=== PATIENT | female | born 1965 | race Caucasian/White ===

== ENCOUNTER → 2016-09-11 | Outpatient (CLI) | payer OTHER ==
[~2016-09-11] MED LIST: ALBU18002 INH; ALBU1AER9 INH; AMIT75TA2 PO; AMOX500C3 PO; CHOL100027 PO; CYM30 PO; HYZ/10015 PO; IPRASOL4 INH; LEVO125T4 PO; LEVO200T PO; LOSA100T65 PO; LPT/20 PO; METO-157 PO; METO50TA16 PO; NTRGSL/4 UT; OXYC-57 PO; OXYC7.5T78 PO; PRZ/40 PO; SPR25 PO; SYMIN INH; SYMIN160 INH; TOPI100T20 PO; TPM100 PO; VARE1PAK10 PO; ZNTT/150 PO
[2016-09-12 05:22] LABS: BENZODIAZEPINE, URINE NEG (NEG); COCAINE,URINE NEG (NEG); PHENCYCLIDINE, URINE NEG (NEG)
[2016-09-13 00:37] LABS: URCREATININE 108.4 MG/DL (>/= 20)
== END | disposition home or self-care (01) ==
LOC: EDBD → C.LAB 23:30
PROVIDERS: ATTEND Nurse Practitioner Family
DX: Z79.899 Other long term (current) drug therapy (principal)

== ENCOUNTER → 2016-09-26 | Outpatient (CLI) | payer OTHER | END | disposition home or self-care (01) | LOC: EDBD → C.PATHSPEC 14:14 | PROVIDERS: ATTEND Dermatology | DX: D23.5 Other benign neoplasm of skin of trunk (principal) ==

== ENCOUNTER 2016-10-18 19:41 | Emergency (ER) | payer OTHER ==
[~2016-10-18] VITALS: Ht 165.1 cm; Wt 110.0 kg
[~2016-10-18 19:41] MED LIST changes: -ALBU18002 INH; -AMIT75TA2 PO; -AMOX500C3 PO; -CHOL100027 PO; -IPRASOL4 INH; -LEVO125T4 PO; -LOSA100T65 PO; -LPT/20 PO; -METO-157 PO; -METO50TA16 PO; -NTRGSL/4 UT; -OXYC-57 PO; -PRZ/40 PO; -SPR25 PO; -SYMIN160 INH; -TPM100 PO; -VARE1PAK10 PO; -ZNTT/150 PO
[2016-10-18 19:44] VITALS: TEMP 37; Ht 165.1 cm; Wt 110.0 kg
[2016-10-18] MEDS ORDERED: ASPIRIN 81 MG CHEW PO STA (19:56)
[2016-10-18] MEDS ORDERED: ONDANSETRON INJ 2 MG/ML 2 ML VIAL IV STA (19:56)
[2016-10-18] MEDS ORDERED: MoRPHine SULFATE 4 MG/ML 1 ML CARP\\VIAL IV STA ×2 (19:56→21:15)
--- NOTE | 2016-10-18 20:03 | EMERGENCY ROOM VISIT NOTE ---
History Report prepared by Karly: Tal Gonzalez Under the Supervision of: Dr. Sim Medina M.D. First contact with patient: 19:51 Chief Complaint: CHEST PAIN Stated Complaint: CHEST PAINS DOWN L ARM UP NECK Nursing Triage Summary: left sided cp since 1500 History of Present Illness The patient is a 51 year old female who presents to the Emergency Room with complaints of worsening chest pain since 1500 today. The patient was at a viewing in [place] when the pain started. The pain is sharp in nature and is located in the middle of her chest. She notices the pain especially when she is breathing. The patient also notes radiation to the left arm and neck. She has never had pain like this before. The patient also complains of shortness of breath. She denies any abdominal pain, black or bloody stools, or pain or swelling of the legs. The patient denies any recent trauma or injuries. She has a history of breast cancer and is in remission. The patient denies any history of blood clots and is not on any blood thinners or aspirin. She does not have a personal history of heart disease but does have a family history. The patient is a smoker. Source of History: patient, spouse/significant other Onset: 1500 today Position: chest Quality: sharp Timing: worsening Modifying Factors (Worsening): breathing Associated Symptoms: + SOB, No abdominal pain, No hematochezia, No melena Review of Systems See HPI for pertinent positives & negatives. A total of 10 systems reviewed and were otherwise negative. Past Medical & Surgical Medical Problems: (1) ANXIETY STATE NOS (2) BIPOLAR DISORDER, UNSPECIFIED (3) section (4) Cholecystectomy (5) CHRONIC OBSTRUCTIVE ASTHMA, W (ACUTE) EXACERBATION (6) DIAB AIDAN WO COMPL, TYPE II OR UNSPEC TYPE, NOT UNCNTRLD (7) DIVERTICULITIS COLON (W/O MENT OF HEMORRHAGE) (8) ESOPHAGEAL REFLUX (9) FAM HX-DIABETES MELLITUS (10) FAM HX-ISCHEM HEART DIS (11) FAM HX-OTH MALIG NEOPLASM (12) FAMILY HISTORY OF OTHER CARDIOVASCULAR DISEASES (13) FAMILY HX-BREAST MALIG (14) FAMILY HX-GI MALIGNANCY (15) FAMILY HX-MALIGNANCY NOS (16) HISTORY OF TOBACCO USE (17) HX OF BREAST MALIGNANCY (18) HYPERTENSION NOS (19) HYPOTHYROIDISM NOS (20) Hysterectomy (21) Thyroid nodule Old medical records were reviewed. Nurse's notes were reviewed and I agree with. Family History Cancer Heart disease Hypertension Social History Smoking Status: Current Every Day Smoker Alcohol Use: none Drug Use: none Marital Status: Occupation Status: employed Current/Historical Medications Scheduled Amitriptyline Hcl (Elavil), 75 MG PO HS Atorvastatin (Atorvastatin Calcium), 20 MG PO HS Cholecalciferol (Vitamin D 1000 Unit), 4,000 INTER.UNIT PO HS Duloxetine HCl (Duloxetine HCl), 30 MG PO HS Hctz/Losartan (Hyzaar 25MG/100MG), 1 TAB PO HS Levothyroxine Sodium (Synthroid), 200 MCG PO QAM Metoprolol Tartrate (Lopressor) (Lopressor), 50 MG PO BID Topiramate (Topamax), 100 MG PO BID Scheduled PRN Albuterol Sulfate (Proair Respiclick), 2 PUFFS INH Q4 PRN for SOB/Wheezing Budesonide/Formoterol Fumarate (Symbicort 160-4.5 Mcg/Act), 2 PUFFS INH BID PRN for Shortness of Breath Allergies Coded Allergies: Tamoxifen (Unverified Allergy, Severe, "CAN'T MOVE", 10/18/16) Ceftriaxone (Verified Allergy, Intermediate, REDNESS, ITCHING, 10/18/16) IV ROCEPHIN IG ADMINISTERED VIA IV PUMP ORDERED AT 190. AT APPROX 1930 PT RANG SMITH WITH COMPLAINT OF REDNESS AND ITCHINESS. IV ROCEPHIN STOPPED IMMEDIATELY (PT RECEIVED 75ML OF 100ML BAG). ORDER FOR BENADRYL 50MG IV RECEIVED AND ADMINISTERED. PT IV NSS INFUSING AT 999ML/HR VIA PUMP. AT 193 PT WITH NOTED DECREASED REDNESS TO SKIN AND VERBALIZED DECREASED ITCHINESS. PT ON CARDIAC AND PULSE OX MONITORING. PT PULSE OX READING MAINTAINED 97% AND PT HAD NO COMPLAINT OF SOB, THROAT SWELLING, OR DIFFICULTY BREATHING. Cephalexin (Verified Allergy, Intermediate, SHORTNESS OF BREATH, 10/18/16) Sulfamethoxazole w/Trimethoprim (Verified Allergy, Intermediate, SHORTNESS OF BREATH, 10/18/16) Vancomycin (Verified Allergy, Intermediate, ITCHING ALL OVER, RASH, PARESTHESIAS, 10/18/16) Tramadol (Verified Allergy, Mild, ITCHY, 10/18/16) Codeine (Verified Adverse Reaction, Intermediate, GI BLEED, 10/18/16) Physical Exam Vital Signs Date Time Temp Pulse Resp B/P Pulse Ox O2 Delivery O2 Flow Rate FiO2 10/18/16 23:14 67 16 129/89 99 10/18/16 21:33 70 18 133/92 99 Room Air 10/18/16 20:15 78 10/18/16 19:44 37.0 102 18 182/112 94 Room Air Physical Exam General: Mildly uncomfortable appearing middle aged female in no acute distress. HEENT: Normal cephalic atraumatic. Pupils are equal round and reactive to light. Extraocular movements are intact. Oropharynx is pink with moist mucous membranes. No swelling of the mouth lips or tongue. Neck: Supple with a midline trachea. No meningeal signs or stiffness, no JVD or bruits. No Stridor. Chest: Clear to auscultation bilaterally. No wheezes or rhonchi. No increased work of breathing. Reproducibly Tender to palpation anterior chest. Heart: regular rate and rhythm. Abdomen: Soft nontender, nondistended without rebound guarding or rigidity. Extremities: No cyanosis clubbing. No calf tenderness or assymetry. Trace pedal edema. Spine/Back. Non tender to palpation. No CVA tenderness Skin: Good turgor without rashes. Neurologic exam: Cranial nerves two through 12 are intact. Motor and sensation are intact and symmetrical throughout. Medical Decision & Procedures ER Provider Diagnostic Interpretation: X-ray results as stated below per interpretation by me and the radiologist: CHEST ONE VIEW PORTABLE CLINICAL HISTORY: Chest and left arm pain. COMPARISON STUDY: Chest radiograph December 13, 2015. FINDINGS: A left subclavian [id number] is in place. There is no pneumothorax or pleural effusion. Cardiomediastinal silhouette is normal. There is no evidence of pulmonary edema. Appearance of the chest is unchanged. IMPRESSION: No acute cardiopulmonary findings. Electronically signed by: Troy Medrano M.D. 10/18/2016 8:26 PM Dictated Date/Time: 10/18/2016 8:26 PM Laboratory Results 10/18/16 20:10 Red Blood Count 4.79, Mean Corpuscular Volume 88.5, Mean Corpuscular Hemoglobin 31.5, Mean Corpuscular Hemoglobin Concent 35.6, Mean Platelet Volume 9.6, Neutrophils (%) (Auto) 59.9, Lymphocytes (%) (Auto) 33.2, Monocytes (%) (Auto) 5.0, Eosinophils (%) (Auto) 1.4, Basophils (%) (Auto) 0.2, Neutrophils # (Auto) 6.73, Lymphocytes # (Auto) 3.72, Monocytes # (Auto) 0.56, Eosinophils # (Auto) 0.16, Basophils # (Auto) 0.02 10/18/16 20:10 Test 10/18/16 20:10 10/18/16 20:20 10/18/16 22:11 White Blood Count 11.22 K/uL (4.8-10.8) Red Blood Count 4.79 M/uL (4.2-5.4) Hemoglobin 15.1 g/dL (12.0-16.0) Hematocrit 42.4 % (37-47) Mean Corpuscular Volume 88.5 fL (80-100) Mean Corpuscular Hemoglobin 31.5 pg (25-34) Mean Corpuscular Hemoglobin Concent 35.6 g/dl (32-36) Platelet Count 268 K/uL (130-400) Mean Platelet Volume 9.6 fL (7.4-10.4) Neutrophils (%) (Auto) 59.9 % Lymphocytes (%) (Auto) 33.2 % Monocytes (%) (Auto) 5.0 % Eosinophils (%) (Auto) 1.4 % Basophils (%) (Auto) 0.2 % Neutrophils # (Auto) 6.73 K/uL (1.4-6.5) Lymphocytes # (Auto) 3.72 K/uL (1.2-3.4) Monocytes # (Auto) 0.56 K/uL (0.11-0.59) Eosinophils # (Auto) 0.16 K/uL (0-0.5) Basophils # (Auto) 0.02 K/uL (0-0.2) RDW Standard Deviation 40.3 fL (36.4-46.3) RDW Coefficient of Variation 12.6 % (11.5-14.5) Immature Granulocyte % (Auto) 0.3 % Immature Granulocyte # (Auto) 0.03 K/uL (0.00-0.02) Prothrombin Time 10.0 SECONDS (9.0-12.0) Prothromb Time International Ratio 0.9 (0.9-1.1) Activated Partial Thromboplast Time 33.4 SECONDS (21.0-31.0) Partial Thromboplastin Ratio 1.3 Anion Gap 9.0 mmol/L (3-11) Est Creatinine Clear Calc Drug Dose 111.0 ml/min Estimated GFR () 108.7 Estimated GFR (Non- 93.8 BUN/Creatinine Ratio 14.6 (10-20) Calcium Level 8.7 mg/dl (8.5-10.1) Total Bilirubin 0.3 mg/dl (0.2-1) Direct Bilirubin < 0.1 mg/dl (0-0.2) Aspartate Amino Transf (AST/SGOT) 24 U/L (15-37) Alanine Aminotransferase (ALT/SGPT) 85 U/L (12-78) Alkaline Phosphatase 114 U/L (45-117) Total Creatine Kinase 68 U/L (26-192) Creatine Kinase MB 0.8 ng/ml (0.5-3.6) Creatine Kinase MB Ratio 1.2 (0-3.0) Total Protein 7.2 gm/dl (6.4-8.2) Albumin 3.7 gm/dl (3.4-5.0) Lipase 157 U/L (73-393) Bedside D-Dimer 291 ng/mlFEU (0-450) DC-Ifw-A-Type Natriuretic Peptide 45 pg/ml (0-900) Bedside Troponin I 0.000 ng/ml (0-0.045) Laboratory studies as stated above per my review. Medications Administered Medications (Trade) Dose Ordered Sig/Sunday Route Start Time Stop Time Status Last Admin Dose Admin Morphine Sulfate (MoRPHine SULFATE INJ) 4 mg NOW STAT IV 10/18/16 19:56 10/18/16 19:58 DC 10/18/16 20:17 4 MG Ondansetron HCl (Zofran Inj) 4 mg NOW STAT IV 10/18/16 19:56 10/18/16 19:58 DC 10/18/16 20:17 4 MG Aspirin (Aspirin Chew) 324 mg NOW STAT PO 10/18/16 19:56 10/18/16 19:58 DC 10/18/16 20:17 324 MG Morphine Sulfate (MoRPHine SULFATE INJ) 4 mg NOW STAT IV 10/18/16 21:15 10/18/16 21:16 DC 10/18/16 21:29 4 MG ECG Indication: chest pain Rate (beats per minute): 85 Rhythm: normal sinus Findings: no acute ischemic change, no ectopy Comparison ECG Date: 2015 Change: no significant change ED Course 1950: Past medical records reviewed. The patient was evaluated in room A12a, and a complete history and physical examination were performed. 1955: Aspirin 324 mg PO, Zofran 4 mg IV, Morphine Sulfate 4 mg IV. 2109: The patient is feeling better. Ordering a repeat EKG. 2114: Morphine Sulfate 4 mg IV. 2154: I offered the patient admission but she would rather go home. Her chest pain is reproducible. Ordered a second troponin. 2244: Repeat EKG showed normal sinus rhythm at 72, no acute ischemic changes or ectopy, no significant change compared to first EKG. 2299: Reassessed the patient. She feels better but wants to go home. She verbalized understanding and agreement of the treatment plan. The patient is ready for discharge. Medical Decision Differential diagnosis includes acute coronary syndrome, arrhythmia, PE, pneumothorax, infection, electrolyte or metabolic abnormality. This patient comes in as described above. She was placed in room A 12. she is here for treatment and evaluation of central chest pain and it is reproducible. She went to today and started then she's had it for 6 or 7 hours consistently. It hurts worse with movement and breathing. IV access was established through her a port. She was given morphine 4 mg IV and Zofran 4 mg IV and felt better she was given additional morphine was resting very comfortably. EKG does not suggest acute coronary syndrome or arrhythmia. I did a second EKG while she was in here and is no change compared to the first. She had 2 troponins the ER they both were 0. Her d-dimer is within normal limits and in a low pretest probability said makes PE highly unlikely. She's had no electrolyte or metabolic abnormalities. Chest x-ray was unremarkable does not suggest congestive heart failure, pneumonia, or pneumothorax. She looks good and I talked at length I offered admission to further rule out cardiac disease but she would rather go home leg and I think that this is reasonable at this point. She should rest and drink plenty of fluids and use ibuprofen for pain return if: Increasing pain, worsening of symptoms, shortness breath, any new problems concerns. She should follow up with her doctor Friday for recheck. She is happy the plan and discharged to home. Impression Primary Impression: Chest wall pain Additional Impression: Substernal precordial chest pain Scribe Attestation The scribe's documentation has been prepared under my direction and personally reviewed by me in its entirety. I confirm that the note above accurately reflects all work, treatment, procedures, and medical decision making performed by me. Departure Information Dispostion Home / Self-Care Referrals Yash Baxter III, CRNP (PCP) Forms HOME CARE DOCUMENTATION FORM, IMPORTANT VISIT INFORMATION Patient Instructions My [facility] Additional Instructions Rest. Drink plenty of fluids. Use ibuprofen 400 mg every 6 hours, take with food. Return if: worsening of symptoms, increasing pain, question any new problems or concerns. Follow-up with your doctor on Friday for recheck. Problem Qualifiers
[2016-10-18 20:20] LABS: BASO % 0.2 %; BASO ABS # 0.02 K/uL (0-0.2); COMPLETE YES; EOS % 1.4 %; HEMATOCRIT 42.4 % (37-47); IG% 0.3 %; LYMPH % 33.2 %; LYMPH ABS # 3.72 K/uL (1.2-3.4); MEAN CELL VOLUME 88.5 fL (80-100); MEAN CORPUSCULAR HEMOGLOBIN 31.5 pg (25-34); MEAN CORPUSCULAR HGB CONC 35.6 g/dl (32-36); MEAN PLATELET VOLUME 9.6 fL (7.4-10.4); NEUT % 59.9 %; PLATELET COUNT 268 K/uL (130-400); RED BLOOD COUNT 4.79 M/uL (4.2-5.4); WHITE BLOOD COUNT 11.22 K/uL (4.8-10.8)
--- NOTE | 2016-10-18 20:28 | DIAGNOSTIC IMAGING REPORT ---
CHEST ONE VIEW PORTABLE CLINICAL HISTORY: Chest and left arm pain. COMPARISON STUDY: Chest radiograph December 13, 2015. FINDINGS: A left subclavian [id number]-[id number]-Nbve is in place. There is no pneumothorax or pleural effusion. Cardiomediastinal silhouette is normal. There is no evidence of pulmonary edema. Appearance of the chest is unchanged. IMPRESSION: No acute cardiopulmonary findings. Electronically signed by: Troy Medrano M.D. 10/18/2016 8:26 PM Dictated Date/Time: 10/18/2016 8:26 PM
[2016-10-18 20:30] LABS: INR 0.9 (0.9-1.1); PARTIAL THROMBOPLASTIN RATIO 1.3
[2016-10-18 20:38] LABS: ALT/SGPT 85 U/L (12-78); BLOOD UREA NITROGEN 11 mg/dl (7-18); BUN/CREATININE RATIO 14.6 (10-20); CALCIUM 8.7 mg/dl (8.5-10.1); CARBON DIOXIDE 26 mmol/L (21-32); CHLORIDE 102 mmol/L (98-107); CREATININE 0.74 mg/dl (0.60-1.20); GLUCOSE 132 mg/dl (70-99); POTASSIUM 3.4 mmol/L (3.5-5.1); SODIUM 137 mmol/L (136-145)
[2016-10-18 20:42] LABS: ALKALINE PHOSPHATASE 114 U/L (45-117); AST/SGOT 24 U/L (15-37); CKMB/CK RATIO 1.2 (0-3.0)
[2016-10-18 23:14] VITALS: BP 129/89; PULSE 67; O2SAT 99
[2017-05-18] MEDS ORDERED: IPRASOL4 INH (09:11)
[2017-05-18] MEDS ORDERED: ZNTT/150 PO (09:11)
[2017-05-18] MEDS ORDERED: TPM100 PO (15:24)
[2017-05-18] MEDS ORDERED: NTRGSL/4 UT (15:24)
[2017-05-18] MEDS ORDERED: SYMIN160 INH (15:24)
[2017-05-18] MEDS ORDERED: LEVO125T4 PO ×2 (15:24)
[2017-05-18] MEDS ORDERED: LOSA100T65 PO (15:25)
[2017-05-18] MEDS ORDERED: AMIT75TA2 PO (17:01)
[2017-05-18] MEDS ORDERED: METO50TA16 PO (18:32)
[2017-05-18] MEDS ORDERED: LPT/20 PO (18:32)
[2017-05-18] MEDS ORDERED: CHOL100027 PO (20:13)
[2017-05-18] MEDS ORDERED: ALBU18002 INH (20:51)
== END 2016-10-18 23:20 | disposition home or self-care (01) ==
LOC: EDBD → C.EDB 19:42 → C.EDA 23:20
DX: R07.89 Other chest pain (principal); R07.2 Precordial pain; Z85.3 Personal history of malignant neoplasm of breast; J44.9 Chronic obstructive pulmonary disease, unspecified; E11.9 Type 2 diabetes mellitus without complications; E03.9 Hypothyroidism, unspecified; I10 Essential (primary) hypertension; F17.200 Nicotine dependence, unspecified, uncomplicated; F41.9 Anxiety disorder, unspecified; Z98.891 History of uterine scar from previous surgery; Z90.710 Acquired absence of both cervix and uterus; Z90.49 Acquired absence of other specified parts of digestive tract; Z82.49 Family history of ischemic heart disease and other diseases of the circulatory system; Z80.3 Family history of malignant neoplasm of breast; Z80.0 Family history of malignant neoplasm of digestive organs; Z79.899 Other long term (current) drug therapy

== ENCOUNTER → 2016-10-23 | Outpatient (CLI) | payer OTHER ==
[~2016-10-23] MED LIST changes: +ALBU18002 INH; -ALBU1AER9 INH; +AMIT75TA2 PO; +AMOX500C3 PO; +CHOL100027 PO; +IPRASOL4 INH; +LEVO125T4 PO; +LOSA100T65 PO; +LPT/20 PO; +METO-157 PO; +METO50TA16 PO; +NTRGSL/4 UT; +OXYC-57 PO; -OXYC7.5T78 PO; +PRZ/40 PO; +SPR25 PO; +SYMIN160 INH; +TPM100 PO; +VARE1PAK10 PO; +ZNTT/150 PO
[2016-10-23 02:28] LABS: ALT/SGPT 67 U/L (12-78); AST/SGOT 17 U/L (15-37); BLOOD UREA NITROGEN 14 mg/dl (7-18); BUN/CREATININE RATIO 16.7 (10-20); CARBON DIOXIDE 26 mmol/L (21-32); CHLORIDE 105 mmol/L (98-107); CREATININE 0.83 mg/dl (0.60-1.20); GLUCOSE 114 mg/dl (70-99); POTASSIUM 3.8 mmol/L (3.5-5.1); SODIUM 141 mmol/L (136-145)
[2016-10-23 02:38] LABS: ALB/GLOB RATIO 1.1 (0.9-2); ALKALINE PHOSPHATASE 104 U/L (45-117)
[2016-10-23 06:09] LABS: ESTIMATED AVERAGE GLUCOSE 143 mg/dl; HA1C FLAG Normal (Normal)
== END | disposition home or self-care (01) ==
LOC: EDBD → C.LAB 01:23
PROVIDERS: ATTEND Internal Medicine Endocrinology, Diabetes & Metabolism
DX: E03.9 Hypothyroidism, unspecified (principal)

== ENCOUNTER 2016-10-29 22:19 | Observation (INO) | payer OTHER ==
[~2016-10-29] VITALS: Ht 165.1 cm; Wt 109.7 kg
[~2016-10-29 22:19] MED LIST changes: -ALBU18002 INH; -AMIT75TA2 PO; -AMOX500C3 PO; -CHOL100027 PO; -IPRASOL4 INH; -LEVO125T4 PO; -LOSA100T65 PO; -LPT/20 PO; -METO-157 PO; -METO50TA16 PO; -NTRGSL/4 UT; -OXYC-57 PO; -PRZ/40 PO; -SPR25 PO; -SYMIN160 INH; -TPM100 PO; -VARE1PAK10 PO; -ZNTT/150 PO
[2016-10-29] MEDS ORDERED: ALUMINUM/MAGNESIUM SUSP 30 ML UDC PO STA (22:40)
[2016-10-29] MEDS ORDERED: PANTOprazole SOD 40 MG TAB PO STA (22:40)
[2016-10-29] MEDS ORDERED: ASPIRIN 81 MG CHEW PO STA (22:40)
[2016-10-29 22:48] LABS: HEMATOCRIT 41.5 % (37-47); MEAN CELL VOLUME 88.1 fL (80-100); MEAN CORPUSCULAR HEMOGLOBIN 30.8 pg (25-34); MEAN CORPUSCULAR HGB CONC 34.9 g/dl (32-36); MEAN PLATELET VOLUME 9.4 fL (7.4-10.4); PLATELET COUNT 227 K/uL (130-400); RED BLOOD COUNT 4.71 M/uL (4.2-5.4); WHITE BLOOD COUNT 10.64 K/uL (4.8-10.8)
[2016-10-29] MEDS: MoRPHine SULFATE 4 MG/ML 1 ML CARP\\VIAL IV PRN (22:49)
[2016-10-29] MEDS ORDERED: ONDANSETRON INJ 2 MG/ML 2 ML VIAL ONE (22:51)
[2016-10-29] MEDS ORDERED: ONDANSETRON INJ 2 MG/ML 2 ML VIAL IV STA (22:54)
--- NOTE | 2016-10-29 22:56 | DIAGNOSTIC IMAGING REPORT ---
CHEST ONE VIEW PORTABLE CLINICAL HISTORY: CHEST PAIN dyspnea COMPARISON STUDY: 10/18/2016 FINDINGS: Central catheter in superior vena cava. Lungs are clear. Diaphragms smooth. IMPRESSION: No acute process Electronically signed by: Aden House M.D. 10/29/2016 10:55 PM Dictated Date/Time: 10/29/2016 10:54 PM
--- NOTE | 2016-10-29 22:59 | EMERGENCY ROOM VISIT NOTE ---
History Report prepared by Karly: Tangela Zhao Under the Supervision of: Dr. Deion Fine D.O. First contact with patient: 22:29 Chief Complaint: CHEST PAIN Stated Complaint: CHEST PAIN Nursing Triage Summary: Patient reports chest pain starting at around 8:45 tonight, reports it being on the left side radiating to her back and down her left arm. 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 The patient currently rates her pain as a 10/10 in severity. She states it radiates into her back and down her left arm. The patient states that deep breaths worsen her pain. She states she has not yet had a stress test but states that she has one scheduled. The patient states she also had some more swelling in her ankle today and some nausea along with her symptoms. 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 Review of Systems See HPI for pertinent positives & negatives. A total of 10 systems reviewed and were otherwise negative. Past Medical & Surgical Medical Problems: (1) ANXIETY STATE NOS (2) BIPOLAR DISORDER, UNSPECIFIED (3) section (4) Cholecystectomy (5) CHRONIC OBSTRUCTIVE ASTHMA, W (ACUTE) EXACERBATION (6) DIAB AIDAN WO COMPL, TYPE II OR UNSPEC TYPE, NOT UNCNTRLD (7) DIVERTICULITIS COLON (W/O MENT OF HEMORRHAGE) (8) ESOPHAGEAL REFLUX (9) FAM HX-DIABETES MELLITUS (10) FAM HX-ISCHEM HEART DIS (11) FAM HX-OTH MALIG NEOPLASM (12) FAMILY HISTORY OF OTHER CARDIOVASCULAR DISEASES (13) FAMILY HX-BREAST MALIG (14) FAMILY HX-GI MALIGNANCY (15) FAMILY HX-MALIGNANCY NOS (16) HISTORY OF TOBACCO USE (17) HX OF BREAST MALIGNANCY (18) HYPERTENSION NOS (19) HYPOTHYROIDISM NOS (20) Hysterectomy (21) Thyroid nodule Family History Cancer Heart disease Hypertension Social History Smoking Status: Current Every Day Smoker Alcohol Use: none Drug Use: none Marital Status: Occupation Status: employed Current/Historical Medications Scheduled Amitriptyline Hcl (Elavil), 75 MG PO HS Atorvastatin (Atorvastatin Calcium), 20 MG PO HS Cholecalciferol (Vitamin D 1000 Unit), 4,000 INTER.UNIT PO HS Duloxetine HCl (Duloxetine HCl), 30 MG PO HS Hctz/Losartan (Hyzaar 25MG/100MG), 1 TAB PO HS Levothyroxine Sodium (Synthroid), 250 MCG PO QAM Metoprolol Tartrate (Lopressor) (Lopressor), 50 MG PO BID Topiramate (Topamax), 100 MG PO BID Scheduled PRN Albuterol Sulfate (Proair Respiclick), 2 PUFFS INH Q4 PRN for SOB/Wheezing Budesonide/Formoterol Fumarate (Symbicort 160-4.5 Mcg/Act), 2 PUFFS INH BID PRN for Shortness of Breath Allergies Coded Allergies: Tamoxifen (Unverified Allergy, Severe, "CAN'T MOVE", 10/29/16) Ceftriaxone (Verified Allergy, Intermediate, REDNESS, ITCHING, 10/29/16) IV ROCEPHIN IG ADMINISTERED VIA IV PUMP ORDERED AT 1903. AT APPROX 1930 PT RANG SMITH WITH COMPLAINT OF REDNESS AND ITCHINESS. IV ROCEPHIN STOPPED IMMEDIATELY (PT RECEIVED 75ML OF 100ML BAG). ORDER FOR BENADRYL 50MG IV RECEIVED AND ADMINISTERED. PT IV NSS INFUSING AT 999ML/HR VIA PUMP. AT 1937 PT WITH NOTED DECREASED REDNESS TO SKIN AND VERBALIZED DECREASED ITCHINESS. PT ON CARDIAC AND PULSE OX MONITORING. PT PULSE OX READING MAINTAINED 97% AND PT HAD NO COMPLAINT OF SOB, THROAT SWELLING, OR DIFFICULTY BREATHING. Cephalexin (Verified Allergy, Intermediate, SHORTNESS OF BREATH, 10/29/16) Sulfamethoxazole w/Trimethoprim (Verified Allergy, Intermediate, SHORTNESS OF BREATH, 10/29/16) Vancomycin (Verified Allergy, Intermediate, ITCHING ALL OVER, RASH, PARESTHESIAS, 10/29/16) Tramadol (Verified Allergy, Mild, ITCHY, 10/29/16) Codeine (Verified Adverse Reaction, Intermediate, GI BLEED, 10/29/16) Physical Exam Vital Signs Date Time Temp Pulse Resp B/P Pulse Ox O2 Delivery O2 Flow Rate FiO2 10/30/16 00:10 63 20 143/73 96 Room Air 10/29/16 22:58 86 18 144/91 Room Air 10/29/16 22:57 98 Room Air 10/29/16 22:41 98 Room Air 10/29/16 22:25 100 10/29/16 22:25 36.8 93 32 173/111 100 Room Air 10/29/16 22:24 99 Room Air Physical Exam GENERAL: Patient is awake, alert, appears very anxious and appearing to be having significant pain. EYES: The conjunctivae are clear. The pupils are round and reactive. EARS, NOSE, MOUTH AND THROAT: The nose is without any evidence of any deformity. Mucous membranes are moist tongue is midline NECK: The neck is nontender and supple. RESPIRATORY: Normal respiratory effort is noted there is no evidence of wheezing rhonchi or rales CARDIOVASCULAR: Regular rate and rhythm noted there no murmurs rubs or gallops normal S1 normal S2 GASTROINTESTINAL: The abdomen is soft. Bowel sounds are present in all quadrants. Abdomen is nontender MUSCULOSKELETAL/EXTREMITIES: There is no evidence of gross deformity full range of motion is noted in the hips and shoulders SKIN: There is no obvious evidence of any rash. There are no petechiae, pallor or cyanosis noted. Pedal edema bilaterally. NEUROLOGIC: Patient is awake alert and oriented x3. Medical Decision & Procedures ER Provider Diagnostic Interpretation: X-ray results as stated below per interpretation by me and the radiologist. CHEST ONE VIEW PORTABLE CLINICAL HISTORY: CHEST PAIN dyspnea COMPARISON STUDY: 10/18/2016 FINDINGS: Central catheter in superior vena cava. Lungs are clear. Diaphragms smooth. IMPRESSION: No acute process Electronically signed by: Aden House M.D. 10/29/2016 10:55 PM Dictated Date/Time: 10/29/2016 10:54 PM Laboratory Results 10/29/16 22:30 Red Blood Count 4.71, Mean Corpuscular Volume 88.1, Mean Corpuscular Hemoglobin 30.8, Mean Corpuscular Hemoglobin Concent 34.9, Mean Platelet Volume 9.4 10/29/16 22:30 Test 10/29/16 22:30 White Blood Count 10.64 K/uL (4.8-10.8) Red Blood Count 4.71 M/uL (4.2-5.4) Hemoglobin 14.5 g/dL (12.0-16.0) Hematocrit 41.5 % (37-47) Mean Corpuscular Volume 88.1 fL (80-100) Mean Corpuscular Hemoglobin 30.8 pg (25-34) Mean Corpuscular Hemoglobin Concent 34.9 g/dl (32-36) Platelet Count 227 K/uL (130-400) Mean Platelet Volume 9.4 fL (7.4-10.4) RDW Standard Deviation 41.2 fL (36.4-46.3) RDW Coefficient of Variation 12.8 % (11.5-14.5) Neutrophils % (Manual) 61.0 % Lymphocytes % (Manual) 21.8 % Variant Lymphocytes % (manual) 13.6 % Monocytes % (Manual) 2.7 % Eosinophils % (Manual) 0.9 % Neutrophils # (Manual) 6.49 K/uL (1.4-6.5) Total Absolute Neutrophils 6.49 K/uL (1.4-6.5) Lymphocytes # (Manual) 2.32 K/uL (1.2-3.4) Absolute Variant Lymphocytes 1.45 K/uL Total Absolute Lymphocytes 3.77 K/uL (1.2-3.4) Monocytes # (Manual) 0.29 K/uL (0.11-0.59) Eosinophils # (Manual) 0.10 K/uL (0-0.5) Red Blood Cell Morphology Unremarkable Prothrombin Time 10.0 SECONDS (9.0-12.0) Prothromb Time International Ratio 0.9 (0.9-1.1) Activated Partial Thromboplast Time 24.2 SECONDS (21.0-31.0) Partial Thromboplastin Ratio 0.9 Anion Gap 11.0 mmol/L (3-11) Est Creatinine Clear Calc Drug Dose 94.8 ml/min Estimated GFR () 90.7 Estimated GFR (Non- 78.2 BUN/Creatinine Ratio 15.9 (10-20) Calcium Level 8.0 mg/dl (8.5-10.1) Magnesium Level 2.0 mg/dl (1.8-2.4) Total Bilirubin 0.2 mg/dl (0.2-1) Direct Bilirubin < 0.1 mg/dl (0-0.2) Aspartate Amino Transf (AST/SGOT) 19 U/L (15-37) Alanine Aminotransferase (ALT/SGPT) 55 U/L (12-78) Alkaline Phosphatase 129 U/L (45-117) Total Creatine Kinase 76 U/L (26-192) Creatine Kinase MB 1.3 ng/ml (0.5-3.6) Creatine Kinase MB Ratio 1.7 (0-3.0) Troponin I < 0.015 ng/ml (0-0.045) Total Protein 6.9 gm/dl (6.4-8.2) Albumin 3.5 gm/dl (3.4-5.0) Lipase 176 U/L (73-393) Laboratory results per my review. Medications Administered Medications (Trade) Dose Ordered Sig/Sunday Route Start Time Stop Time Status Last Admin Dose Admin Aspirin (Aspirin Chew) 324 mg NOW STAT PO 10/29/16 22:40 10/29/16 22:41 DC 10/29/16 22:49 324 MG Morphine Sulfate (MoRPHine SULFATE INJ) 4 mg Q15M PRN IV 10/29/16 22:45 11/12/16 22:44 10/29/16 22:49 4 MG Pantoprazole Sodium (Protonix Tab) 40 mg NOW STAT PO 10/29/16 22:40 10/29/16 22:41 DC 10/29/16 22:49 40 MG Al Hydroxide/Mg Hydroxide (Maalox Susp) 30 ml NOW STAT PO 10/29/16 22:40 10/29/16 22:41 DC 10/29/16 22:49 30 ML Ondansetron HCl (Zofran Inj) 4 mg NOW STAT IV 10/29/16 22:54 10/29/16 22:55 DC 10/29/16 22:54 4 MG ECG Indication: chest pain Rate (beats per minute): 103 Rhythm: sinus tachycardia Findings: ST depression (Inferior, Lateral), no ectopy Comparison ECG Date: October 18, 2016 Change: Changes are worse compared to old EKG. ED Course 2228: The patient was evaluated in room A9B. A complete history and physical examination were performed. 0: Ordered Maalox Susp 30 ml PO, Protonix Tab 40 mg PO, Aspirin Chew 324 mg PO. 5: Ordered Morphine Sulfate 4 mg IV. 2254: Ordered Zofran Inj 4 mg IV. 0007: I discussed the case with Dr. Marti BETTS. He agreed to evaluate the patient for further management and care. 23:59: A repeat EKG was obtained in the emergency department. EKG revealed normal sinus rhythm at 69 beats per minute. No ectopy, and no acute ST segment abnormalities were noted. Resolution of previously noted ST depressions was noted compared to earlier tracing from today. Medical Decision Prior records/ancillary studies reviewed. Triage Nursing notes reviewed. The patient's history was concerning for chest pain. Differential diagnosis: Etiologies such as cardiac ischemia, aortic dissection, pulmonary embolism, pneumonia, pneumothorax, musculoskeletal, infections, pericarditis, myocarditis , esophageal rupture, gastrointestinal, as well as others were entertained. The patient is a 51-year-old female who presented to emergency department with significant substernal and left-sided chest pain. The patient's EKG initially showed ST depressions. I did feel that this could be consistent with ischemia. The patient was treated with aspirin in the emergency department. She was also treated with nitrates and morphine. On subsequent reevaluation she was feeling much better. A repeat EKG showed resolution of the previously noted ST abnormalities. I discussed the patient's laboratory and radiographic studies with her. Given her symptoms as well as her abnormal EKG I also discussed his case with the on-call [facility] hospitalist group. They have agreed to evaluate the patient in the emergency department for further management and disposition. Consults Time Called: [phone] Consulting Physician: Dr. Kidd [facility] Hospitalist. Returned Call: [phone] I discussed the case with Dr. Kidd [facility] Hospitalist. He agreed to evaluate the patient for further management and care. Impression Primary Impression: Left sided chest pain Additional Impression: Abnormal EKG Scribe Attestation The scribe's documentation has been prepared under my direction and personally reviewed by me in its entirety. I confirm that the note above accurately reflects all work, treatment, procedures, and medical decision making performed by me. Departure Information Dispostion Being Evaluated By Hospitalist Referrals No Doctor, Assigned (PCP) Patient Instructions My [facility] Problem Qualifiers
[2016-10-29 23:07] LABS: ALT/SGPT 55 U/L (12-78); BLOOD UREA NITROGEN 14 mg/dl (7-18); BUN/CREATININE RATIO 15.9 (10-20); CARBON DIOXIDE 23 mmol/L (21-32); CHLORIDE 106 mmol/L (98-107); CREATININE 0.86 mg/dl (0.60-1.20); GLUCOSE 198 mg/dl (70-99); POTASSIUM 3.4 mmol/L (3.5-5.1); SODIUM 140 mmol/L (136-145)
[2016-10-29 23:11] LABS: INR 0.9 (0.9-1.1); PARTIAL THROMBOPLASTIN RATIO 0.9
[2016-10-29 23:12] LABS: ALKALINE PHOSPHATASE 129 U/L (45-117); AST/SGOT 19 U/L (15-37); CKMB/CK RATIO 1.7 (0-3.0)
[2016-10-29 23:36] LABS: COMPLETE YES; EOSINOPHIL % 0.9 %; LYMPH ABS # 2.32 K/uL (1.2-3.4); LYMPHOCYTE % 21.8 %; VARIANT LYM ABS # 1.45 K/uL; VARIANT LYMPHOCYTE % 13.6 %
[2016-10-30] VITALS (9 sets, daily range): BP systolic 114–174; BP diastolic 76–111; PULSE 58–68; TEMP 36.5–36.9; O2SAT 95–97; Ht 165.1 cm; Wt 109.7 kg
[2016-10-30] MEDS ORDERED: ACETAMINOPHEN 325 MG TAB PO PRN (00:45)
[2016-10-30] MEDS ORDERED: ZOLPIDEM TARTRATE 5 MG TAB PO PRN (00:45)
[2016-10-30] MEDS ORDERED: POTASSIUM CHLORIDE 10 MEQ TABCR PO STA (00:46)
[2016-10-30] MEDS: MoRPHine SULFATE 4 MG/ML 1 ML CARP\\VIAL IV PRN (00:57)
[2016-10-30] MEDS ORDERED: ONDANSETRON INJ 2 MG/ML 2 ML VIAL IV PRN (01:00)
[2016-10-30] MEDS ORDERED: MoRPHine SULFATE 2 MG/ML CARP IV PRN (01:00)
[2016-10-30] MEDS ORDERED: MoRPHine SULFATE 4 MG/ML 1 ML CARP\\VIAL IV PRN (01:00)
[2016-10-30 01:23] LABS: CKMB/CK RATIO 1.1 (0-3.0)
[2016-10-30] MEDS ORDERED: IV FLUIDS COMPLETED PRN (01:30)
[2016-10-30] MEDS: NITROGLYCERIN 0.4 MG SL PER TAB CHARGE SL PRN ×2 (01:47→04:00)
--- NOTE | 2016-10-30 02:06 | History and Physical ---
History & Physical Date & Time of Service: Oct 30, 2016 at 01:55 Chief Complaint: Chest Pain Primary Care Physician: Yash Baxter III, CRNP History of Present Illness Source: patient The patient is a 51-year-old female who presents to the emergency department with constant left-sided chest pain that began as she was driving her car into work. The pain does radiate to her back and down her left arm and worsens with taking a deep breath. She feels that she also had more swelling in her ankles today and had some occasional nausea with symptoms. She's had no recent travel , no sick exposures, and no different physical activities or oral intake than usual. Past Medical/Surgical History Medical Problems: (1) ANXIETY STATE NOS Status: Chronic (2) BIPOLAR DISORDER, UNSPECIFIED Status: Chronic (3) section Status: Resolved (4) Cholecystectomy Status: Chronic (5) CHRONIC OBSTRUCTIVE ASTHMA, W (ACUTE) EXACERBATION Status: Chronic (6) DIAB AIDAN WO COMPL, TYPE II OR UNSPEC TYPE, NOT UNCNTRLD Status: Chronic (7) DIVERTICULITIS COLON (W/O MENT OF HEMORRHAGE) Status: Chronic (8) ESOPHAGEAL REFLUX Status: Chronic (9) FAM HX-DIABETES MELLITUS Status: Chronic (10) FAM HX-ISCHEM HEART DIS Status: Chronic (11) FAM HX-OTH MALIG NEOPLASM Status: Chronic (12) FAMILY HISTORY OF OTHER CARDIOVASCULAR DISEASES Status: Chronic (13) FAMILY HX-BREAST MALIG Status: Chronic (14) FAMILY HX-GI MALIGNANCY Status: Chronic (15) FAMILY HX-MALIGNANCY NOS Status: Chronic (16) HISTORY OF TOBACCO USE Status: Chronic (17) HX OF BREAST MALIGNANCY Status: Chronic (18) HYPERTENSION NOS Status: Chronic (19) HYPOTHYROIDISM NOS Status: Chronic (20) Hysterectomy Status: Chronic Family History Cancer Heart disease Hypertension Social History Smoking Status: Current Every Day Smoker Smokeless Tobacco Use: No Alcohol Use: none Drug Use: none Marital Status: Housing status: lives with family Occupational Status: employed Immunizations History of Influenza Vaccine: Yes Influenza Vaccine Date: May 24, 2012 History of Tetanus Vaccine?: UTD Tetanus Immunization Date: May 24, 2007 History of Pneumococcal: Yes Pneumococcal Date: Jul 24, 2009 History of Hepatitis B Vaccine: Yes Multi-Drug Resistant Organisms History of MDRO: No Allergies Coded Allergies: Tamoxifen (Unverified Allergy, Severe, "CAN'T MOVE", 10/29/16) Ceftriaxone (Verified Allergy, Intermediate, REDNESS, ITCHING, 10/29/16) IV ROCEPHIN IG ADMINISTERED VIA IV PUMP ORDERED AT 1903. AT APPROX 1930 PT RANG SMITH WITH COMPLAINT OF REDNESS AND ITCHINESS. IV ROCEPHIN STOPPED IMMEDIATELY (PT RECEIVED 75ML OF 100ML BAG). ORDER FOR BENADRYL 50MG IV RECEIVED AND ADMINISTERED. PT IV NSS INFUSING AT 999ML/HR VIA PUMP. AT 1937 PT WITH NOTED DECREASED REDNESS TO SKIN AND VERBALIZED DECREASED ITCHINESS. PT ON CARDIAC AND PULSE OX MONITORING. PT PULSE OX READING MAINTAINED 97% AND PT HAD NO COMPLAINT OF SOB, THROAT SWELLING, OR DIFFICULTY BREATHING. Cephalexin (Verified Allergy, Intermediate, SHORTNESS OF BREATH, 10/29/16) Sulfamethoxazole w/Trimethoprim (Verified Allergy, Intermediate, SHORTNESS OF BREATH, 10/29/16) Vancomycin (Verified Allergy, Intermediate, ITCHING ALL OVER, RASH, PARESTHESIAS, 10/29/16) Tramadol (Verified Allergy, Mild, ITCHY, 10/29/16) Codeine (Verified Adverse Reaction, Intermediate, GI BLEED, 10/29/16) Home Medications Scheduled Amitriptyline Hcl (Elavil), 75 MG PO HS Atorvastatin (Atorvastatin Calcium), 20 MG PO HS Cholecalciferol (Vitamin D 1000 Unit), 4,000 INTER.UNIT PO HS Duloxetine HCl (Duloxetine HCl), 30 MG PO HS Hctz/Losartan (Hyzaar 25MG/100MG), 1 TAB PO HS Levothyroxine Sodium (Synthroid), 250 MCG PO QAM Metoprolol Tartrate (Lopressor) (Lopressor), 50 MG PO BID Topiramate (Topamax), 100 MG PO BID Scheduled PRN Albuterol Sulfate (Proair Respiclick), 2 PUFFS INH Q4 PRN for SOB/Wheezing Budesonide/Formoterol Fumarate (Symbicort 160-4.5 Mcg/Act), 2 PUFFS INH BID PRN for Shortness of Breath Review of Systems The patient denies palpitations, cough, vision change, hearing change, sore throat, fevers, chills, sweats, weight change, fatigue, nausea, vomiting, abdominal pain, pelvic pain, blood in urine or stool, dysuria, urinary frequency or urgency, lightheadedness, dizziness, headache, memory loss, rash, abnormal bruising or bleeding, imbalance, focal or generalized weakness, numbness or tingling in legs, arthralgias or myalgias, neck pain, night sweats , or allergy symptoms. The review of systems is otherwise negative other than for that already noted above, and at least 10 systems have been reviewed. Physical Exam Vital Signs Date Time Temp Pulse Resp B/P Pulse Ox O2 Delivery O2 Flow Rate FiO2 10/30/16 01:53 65 151/79 10/30/16 01:47 62 161/89 10/30/16 01:08 70 20 140/87 97 10/30/16 00:10 63 20 143/73 96 Room Air 10/29/16 22:58 86 18 144/91 Room Air 10/29/16 22:57 98 Room Air 10/29/16 22:41 98 Room Air 10/29/16 22:25 100 10/29/16 22:25 36.8 93 32 173/111 100 Room Air 10/29/16 22:24 99 Room Air The patient is awake, well-developed and adequately nourished, alert and oriented 3, normocephalic and atraumatic, lying in bed and in no acute distress. HEENT--PERRL, EOMI, mucous membranes and oropharynx dry. Neck--supple, no JVD or bruits, thyroid normal, trachea midline, no adenopathy. Heart--normal S1 and S2, no extra beats, no murmurs, rubs or gallops. Lungs--clear bilaterally but diminished throughout, no respiratory distress, no accessory muscle use. Abdomen--normal bowel sounds and soft, nontender and nondistended, no hernias or masses, no organomegaly. Extremities--no cyanosis, clubbing or edema. There are good distal pulses b/l. Dermatologic--normal skin turgor, normal color, warm and dry, no abnormal lymph nodes, no rash. Neurologic--cranial nerves II through XII grossly intact, motor and sensory examination normal. Rheumatologic--normal range of motion, nontender, muscles and joints. Psychiatric--normal affect. Diagnostics Laboratory Results Results Past 24 Hours Test 10/29/16 22:30 10/30/16 00:55 Range/Units White Blood Count 10.64 4.8-10.8 K/uL Red Blood Count 4.71 4.2-5.4 M/uL Hemoglobin 14.5 12.0-16.0 g/dL Hematocrit 41.5 37-47 % Mean Corpuscular Volume 88.1 80-100 fL Mean Corpuscular Hemoglobin 30.8 25-34 pg Mean Corpuscular Hemoglobin Concent 34.9 32-36 g/dl Platelet Count 227 130-400 K/uL Mean Platelet Volume 9.4 7.4-10.4 fL RDW Standard Deviation 41.2 36.4-46.3 fL RDW Coefficient of Variation 12.8 11.5-14.5 % Neutrophils % (Manual) 61.0 % Lymphocytes % (Manual) 21.8 % Variant Lymphocytes % (manual) 13.6 % Monocytes % (Manual) 2.7 % Eosinophils % (Manual) 0.9 % Neutrophils # (Manual) 6.49 1.4-6.5 K/uL Total Absolute Neutrophils 6.49 1.4-6.5 K/uL Lymphocytes # (Manual) 2.32 1.2-3.4 K/uL Absolute Variant Lymphocytes 1.45 K/uL Total Absolute Lymphocytes 3.77 1.2-3.4 K/uL Monocytes # (Manual) 0.29 0.11-0.59 K/uL Eosinophils # (Manual) 0.10 0-0.5 K/uL Red Blood Cell Morphology Unremarkable Prothrombin Time 10.0 9.0-12.0 SECONDS Prothromb Time International Ratio 0.9 0.9-1.1 Activated Partial Thromboplast Time 24.2 21.0-31.0 SECONDS Partial Thromboplastin Ratio 0.9 Sodium Level 140 136-145 mmol/L Potassium Level 3.4 3.5-5.1 mmol/L Chloride Level 106 98-107 mmol/L Carbon Dioxide Level 23 21-32 mmol/L Anion Gap 11.0 3-11 mmol/L Blood Urea Nitrogen 14 7-18 mg/dl Creatinine 0.86 0.60-1.20 mg/dl Est Creatinine Clear Calc Drug Dose 94.8 ml/min Estimated GFR () 90.7 Estimated GFR (Non- 78.2 BUN/Creatinine Ratio 15.9 10-20 Random Glucose 198 70-99 mg/dl Calcium Level 8.0 8.5-10.1 mg/dl Magnesium Level 2.0 1.8-2.4 mg/dl Total Bilirubin 0.2 0.2-1 mg/dl Direct Bilirubin < 0.1 0-0.2 mg/dl Aspartate Amino Transf (AST/SGOT) 19 15-37 U/L Alanine Aminotransferase (ALT/SGPT) 55 12-78 U/L Alkaline Phosphatase 129 45-117 U/L Total Creatine Kinase 76 73 26-192 U/L Creatine Kinase MB 1.3 0.8 0.5-3.6 ng/ml Creatine Kinase MB Ratio 1.7 1.1 0-3.0 Troponin I < 0.015 < 0.015 0-0.045 ng/ml Total Protein 6.9 6.4-8.2 gm/dl Albumin 3.5 3.4-5.0 gm/dl Lipase 176 73-393 U/L Diagnostic Radiology Patient Name: GANGA CERRATO Unit Number: [id number] Dictated: 10/29/162253 Transcribed: 10/29/162253 MS Printed Date/Time: [~ rep prt dt]/[~ rep prt tm] [~ rep ct labl] - [~ rep ct ivnm] [facility] Radiology Department [place] [id number] Dictated: 10/29/162253 Transcribed: 10/29/162253 MS Printed Date/Time: [~ rep prt dt]/[~ rep prt tm] [~ rep ct labl] - [~ rep ct ivnm] [~ rep ct add3]] CHEST ONE VIEW PORTABLE CLINICAL HISTORY: CHEST PAIN dyspnea COMPARISON STUDY: 10/18/2016 FINDINGS: Central catheter in superior vena cava. Lungs are clear. Diaphragms smooth. IMPRESSION: No acute process Electronically signed by: Aden House M.D. 10/29/2016 10:55 PM Dictated Date/Time: 10/29/2016 10:54 PM The status of this report is Signed. Draft = Not yet reviewed or approved by Radiologist. Signed = Reviewed and approved by Radiologist. <AttendingPhy></AttendingPhy> <FamilyPhy>No Doctor, Assigned</FamilyPhy> < PrimaryPhy>No Doctor, Assigned</PrimaryPhy> <UnitNumber>[id number]</UnitNumber> <VisitNumber>[id number]</VisitNumber> <PatientName>GANGA CERRATO</PatientName> < DateOfBirth>1965</DateOfBirth> <Location>[facility]</Location> <ServiceDate>03/10</ServiceDate> <MNE>ESINDI</MNE> <OrderingPhy>Deion Fine D.O.</ OrderingPhy> <OrderingPhyMNE>f rep ord dr hernandes</OrderingPhyMNE> <DictatingPhyMNE> f rep dict dr hernandes</DictatingPhyMNE> <CCListMNE>f rep ct greta</CCListMNE> < AdmittingPhyMNE>f pt admit dr hernandes</AdmittingPhyMNE> <AttendingPhyMNE>f pt attend dr hernandes</AttendingPhyMNE> <ConsultingPhyMNE>f pt consult dr hernandes</ConsultingPhyMNE> <FamilyPhyMNE>f pt fam dr hernandes</FamilyPhyMNE> <OtherPhyMNE>f pt other dr hernandes</OtherPhyMNE> < PrimaryPhyMNE>f pt prim care dr hernandes</PrimaryPhyMNE> <ReferringPhyMNE>f pt referring dr hernandes</ReferringPhyMNE> EKG EKG shows normal sinus rhythm at 69 bpm, there are no acute ST-T changes. Impression Assessment and Plan Precordial chest pain with radiation to back and left arm, with normal EKG and initial cardiac enzymes--the patient will be admitted to the telemetry unit for serial cardiac enzymes, cardiac rhythm monitoring and a 2-D echocardiogram with Dopplers her risk factors include hypertension, tobacco use, hypercholesterolemia and obesity. If that workup is negative, she will need a stress echocardiogram prior to discharge. We will continue metoprolol tartrate 50 mg by mouth twice a day. We will DC HCTZ 25 mg daily due to hypokalemia, continue losartan 100 mg by mouth daily, and give potassium chloride 40 mEq by mouth 1 now. We'll repeat BMP and magnesium levels in the a.m. Hypercholesterolemia--continue atorvastatin 20 mg by mouth at bedtime. Peripheral neuropathy--continue Topamax 100 mg by mouth twice a day. Hypothyroidism continue levothyroxine sodium 250 g every morning. Insomnia/myalgias--continue amitriptyline 75 mg by mouth at bedtime and duloxetine 30 mg by mouth at bedtime. Level of Care Telemetry Advanced Directives Existing Advance Directive: No Existing Living Will: No Existing Power of Wound Treatment Rn: No Resuscitation Status FULL RESUSCITATION VTE Prophylaxis VTE Risk Assessment Done? Y/N: Yes Risk Level: Moderate Given or contraindicated: SCD's Social Service Consult None Apply
[2016-10-30] MEDS ORDERED: LEVOTHYROXINE 125 MCG TAB PO SCH (06:00)
[2016-10-30] MEDS ORDERED: PERFLUTREN LIPID MICROSPHERE (DEFINITY) IV ONE (06:48)
[2016-10-30] MEDS ORDERED: TOPIRAMATE 100 MG TAB PO SCH (09:00)
[2016-10-30] MEDS ORDERED: LOSARTAN POTASSIUM 50 MG TAB PO SCH ×2 (09:00)
[2016-10-30] MEDS ORDERED: METOPROLOL TARTRATE 50 MG TAB PO SCH (09:00)
[2016-10-30 09:50] LABS: CKMB/CK RATIO 1.7 (0-3.0)
--- NOTE | 2016-10-30 10:26 | ECHOCARDIOGRAM REPORT ---
*NOTICE TO RECEIVING LIBERTARIAN AGENCY This information is strictly Confidential and protected under [place] law. [place] law prohibits you from making any further disclosure of this information unless further disclosure is expressly permitted by the written consent of the person to whom it pertains or is authorized by law. A general authorization for the release of medical or other information is not sufficient for this purpose. Hospital accepts no responsibility if the information is made available to any other person, INCLUDING THE PATIENT. Interpretation Summary * Name: GANGA CERRATO Study Date: 10/30/2016 07:26 AM BP: 114/76 mmHg * Patient Location: C.2T\S\E217\S\1 HR: 58 * : 1965 (M/d/yyyy) Gender: Female Height: 65 in * Age: 51 yrs Ethnicity: CA Weight: 239 lb * Ordering Physician: Dayron Kidd * Performed By: Leeann Grossman * * Reason For Study: CHEST PAIN * BSA: 2.1 m2 * -- Conclusions -- * 1. Technically limited study despite use of Definity ultrasound contrast. * 2. Normal LV size and wall thickness. * 3. Normal LV systolic function. LVEF 50-55%. No apparent regional wall motion abnormalities. * 4. RV not well visualized. Grossly normal size and function. * 5. No significant valvular pathology. * 6. Normal estimated CVP. * 7. Compared with prior study on 11/03/2013: Current study is technically more limited. Procedure Details * A complete two-dimensional transthoracic echocardiogram was performed (2D, M-mode, Doppler and color flow Doppler). * The study was technically limited. * Limited views were obtained. * The study was technically difficult. * A contrast injection of Definity was performed to improve assessment of LV function. * Contrast was injected into an intravenous site in the central line. * One vial of Definity ultrasound contrast was diluted in normal saline to a total volume of 10 ml. A total of '3' ml of solution was administered during imaging. * Lot # [id number] of Definity utilized for procedure. * Expiration date 10/12. * The attending nurse who injected the contrast agent was NICHOLAS BROWN RN. Left Ventricle * The left ventricle is grossly normal size. * There is normal left ventricular wall thickness. * Ejection Fraction = 50-55%. * Regional wall motion abnormalities cannot be excluded due to limited visualization. Right Ventricle * The right ventricle is not well visualized. * The right ventricle is grossly normal size. * The right ventricular systolic function is qualitatively normal. Atria * The left atrial size is normal. * Right atrial size is normal. * No ASD detected; PFO is not assessed. Mitral Valve * The mitral valve is grossly normal. * There is no mitral valve stenosis. * Significant mitral regurgitation is absent. Tricuspid Valve * The tricuspid valve is not well visualized. * Significant tricuspid regurgitation is absent. Aortic Valve * The aortic valve opens well. * No hemodynamically significant valvular aortic stenosis. * No aortic regurgitation is present. Pulmonic Valve * The pulmonary valve is inadequately visualized, but the Doppler data is adequate for interpretation. * There is no pulmonic valvular stenosis. * There is no significant pulmonary regurgitation. Great Vessels * The aortic root and proximal ascending aorta are normal sized. Pericardium/Pleural * There is no pericardial effusion. Great Vessels * Normal inferior vena cava size and collapsability with sniff indicates a normal right atrial pressure of 3 mmHg MMode 2D Measurements and Calculations LVOT diam 2.0 cm LVOT area 3.1 cm\S\2 LVAd ap4 26.7 cm\S\2 LVLd ap4 8.0 cm EDV(MOD-sp4) 72.4 ml EDV(sp4-el) 75.2 ml LVAs ap4 15.4 cm\S\2 LVLs ap4 6.6 cm ESV(MOD-sp4) 29.4 ml ESV(sp4-el) 30.7 ml EF(MOD-sp4) 59.4 % EF(sp4-el) 59.2 % LVAd ap2 22.6 cm\S\2 LVLd ap2 6.6 cm EDV(MOD-sp2) 61.4 ml EDV(sp2-el) 65.0 ml LVAs ap2 13.5 cm\S\2 LVLs ap2 5.8 cm ESV(MOD-sp2) 25.0 ml ESV(sp2-el) 26.6 ml EF(MOD-sp2) 59.2 % EF(sp2-el) 59.0 % LVLd %diff -20.82 % EDV(MOD-bp) 73.4 ml LVLs %diff -13.72 % ESV(MOD-bp) 28.8 ml EF(MOD-bp) 60.7 % SV(MOD-sp4) 43.0 ml SI(MOD-sp4) 20.2 ml/m\S\2 SV(MOD-sp2) 36.3 ml SI(MOD-sp2) 17.0 ml/m\S\2 SV(MOD-bp) 44.6 ml SI(MOD-bp) 20.9 ml/m\S\2 SV(sp4-el) 44.5 ml SI(sp4-el) 20.9 ml/m\S\2 SV(sp2-el) 38.4 ml SI(sp2-el) 18.0 ml/m\S\2 Doppler Measurements and Calculations MV E max emily 66.8 cm/sec MV A max emily 61.1 cm/sec MV E/A 1.1 MV dec time 0.15 sec Ao V2 max 107.9 cm/sec Ao max PG 4.7 mmHg Ao max PG (full) 2.2 mmHg EDNA(V,A) 2.2 cm\S\2 EDNA(V,D) 2.2 cm\S\2 LV V1 max PG 2.4 mmHg LV V1 max 78.1 cm/sec PA V2 max 55.5 cm/sec PA max PG 1.2 mmHg
--- NOTE | 2016-10-30 11:56 | Discharge Instructions ---
Discharge Instructions Date of Service Oct 30, 2016. Admission Reason for Admission: Left Sided Chest Pain, Sob Discharge Discharge Diagnosis / Problem: Chest pain Discharge Goals Goal(s): Decrease discomfort, Improve function, Diagnostic testing, Therapeutic intervention Activity Recommendations Activity Limitations: resume your previous activity . Instructions / Follow-Up Instructions / Follow-Up You were admitted to the hospital for overnight observation with chest pain that developed while driving to work. You received cardiac workup which included cardiac monitoring, EKGs, an echocardiogram (ultrasound of your heart) and lab tests. Cardiac monitoring revealed that you remained in normal sinus rhythm overnight. A repeat EKG did not show any ischemic changes. An echocardiogram was performed which did not show any abnormalities. Your blood tests were largely unremarkable. You did develop a headache, but this is likely secondary to the nitroglycerin that you received for chest pain . As your cardiac workup returned normal and your chest pain does not seem to likely be cardiac related, you are now medically stable for discharge. Medications: *You may resume your home medications as prescribed. No changes have been made. Follow up: *Please follow up with your scheduled outpatient stress test later this month. *Follow-up with your primary care provider in one week regarding your hospital stay. Please seek medical attention if you experiences fevers, chills, sweats, chest pain, shortness of breath, lightheadedness, loss of consciousness, nausea, vomiting, numbness or tingling. Current Hospital Diet Patient's current hospital diet: AHA Diet (Heart Healthy) Discharge Diet Recommended Diet: AHA Diet (Heart Healthy) Procedures Procedures Performed: Echocardiogram Pending Studies Studies pending at discharge: no Laboratory Results Hemoglobin A1c Test 10/23/16 01:53 Range/Units Estimated Average Glucose 143 mg/dl Hemoglobin A1c 6.6 H 4.5-5.6 % Medical Emergencies . Who to Call and When: Medical Emergencies: If at any time you feel your situation is an emergency, please call 911 immediately. . Non-Emergent Contact Non-Emergency issues call your: Primary Care Provider Call Non-Emergent contact if: your pain is not controlled, your pain is worsening, your pain is concerning you, you have any medication questions . . "Provider Documentation" section prepared by Marisol Mas. VTE Core Measure Inpt VTE Proph given/why not?: SCD's
--- NOTE | 2016-10-30 12:22 | Discharge Summary ---
Discharge Summary Date of Service Oct 30, 2016. (Marisol Mas, RICKY) Discharge Summary Admission Date: Oct 30, 2016 at 00:41 Discharge Date: Oct 30, 2016 Discharge Disposition: Home Principal Diagnosis: Chest pain Immunizations: Have You Had Influenza Vaccine: Yes Influenza Vaccine Date: May 24, 2012 History of Tetanus Vaccine?: UTD Tetanus Immunization Date: May 24, 2007 History of Pneumococcal: Yes Pneumococcal Date: Jul 24, 2009 History of Hepatitis B Vaccine: Yes Procedures: [address] [place] [address] Performing Location: [facility] Patient Name: GANGA CERRATO Dictating Provider: Hiram Gallardo MD Dictation Date: Report Signed By: Date: 1965 Engineering Secretary: AIRAM Room/Bed: [facility] Family Physician: Yash Baxter III, CRNP SC: C.2T Primary Care Physician: Yash Baxter III, CRNP Adm Date: 10/30/16 Attending Physician: Dayron Kidd M.D. Dis Date: Admitting Physician: Dayron Kidd M.D. Ordering Physician: *NOTICE TO RECEIVING DEMOCRAT AGENCY This information is strictly Confidential and protected under [place] law. [place] law prohibits you from making any further disclosure of this information unless further disclosure is expressly permitted by the written consent of the person to whom it pertains or is authorized by law. A general authorization for the release of medical or other information is not sufficient for this purpose. Hospital accepts no responsibility if the information is made available to any other person, INCLUDING THE PATIENT. Interpretation Summary * Name: GANGA CERRATO Study Date: 10/30/2016 07:26 AM BP: 114/76 mmHg * Patient Location: C2T\S\E217\S\1 HR: 58 * : 1965 (M/d/yyyy) Gender: Female Height: 65 in * Age: 51 yrs Ethnicity: CA Weight: 239 lb * Ordering Physician: Dayron Kidd * Performed By: Leeann Grossman * * Reason For Study: CHEST PAIN * BSA: 2.1 m2 * -- Conclusions -- * 1. Technically limited study despite use of Definity ultrasound contrast. * 2. Normal LV size and wall thickness. * 3. Normal LV systolic function. LVEF 50-55%. No apparent regional wall motion abnormalities. * 4. RV not well visualized. Grossly normal size and function. * 5. No significant valvular pathology. * 6. Normal estimated CVP. * 7. Compared with prior study on 11/03/2013: Current study is technically more limited. Procedure Details * A complete two-dimensional transthoracic echocardiogram was performed (2D, M-mode, Doppler and color flow Doppler). * The study was technically limited. * Limited views were obtained. * The study was technically difficult. * A contrast injection of Definity was performed to improve assessment of LV function. * Contrast was injected into an intravenous site in the central line. * One vial of Definity ultrasound contrast was diluted in normal saline to a total volume of 10 ml. A total of '3' ml of solution was administered during imaging. * Lot # [id number] of Definity utilized for procedure. * Expiration date 10/12. * The attending nurse who injected the contrast agent was NICHOLAS BROWN RN. Left Ventricle * The left ventricle is grossly normal size. * There is normal left ventricular wall thickness. * Ejection Fraction = 50-55%. * Regional wall motion abnormalities cannot be excluded due to limited visualization. Right Ventricle * The right ventricle is not well visualized. * The right ventricle is grossly normal size. * The right ventricular systolic function is qualitatively normal. Atria * The left atrial size is normal. * Right atrial size is normal. * No ASD detected; PFO is not assessed. Mitral Valve * The mitral valve is grossly normal. * There is no mitral valve stenosis. * Significant mitral regurgitation is absent. Tricuspid Valve * The tricuspid valve is not well visualized. * Significant tricuspid regurgitation is absent. Aortic Valve * The aortic valve opens well. * No hemodynamically significant valvular aortic stenosis. * No aortic regurgitation is present. Pulmonic Valve * The pulmonary valve is inadequately visualized, but the Doppler data is adequate for interpretation. * There is no pulmonic valvular stenosis. * There is no significant pulmonary regurgitation. Great Vessels * The aortic root and proximal ascending aorta are normal sized. Pericardium/Pleural * There is no pericardial effusion. Great Vessels * Normal inferior vena cava size and collapsability with sniff indicates a normal right atrial pressure of 3 mmHg MMode 2D Measurements and Calculations LVOT diam 2.0 cm LVOT area 3.1 cm\S\2 LVAd ap4 26.7 cm\S\2 LVLd ap4 8.0 cm EDV(MOD-sp4) 72.4 ml EDV(sp4-el) 75.2 ml LVAs ap4 15.4 cm\S\2 LVLs ap4 6.6 cm ESV(MOD-sp4) 29.4 ml ESV(sp4-el) 30.7 ml EF(MOD-sp4) 59.4 % EF(sp4-el) 59.2 % LVAd ap2 22.6 cm\S\2 LVLd ap2 6.6 cm EDV(MOD-sp2) 61.4 ml EDV(sp2-el) 65.0 ml LVAs ap2 13.5 cm\S\2 LVLs ap2 5.8 cm ESV(MOD-sp2) 25.0 ml ESV(sp2-el) 26.6 ml EF(MOD-sp2) 59.2 % EF(sp2-el) 59.0 % LVLd %diff -20.82 % EDV(MOD-bp) 73.4 ml LVLs %diff -13.72 % ESV(MOD-bp) 28.8 ml EF(MOD-bp) 60.7 % SV(MOD-sp4) 43.0 ml SI(MOD-sp4) 20.2 ml/m\S\2 SV(MOD-sp2) 36.3 ml SI(MOD-sp2) 17.0 ml/m\S\2 SV(MOD-bp) 44.6 ml SI(MOD-bp) 20.9 ml/m\S\2 SV(sp4-el) 44.5 ml SI(sp4-el) 20.9 ml/m\S\2 SV(sp2-el) 38.4 ml SI(sp2-el) 18.0 ml/m\S\2 Doppler Measurements and Calculations MV E max emily 66.8 cm/sec MV A max emily 61.1 cm/sec MV E/A 1.1 MV dec time 0.15 sec Ao V2 max 107.9 cm/sec Ao max PG 4.7 mmHg Ao max PG (full) 2.2 mmHg EDNA(V,A) 2.2 cm\S\2 EDNA(V,D) 2.2 cm\S\2 LV V1 max PG 2.4 mmHg LV V1 max 78.1 cm/sec PA V2 max 55.5 cm/sec PA max PG 1.2 mmHg (Marisol Mas ., PA-C) Medication Reconciliation Continued Medications: Albuterol Sulfate (Proair Respiclick) 108 Mcg/Act Aer 2 PUFFS INH Q4 PRN for SOB/Wheezing Amitriptyline Hcl (Elavil) 75 Mg Tab 75 MG PO HS, TAB Atorvastatin (Atorvastatin Calcium) 20 Mg Tab 20 MG PO HS Budesonide/Formoterol Fumarate (Symbicort 160-4.5 Mcg/Act) 60 Puffs/Inhaler Aero 2 PUFFS INH BID PRN for Shortness of Breath Cholecalciferol (Vitamin D 1000 Unit) 1,000 Unit Cap 4000 INTER.UNIT PO HS, CAP Duloxetine HCl (Duloxetine HCl) 30 Mg Cap 30 MG PO HS Hctz/Losartan (Hyzaar 25MG/100MG) Tab 1 TAB PO HS, TAB Levothyroxine Sodium (Synthroid) 200 Mcg Tab 250 MCG PO QAM, TAB Metoprolol Tartrate (Lopressor) (Lopressor) 50 Mg Tab 50 MG PO BID Topiramate (Topamax) 100 Mg Tab 100 MG PO BID, TAB Referrals At Discharge Follow up Referrals: Family Practice Referral - Within 1 Week with Yash Baxter III, ROSAURA Discharge Exam Patient currently denies any chest pain. She complains of some mild nausea as well as a headache. Patient did receive nitroglycerin previously for her chest pain. Patient also complains of some tingling in her left hand, however this has improved since her arrival as her entire left upper extremity was tingling originally. She complains of some generalized weakness and fatigue. The patient denies fevers, chills, sweats, chest pain, palpitations, claudication, cough, wheezing, shortness of breath, vomiting, abdominal pain, dysuria, hematuria, urinary retention, paralysis, and motor weakness. Review of Systems: Constitutional: + fatigue, + weakness, No chills, No fever, No sweats Eyes: No diplopia, No discharge, No worsening of vision ENT: No hearing loss, No sore throat, No trouble swallowing Respiratory: No cough, No shortness of breath, No wheezing Cardiovascular: No chest pain, No claudication, No palpitations Abdomen: + nausea, No pain, No vomiting Musculoskeletal: No calf pain, No joint pain, No muscle pain Genitourinary - Female: No dysuria, No hematuria, No urinary retention Neurologic: + numbness/tingling (left hand), No paralysis, No weakness Integumentary: No color change, No itch, No rash Physical Exam: General Appearance: WD/WN, no apparent distress, + obese Eyes: normal inspection, PERRL, EOMI ENT: normal ENT inspection, hearing grossly normal, pharynx normal Neck: supple, no JVD, trachea midline Respiratory/Chest: lungs clear, normal breath sounds, no respiratory distress Cardiovascular: regular rate, rhythm, no gallop, no murmur Abdomen / GI: normal bowel sounds, non tender, soft Extremities: normal inspection, no calf tenderness, no pedal edema Neurologic/Psychiatric: alert, normal mood/affect, oriented x 3 Skin: normal color, warm/dry, no rash (Marisol Mas ., PA-C) Hospital Course 51 y/o female with a history of HTN, HLD, COPD, anxiety/depression, and hypothyroidism who presented to the ED with chest pain radiating to her back and left arm, along with tingling in the left arm. Patient was tachycardiac and hypertensive upon arrival with the BP of 173/111. Initial EKGs did not show any ischemic changes. Initial chronic enzymes negative. Chest x-ray shows no acute disease. Chest pain--now resolved -Admitted to telemetry for cardiac monitoring. Patient did not have any acute events overnight on telemetry and remained in sinus rhythm. Tachycardia did resolve and patient was actually bradycardic overnight. -Repeat EKG shows 62 bpm, normal sinus rhythm -Cardiac enzymes negative 3. -Echocardiogram did not show any abnormalities -Patient is already scheduled for an outpatient stress test later this month HTN--stable. BP did improve since arrival, last BP 142/92 -Continue metoprolol tartrate 50 mg PO BID -Continue Hyzaar 25/100 mg PO qd on discharge. HCTZ had been held due to mild hypokalemia. Patient given KCl 40 mEq PO 1 HLD -Continue atorvastatin 20 mg PO qd COPD -Continue Symbicort 2 puffs inhaled BID and ProAir Anxiety/depression -Continue duloxetine 30 mg PO qhs and amitriptyline 75 mg PO qhs Hypothyroidism -Continue Synthroid 250 g PO qd Peripheral neuropathy -Continue Topamax 100 mg PO BID DVT prophylaxis -AYESHA maria de jesus and SCDs Code Status -Level I, FULL RESUSCITATION STATUS Dispo -Patient medically stable for discharge as cardiac workup negative -Follow-up with outpatient stress test in 2 weeks -Follow-up with PCP in 1 week Total Time Spent: Greater than 30 minutes This includes examination of the patient, discharge planning, medication reconciliation, and communication with other providers. (Marisol Mas ., PA-C) I agree with PA assessment and plan and have seen and examined pt myself VSS Labs reviewed States chest pain resolved EKG no ischemic etiology Trops x 3 sets WNL ECHO no WMA, preserved EF Can schedule stress ECHO as outpt DIscharge home (Adis Hernandez, D.OFederico) Discharge Instructions Please refer to the electronic Patient Visit Report (Discharge Instructions) for additional information. (Marisol Mas ., PA-C) Additional Copies To Yash Baxter III, CRNP
[2016-10-30] MEDS ORDERED: AMITRIPTYLINE HCL 25 MG TAB PO SCH (21:00)
[2016-10-30] MEDS ORDERED: DULOXETINE (CYMBALTA) 30 MG CAP PO SCH (21:00)
[2016-10-30] MEDS ORDERED: ATORVASTATIN 20 MG TAB PO SCH (21:00)
[2016-10-30] MEDS ORDERED: CHOLECALCIFEROL 1000 INTER.UNIT TAB PO SCH (21:00)
[2017-05-18] MEDS ORDERED: ZNTT/150 PO (09:11)
[2017-05-18] MEDS ORDERED: IPRASOL4 INH (09:11)
[2017-05-18] MEDS ORDERED: NTRGSL/4 UT (15:24)
[2017-05-18] MEDS ORDERED: TPM100 PO (15:24)
[2017-05-18] MEDS ORDERED: LEVO125T4 PO ×2 (15:24)
[2017-05-18] MEDS ORDERED: SYMIN160 INH (15:24)
[2017-05-18] MEDS ORDERED: LOSA100T65 PO (15:25)
[2017-05-18] MEDS ORDERED: AMIT75TA2 PO (17:01)
[2017-05-18] MEDS ORDERED: METO50TA16 PO (18:32)
[2017-05-18] MEDS ORDERED: LPT/20 PO (18:32)
[2017-05-18] MEDS ORDERED: CHOL100027 PO (20:13)
[2017-05-18] MEDS ORDERED: ALBU18002 INH (20:51)
== END 2016-10-30 12:30 | disposition home or self-care (01) ==
LOC: ENRESERVTM → ENRESERVDT → C.EDA 22:20 → EEVIPCON 22:20 → C.2T 10-30 00:41
PROVIDERS: ADMIT Hospitalist; ATTEND Hospitalist
DX: R07.9 Chest pain, unspecified (principal); R11.0 Nausea; E87.6 Hypokalemia; I10 Essential (primary) hypertension; J45.909 Unspecified asthma, uncomplicated; J44.9 Chronic obstructive pulmonary disease, unspecified; E78.00 Pure hypercholesterolemia, unspecified; E78.5 Hyperlipidemia, unspecified; E11.42 Type 2 diabetes mellitus with diabetic polyneuropathy; G47.00 Insomnia, unspecified; M79.1 Myalgia; F41.9 Anxiety disorder, unspecified; F32.9 Major depressive disorder, single episode, unspecified; E66.9 Obesity, unspecified; F17.200 Nicotine dependence, unspecified, uncomplicated; Z79.899 Other long term (current) drug therapy; Z68.41 Body mass index [BMI] 40.0-44.9, adult; Z85.3 Personal history of malignant neoplasm of breast; Z82.49 Family history of ischemic heart disease and other diseases of the circulatory system; Z83.3 Family history of diabetes mellitus; Z80.3 Family history of malignant neoplasm of breast; Z80.0 Family history of malignant neoplasm of digestive organs

== ENCOUNTER → 2016-11-11 | Outpatient (CLI) | payer OTHER ==
[~2016-11-11] MED LIST changes: +ALBU18002 INH; +AMIT75TA2 PO; +AMOX500C3 PO; +CHOL100027 PO; +IPRASOL4 INH; +LEVO125T4 PO; +LOSA100T65 PO; +LPT/20 PO; +METO-157 PO; +METO50TA16 PO; +NTRGSL/4 UT; +OXYC-57 PO; +PRZ/40 PO; +SPR25 PO; +SYMIN160 INH; +TPM100 PO; +VARE1PAK10 PO; +ZNTT/150 PO
[2016-11-11 10:41] LABS: ALT/SGPT 63 U/L (12-78); AST/SGOT 30 U/L (15-37); BLOOD UREA NITROGEN 10 mg/dl (7-18); CALCIUM 8.7 mg/dl (8.5-10.1); CARBON DIOXIDE 28 mmol/L (21-32); CHLORIDE 108 mmol/L (98-107); CREATININE 0.68 mg/dl (0.60-1.20); GLUCOSE 108 mg/dl (70-99); POTASSIUM 3.8 mmol/L (3.5-5.1); SODIUM 143 mmol/L (136-145)
[2016-11-11 10:47] LABS: ESTIMATED AVERAGE GLUCOSE 151 mg/dl; HA1C FLAG Normal (Normal)
[2016-11-11 10:52] LABS: ALKALINE PHOSPHATASE 124 U/L (45-117)
== END | disposition home or self-care (01) ==
LOC: C.LAB 09:24
PROVIDERS: ATTEND Nurse Practitioner Family
DX: E03.9 Hypothyroidism, unspecified (principal); E11.9 Type 2 diabetes mellitus without complications

== ENCOUNTER 2016-11-12 01:55 | Emergency (ER) | payer OTHER ==
[~2016-11-12] VITALS: Ht 165.1 cm; Wt 63.0 kg
[2016-11-12 01:53] VITALS: TEMP 36.6; Ht 165.1 cm; Wt 63.0 kg
[~2016-11-12 01:55] MED LIST changes: -ALBU18002 INH; -AMIT75TA2 PO; -AMOX500C3 PO; -CHOL100027 PO; -IPRASOL4 INH; -LEVO125T4 PO; -LOSA100T65 PO; -LPT/20 PO; -METO-157 PO; -METO50TA16 PO; -NTRGSL/4 UT; -OXYC-57 PO; -PRZ/40 PO; -SPR25 PO; -SYMIN160 INH; -TPM100 PO; -VARE1PAK10 PO; -ZNTT/150 PO
[2016-11-12 02:20] VITALS: BP 122/93; PULSE 76; O2SAT 98
--- NOTE | 2016-11-12 02:43 | EMERGENCY ROOM VISIT NOTE ---
ED Visit Note First contact with patient: 02:02 CHIEF COMPLAINT: Body Fluid exposure HPI: This 51 yo presents to the Emergency Department for evaluation of a body fluid exposure today who accidentally got stuck with a suture needle. 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 The wound has already been cleansed. Bleeding is controlled. They deny numbness, tingling, or loss of motion. Source patient is known. History of the source patient is not known at this time. The patient works at [employer]. They have had the hepatitis B. vaccination. They believe their tetanus is up- to-date. Pain is 0/10. ALLERGIES: Reviewed MEDICATIONS: Reviewed PMH: Medical Problems: (1) ANXIETY STATE NOS Status: Chronic (2) BIPOLAR DISORDER, UNSPECIFIED Status: Chronic (3) section Status: Resolved (4) Cholecystectomy Status: Chronic (5) CHRONIC OBSTRUCTIVE ASTHMA, W (ACUTE) EXACERBATION Status: Chronic (6) DIAB AIDAN WO COMPL, TYPE II OR UNSPEC TYPE, NOT UNCNTRLD Status: Chronic (7) DIVERTICULITIS COLON (W/O MENT OF HEMORRHAGE) Status: Chronic (8) ESOPHAGEAL REFLUX Status: Chronic (9) FAM HX-DIABETES MELLITUS Status: Chronic (10) FAM HX-ISCHEM HEART DIS Status: Chronic (11) FAM HX-OTH MALIG NEOPLASM Status: Chronic (12) FAMILY HISTORY OF OTHER CARDIOVASCULAR DISEASES Status: Chronic (13) FAMILY HX-BREAST MALIG Status: Chronic (14) FAMILY HX-GI MALIGNANCY Status: Chronic (15) FAMILY HX-MALIGNANCY NOS Status: Chronic (16) HISTORY OF TOBACCO USE Status: Chronic (17) HX OF BREAST MALIGNANCY Status: Chronic (18) HYPERTENSION NOS Status: Chronic (19) HYPOTHYROIDISM NOS Status: Chronic (20) Hysterectomy Status: Chronic SOCIAL HISTORY: No drug use Physical Exam: VITALS: Nursing notes reviewed and vitals are stable. GENERAL: This a female, in no acute distress, well developed, well nourished. SKIN: Warm and dry with good turgor. no abrasions. There is a solitary puncture magdalena present at the right hand pinky finger. Bleeding is controlled. No edema. Capillary refill is 2+. MUSCULOSKELETAL: Patient has full active range of motion of the finger. Normal strength. NEURO: Gross sensation is intact across the finger. ED COURSE: I examined the patient. Option of HIV, hepatitis C, and hepatitis B testing was discussed with the patient. The risks, benefits, purpose, and limitations of the tests were explained to the patient and all of their questions were answered. They elected to proceed. I did perform pretest counseling and the appropriate consent forms were signed. Patient was given information on prevention of exposure and transmission as well as hospital confidentiality. Blood exposure handout was provided. The patient's blood was drawn. Risks and benefits of HIV prophylaxis were discussed with the patient. The patient elected to decline HIV prophylaxis at this time. They will follow -up with employee health. Wound care instructions were provided. The source patient agreed to testing her blood for HIV. The patient was discharged in stable condition. Impression: Body fluid exposure Plan: as above Problem List Medical Problems: (1) ANXIETY STATE NOS Status: Chronic (2) BIPOLAR DISORDER, UNSPECIFIED Status: Chronic (3) section Status: Resolved (4) Cholecystectomy Status: Chronic (5) CHRONIC OBSTRUCTIVE ASTHMA, W (ACUTE) EXACERBATION Status: Chronic (6) DIAB AIDAN WO COMPL, TYPE II OR UNSPEC TYPE, NOT UNCNTRLD Status: Chronic (7) DIVERTICULITIS COLON (W/O MENT OF HEMORRHAGE) Status: Chronic (8) ESOPHAGEAL REFLUX Status: Chronic (9) FAM HX-DIABETES MELLITUS Status: Chronic (10) FAM HX-ISCHEM HEART DIS Status: Chronic (11) FAM HX-OTH MALIG NEOPLASM Status: Chronic (12) FAMILY HISTORY OF OTHER CARDIOVASCULAR DISEASES Status: Chronic (13) FAMILY HX-BREAST MALIG Status: Chronic (14) FAMILY HX-GI MALIGNANCY Status: Chronic (15) FAMILY HX-MALIGNANCY NOS Status: Chronic (16) HISTORY OF TOBACCO USE Status: Chronic (17) HX OF BREAST MALIGNANCY Status: Chronic (18) HYPERTENSION NOS Status: Chronic (19) HYPOTHYROIDISM NOS Status: Chronic (20) Hysterectomy Status: Chronic Current/Historical Medications Scheduled Amitriptyline Hcl (Elavil), 75 MG PO HS Atorvastatin (Atorvastatin Calcium), 20 MG PO HS Cholecalciferol (Vitamin D 1000 Unit), 4,000 INTER.UNIT PO HS Duloxetine HCl (Duloxetine HCl), 30 MG PO HS Hctz/Losartan (Hyzaar 25MG/100MG), 1 TAB PO HS Levothyroxine Sodium (Synthroid), 250 MCG PO QAM Metoprolol Tartrate (Lopressor) (Lopressor), 50 MG PO BID Topiramate (Topamax), 100 MG PO BID Scheduled PRN Albuterol Sulfate (Proair Respiclick), 2 PUFFS INH Q4 PRN for SOB/Wheezing Budesonide/Formoterol Fumarate (Symbicort 160-4.5 Mcg/Act), 2 PUFFS INH BID PRN for Shortness of Breath Allergies Coded Allergies: Tamoxifen (Unverified Allergy, Severe, "CAN'T MOVE", 11/12/16) Ceftriaxone (Verified Allergy, Intermediate, REDNESS, ITCHING, 11/12/16) IV ROCEPHIN IG ADMINISTERED VIA IV PUMP ORDERED AT 1903. AT APPROX 1930 PT RANG SMITH WITH COMPLAINT OF REDNESS AND ITCHINESS. IV ROCEPHIN STOPPED IMMEDIATELY (PT RECEIVED 75ML OF 100ML BAG). ORDER FOR BENADRYL 50MG IV RECEIVED AND ADMINISTERED. PT IV NSS INFUSING AT 999ML/HR VIA PUMP. AT 1937 PT WITH NOTED DECREASED REDNESS TO SKIN AND VERBALIZED DECREASED ITCHINESS. PT ON CARDIAC AND PULSE OX MONITORING. PT PULSE OX READING MAINTAINED 97% AND PT HAD NO COMPLAINT OF SOB, THROAT SWELLING, OR DIFFICULTY BREATHING. Cephalexin (Verified Allergy, Intermediate, SHORTNESS OF BREATH, 11/12/16) Sulfamethoxazole w/Trimethoprim (Verified Allergy, Intermediate, SHORTNESS OF BREATH, 11/12/16) Vancomycin (Verified Allergy, Intermediate, ITCHING ALL OVER, RASH, PARESTHESIAS, 11/12/16) Tramadol (Verified Allergy, Mild, ITCHY, 11/12/16) Codeine (Verified Adverse Reaction, Intermediate, GI BLEED, 11/12/16) Vital Signs Date Time Temp Pulse Resp B/P Pulse Ox O2 Delivery O2 Flow Rate FiO2 11/12/16 02:20 76 16 122/93 98 11/12/16 01:53 36.6 76 16 122/93 98 Room Air Departure Information Referrals Yash Baxter III, CRNP (PCP) Patient Instructions [facility]
[2017-05-18] MEDS ORDERED: IPRASOL4 INH (09:11)
[2017-05-18] MEDS ORDERED: ZNTT/150 PO (09:11)
[2017-05-18] MEDS ORDERED: SYMIN160 INH (15:24)
[2017-05-18] MEDS ORDERED: TPM100 PO (15:24)
[2017-05-18] MEDS ORDERED: LEVO125T4 PO ×2 (15:24)
[2017-05-18] MEDS ORDERED: NTRGSL/4 UT (15:24)
[2017-05-18] MEDS ORDERED: LOSA100T65 PO (15:25)
[2017-05-18] MEDS ORDERED: AMIT75TA2 PO (17:01)
[2017-05-18] MEDS ORDERED: METO50TA16 PO (18:32)
[2017-05-18] MEDS ORDERED: LPT/20 PO (18:32)
[2017-05-18] MEDS ORDERED: CHOL100027 PO (20:13)
[2017-05-18] MEDS ORDERED: ALBU18002 INH (20:51)
== END 2016-11-12 02:21 | disposition home or self-care (01) ==
LOC: EDBD 01:55 → C.EDA 01:56
DX: Z77.21 Contact with and (suspected) exposure to potentially hazardous body fluids (principal); E11.9 Type 2 diabetes mellitus without complications; F31.9 Bipolar disorder, unspecified; F41.9 Anxiety disorder, unspecified; J44.1 Chronic obstructive pulmonary disease with (acute) exacerbation; Z83.3 Family history of diabetes mellitus; Z82.49 Family history of ischemic heart disease and other diseases of the circulatory system; Z87.891 Personal history of nicotine dependence; I10 Essential (primary) hypertension; E03.9 Hypothyroidism, unspecified

== ENCOUNTER 2016-11-20 14:30 | Emergency (ER) | payer OTHER ==
[~2016-11-20] VITALS: Ht 165.1 cm; Wt 107.4 kg
[2016-11-20 14:36] VITALS: TEMP 37.2; Ht 165.1 cm; Wt 107.4 kg
[2016-11-20] MEDS ORDERED: DiphenhydrAMINE HCL 50 MG/ML VIAL IV STA (15:08)
[2016-11-20] MEDS ORDERED: SODIUM CHLORIDE 0.9% 1000ML 1,000 ML IV STA (15:08)
[2016-11-20] MEDS ORDERED: PROCHLORPERAZINE 5 MG/ML 2 ML VIAL IV STA (15:08)
[2016-11-20] MEDS ORDERED: PRZ/40 PO (15:24)
[2016-11-20 16:00] LABS: BASO % 0.2 %; BASO ABS # 0.02 K/uL (0-0.2); COMPLETE YES; EOS % 0.8 %; HEMATOCRIT 40.7 % (37-47); IG% 0.3 %; LYMPH % 21.3 %; MEAN CELL VOLUME 88.3 fL (80-100); MEAN CORPUSCULAR HEMOGLOBIN 31.9 pg (25-34); MEAN CORPUSCULAR HGB CONC 36.1 g/dl (32-36); MEAN PLATELET VOLUME 9.6 fL (7.4-10.4); MONO % 7.4 %; PLATELET COUNT 236 K/uL (130-400); RED BLOOD COUNT 4.61 M/uL (4.2-5.4)
--- NOTE | 2016-11-20 16:17 | DIAGNOSTIC IMAGING REPORT ---
CHEST 2 VIEWS ROUTINE CLINICAL HISTORY: fever/cough eval for pnea COMPARISON STUDY: 10/29/2016 FINDINGS: Central catheter in superior vena cava. Lungs are considered clear. Diaphragms smooth. IMPRESSION: No acute process. Electronically signed by: Aden House M.D. 11/20/2016 4:15 PM Dictated Date/Time: 11/20/2016 4:14 PM
[2016-11-20 16:18] LABS: BUN/CREATININE RATIO 12.2 (10-20); CALCIUM 8.5 mg/dl (8.5-10.1); CREATININE 0.69 mg/dl (0.60-1.20); POTASSIUM 3.2 mmol/L (3.5-5.1)
[2016-11-20] MEDS ORDERED: AMOX500C3 PO (16:53)
[2016-11-20 17:02] VITALS: BP 119/74; PULSE 77; O2SAT 97
--- NOTE | 2016-11-20 22:37 | EMERGENCY ROOM VISIT NOTE ---
History Report prepared by Karly: George Lazcano Under the Supervision of: Dr. Dk Alcantara M.D. First contact with patient: 14:59 Chief Complaint: HEADACHE Stated Complaint: MIGRANE,EARACHE,SORE THROAT History of Present Illness The patient is a 51 year old female who presents to the Emergency Room with complaints of a headache starting 3 days ago. The headache is located on the back, left side of her head. She describes it to be a stabbing pain. She has worsening pain with noise. She denies any changes with exposure to light. She reports her current headache to be similar to her past migraine headaches. She has frequent migraine headaches which are normally managed with Topamax. 3 days ago, the patient also started having left ear ache, sore throat, and cough with mucous production. She also reports intermittent fevers occurring for the past few days. She had a temperature of 101 degrees Fahrenheit last night. She notes nausea but denies vomiting. The patient denies neck pain, or any other complaints. She is a current smoker. Source of History: patient Onset: 3 days ago Position: head Quality: stabbing Modifying Factors (Worsening): other (noise) Associated Symptoms: + cough, + fevers, + nausea, + sorethroat, No neck pain , No vomiting Review of Systems See HPI for pertinent positives & negatives. A total of 10 systems reviewed and were otherwise negative. Past Medical & Surgical Medical Problems: (1) ANXIETY STATE NOS (2) BIPOLAR DISORDER, UNSPECIFIED (3) section (4) Cholecystectomy (5) CHRONIC OBSTRUCTIVE ASTHMA, W (ACUTE) EXACERBATION (6) DIAB AIDAN WO COMPL, TYPE II OR UNSPEC TYPE, NOT UNCNTRLD (7) DIVERTICULITIS COLON (W/O MENT OF HEMORRHAGE) (8) ESOPHAGEAL REFLUX (9) FAM HX-DIABETES MELLITUS (10) FAM HX-ISCHEM HEART DIS (11) FAM HX-OTH MALIG NEOPLASM (12) FAMILY HISTORY OF OTHER CARDIOVASCULAR DISEASES (13) FAMILY HX-BREAST MALIG (14) FAMILY HX-GI MALIGNANCY (15) FAMILY HX-MALIGNANCY NOS (16) HISTORY OF TOBACCO USE (17) HX OF BREAST MALIGNANCY (18) HYPERTENSION NOS (19) HYPOTHYROIDISM NOS (20) Hysterectomy (21) SOB (shortness of breath) (22) Thyroid nodule Family History Cancer Heart disease Hypertension Social History Smoking Status: Current Every Day Smoker Alcohol Use: none Drug Use: none Marital Status: Occupation Status: employed Current/Historical Medications Scheduled Amitriptyline Hcl (Elavil), 75 MG PO HS Amoxicillin (Amoxil), 500 MG PO TID Atorvastatin (Atorvastatin Calcium), 20 MG PO HS Cholecalciferol (Vitamin D 1000 Unit), 4,000 INTER.UNIT PO HS Fluoxetine Hcl (Prozac), 40 MG PO DAILY Levothyroxine Sodium (Levothyroxine Sodium), 375 MCG PO WK Levothyroxine Sodium (Levothyroxine Sodium), 250 MCG PO 6XWK Losartan Potassium (Cozaar), 100 MG PO DAILY Metoprolol Tartrate (Lopressor) (Lopressor), 50 MG PO BID Topiramate (Topiramate), 100 MG PO BID Scheduled PRN Albuterol Sulfate (Proair Respiclick), 2 PUFFS INH Q4H PRN for SOB/Wheezing Budesonide/Formoterol Fumarate (Symbicort 160/4.5 Inhaler), 2 PUFFS INH BID PRN for Shortness of Breath Nitroglycerin (Nitrostat), 0.4 MG UT UD PRN for Chest Pain Allergies Coded Allergies: Tamoxifen (Unverified Allergy, Severe, "CAN'T MOVE", 11/12/16) Ceftriaxone (Verified Allergy, Intermediate, REDNESS, ITCHING, 11/12/16) IV ROCEPHIN IG ADMINISTERED VIA IV PUMP ORDERED AT 190. AT APPROX 1930 PT RANG SMITH WITH COMPLAINT OF REDNESS AND ITCHINESS. IV ROCEPHIN STOPPED IMMEDIATELY (PT RECEIVED 75ML OF 100ML BAG). ORDER FOR BENADRYL 50MG IV RECEIVED AND ADMINISTERED. PT IV NSS INFUSING AT 999ML/HR VIA PUMP. AT 1937 PT WITH NOTED DECREASED REDNESS TO SKIN AND VERBALIZED DECREASED ITCHINESS. PT ON CARDIAC AND PULSE OX MONITORING. PT PULSE OX READING MAINTAINED 97% AND PT HAD NO COMPLAINT OF SOB, THROAT SWELLING, OR DIFFICULTY BREATHING. Cephalexin (Verified Allergy, Intermediate, SHORTNESS OF BREATH, 11/12/16) Sulfamethoxazole w/Trimethoprim (Verified Allergy, Intermediate, SHORTNESS OF BREATH, 11/12/16) Vancomycin (Verified Allergy, Intermediate, ITCHING ALL OVER, RASH, PARESTHESIAS, 11/12/16) Tramadol (Verified Allergy, Mild, ITCHY, 11/12/16) Codeine (Verified Adverse Reaction, Intermediate, GI BLEED, 11/12/16) Physical Exam Vital Signs Date Time Temp Pulse Resp B/P Pulse Ox O2 Delivery O2 Flow Rate FiO2 11/20/16 17:02 77 18 119/74 97 11/20/16 16:30 80 18 143/84 96 Room Air 11/20/16 14:36 37.2 98 17 146/88 98 Room Air Physical Exam Constitutional: Vital signs reviewed. Eyes: Pupils are equal round reactive to light. Conjunctiva are noninjected. ENT: Pharynx is erythematous without exudate. Mucous membranes are moist. Left TM with clear effusion no erythema. Right TM within normal limits. Neck supple without meningeal signs. Respiratory: Clear to auscultation bilaterally. Breath sounds are equal bilaterally. Cardiovascular: Regular rate and rhythm. No rubs or gallops. GI: Soft, nondistended and nontender. Bowel sounds are present. Musculoskeletal: No peripheral edema. No lower extremity tenderness. Integumentary: No cyanosis. Neurological: The patient is awake and alert. Cranial nerves II-XII are intact. Motor is 5 out of 5 all extremities. Sensation is intact to light touch all extremities. Normal speech. No pronator drift. Negative Kernig's and Brudzinski's signs. Psychiatric: Normal affect. Medical Decision & Procedures ER Provider Diagnostic Interpretation: X-ray results as stated below per interpretation by me and the radiologist: CHEST 2 VIEWS ROUTINE CLINICAL HISTORY: fever/cough eval for pnea COMPARISON STUDY: 10/29/2016 FINDINGS: Central catheter in superior vena cava. Lungs are considered clear. Diaphragms smooth. IMPRESSION: No acute process. Electronically signed by: Aden House M.D. 11/20/2016 4:15 PM Dictated Date/Time: 11/20/2016 4:14 PM Laboratory Results 11/20/16 15:40 Red Blood Count 4.61, Mean Corpuscular Volume 88.3, Mean Corpuscular Hemoglobin 31.9, Mean Corpuscular Hemoglobin Concent 36.1, Mean Platelet Volume 9.6, Neutrophils (%) (Auto) 70.0, Lymphocytes (%) (Auto) 21.3, Monocytes (%) (Auto) 7.4, Eosinophils (%) (Auto) 0.8, Basophils (%) (Auto) 0.2, Neutrophils # (Auto) 8.90, Lymphocytes # (Auto) 2.70, Monocytes # (Auto) 0.94, Eosinophils # (Auto) 0.10, Basophils # (Auto) 0.02 11/20/16 15:40 Test 11/20/16 15:40 11/20/16 15:45 White Blood Count 12.70 K/uL (4.8-10.8) Red Blood Count 4.61 M/uL (4.2-5.4) Hemoglobin 14.7 g/dL (12.0-16.0) Hematocrit 40.7 % (37-47) Mean Corpuscular Volume 88.3 fL (80-100) Mean Corpuscular Hemoglobin 31.9 pg (25-34) Mean Corpuscular Hemoglobin Concent 36.1 g/dl (32-36) Platelet Count 236 K/uL (130-400) Mean Platelet Volume 9.6 fL (7.4-10.4) Neutrophils (%) (Auto) 70.0 % Lymphocytes (%) (Auto) 21.3 % Monocytes (%) (Auto) 7.4 % Eosinophils (%) (Auto) 0.8 % Basophils (%) (Auto) 0.2 % Neutrophils # (Auto) 8.90 K/uL (1.4-6.5) Lymphocytes # (Auto) 2.70 K/uL (1.2-3.4) Monocytes # (Auto) 0.94 K/uL (0.11-0.59) Eosinophils # (Auto) 0.10 K/uL (0-0.5) Basophils # (Auto) 0.02 K/uL (0-0.2) RDW Standard Deviation 40.4 fL (36.4-46.3) RDW Coefficient of Variation 12.7 % (11.5-14.5) Immature Granulocyte % (Auto) 0.3 % Immature Granulocyte # (Auto) 0.04 K/uL (0.00-0.02) Anion Gap 7.0 mmol/L (3-11) Est Creatinine Clear Calc Drug Dose 117.5 ml/min Estimated GFR () 116.8 Estimated GFR (Non- 100.8 BUN/Creatinine Ratio 12.2 (10-20) Calcium Level 8.5 mg/dl (8.5-10.1) Monoscreen NEG (NEG) Influenza Type A Antigen Neg for Influ A (NEG) Influenza Type B Antigen Neg for Influ B (NEG) Laboratory results as reviewed by me. Medications Administered Medications (Trade) Dose Ordered Sig/Sunday Route Start Time Stop Time Status Last Admin Dose Admin Prochlorperazine Edisylate (Compazine Inj) 10 mg NOW STAT IV 11/20/16 15:08 11/20/16 15:11 DC 11/20/16 15:43 10 MG Diphenhydramine HCl 50 mg 50 mg NOW STAT IV 11/20/16 15:08 11/20/16 15:11 DC 11/20/16 15:43 50 MG Sodium Chloride (Nss 1000ml) 1,000 ml @ 999 mls/hr Q1H1M STAT IV 11/20/16 15:08 11/20/16 16:08 DC 11/20/16 15:41 999 MLS/HR Heparin Sodium (Porcine) (Heparin 100 Unit/ml 5ml Flush) 5 ml STK-MED ONCE .ROUTE 11/20/16 17:02 11/20/16 17:03 DC 11/20/16 16:59 5 ML ED Course 1459: The patient was evaluated in room A04B. A complete history and physical exam was performed. 1508: Benadryl Inj 50 mg IV, Compazine Inj 10 mg IV 1543: The patient just had her port accessed. 1620: I reevaluated the patient. Her headache is much better but she continues to complain of a sore throat. I discussed her test results. 1646: I reevaluated the patient. The patient verbalized agreement of the treatment plan. She prefers to be treated with antibiotics. The patient was discharged home. Medical Decision this is a 51-year-old female who presents with a headache, sore throat and ear pain. Differential diagnosis includes migraine headache, tension headache, influenza, otitis media, strep pharyngitis, viral syndrome, meningitis. I did perform a limited focused review of portions of the patient's old chart on the electronic medical record. The patient has had no recent pertinent visits to this hospital. I did evaluate the patient as noted above. The patient is presenting with a migraine headache. She is neurologically intact. She does have a fever but also states she has had cold symptoms including sore throat and ear pain. She does have a clear effusion in the left ear but no pus. She has no meningeal signs. I did not feel meningitis was very likely. IV access was established. I did treat patient with IV Compazine, Benadryl and normal saline. A rapid strep test was obtained and negative. Throat culture is pending. I did order and personally review the patient's chest x-ray as described above. There is no evidence of pneumonia. I did order and review the patient's blood work as noted in the electronic medical record. Her white blood cell count is slightly elevated. She has hypokalemia. Monospot is negative. Rapid flu test is negative. I did reassess the patient. She is feeling much better. She states her headache is significantly improved. She still complains of a sore throat. I did discuss the test results with the patient. Given her response to Compazine and Benadryl again I felt meningitis is unlikely and did not recommend spinal tap. The patient was in agreement. She did wish to be treated empirically with antibiotics. I did treat her with amoxicillin. She was discharged with a prescription for amoxicillin which she states she is not allergic to. She was advised to follow up with her doctor. Impression Primary Impression: Headache Additional Impressions: Pharyngitis Hypokalemia Scribe Attestation The scribe's documentation has been prepared under my direct and personally reviewed by me in its entirety. I confirm that the note above accurately reflects all work, treatment, procedures, and medical decision making performed by me. Departure Information Dispostion Home / Self-Care Prescriptions Amoxicillin (AMOXIL) 500 Mg Cap 500 MG PO TID, #30 CAP Prov: Dk Alcantara M.D. 11/20/16 Referrals Yash Baxter III, CRNP Forms HOME CARE DOCUMENTATION FORM, IMPORTANT VISIT INFORMATION Patient Instructions ED Strep Pharyngitis Poss, Headache Pain, Hypokalemia [place] Additional Instructions You have been examined and treated today on an emergency basis only. This is not a substitute for, or an effort to provide, complete comprehensive medical care. It is impossible to recognize and treat all injuries or illnesses in a single emergency department visit. It is therefore important that you follow up closely with your physician. Call as soon as possible for an appointment. Return for worsening symptoms or if you develop numbness or weakness on one side of your body, difficulties with your speech or walking, or any other concerning symptoms. Problem Qualifiers Primary Impression: Headache Headache type: unspecified Headache chronicity pattern: acute headache Intractability: not intractable Qualified Codes: R51 - Headache Additional Impressions: Pharyngitis Pharyngitis/tonsillitis etiology: unspecified etiology Qualified Codes: J02.9 - Acute pharyngitis, unspecified
[2017-05-18] MEDS ORDERED: IPRASOL4 INH (09:11)
[2017-05-18] MEDS ORDERED: ZNTT/150 PO (09:11)
[2017-05-18] MEDS ORDERED: LEVO125T4 PO ×2 (15:24)
[2017-05-18] MEDS ORDERED: SYMIN160 INH (15:24)
[2017-05-18] MEDS ORDERED: NTRGSL/4 UT (15:24)
[2017-05-18] MEDS ORDERED: TPM100 PO (15:24)
[2017-05-18] MEDS ORDERED: LOSA100T65 PO (15:25)
[2017-05-18] MEDS ORDERED: AMIT75TA2 PO (17:01)
[2017-05-18] MEDS ORDERED: LPT/20 PO (18:32)
[2017-05-18] MEDS ORDERED: METO50TA16 PO (18:32)
[2017-05-18] MEDS ORDERED: CHOL100027 PO (20:13)
[2017-05-18] MEDS ORDERED: ALBU18002 INH (20:51)
== END 2016-11-20 17:04 | disposition home or self-care (01) ==
LOC: C.EDB 14:31 → C.EDA 17:04
DX: G43.909 Migraine, unspecified, not intractable, without status migrainosus (principal); J02.9 Acute pharyngitis, unspecified; E87.6 Hypokalemia; F17.210 Nicotine dependence, cigarettes, uncomplicated; F41.9 Anxiety disorder, unspecified; F31.9 Bipolar disorder, unspecified; Z90.49 Acquired absence of other specified parts of digestive tract; J44.9 Chronic obstructive pulmonary disease, unspecified; E11.9 Type 2 diabetes mellitus without complications; K21.9 Gastro-esophageal reflux disease without esophagitis; I10 Essential (primary) hypertension; E03.9 Hypothyroidism, unspecified; Z90.710 Acquired absence of both cervix and uterus; Z83.3 Family history of diabetes mellitus; Z79.899 Other long term (current) drug therapy; Z82.49 Family history of ischemic heart disease and other diseases of the circulatory system; Z80.3 Family history of malignant neoplasm of breast; Z80.0 Family history of malignant neoplasm of digestive organs

== ENCOUNTER → 2016-11-27 | Outpatient (CLI) | payer OTHER ==
[~2016-11-27] MED LIST changes: +ALBU18002 INH; +AMIT75TA2 PO; +AMOX500C3 PO; +AMT100 PO; +CHOL100027 PO; +CLIN300C10 PO; -CYM30 PO; -HYZ/10015 PO; +IPRASOL4 INH; +LEVO125T5 PO; -LEVO200T PO; +LOSA100T65 PO; +LPT/20 PO; +METO-157 PO; +METO50TA16 PO; +NTRGSL/4 UT; +OXYC-57 PO; +OXYC1TAB3 PO; +PRZ/40 PO; +SPR25 PO; -SYMIN INH; +SYMIN160 INH; -TOPI100T20 PO; +TPM100 PO; +VALA1TAB2 PO; +VARE1PAK10 PO; +ZNTT/150 PO
== END | disposition home or self-care (01) ==
LOC: C.LABSPEC 11:24
PROVIDERS: ATTEND Nurse Practitioner Family
DX: R49.0 Dysphonia (principal)

== ENCOUNTER → 2016-11-28 | Outpatient (CLI) | payer OTHER ==
--- NOTE | 2016-11-28 06:40 | DIAGNOSTIC IMAGING REPORT ---
CHEST 2 VIEWS ROUTINE CLINICAL HISTORY: J45.901 ASTHMA WITH ACUTE EXACERBATION dyspnea COMPARISON STUDY: 11/20/2016 FINDINGS: Increased density left mid and lower lung region compared to the prior study. Right lung is relatively lucent compared to the left pelvis appears to be a pre-existing finding. There is central catheter in superior vena cava. IMPRESSION: Diffuse mild parenchymal infiltrate left base. Electronically signed by: Aden House M.D. 11/28/2016 6:38 AM Dictated Date/Time: 11/28/2016 6:37 AM
== END | disposition home or self-care (01) ==
LOC: C.RAD 04:57
PROVIDERS: ATTEND Nurse Practitioner Family
DX: J45.901 Unspecified asthma with (acute) exacerbation (principal)

== ENCOUNTER → 2016-12-09 | Outpatient (CLI) | payer OTHER ==
[~2016-12-09] MED LIST changes: -AMOX500C3 PO
--- NOTE | 2016-12-09 09:45 | DIAGNOSTIC IMAGING REPORT ---
CHEST 2 VIEWS ROUTINE HISTORY: PNEUMONIA J18.9 COMPARISON: Chest 11/28/2016. FINDINGS: No pneumothorax. No pleural effusions. The heart is normal in size. Left basilar density has essentially resolved in the interval. No new focal lung consolidations to suggest pneumonia. No evidence for pulmonary edema. Left subclavian Port-A-Cath terminates in the distal SVC. IMPRESSION: Left basilar density has essentially resolved. No new focal lung consolidations to suggest pneumonia. Electronically signed by: Dariel Guadarrama M.D. 12/09/2016 9:43 AM Dictated Date/Time: 12/09/2016 9:42 AM
[2016-12-09 10:32] LABS: BASO % 0.1 %; BASO ABS # 0.01 K/uL (0-0.2); COMPLETE YES; EOS % 1.2 %; HEMATOCRIT 43.5 % (37-47); IG% 0.2 %; LYMPH % 30.8 %; LYMPH ABS # 2.88 K/uL (1.2-3.4); MEAN CELL VOLUME 91.2 fL (80-100); MEAN CORPUSCULAR HEMOGLOBIN 30.4 pg (25-34); MEAN CORPUSCULAR HGB CONC 33.3 g/dl (32-36); MEAN PLATELET VOLUME 9.7 fL (7.4-10.4); MONO % 5.8 %; NEUT % 61.9 %; PLATELET COUNT 278 K/uL (130-400); RED BLOOD COUNT 4.77 M/uL (4.2-5.4); WHITE BLOOD COUNT 9.36 K/uL (4.8-10.8)
[2016-12-09 11:04] LABS: BLOOD UREA NITROGEN 10 mg/dl (7-18); BUN/CREATININE RATIO 13.7 (10-20); CALCIUM 8.3 mg/dl (8.5-10.1); CARBON DIOXIDE 30 mmol/L (21-32); CHLORIDE 107 mmol/L (98-107); GLUCOSE 161 mg/dl (70-99); POTASSIUM 3.8 mmol/L (3.5-5.1); SODIUM 141 mmol/L (136-145)
== END | disposition home or self-care (01) ==
LOC: C.RAD 09:04
PROVIDERS: ATTEND Nurse Practitioner Family
DX: J18.9 Pneumonia, unspecified organism (principal); E03.9 Hypothyroidism, unspecified

== ENCOUNTER → 2016-12-20 | Outpatient (CLI) | payer OTHER ==
--- NOTE | 2016-12-20 08:16 | DIAGNOSTIC IMAGING REPORT ---
DOUBLE CONTRAST BARIUM ESOPHAGRAM CLINICAL HISTORY: Laryngeal pharyngeal reflux. Globus sensation. COMPARISON STUDY: Video swallow study dated 12/07/2014. TECHNIQUE: A standard air contrast barium esophagram is performed. Multiple spot images of the esophagus are acquired both upright and prone. FINDINGS: The patient swallowed barium and the barium pill without difficulty. The mucosal pattern is normal. There is no evidence of intrinsic or extrinsic mass lesion. No aspiration was seen. The gastroesophageal junction distended normally. No gastroesophageal reflux could be elicited by having the patient perform the Valsalva maneuver. Fluoroscopy time: 1.2 minutes. Fluoroscopic images: 20 IMPRESSION: Normal barium esophagram. Electronically signed by: Bishop Luna M.D. 12/20/2016 8:15 AM Dictated Date/Time: 12/20/2016 8:14 AM
== END | disposition home or self-care (01) ==
LOC: C.RAD 07:34
DX: K21.9 Gastro-esophageal reflux disease without esophagitis (principal)

== ENCOUNTER → 2017-01-09 | Day surgery (SDC) | payer OTHER ==
[2017-01-03 09:12] VITALS: Ht 165.1 cm; Wt 108.2 kg
[~2017-01-09] VITALS: Ht 165.1 cm; Wt 108.2 kg
[~2017-01-09] MED LIST changes: +LIDOCAINE HCL 2% 2 ML VIAL (20MG/ML) ONE; +MIDAZOLAM HCL 1 MG/ML 2ML VIAL ONE; +ONDANSETRON INJ 2 MG/ML 2 ML VIAL ONE; +PROPOFOL IV EMULSION 10 MG/ML 20 ML VIAL IV ONE
--- NOTE | 2017-01-09 12:14 | Endo History and Physical ---
History & Physical Date of Service: January 09, 2017. Chief Complaint: Dysphagia Referring Physician: Yash Baxter History of Present Illness 51 yo CF who presents for EGD secondary to dysphagia. Past Medical History Reflux, Cancer, Hypertension, COPD, Thyroid Disease, Depression Past Surgical History Hx Cardiac Surgery: No Hx Internal Defibrillator: No Hx Pacemaker: No Hx Abdominal Surgery: Yes (HYSTER, TEE, X2) Hx of Implantable Prosthesis: No Hx Post-Op Nausea and Vomiting: No Hx Cancer Surgery: Yes (RT BREAST LUMPECTOMY AND THEN MASTECTOMY) Hx Thoracic Surgery: No Hx Orthopedic: No Hx Urinary Tract Surgery: No Family History None Social History Smoking Status: Current Every Day Smoker Hx Substance Use: No Hx Alcohol Use: No Allergies Coded Allergies: Tamoxifen (Unverified Allergy, Severe, "CAN'T MOVE", 01/03/17) Ceftriaxone (Verified Allergy, Intermediate, REDNESS, ITCHING, 01/03/17) IV ROCEPHIN IG ADMINISTERED VIA IV PUMP ORDERED AT 1903. AT APPROX 1930 PT RANG SMITH WITH COMPLAINT OF REDNESS AND ITCHINESS. IV ROCEPHIN STOPPED IMMEDIATELY (PT RECEIVED 75ML OF 100ML BAG). ORDER FOR BENADRYL 50MG IV RECEIVED AND ADMINISTERED. PT IV NSS INFUSING AT 999ML/HR VIA PUMP. AT 1937 PT WITH NOTED DECREASED REDNESS TO SKIN AND VERBALIZED DECREASED ITCHINESS. PT ON CARDIAC AND PULSE OX MONITORING. PT PULSE OX READING MAINTAINED 97% AND PT HAD NO COMPLAINT OF SOB, THROAT SWELLING, OR DIFFICULTY BREATHING. Cephalexin (Verified Allergy, Intermediate, SHORTNESS OF BREATH, 01/03/17) Sulfamethoxazole w/Trimethoprim (Verified Allergy, Intermediate, SHORTNESS OF BREATH, 01/03/17) Vancomycin (Verified Allergy, Intermediate, ITCHING ALL OVER, RASH, PARESTHESIAS, 01/03/17) Tramadol (Verified Allergy, Mild, ITCHY, 01/03/17) Codeine (Verified Adverse Reaction, Intermediate, GI BLEED, 01/03/17) Current Medications Reported Home Medications Medications Dose Route/Sig Max Daily Dose Days Date Category Dose Instructions Zantac (Ranitidine HCl) 150 Mg Tab 150 Mg PO HS 01/03/17 Reported Duoneb (Ipratropium-Albuterol) 3 Ml Nebu 1 Treatment INH Q4H PRN 01/03/17 Reported Cozaar (Losartan Potassium) 100 Mg Tab 100 Mg PO QAM 11/20/16 Reported Symbicort 160/4.5 Inhaler (Budesonide/Formoterol Fumarate) 120 Puffs/ Aero 2 Puffs INH BID PRN 11/20/16 Reported Levothyroxine Sodium 125 Mcg Tab 250 Mcg PO 6XWK 11/20/16 Reported TAKE 250 MCG EVERY FRIDAY,FRIDAY,FRIDAY,FRIDAY, FRIDAY AND FRIDAY. Topiramate 100 Mg Tab 100 Mg PO BID 11/20/16 Reported Nitrostat (Nitroglycerin) 0.4 Mg Tab 0.4 Mg UT UD PRN 11/20/16 Reported Prozac (Fluoxetine Hcl) 40 Mg Cap 40 Mg PO QAM 11/20/16 Reported Levothyroxine Sodium 125 Mcg Tab 375 Mcg PO WK 11/20/16 Reported TAKE 375 MCG EVERY FRIDAY Proair Respiclick (Albuterol Sulfate) 108 Mcg/Act Aer 2 Puffs INH Q4H PRN 10/18/16 Reported Lopressor (Metoprolol Tartrate) 50 Mg Tab 50 Mg PO BID 05/31/16 Reported Atorvastatin Calcium (Atorvastatin) 20 Mg Tab 20 Mg PO HS 05/31/16 Reported Elavil (Amitriptyline Hcl) 75 Mg Tab 75 Mg PO HS 09/06/15 Reported Vitamin D 1000 Unit (Cholecalciferol) 1,000 Unit Cap 4,000 Inter.unit PO HS 11/02/13 Reported Vital Signs Weight (Kilograms): 108.18 Height (Feet): 5 Height (Inches): 5 Date Time Temp Pulse Resp B/P Pulse Ox O2 Delivery O2 Flow Rate FiO2 01/09/17 11:38 36.8 71 20 138/95 96 Room Air Physical Exam General Appearance: WD/WN, no apparent distress Respiratory/Chest: Auscultation: breath sounds normal Cardiovascular: Heart Auscultation: RRR Abdomen: Bowel Sounds: normal Inspection & Palpation: soft, non-distended, no tenderness, guarding & rebound Assessment and Plan Assessment: 51 yo CF who presents for EGD secondary to dysphagia. Plan: Proceed with EGD.
--- NOTE | 2017-01-09 12:33 | GI REPORT ---
Procedure Date: 01/09/2017 12:07 PM Procedure: Upper GI endoscopy Indications: Dysphagia Medicines: Monitored Anesthesia Care Complications: No immediate complications. Estimated Blood Loss: Estimated blood loss: none. Procedure: Pre-Anesthesia Assessment: - Prior to the procedure, a History and Physical was performed, and patient medications and allergies were reviewed. The patient's tolerance of previous anesthesia was also reviewed. The risks and benefits of the procedure and the sedation options and risks were discussed with the patient. All questions were answered, and informed consent was obtained. Prior Anticoagulants: The patient has taken no previous anticoagulant or antiplatelet agents. ASA Grade Assessment: II - A patient with mild systemic disease. After reviewing the risks and benefits, the patient was deemed in satisfactory condition to undergo the procedure. After obtaining informed consent, the endoscope was passed under direct vision. Throughout the procedure, the patient's blood pressure, pulse, and oxygen saturations were monitored continuously. The scope was introduced through the mouth, and advanced to the second part of duodenum. The upper GI endoscopy was accomplished without difficulty. The patient tolerated the procedure well. Findings: The esophagus was normal. A medium-sized hiatus hernia was present. Localized mild inflammation characterized by erythema was found in the gastric antrum. Biopsies were taken with a cold forceps for histology. The examined duodenum was normal. Impression: - Normal esophagus. - Medium-sized hiatus hernia. - Gastritis. Biopsied. - Normal examined duodenum. Recommendation: - Resume previous diet. - Continue present medications. - Await pathology results. - Return to GI office as previously scheduled. Rajiv Wong DO 01/09/2017 12:32:54 PM This report has been signed electronically. Note Initiated On: 01/09/2017 12:07 PM I attest to the content of the Intraoperative Record and orders documented therein, exceptions below
--- NOTE | 2017-01-09 12:33 | Discharge Instructions ---
Endoscopy Patient Instructions Date / Procedure(s) Performed January 09, 2017. EGD Allergy Information Coded Allergies: Tamoxifen (Unverified Allergy, Severe, "CAN'T MOVE", 01/03/17) Ceftriaxone (Verified Allergy, Intermediate, REDNESS, ITCHING, 01/03/17) IV ROCEPHIN IG ADMINISTERED VIA IV PUMP ORDERED AT 1903. AT APPROX 1930 PT RANG SMITH WITH COMPLAINT OF REDNESS AND ITCHINESS. IV ROCEPHIN STOPPED IMMEDIATELY (PT RECEIVED 75ML OF 100ML BAG). ORDER FOR BENADRYL 50MG IV RECEIVED AND ADMINISTERED. PT IV NSS INFUSING AT 999ML/HR VIA PUMP. AT 1937 PT WITH NOTED DECREASED REDNESS TO SKIN AND VERBALIZED DECREASED ITCHINESS. PT ON CARDIAC AND PULSE OX MONITORING. PT PULSE OX READING MAINTAINED 97% AND PT HAD NO COMPLAINT OF SOB, THROAT SWELLING, OR DIFFICULTY BREATHING. Cephalexin (Verified Allergy, Intermediate, SHORTNESS OF BREATH, 01/03/17) Sulfamethoxazole w/Trimethoprim (Verified Allergy, Intermediate, SHORTNESS OF BREATH, 01/03/17) Vancomycin (Verified Allergy, Intermediate, ITCHING ALL OVER, RASH, PARESTHESIAS, 01/03/17) Tramadol (Verified Allergy, Mild, ITCHY, 01/03/17) Codeine (Verified Adverse Reaction, Intermediate, GI BLEED, 01/03/17) Discharge Date / Findings January 09, 2017. Gastritis s/p biopsies Hiatal hernia Medication Instructions OK to resume all medications today as prescribed Reported Home Medications Medications Dose Route/Sig Max Daily Dose Days Date Category Dose Instructions Zantac (Ranitidine HCl) 150 Mg Tab 150 Mg PO HS 01/03/17 Reported Duoneb (Ipratropium-Albuterol) 3 Ml Nebu 1 Treatment INH Q4H PRN 01/03/17 Reported Cozaar (Losartan Potassium) 100 Mg Tab 100 Mg PO QAM 11/20/16 Reported Symbicort 160/4.5 Inhaler (Budesonide/Formoterol Fumarate) 120 Puffs/ Aero 2 Puffs INH BID PRN 11/20/16 Reported Levothyroxine Sodium 125 Mcg Tab 250 Mcg PO 6XWK 11/20/16 Reported TAKE 250 MCG EVERY FRIDAY,FRIDAY,FRIDAY,FRIDAY, FRIDAY AND FRIDAY. Topiramate 100 Mg Tab 100 Mg PO BID 11/20/16 Reported Nitrostat (Nitroglycerin) 0.4 Mg Tab 0.4 Mg UT UD PRN 11/20/16 Reported Prozac (Fluoxetine Hcl) 40 Mg Cap 40 Mg PO QAM 11/20/16 Reported Levothyroxine Sodium 125 Mcg Tab 375 Mcg PO WK 11/20/16 Reported TAKE 375 MCG EVERY FRIDAY Proair Respiclick (Albuterol Sulfate) 108 Mcg/Act Aer 2 Puffs INH Q4H PRN 10/18/16 Reported Lopressor (Metoprolol Tartrate) 50 Mg Tab 50 Mg PO BID 05/31/16 Reported Atorvastatin Calcium (Atorvastatin) 20 Mg Tab 20 Mg PO HS 05/31/16 Reported Elavil (Amitriptyline Hcl) 75 Mg Tab 75 Mg PO HS 09/06/15 Reported Vitamin D 1000 Unit (Cholecalciferol) 1,000 Unit Cap 4,000 Inter.unit PO HS 11/02/13 Reported Provider Instructions Activity Restrictions - No exercising or heavy lifting for 24 hours. - Do not drink alcohol the day of the procedure. - Do not drive a car or operate machinery until the day after the procedure. - Do not make any important decisions or sign important papers in 24 hours after the procedure. Following Day: - Return to full activity which may include returning to work/school. Diet Start your diet with liquids and light foods (jello, soup, juice, toast). Then eat your usual diet if not nauseated. Treatment For Common After Affects For mild abdominal pain, bloating, or excessive gas: - Rest - Eat lightly - Lie on right side Follow-Up Information Follow-up with Yash Baxter as scheduled Anesthesia Information What You Should Know You have had a procedure that required some medicine to reduce anxiety and discomfort. This treatment is called moderate sedation. After receiving the treatment, you may be sleepy, but you will be able to breathe on your own. The effects of the treatment may last for several hours. Follow these instructions along with Activity/Diet recommendations noted above: * Do NOT do anything where dizziness or clumsiness would be dangerous. * Rest quietly at home today, then you can be up and about tomorrow. * Have a responsible person stay with you the rest of today. * You may have had an I.V. today. If so, you may take the dressing off later today. Recommendations Call your doctor if: * Trouble breathing * Continuous vomiting for more than 24 hours * Temperature above 101 degrees * Severe abdominal pain or bloating * Pain not relieved by pain medicine ordered * There is increased drainage or redness from any incision * A large amount of rectal bleeding greater than 2-3 tablespoons. (If you had a polyp/s removed or have hemorrhoids, a small amount of blood - from the rectum is to be expected.) * You have any unanswered questions or concerns. IN THE EVENT OF A SERIOUS EMERGENCY, GO TO THE NEAREST EMERGENCY ROOM Your discharge instructions were prepared by provider Rajiv Wong. Patient Instructions Signature Page Aretha Ceja Patient (or Guardian) Signature/Date: I have read and understand the instructions given to me by my caregivers. Caregiver/RN/Doctor Signature/Date: The above-named patient and/or guardian has received patient instructions on this date. + Original Patient Signature Page (only) stays with chart. Please make copy for patient.
--- NOTE | 2017-01-09 13:12 | Anesthesiology Progress Note ---
Anesthesia Post Op Note Date & Time January 09, 2017 at 13:11 Vital Signs Pain Intensity: 0 Vital Signs Past 12 Hours Date Time Temp Pulse Resp B/P Pulse Ox O2 Delivery O2 Flow Rate FiO2 01/09/17 12:49 67 20 141/82 97 Room Air 01/09/17 12:34 74 20 135/90 97 Room Air 01/09/17 11:38 36.8 71 20 138/95 96 Room Air Notes Mental Status: alert / awake / arousable, participated in evaluation Pt Amnestic to Procedure: Yes Nausea / Vomiting: adequately controlled Pain: adequately controlled Airway Patency, RR, SpO2: stable & adequate BP & HR: stable & adequate Hydration State: stable & adequate Anesthetic Complications: no major complications apparent
[2017-01-09 13:18] VITALS: BP 143/95; PULSE 72; O2SAT 95
== END | disposition home or self-care (01) ==
LOC: C.GI 11:18
PROVIDERS: ATTEND Internal Medicine
DX: R13.10 Dysphagia, unspecified (principal); K29.70 Gastritis, unspecified, without bleeding; K44.9 Diaphragmatic hernia without obstruction or gangrene; K21.9 Gastro-esophageal reflux disease without esophagitis; I10 Essential (primary) hypertension; J44.9 Chronic obstructive pulmonary disease, unspecified; F32.9 Major depressive disorder, single episode, unspecified; E07.9 Disorder of thyroid, unspecified; F17.210 Nicotine dependence, cigarettes, uncomplicated; Z79.899 Other long term (current) drug therapy; Z85.3 Personal history of malignant neoplasm of breast

== ENCOUNTER → 2017-02-03 | Outpatient (CLI) | payer OTHER ==
[~2017-02-03] MED LIST changes: -LIDOCAINE HCL 2% 2 ML VIAL (20MG/ML) ONE; -MIDAZOLAM HCL 1 MG/ML 2ML VIAL ONE; -ONDANSETRON INJ 2 MG/ML 2 ML VIAL ONE; -PROPOFOL IV EMULSION 10 MG/ML 20 ML VIAL IV ONE
[2017-02-03 16:14] LABS: ALT/SGPT 63 U/L (12-78); AST/SGOT 39 U/L (15-37); BLOOD UREA NITROGEN 7 mg/dl (7-18); CALCIUM 8.4 mg/dl (8.5-10.1); CARBON DIOXIDE 28 mmol/L (21-32); CHLORIDE 106 mmol/L (98-107); CREATININE 0.67 mg/dl (0.60-1.20); GLUCOSE 154 mg/dl (70-99); POTASSIUM 3.6 mmol/L (3.5-5.1); SODIUM 143 mmol/L (136-145)
[2017-02-03 16:25] LABS: ALKALINE PHOSPHATASE 89 U/L (45-117); THYROID STIMULATING HORMONE 0.138 uIu/ml (0.300-4.500)
== END ==
LOC: C.LAB 14:25
PROVIDERS: ATTEND Nurse Practitioner Family
DX: I10 Essential (primary) hypertension (principal); E03.9 Hypothyroidism, unspecified; K31.84 Gastroparesis; E83.51 Hypocalcemia

== ENCOUNTER → 2017-02-11 | Outpatient (CLI) | payer OTHER ==
[~2017-02-11] MED LIST changes: +OPTIRAY 320 IV PRN
--- NOTE | 2017-02-11 07:30 | DIAGNOSTIC IMAGING REPORT ---
CT soft tissue neck SOFT TISSUE NECK WITH CLINICAL HISTORY: R13.10 [id number] [id number] TECHNIQUE: Transaxial acquisition with multi axial reformatted images COMPARISON STUDY: 11/22/2014 FINDINGS: All major structures are unremarkable. Structures of the larynx, glottic, and subglottic regions are unremarkable. No pathologically enlarged adenopathy is present. Salivary glands are unremarkable. There is no evidence for airway compromise. IMPRESSION: Normal study. No change from the prior exam. Electronically signed by: Aden House M.D. 02/11/2017 7:28 AM Dictated Date/Time: 02/11/2017 7:26 AM
== END | disposition home or self-care (01) ==
LOC: C.CTS 06:59
PROVIDERS: ATTEND Nurse Practitioner Family
DX: R13.10 Dysphagia, unspecified (principal)

== ENCOUNTER → 2017-03-13 | Outpatient (CLI) | payer OTHER ==
[~2017-03-13] MED LIST changes: -AMT100 PO; -CLIN300C10 PO; +LEVO125T4 PO; -LEVO125T5 PO; -OPTIRAY 320 IV PRN; -OXYC1TAB3 PO; -VALA1TAB2 PO
== END | disposition home or self-care (01) ==
LOC: C.LAB 02:30
PROVIDERS: ATTEND Internal Medicine Endocrinology, Diabetes & Metabolism
DX: E55.9 Vitamin D deficiency, unspecified (principal); E03.9 Hypothyroidism, unspecified

== ENCOUNTER → 2017-04-04 | Outpatient (CLI) | payer OTHER | END | disposition home or self-care (01) | LOC: C.PATHSPEC 13:37 | PROVIDERS: ATTEND Dermatology | DX: D22.61 Melanocytic nevi of right upper limb, including shoulder (principal) ==

== ENCOUNTER → 2017-05-06 | Outpatient (CLI) | payer OTHER ==
--- NOTE | 2017-05-07 14:19 | MAMMOGRAPHY REPORT ---
UNILATERAL LEFT DIGITAL SCREENING MAMMOGRAM TOMOSYNTHESIS WITH CAD: 05/06/2017 CLINICAL HISTORY: Asymptomatic. Personal history of breast cancer. TECHNIQUE: Left breast tomosynthesis in addition to standard 2D mammography was performed. Current st udy was also evaluated with a Computer Aided Detection (CAD) system. COMPARISON: Comparison is made to exams dated: 05/01/2016 mammogram, 09/26/2014 ultrasound, 12/20/2013 ma mmogram, 03/15/2013 consultation, 03/15/2013 ultrasound, and 11/11/2012 mammogram - [facility]. BREAST COMPOSITION: There are scattered areas of fibroglandular density in the left breast. FINDINGS: The hub of the Port-A-Cath projects over the superior left pectoralis muscle on the MLO vie w. There are scattered benign-appearing round and punctate calcifications in the left breast. No ne w suspicious mass, architectural distortion or cluster of microcalcifications is seen. IMPRESSION: ACR BI-RADS CATEGORY 1: NEGATIVE There is no mammographic evidence of malignancy. A 1 year screening mammogram is recommended. The pa tient will receive written notification of the results. Approximately 10% of breast cancers are not detected with mammography. A negative mammographic report should not delay biopsy if a clinically suggestive mass is present. Molly Dumont M.D. ay/:05/06/2017 16:28:25 Master Esthetician: Brenda Carvalho, [facility] letter sent: Normal 1/2 BI-RADS Code: ACR BI-RADS Category 1: Negative
== END | disposition home or self-care (01) ==
LOC: EDBD → C.MAMM 07:36
PROVIDERS: ATTEND Surgery
DX: Z12.31 Encounter for screening mammogram for malignant neoplasm of breast (principal); Z85.3 Personal history of malignant neoplasm of breast; Z08 Encounter for follow-up examination after completed treatment for malignant neoplasm

== ENCOUNTER 2017-05-18 21:34 | Emergency (ER) | payer OTHER ==
[~2017-05-18] VITALS: Ht 165.1 cm; Wt 108.8 kg
[~2017-05-18 21:34] MED LIST changes: -METO-157 PO; -OXYC-57 PO; -SPR25 PO; -VARE1PAK10 PO
[2017-05-18 21:38] VITALS: Ht 165.1 cm; Wt 108.8 kg
[2017-05-18] MEDS ORDERED: METO-157 PO (22:10)
[2017-05-18] MEDS ORDERED: SPR25 PO (22:10)
[2017-05-18] MEDS ORDERED: VARE1PAK10 PO (22:10)
[2017-05-18 22:24] LABS: BASO % 0.1 %; BASO ABS # 0.01 K/uL (0-0.2); COMPLETE YES; EOS % 1.8 %; HEMATOCRIT 44.3 % (37-47); IG% 0.2 %; LYMPH % 43.3 %; LYMPH ABS # 3.65 K/uL (1.2-3.4); MEAN CELL VOLUME 85.4 fL (80-100); MEAN CORPUSCULAR HEMOGLOBIN 28.3 pg (25-34); MEAN CORPUSCULAR HGB CONC 33.2 g/dl (32-36); MEAN PLATELET VOLUME 9.6 fL (7.4-10.4); MONO % 6.2 %; NEUT % 48.4 %; PLATELET COUNT 280 K/uL (130-400); RED BLOOD COUNT 5.19 M/uL (4.2-5.4); WHITE BLOOD COUNT 8.42 K/uL (4.8-10.8)
[2017-05-18] MEDS ORDERED: OXYCODONE/ACETAMINOPHEN 5-325 TAB ONE (22:28)
[2017-05-18 22:41] LABS: BUN/CREATININE RATIO 15.3 (10-20); CREATININE 0.73 mg/dl (0.60-1.20); POTASSIUM 3.6 mmol/L (3.5-5.1)
[2017-05-18 22:45] LABS: INR 0.9 (0.9-1.1); PROTHROMBIN TIME (PATIENT) 9.9 SECONDS (9.0-12.0)
--- NOTE | 2017-05-18 22:54 | DIAGNOSTIC IMAGING REPORT ---
R VENOUS DOPP LOWER EXT UNILAT CLINICAL HISTORY: right leg pain, swelling, no injury TECHNIQUE: Venous Doppler COMPARISON STUDY: 09/02/2013 FINDINGS: Normal study IMPRESSION: Normal study The above report was generated using voice recognition software. It may contain grammatical, syntax or spelling errors. Electronically signed by: Aden House M.D. 05/18/2017 10:52 PM Dictated Date/Time: 05/18/2017 10:51 PM
--- NOTE | 2017-05-18 23:05 | DIAGNOSTIC IMAGING REPORT ---
R KNEE 3 VIEWS CLINICAL HISTORY: right knee/leg pain pain COMPARISON: None. DISCUSSION: Moderate degenerative change all major joint compartments. No significant joint effusion. Study is negative for fracture or dislocation. There is no evidence for soft tissue swelling. IMPRESSION: Degenerative change. No acute process. The above report was generated using voice recognition software. It may contain grammatical, syntax or spelling errors. Electronically signed by: Aden House M.D. 05/18/2017 11:03 PM Dictated Date/Time: 05/18/2017 11:03 PM
[2017-05-18] MEDS ORDERED: PERCOCET HOME PACK PO ONE (23:15)
[2017-05-18] MEDS ORDERED: OXYC-57 PO (23:18)
--- NOTE | 2017-05-18 23:19 | EMERGENCY ROOM VISIT NOTE ---
History First contact with patient: 21:49 Chief Complaint: LEG PAIN,LEG INJURY Stated Complaint: RT LEG PAIN FROM FOOT TO HIP History of Present Illness The patient is a 51 year old female who presents to the Emergency Room with complaints of right leg pain. The patient states that she has had a gradual onset of right leg pain for the past 3 days. She reports the pain started in the right knee but is now radiating up and down the leg. She states that she feels a lump in the outside of her right leg. She reports she has had problems with her knee in the past and has been told that there is no cartilage in the knee. She denies any history of blood clots. She reports a history of breast cancer. She is a smoker. She rates her discomfort a 9.5/10. She is taking krsw-ude-kczieva medications without relief. Review of Systems A complete 10 point review of systems was reviewed with the patient with pertinent positives and negatives as per history of present illness. All else were negative. Past Medical/Surgical History Medical Problems: (1) ANXIETY STATE NOS (2) BIPOLAR DISORDER, UNSPECIFIED (3) section (4) Cholecystectomy (5) CHRONIC OBSTRUCTIVE ASTHMA, W (ACUTE) EXACERBATION (6) DIAB AIDAN WO COMPL, TYPE II OR UNSPEC TYPE, NOT UNCNTRLD (7) DIVERTICULITIS COLON (W/O MENT OF HEMORRHAGE) (8) ESOPHAGEAL REFLUX (9) FAM HX-DIABETES MELLITUS (10) FAM HX-ISCHEM HEART DIS (11) FAM HX-OTH MALIG NEOPLASM (12) FAMILY HISTORY OF OTHER CARDIOVASCULAR DISEASES (13) FAMILY HX-BREAST MALIG (14) FAMILY HX-GI MALIGNANCY (15) FAMILY HX-MALIGNANCY NOS (16) HISTORY OF TOBACCO USE (17) HX OF BREAST MALIGNANCY (18) HYPERTENSION NOS (19) HYPOTHYROIDISM NOS (20) Hysterectomy (21) SOB (shortness of breath) (22) Thyroid nodule Family History Cancer Heart disease Hypertension Social History Smoking Status: Current Every Day Smoker Alcohol Use: none Drug Use: none Marital Status: Occupation Status: employed Current/Historical Medications Scheduled Amitriptyline Hcl (Elavil), 75 MG PO HS Atorvastatin (Atorvastatin Calcium), 20 MG PO HS Cholecalciferol (Vitamin D 1000 Unit), 5,000 INTER.UNIT PO HS Levothyroxine Sodium (Levothyroxine Sodium), 375 MCG PO WK Levothyroxine Sodium (Levothyroxine Sodium), 250 MCG PO 6XWK Losartan Potassium (Cozaar), 100 MG PO QAM Metoclopramide Hcl (Reglan), 10 MG PO ACHS Metoprolol Tartrate (Lopressor) (Lopressor), 50 MG PO BID Ranitidine (Zantac), 150 MG PO HS Spironolactone (Spironolactone), 25 MG PO DAILY Topiramate (Topiramate), 100 MG PO BID Varenicline Tartrate (Chantix Continuing Month), 1 MG PO BID Scheduled PRN Albuterol Sulfate (Proair Respiclick), 2 PUFFS INH Q4H PRN for SOB/Wheezing Budesonide/Formoterol Fumarate (Symbicort 160/4.5 Inhaler), 2 PUFFS INH BID PRN for Shortness of Breath Ipratropium-Albuterol (Duoneb), 1 TREATMENT INH Q4H PRN for SOB/Wheezing Nitroglycerin (Nitrostat), 0.4 MG UT UD PRN for Chest Pain Oxycodone/Acetaminophen 5MG/325MG (Percocet 5MG/325MG), 1-2 TABS PO Q6H PRN for Pain Physical Exam Vital Signs Date Time Temp Pulse Resp B/P (MAP) Pulse Ox O2 Delivery O2 Flow Rate FiO2 05/18/17 23:43 36.7 70 16 138/85 97 05/18/17 22:22 36.8 84 18 151/97 97 Room Air 05/18/17 21:38 36.9 77 20 147/91 99 Room Air Physical Exam VITALS: Vitals are noted on the nurse's note and reviewed by myself. Vital signs stable. GENERAL: This is a 51-year-old female, in no acute distress, nondiaphoretic, well-developed well-nourished. SKIN: There is no erythema or warmth to suggest cellulitis. HEART: Regular rate and rhythm without murmurs gallops or rubs. LUNGS: Clear to auscultation bilaterally without wheezes, rales or rhonchi. MUSCULOSKELETAL: There is tenderness to palpation of the medial aspect of the right knee. No deformity. No ecchymosis or erythema. Full range of motion of the right lower extremity. NEURO: Patient was alert and oriented to person place and time. Normal sensation to light and sharp touch. Medical Decision & Procedures ER Provider Diagnostic Interpretation: R KNEE 3 VIEWS DISCUSSION: Moderate degenerative change all major joint compartments. No significant joint effusion. Study is negative for fracture or dislocation. There is no evidence for soft tissue swelling. IMPRESSION: Degenerative change. No acute process. R VENOUS DOPP LOWER EXT UNILAT FINDINGS: Normal study IMPRESSION: Normal study Laboratory Results 05/18/17 22:15 Red Blood Count 5.19, Mean Corpuscular Volume 85.4, Mean Corpuscular Hemoglobin 28.3, Mean Corpuscular Hemoglobin Concent 33.2, Mean Platelet Volume 9.6, Neutrophils (%) (Auto) 48.4, Lymphocytes (%) (Auto) 43.3, Monocytes (%) (Auto) 6.2, Eosinophils (%) (Auto) 1.8, Basophils (%) (Auto) 0.1, Neutrophils # (Auto) 4.07, Lymphocytes # (Auto) 3.65, Monocytes # (Auto) 0.52, Eosinophils # (Auto) 0.15, Basophils # (Auto) 0.01 05/18/17 22:15 Test 05/18/17 22:15 White Blood Count 8.42 K/uL (4.8-10.8) Red Blood Count 5.19 M/uL (4.2-5.4) Hemoglobin 14.7 g/dL (12.0-16.0) Hematocrit 44.3 % (37-47) Mean Corpuscular Volume 85.4 fL (80-100) Mean Corpuscular Hemoglobin 28.3 pg (25-34) Mean Corpuscular Hemoglobin Concent 33.2 g/dl (32-36) Platelet Count 280 K/uL (130-400) Mean Platelet Volume 9.6 fL (7.4-10.4) Neutrophils (%) (Auto) 48.4 % Lymphocytes (%) (Auto) 43.3 % Monocytes (%) (Auto) 6.2 % Eosinophils (%) (Auto) 1.8 % Basophils (%) (Auto) 0.1 % Neutrophils # (Auto) 4.07 K/uL (1.4-6.5) Lymphocytes # (Auto) 3.65 K/uL (1.2-3.4) Monocytes # (Auto) 0.52 K/uL (0.11-0.59) Eosinophils # (Auto) 0.15 K/uL (0-0.5) Basophils # (Auto) 0.01 K/uL (0-0.2) RDW Standard Deviation 40.4 fL (36.4-46.3) RDW Coefficient of Variation 13.1 % (11.5-14.5) Immature Granulocyte % (Auto) 0.2 % Immature Granulocyte # (Auto) 0.02 K/uL (0.00-0.02) Prothrombin Time 9.9 SECONDS (9.0-12.0) Prothromb Time International Ratio 0.9 (0.9-1.1) Activated Partial Thromboplast Time 26.7 SECONDS (21.0-31.0) Partial Thromboplastin Ratio 1.0 Anion Gap 9.0 mmol/L (3-11) Est Creatinine Clear Calc Drug Dose 111.9 ml/min Estimated GFR () 110.5 Estimated GFR (Non- 95.4 BUN/Creatinine Ratio 15.3 (10-20) Calcium Level 9.0 mg/dl (8.5-10.1) Medications Administered Medications (Trade) Dose Ordered Sig/Sunday Route Start Time Stop Time Status Last Admin Dose Admin Oxycodone/ Acetaminophen (Percocet 5-325mg Tab) 1 tab STK-MED ONCE .ROUTE 05/18/17 22:28 05/18/17 22:29 DC 05/18/17 22:28 1 TAB Oxycodone/ Acetaminophen (Percocet 5/ 325MG Home Pack) 1 homepack UD ONCE PO 05/18/17 23:15 05/18/17 23:17 DC 05/18/17 23:51 1 HOMEPACK Medical Decision Differential diagnosis includes DVT, superficial thrombosis, fracture, contusion , sprain, arthritis, among others. The patient is a 51-year-old female who presents today complaining of right leg pain. Labs were unremarkable. Ultrasound of the legs shows no evidence of DVT. X-ray of the knee showed arthritis but no acute findings. She was given a short course of pain medication for symptomatic relief. She was instructed to follow-up with her primary care provider and orthopedist for further evaluation. She verbalized understanding of my assessment and treatment plan was discharged home in good condition. Medication Reconcilliation Current Medication List: was personally reviewed by me Blood Pressure Screening Patient's blood pressure: Elevated blood pressure Blood pressure disposition: Elevated BP felt to be situational Impression Primary Impression: Leg pain, right Departure Information Dispostion Home / Self-Care Condition GOOD Prescriptions Oxycodone/Acetaminophen 5MG/325MG (PERCOCET 5MG/325MG) Tab 1-2 TABS PO Q6H Y for Pain, #12 TAB For Initial Treatment Prov: Radha Marino PA-C 05/18/17 Referrals Yash Baxter III, CRNP (PCP) Patient Instructions My [facility] Additional Instructions You have been treated in the Emergency Department for Knee Pain. You have received pain medicine in the emergency department which impairs your ability to operate a vehicle. It is illegal for you to drive after receiving these medicines. You have been prescribed Percocet to be used for pain control. This is a narcotic medication. You cannot drive or consume alcohol while on this medicine. This medicine should only be used for pain that cannot be controlled with [id number] pain medicines. For pain control, you can use the following arjt-lkj-vekkrpo medicines (if >12 yo): - Regular strength (325mg/tab) Tylenol (acetaminophen) 2 tabs every 4-6 hours as needed. Do not exceed 12 tablets in a 24 hour period. Avoid taking more than 4 grams (4000 mg) of Tylenol per day. This includes any other sources of acetaminophen you may take on a regular basis. - Regular strength (200 mg/tab) Advil (ibuprofen) 1-2 tabs every 4-6 hours as needed. Do not exceed a dose of 3200 mg per day. If this is a recent injury (<24 hrs), ice can be applied to the area of pain for the first 3 days to help decrease pain and inflammation. Ice massages can be performed by freezing water in a paper cup, peeling back the cup to expose the ice and then massaging over the affected area. Follow-up with orthopedics. Call for appointment. Return to the Emergency Department if your current symptoms worsen despite treatment course outlined above.
[2017-05-18 23:43] VITALS: BP 138/85; PULSE 70; TEMP 36.7; O2SAT 97
== END 2017-05-18 23:45 | disposition home or self-care (01) ==
LOC: C.EDB 21:36 → C.EDC 23:45
DX: M79.604 Pain in right leg (principal); Z85.3 Personal history of malignant neoplasm of breast; F41.9 Anxiety disorder, unspecified; I10 Essential (primary) hypertension; E03.9 Hypothyroidism, unspecified; F31.9 Bipolar disorder, unspecified; K21.9 Gastro-esophageal reflux disease without esophagitis; J44.1 Chronic obstructive pulmonary disease with (acute) exacerbation; E11.9 Type 2 diabetes mellitus without complications; F17.210 Nicotine dependence, cigarettes, uncomplicated; Z83.3 Family history of diabetes mellitus; Z80.9 Family history of malignant neoplasm, unspecified; Z82.49 Family history of ischemic heart disease and other diseases of the circulatory system; Z79.899 Other long term (current) drug therapy

== ENCOUNTER → 2017-05-23 | Outpatient (CLI) | payer OTHER ==
[~2017-05-23] MED LIST changes: +METO-157 PO; +OXYC-57 PO; -PRZ/40 PO; +SPR25 PO; +VARE1PAK10 PO
[2017-05-23 17:19] LABS: THYROID STIMULATING HORMONE 6.78 uIu/ml (0.300-4.500)
== END | disposition home or self-care (01) ==
LOC: C.LAB 15:29
PROVIDERS: ATTEND Nurse Practitioner Family
DX: E03.9 Hypothyroidism, unspecified (principal); E55.9 Vitamin D deficiency, unspecified

== ENCOUNTER 2017-07-14 23:33 | Emergency (ER) | payer OTHER ==
[~2017-07-14] VITALS: Ht 165.1 cm; Wt 108.5 kg
[~2017-07-14 23:33] MED LIST changes: -LEVO125T4 PO; +LEVO125T5 PO
[2017-07-14 23:36] VITALS: TEMP 36.7; Ht 165.1 cm; Wt 108.5 kg
[2017-07-14] MEDS ORDERED: OXYCODONE IR HOME PACK PO ONE (23:45)
[2017-07-14] MEDS ORDERED: PRZ/40 PO (23:49)
[2017-07-15] MEDS ORDERED: VALA1TAB2 PO (00:40)
[2017-07-15] MEDS ORDERED: OXYC1TAB3 PO (00:40)
[2017-07-15 00:56] VITALS: BP 149/98; PULSE 70; O2SAT 97
--- NOTE | 2017-07-15 03:15 | EMERGENCY ROOM VISIT NOTE ---
History First contact with patient: 23:38 Chief Complaint: SKIN PROBLEM Stated Complaint: POSSIBLE SHINGLES RT BREAST AREA History of Present Illness The patient is a 52 year old female who presents to the Emergency Room with complaints of painful rash to the right lower chest wall for the past day. Patient describes the pain as burning, ranging in severity currently 7 out of 10. Worse with palpation and better with rest. Patient has had shingles before and symptoms feel similar. Patient states before the rash started she had pain to the area. Patient has a history of breast cancer. She is in remission. Patient states there is a lump to her right upper breast axillary area. It is tender. Patient denies redness or drainage to the area. She's had a mastectomy to this area. Patient denies dyspnea, fever, chills, cough, congestion. Review of Systems See HPI for pertinent positives & negatives. A total of 10 systems reviewed and were otherwise negative. Past Medical/Surgical History Medical Problems: (1) ANXIETY STATE NOS (2) BIPOLAR DISORDER, UNSPECIFIED (3) section (4) Cholecystectomy (5) CHRONIC OBSTRUCTIVE ASTHMA, W (ACUTE) EXACERBATION (6) DIAB AIDAN WO COMPL, TYPE II OR UNSPEC TYPE, NOT UNCNTRLD (7) DIVERTICULITIS COLON (W/O MENT OF HEMORRHAGE) (8) ESOPHAGEAL REFLUX (9) FAM HX-DIABETES MELLITUS (10) FAM HX-ISCHEM HEART DIS (11) FAM HX-OTH MALIG NEOPLASM (12) FAMILY HISTORY OF OTHER CARDIOVASCULAR DISEASES (13) FAMILY HX-BREAST MALIG (14) FAMILY HX-GI MALIGNANCY (15) FAMILY HX-MALIGNANCY NOS (16) HISTORY OF TOBACCO USE (17) HX OF BREAST MALIGNANCY (18) HYPERTENSION NOS (19) HYPOTHYROIDISM NOS (20) Hysterectomy (21) SOB (shortness of breath) (22) Thyroid nodule Family History Cancer Heart disease Hypertension Social History Smoking Status: Current Every Day Smoker Alcohol Use: none Drug Use: none Marital Status: Occupation Status: employed Current/Historical Medications Scheduled Amitriptyline Hcl (Elavil), 75 MG PO HS Atorvastatin (Atorvastatin Calcium), 20 MG PO HS Cholecalciferol (Vitamin D 1000 Unit), 5,000 INTER.UNIT PO HS Fluoxetine Hcl (Prozac), 40 MG PO DAILY Levothyroxine Sodium (Levothyroxine Sodium), 250 MCG PO WK Levothyroxine Sodium (Levothyroxine Sodium), 125 MCG PO 6XWK Losartan Potassium (Cozaar), 100 MG PO QAM Metoclopramide Hcl (Reglan), 10 MG PO ACHS Metoprolol Tartrate (Lopressor) (Lopressor), 50 MG PO BID Ranitidine (Zantac), 150 MG PO HS Spironolactone (Spironolactone), 25 MG PO DAILY Topiramate (Topiramate), 100 MG PO BID Valacyclovir Hcl (Valtrex), 1,000 MG PO TID Varenicline Tartrate (Chantix Continuing Month), 1 MG PO BID Scheduled PRN Albuterol Sulfate (Proair Respiclick), 2 PUFFS INH Q4H PRN for SOB/Wheezing Budesonide/Formoterol Fumarate (Symbicort 160/4.5 Inhaler), 2 PUFFS INH BID PRN for Shortness of Breath Ipratropium-Albuterol (Duoneb), 1 TREATMENT INH Q4H PRN for SOB/Wheezing Nitroglycerin (Nitrostat), 0.4 MG UT UD PRN for Chest Pain Oxycodone Immediate Rel Tab (Roxicodone Ir), 1-2 TAB PO Q4H PRN for Severe Pain Physical Exam Vital Signs Date Time Temp Pulse Resp B/P (MAP) Pulse Ox O2 Delivery O2 Flow Rate FiO2 07/15/17 00:56 70 18 149/98 97 07/14/17 23:36 36.7 74 18 173/102 98 Room Air Physical Exam VITALS: Vitals are noted on the nurse's note and reviewed by myself. Vital signs hypertensive GENERAL: Pleasant female, in no acute distress, nondiaphoretic, well-developed well-nourished. SKIN: Capillary reflex less than 2 seconds. Right chest wall T8 dermatome with erythematous vesicular papules most consistent with herpes zoster which is exquisitely tender to palpation HEENT: Normocephalic. PERRLA. EOMI. Nares patent. Mucous membranes moist. Neck is supple without nuchal rigidity. HEART: Regular rate and rhythm without murmurs gallops or rubs. Right upper anterior chest axilla region with tender mass mobile that is not erythematous or fluctuant LUNGS: Clear to auscultation bilaterally without wheezes, rales or rhonchi. No retractions or accessory muscle use. ABDOMEN: Positive bowel sounds x 4. Normal tympanic percussion. Soft, nontender, without masses or organomegaly. Russell sign negative. No guarding or rebound tenderness. MUSCULOSKELETAL: No gross musculoskeletal defects. NEURO: Patient was alert and oriented to person place and time. Normal sensation to light and sharp touch. No focal neurological deficits. Medical Decision & Procedures Medications Administered Medications (Trade) Dose Ordered Sig/Sunday Route Start Time Stop Time Status Last Admin Dose Admin Valacyclovir HCl (Valtrex Tab) 1,000 mg NOW ONCE PO 07/14/17 23:45 07/14/17 23:49 DC 07/15/17 00:47 1,000 MG Oxycodone HCl (Roxicodone Immediate Rel 5MG Home Pack) 1 homepack UD ONCE PO 07/14/17 23:45 07/14/17 23:49 DC 07/15/17 00:47 1 HOMEPACK Medical Decision Prior records/ancillary studies reviewed. Triage Nursing notes reviewed. The patient's history was concerning for a rash. Differential diagnosis: Etiologies such as contact dermatitis, viral exanthem, urticaria, allergic reaction, Marquez-Jose Ramon syndrome, toxic epidermal necrolysis, erythema multiforme, cellulitis, scabies, HSV, varicella, zoster, eczema, staph scalded skin syndrome, fungal infection, as well as others were entertained. Physical examination: As above ER treatment provided: Valtrex, home pack of OxyIR On reassessment the patient felt better. Diagnostic interpretation by me: Ultrasound was concerning for lipoma per radiology The etiology for the patient's rash appears to be consistent with herpes zoster and lipoma. Patient had a history of breast cancer and ultrasound was ordered for the palpable mass to the right upper chest and axilla area. Ultrasound is concerning for lipoma. Patient was counseled on lipoma and on herpes zoster. All questions are answered. She is advised to monitor her blood sugars and to take medications as directed. She is advised to follow-up family care in a few days or here in the ER sooner for severe pain, chest pain, dyspnea, fevers, worsening signs or symptoms or as needed. Patient had no signs of cellulitis or abscess. She is well-appearing. By the evaluation outlined above emergent etiologies such as Marquez-Jose Ramon syndrome, toxic epidermal necrolysis, erythema multiforme, cellulitis, scabies, HSV, staph scalded skin syndrome, urticaria, allergic reaction, as well as others were deemed relatively unlikely. The pt informed about the findings as listed above. All questions were answered and pleased with the treatment. Return instructions were outlined and the patient was discharged in stable condition. Outpatient prescription management: Valtrex, OxyIR Referral: The patient was referred back to their primary care physician for follow-up in 2 -3 days for a recheck of the current condition. Case reviewed with my attending [facility] Drug Monitoring Program Search Results: patient reviewed within database, no issues identified Medication Reconcilliation Current Medication List: was personally reviewed by me Blood Pressure Screening Patient's blood pressure: Elevated blood pressure Blood pressure disposition: Elevated BP felt to be situational Impression Primary Impression: Herpes zoster Additional Impression: lipoma Departure Information Dispostion Home / Self-Care Condition GOOD Prescriptions Oxycodone Immediate Rel Tab (ROXICODONE IR) 5 Mg Tab 1-2 TAB PO Q4H Y for Severe Pain, #20 TAB initial course Prov: Flores Albright PA-C 07/15/17 Valacyclovir Hcl (VALTREX) 1 Gm Tab 1000 MG PO TID for 7 Days, #21 TAB Prov: Flores Albright PA-C 07/15/17 Forms WORK / SCHOOL INSTRUCTIONS, HOME CARE DOCUMENTATION FORM, Days off work : 2 Work Instructions, IMPORTANT VISIT INFORMATION Patient Instructions [facility], ED Lipoma, ED Shingles Additional Instructions Valtrex 1 g 3 times a day for one week.Any medication can cause an allergic reaction, stop the pills immediately and return to the ER for rash, hives, breathing difficulties, or swelling. Oxycodone (OxyIR) 5mg: Take 1-2 pills every four hours for breakthrough pain. Avoid alcohol, operating machinery or dangerous equipment, working on ladders or roofs, DRIVING, or situations where being under the influence may be dangerous. It is recommended to use an elfz-rea-luojymt stool softener such as Colace, 100mg twice daily while taking this medication to avoid constipation. Ibuprofen(Motrin, Advil) may be used for fever or pain. Use 600mg every six hours as needed. Take with food. Avoid using more than 2400mg in a 24 hour period. Do not use 2400mg per day for more than three consecutive days without physician direction. Prolonged inappropriate use can lead to stomach upset or ulcers. (AND/OR) Acetaminophen(Tylenol) may be used for fever or pain. Use 1000mg every six hours as needed. Avoid using more than 3000mg in a 24 hour period. Rest and drink plenty of fluids. Avoid scratching the area. Avoid being around anyone immunocompromised or until rash has resolved. Monitor your blood sugars. The area of concern on your chest most likely is a lipoma which is a benign finding. Continue current medications. Return to the ER for chest pain, difficulty breathing, fevers, vomiting, worsening of your condition, or as needed. Follow up with your primary physician this week for a recheck of your current condition. Problem Qualifiers Primary Impression: Herpes zoster Herpes zoster complications: without complications Qualified Codes: B02.9 - Zoster without complications
--- NOTE | 2017-07-15 06:33 | DIAGNOSTIC IMAGING REPORT ---
RIGHT AXILLARY ULTRASOUND CLINICAL HISTORY: Right axillary mass. History of breast carcinoma. COMPARISON STUDY: No previous studies for comparison. FINDINGS: No ultrasonographic masses are visualized in the right axillary region. In the right shoulder there is a 12 x 6 x 9 mm subcutaneous echogenic focus, possibly representing a lipoma. IMPRESSION: 1. No axillary masses or adenopathy identified ultrasonographically 2. 12 x 6 x 9 mm subcutaneous nodule in the right shoulder region. This is consistent with although not specific for a lipoma Electronically signed by: Drake Jimenez M.D. 07/15/2017 6:31 AM Dictated Date/Time: 07/15/2017 6:29 AM
== END 2017-07-15 00:58 | disposition home or self-care (01) ==
LOC: C.EDB 23:34 → C.EDC 07-15 00:58
DX: B02.9 Zoster without complications (principal); D17.39 Benign lipomatous neoplasm of skin and subcutaneous tissue of other sites; J44.9 Chronic obstructive pulmonary disease, unspecified; I10 Essential (primary) hypertension; E03.9 Hypothyroidism, unspecified; E11.9 Type 2 diabetes mellitus without complications; K21.9 Gastro-esophageal reflux disease without esophagitis; F17.200 Nicotine dependence, unspecified, uncomplicated; Z85.3 Personal history of malignant neoplasm of breast; Z90.10 Acquired absence of unspecified breast and nipple; Z90.710 Acquired absence of both cervix and uterus; Z90.49 Acquired absence of other specified parts of digestive tract; Z98.891 History of uterine scar from previous surgery; Z82.49 Family history of ischemic heart disease and other diseases of the circulatory system; Z79.899 Other long term (current) drug therapy

== ENCOUNTER → 2017-07-15 | Outpatient (CLI) | payer OTHER ==
[~2017-07-15] MED LIST changes: +OXYC1TAB3 PO; +PRZ/40 PO; +VALA1TAB2 PO
--- NOTE | 2017-07-15 17:32 | DIAGNOSTIC IMAGING REPORT ---
MRI OF THE LUMBAR SPINE WITHOUT CONTRAST CLINICAL HISTORY: Low back pain radiating into right lower extremity. L4 radiculopathy. History of breast cancer. COMPARISON STUDY: Lumbar spine radiographs May 31, 2016, CT of the lumbar spine June 29, 2014. TECHNIQUE: Utilizing a 1.5 Lorna magnet and dedicated coil, multiplanar, multiecho imaging of the lumbar spine was performed without IV contrast. FINDINGS: For purposes of numbering on this exam, the L5-S1 disc space is assigned to axial image 27 of 30. Alignment of the lumbar spine is anatomic. Vertebral body heights are maintained. There is no suspicious marrow replacement. There is no intracanalicular mass or fluid collection. Paravertebral soft tissues are unremarkable. Conus terminates at the lower L1 level. L1-2: The central canal and neural foramen are patent. L2-3: The central canal and neural foramen are patent. L3-4: The central canal and neural foramen are patent. There is mild facet arthrosis L4-5: There is moderate facet arthrosis, greater on the right. There is mild disc bulge. The central canal and lateral recesses are patent. There is mild narrowing of both neural foramen. L5-S1: There is mild facet arthrosis. There is minimal disc bulge. The central canal and lateral recesses are patent. There is mild narrowing of both neural foramen. IMPRESSION: Mild multilevel degenerative disc disease and facet arthrosis. No disc herniation. Patent central canal. Mild multilevel neural foraminal stenosis at the L4-L5 and L5-S1 levels, as described above. Electronically signed by: Troy Medrano M.D. 07/15/2017 5:30 PM Dictated Date/Time: 07/15/2017 5:23 PM
== END | disposition home or self-care (01) ==
LOC: C.MRI 15:41
PROVIDERS: ATTEND Nurse Practitioner Family
DX: M54.17 Radiculopathy, lumbosacral region (principal); E55.9 Vitamin D deficiency, unspecified; E03.9 Hypothyroidism, unspecified

== ENCOUNTER 2017-07-22 08:55 | Emergency (ER) | payer OTHER ==
[~2017-07-22] VITALS: Ht 165.1 cm; Wt 110.8 kg
[~2017-07-22 08:55] MED LIST changes: -OXYC-57 PO
[2017-07-22 09:00] VITALS: TEMP 36.9; Ht 165.1 cm; Wt 110.8 kg
[2017-07-22] MEDS ORDERED: ONDANSETRON INJ 2 MG/ML 2 ML VIAL IV STA ×2 (09:08→09:46)
[2017-07-22] MEDS ORDERED: KETOROLAC TROMETHAMINE 30 MG/ML VIAL IV STA (09:08)
[2017-07-22] MEDS ORDERED: MoRPHine SULFATE 10 MG/ML CARP/VIAL IV STA (09:08)
[2017-07-22] MEDS ORDERED: CLINDAMYCIN 600 MG/54 ML D5W IV ONE (09:15)
[2017-07-22] MEDS ORDERED: XYLOCAINE 1%/SOD BICARB 20 ML VIAL INFIL ONE (09:15)
[2017-07-22] MEDS ORDERED: MoRPHine SULFATE 4 MG/ML 1 ML CARP\\VIAL IV STA (09:46)
[2017-07-22] MEDS ORDERED: AMT100 PO (09:54)
[2017-07-22 10:03] LABS: BUN/CREATININE RATIO 13.8 (10-20); CALCIUM 8.4 mg/dl (8.5-10.1); CREATININE 0.74 mg/dl (0.60-1.20); POTASSIUM 3.3 mmol/L (3.5-5.1)
[2017-07-22 10:10] LABS: BASO % 0.2 %; BASO ABS # 0.02 K/uL (0-0.2); COMPLETE YES; EOS % 0.7 %; HEMATOCRIT 41.1 % (37-47); IG% 0.2 %; LYMPH % 31.6 %; LYMPH ABS # 3.52 K/uL (1.2-3.4); MEAN CELL VOLUME 89.2 fL (80-100); MEAN CORPUSCULAR HEMOGLOBIN 30.4 pg (25-34); MEAN CORPUSCULAR HGB CONC 34.1 g/dl (32-36); MONO % 6.5 %; NEUT % 60.8 %; PLATELET COUNT 243 K/uL (130-400); RED BLOOD COUNT 4.61 M/uL (4.2-5.4); WHITE BLOOD COUNT 11.15 K/uL (4.8-10.8)
[2017-07-22] MEDS ORDERED: CLIN300C10 PO (10:27)
[2017-07-22] MEDS ORDERED: OXYC-57 PO (10:27)
--- NOTE | 2017-07-22 10:29 | EMERGENCY ROOM VISIT NOTE ---
History First contact with patient: 09:04 Chief Complaint: WOUND INFECTION Stated Complaint: BIG ABSCESS UNDER LEFT ARM Nursing Triage Summary: Pt presents with redness, swelling and pain under left arm/axilla that began Sat and is worsening. Chills. Nausea. History of Present Illness The patient is a 52 year old female who presents to the Emergency Room with complaints of redness and swelling under her left arm which she noticed on Friday and is getting progressively worse. The patient admits to chills and some nausea. The patient denies any history of MRSA. The patient has never had an abscess in this area before. The patient was recently seen in the ER for herpes zoster on the right chest wall. The patient is diabetic. The patient states that her blood sugar this morning was 92. Review of Systems 10 system review was performed and was negative unless stated otherwise history of present illness. Past Medical/Surgical History Medical Problems: (1) ANXIETY STATE NOS (2) BIPOLAR DISORDER, UNSPECIFIED (3) section (4) Cholecystectomy (5) CHRONIC OBSTRUCTIVE ASTHMA, W (ACUTE) EXACERBATION (6) DIAB AIDAN WO COMPL, TYPE II OR UNSPEC TYPE, NOT UNCNTRLD (7) DIVERTICULITIS COLON (W/O MENT OF HEMORRHAGE) (8) ESOPHAGEAL REFLUX (9) FAM HX-DIABETES MELLITUS (10) FAM HX-ISCHEM HEART DIS (11) FAM HX-OTH MALIG NEOPLASM (12) FAMILY HISTORY OF OTHER CARDIOVASCULAR DISEASES (13) FAMILY HX-BREAST MALIG (14) FAMILY HX-GI MALIGNANCY (15) FAMILY HX-MALIGNANCY NOS (16) HISTORY OF TOBACCO USE (17) HX OF BREAST MALIGNANCY (18) HYPERTENSION NOS (19) HYPOTHYROIDISM NOS (20) Hysterectomy (21) SOB (shortness of breath) (22) Thyroid nodule Family History Cancer Heart disease Hypertension Social History Smoking Status: Current Every Day Smoker Alcohol Use: none Drug Use: none Marital Status: Occupation Status: employed Current/Historical Medications Scheduled Amitriptyline HCl (Amitriptyline HCl), 100 MG PO HS Atorvastatin (Atorvastatin Calcium), 20 MG PO HS Cholecalciferol (Vitamin D 1000 Unit), 5,000 INTER.UNIT PO HS Fluoxetine Hcl (Prozac), 40 MG PO DAILY Levothyroxine Sodium (Levothyroxine Sodium), 250 MCG PO 3XWK Levothyroxine Sodium (Levothyroxine Sodium), 125 MCG PO 4XWK Losartan Potassium (Cozaar), 100 MG PO QAM Metoclopramide Hcl (Reglan), 10 MG PO ACHS Metoprolol Tartrate (Lopressor) (Lopressor), 50 MG PO BID Ranitidine (Zantac), 150 MG PO HS Spironolactone (Spironolactone), 25 MG PO DAILY Topiramate (Topiramate), 100 MG PO BID Varenicline Tartrate (Chantix Continuing Month), 1 MG PO BID Scheduled PRN Albuterol Sulfate (Proair Respiclick), 2 PUFFS INH Q4H PRN for SOB/Wheezing Budesonide/Formoterol Fumarate (Symbicort 160/4.5 Inhaler), 2 PUFFS INH BID PRN for Shortness of Breath Ipratropium-Albuterol (Duoneb), 1 TREATMENT INH Q4H PRN for SOB/Wheezing Nitroglycerin (Nitrostat), 0.4 MG UT UD PRN for Chest Pain Physical Exam Vital Signs Date Time Temp Pulse Resp B/P (MAP) Pulse Ox O2 Delivery O2 Flow Rate FiO2 07/22/17 09:00 36.9 90 18 185/113 97 Room Air Physical Exam General: 52-year-old white female appears uncomfortable secondary to pain. MENTAL Status: Alert and oriented 3. NECK: Supple, no lymphadenopathy noted. No carotid bruits noted. LUNGS: Clear auscultation without wheezes rales or rhonchi. CARDIAC: Regular rate and rhythm without murmur. Pulses is full and equal throughout. LEFT AXILLA: There is a indurated area with central fluctuance noted on the proximal aspect of the humerus with surrounding erythema. There is no drainage noted at this time. In the lower portion of the axilla there is an additional area of induration and redness with no central fluctuance which is tender to palpation. Medical Decision & Procedures Laboratory Results 07/22/17 09:20 Red Blood Count 4.61, Mean Corpuscular Volume 89.2, Mean Corpuscular Hemoglobin 30.4, Mean Corpuscular Hemoglobin Concent 34.1, Mean Platelet Volume 10.0, Neutrophils (%) (Auto) 60.8, Lymphocytes (%) (Auto) 31.6, Monocytes (%) (Auto) 6.5, Eosinophils (%) (Auto) 0.7, Basophils (%) (Auto) 0.2, Neutrophils # (Auto) 6.79, Lymphocytes # (Auto) 3.52, Monocytes # (Auto) 0.72, Eosinophils # (Auto) 0.08, Basophils # (Auto) 0.02 07/22/17 09:20 Test 07/22/17 09:20 White Blood Count 11.15 K/uL (4.8-10.8) Red Blood Count 4.61 M/uL (4.2-5.4) Hemoglobin 14.0 g/dL (12.0-16.0) Hematocrit 41.1 % (37-47) Mean Corpuscular Volume 89.2 fL (80-100) Mean Corpuscular Hemoglobin 30.4 pg (25-34) Mean Corpuscular Hemoglobin Concent 34.1 g/dl (32-36) Platelet Count 243 K/uL (130-400) Mean Platelet Volume 10.0 fL (7.4-10.4) Neutrophils (%) (Auto) 60.8 % Lymphocytes (%) (Auto) 31.6 % Monocytes (%) (Auto) 6.5 % Eosinophils (%) (Auto) 0.7 % Basophils (%) (Auto) 0.2 % Neutrophils # (Auto) 6.79 K/uL (1.4-6.5) Lymphocytes # (Auto) 3.52 K/uL (1.2-3.4) Monocytes # (Auto) 0.72 K/uL (0.11-0.59) Eosinophils # (Auto) 0.08 K/uL (0-0.5) Basophils # (Auto) 0.02 K/uL (0-0.2) RDW Standard Deviation 44.8 fL (36.4-46.3) RDW Coefficient of Variation 13.8 % (11.5-14.5) Immature Granulocyte % (Auto) 0.2 % Immature Granulocyte # (Auto) 0.02 K/uL (0.00-0.02) Anion Gap 4.0 mmol/L (3-11) Est Creatinine Clear Calc Drug Dose 110.2 ml/min Estimated GFR () 108.0 Estimated GFR (Non- 93.1 BUN/Creatinine Ratio 13.8 (10-20) Calcium Level 8.4 mg/dl (8.5-10.1) Medications Administered Medications (Trade) Dose Ordered Sig/Sunday Route Start Time Stop Time Status Last Admin Dose Admin Clindamycin Phosphate (Cleocin 600mg/ 54ml D5W) 600 mg ONE ONCE IV 07/22/17 09:15 07/22/17 09:16 DC 07/22/17 09:15 600 MG Ketorolac Tromethamine (Toradol Inj) 30 mg NOW STAT IV 07/22/17 09:08 07/22/17 09:11 DC 07/22/17 09:24 30 MG Morphine Sulfate (MoRPHine SULFATE INJ) 6 mg NOW STAT IV 07/22/17 09:08 07/22/17 09:11 DC 07/22/17 09:24 6 MG Ondansetron HCl (Zofran Inj) 4 mg NOW STAT IV 07/22/17 09:08 07/22/17 09:11 DC 07/22/17 09:25 4 MG Lidocaine HCl (Buffered Lidocaine 1% Inj) 20 ml NOW ONCE INFIL 07/22/17 09:15 07/22/17 09:16 DC 07/22/17 09:15 20 ML Ondansetron HCl (Zofran Inj) 4 mg NOW STAT IV 07/22/17 09:46 07/22/17 09:49 DC 07/22/17 09:51 4 MG Morphine Sulfate (MoRPHine SULFATE INJ) 4 mg NOW STAT IV 07/22/17 09:46 07/22/17 09:49 DC 07/22/17 09:52 4 MG Procedure I&D abscess left axilla: The area was prepped with Betadine 3. The area was anesthetized with 1% buffered lidocaine. A small incision was made using an 11 blade scalpel. A moderate amount of purulent fluid was expressed. A culture was obtained. A bandage was applied. ED Course Patient was evaluated. The patient's EMR medication list were reviewed. IV access was obtained. The patient was given Toradol 30 mg IV, morphine 6 mg IV and Zofran 4 mg IV. She was also given clindamycin 600 mg IV. CBC and differential and renal profile was ordered. I&D was performed as above. I did not pack the area since there are multiple indurated areas which I feel she needs to be referred to surgery. An appointment was made with Dr. Velazquez tomorrow at 2:40 PM. The patient did not want to see Dr. Velazquez but wanted to wait for Dr. Brunner who has an appointment on at 9:10 AM. The patient was reevaluated and was still in significant pain and was nauseated therefore she was given additional 4 mg of morphine IV and Zofran 4 mg IV push. The patient was once again reevaluated was feeling much better. Labs are reviewed and white count was only slightly elevated at 11,000. Potassium was slightly low at 3.3. Wound culture is pending. Medical Decision Differential diagnosis include folliculitis, hidradenitis, abscess, cellulitis. The decision was made to refer to surgery due to the patient's medical history and multiple indurated areas for possible excision in this area. [place] Drug Monitoring Program Search Results: patient reviewed within database Medication Reconcilliation Current Medication List: was personally reviewed by me Blood Pressure Screening Blood pressure disposition: Elevated BP felt to be situational Impression Primary Impression: Axillary abscess Additional Impressions: Cellulitis Hypokalemia Departure Information Dispostion Home / Self-Care Condition GOOD Prescriptions Oxycodone/Acetaminophen 5MG/325MG (PERCOCET 5MG/325MG) Tab 1-2 TABS PO Q6 Y for Pain, #20 TAB For Initial Treatment Prov: Cristine House PA-C 07/22/17 Clindamycin Hcl (CLINDAMYCIN HCL) 300 Mg Cap 1 TAB PO TID for 10 Days, #30 TABS Prov: Cristine House PA-C 07/22/17 Referrals Yash Baxter III, CRNP (PCP) Forms HOME CARE DOCUMENTATION FORM, IMPORTANT VISIT INFORMATION, WORK / SCHOOL INSTRUCTIONS Patient Instructions Drainage Abscess, [facility] Additional Instructions Follow ibuprofen 600 mg every 6 hours with food for pain. Take Percocet as needed for more severe pain. Do not drive while taking the Percocet. Take clindamycin as prescribed. Keep scheduled appointment with Dr. Brunner on . If symptoms worsen in the interim, follow-up with surgery earlier or return to ER. Problem Qualifiers Additional Impressions: Cellulitis Site of cellulitis: extremity Site of cellulitis of extremity: axilla Laterality: left Qualified Codes: L03.112 - Cellulitis of left axilla
[2017-07-22 10:35] VITALS: BP 180/88; PULSE 84; O2SAT 96
--- NOTE | 2017-07-24 11:25 | Pharmacy Progress Note ---
ED Pharmacist Culture FollowUp Date of Service: Jul 24, 2017. Patient was sent home with a prescription for clindamycin, which should cover the MSSA growing from the patient's wound culture.
[2017-07-24] MEDS ORDERED: OXYC-57 PO (13:55)
== END 2017-07-22 10:37 | disposition home or self-care (01) ==
LOC: C.EDB 08:56 → C.EDA 10:37
DX: L02.412 Cutaneous abscess of left axilla (principal); L03.112 Cellulitis of left axilla; E87.6 Hypokalemia; E11.9 Type 2 diabetes mellitus without complications; J44.9 Chronic obstructive pulmonary disease, unspecified; K21.9 Gastro-esophageal reflux disease without esophagitis; I10 Essential (primary) hypertension; F41.9 Anxiety disorder, unspecified; E03.9 Hypothyroidism, unspecified; F17.200 Nicotine dependence, unspecified, uncomplicated; Z85.3 Personal history of malignant neoplasm of breast; Z90.710 Acquired absence of both cervix and uterus; Z90.49 Acquired absence of other specified parts of digestive tract; Z98.891 History of uterine scar from previous surgery; Z82.49 Family history of ischemic heart disease and other diseases of the circulatory system; Z79.899 Other long term (current) drug therapy

== ENCOUNTER → 2017-07-24 | Day surgery (SDC) | payer OTHER ==
[~2017-07-24] VITALS: Ht 165.1 cm; Wt 112.0 kg
[~2017-07-24] MED LIST changes: -AMIT75TA2 PO; +AMT100 PO; +ATROPINE SULFATE 0.1 MG/ML 5ML SYR IV PRN; +BUPIVACAINE 0.5 % 5 MG/1 ML MPF 30ML VIAL ONE; +CLIN300C10 PO; +CLINDAMYCIN IV 900 MG in DEXTROSE 5% 50ML 44 ML IV SCH; +ESMOLOL HCL 10 MG/ML 10 ML VIAL ONE; +EpHEDrine SULFATE INJ 50 MG/ML AMP IV PRN; +FENTANYL CITRATE INJ 50 MCG/1 ML 2 ML VIAL ONE; +FLUMAZENIL 0.1 MG/1 ML 10 ML VIAL IV PRN; +GLYCOPYRROLATE INJ 0.2 MG/ML VIAL ONE; +LABETALOL HCL IV 5 MG/ML 20ML IV PRN; +LACTATED RINGER'S 1000ML 1,000 ML IV SCH; +LIDOCAINE HCL 2% 2 ML VIAL (20MG/ML) ONE; +MIDAZOLAM HCL 1 MG/ML 2ML VIAL ONE; +NALOXONE HCL 0.4 MG/1 ML VIAL/CARP IV PRN; +NEOSTIGMINE METHYLSULFATE 5 MG/5 ML SYR ONE; +NURSING VERBAL MED ORDER ONE; +ONDANSETRON INJ 2 MG/ML 2 ML VIAL IV PRN; +OXYC-57 PO; -OXYC1TAB3 PO; +OXYCODONE/ACETAMINOPHEN 5-325 TAB PO PRN; +PROMETHAZINE HCL INJ 12.5 MG in SODIUM CHLORIDE 0.9% 50ML 50 ML IV PRN; +PROPOFOL IV EMULSION 10 MG/ML 20 ML VIAL IV ONE; +ROCURONIUM BROMIDE 10 MG/ML 5 ML VIAL IV ONE; +SUCCINYLCHOLINE CHLORIDE 20 MG/ML 10 ML VIAL IV ONE; -VALA1TAB2 PO
[2017-07-24 12:32] VITALS: BP 185/117; PULSE 77; TEMP 36.6; O2SAT 98; Ht 165.1 cm; Wt 112.0 kg
--- NOTE | 2017-07-24 13:55 | Discharge Instructions ---
Discharge Instructions Date of Service Jul 24, 2017. Visit Reason for Visit: Left Axillary Abscess Discharge Discharge Diagnosis / Problem: incision and drainage left axilla Discharge Goals Goal(s): Decrease discomfort Activity Recommendations Activity Limitations: as noted below Shower/Bathe: keep incision dry (until seen by wound clinic) Anesthesia . Post Anesthesia Instructions: If you have had General Anesthesia or IV Sedation: * Do not drive today. * Resume driving when surgeon permits. * Do not make important decisions or sign legal documents today. * Call surgeon for: 1. Temperature elevations greater than 101 degrees F. 2. Uncontrollable pain. 3. Excessive bleeding. 4. Persistent nausea and vomiting. 5. Medication intolerance (nausea, vomiting or rash). * For nausea and vomiting use only clear liquids such as: tea, soda, bouillon until nausea subsides, then gradually increase diet as tolerated. * If you have any concerns or questions, call your surgeon's office. If physician is unavailable and it is an emergency, call 911 or go to the nearest emergency room. . Instructions / Follow-Up Instructions / Follow-Up Wednesday 07/25 at [facility] ([facility]) at 9:[address] Brunner's office for any questions, [phone] Diet Recommendations Recommended Home Diet: no limitations Pending Studies Studies pending at discharge: no Medical Emergencies . Who to Call and When: Medical Emergencies: If at any time you feel your situation is an emergency, please call 911 immediately. . Non-Emergent Contact Non-Emergency issues call your: Surgeon Call Non-Emergent contact if: you have a fever, temperature is above 101.5, wound has increased pain, you have any medication questions . . "Provider Documentation" section prepared by Ike Flores. .
--- NOTE | 2017-07-24 13:57 | [facility] Operative Report ---
Operative Report Operative Date Jul 24, 2017. Pre-Operative Diagnosis Lt axillary abscess Post-Operative Diagnosis same Procedure(s) Performed incision and draianage Lt axillary abscess Surgeon Kannan Steam Cleaning Machine Operator Surgeon(s) Vazquez Flores Findings multiloculated area over 3-4 cm- cultured Anesthesia gen Complication(s) None Disposition Recovery Room / PACU I attest to the content of the Intraoperative Record and any orders documented therein. Any exceptions are noted below.
--- NOTE | 2017-07-24 14:18 | OPERATIVE REPORT ---
DATE OF OPERATION: 07/24/2017 NAME OF OPERATION: Incision and drainage of left axillary abscess. PREOPERATIVE DIAGNOSIS: Left axillary abscess. POSTOPERATIVE DIAGNOSIS: Same. STAFF SURGEON: Dr. Brunner. SENIOR CONTROLS TECHNICIAN: Ike Flores PA-C ANESTHESIA: General. FINDINGS: The patient had a 3-4 cm area of the left axilla which was somewhat deep in its induration. When opened, there were multiple areas of abscess in a multiloculated fashion, which were opened and debrided and cultured. A gauze packing was placed and dressing applied. The patient transferred to recovery room in stable condition. I attest to the content of the Intraoperative Record and any orders documented therein. Any exception s are noted below.
[2017-07-24] MEDS: FENTANYL CITRATE INJ 50 MCG/1 ML 2 ML VIAL IV PRN ×3 (14:23→14:37)
[2017-07-24 15:03] VITALS: BP 159/95; PULSE 68; TEMP 36.6; O2SAT 94
--- NOTE | 2017-07-24 15:08 | Anesthesiology Progress Note ---
Anesthesia Post Op Note Date & Time Jul 24, 2017 at 15:08 Vital Signs Pain Intensity: 4 Vital Signs Past 12 Hours Date Time Temp Pulse Resp B/P (MAP) Pulse Ox O2 Delivery O2 Flow Rate FiO2 07/24/17 14:44 36.3 70 16 163/107 97 Nasal Cannula 4 07/24/17 14:34 75 18 157/97 99 Nasal Cannula 4 07/24/17 14:24 79 18 148/98 99 Oxymask 10 07/24/17 14:14 80 21 147/90 99 Oxymask 10 07/24/17 14:04 36.8 90 20 162/106 97 Oxymask 10 07/24/17 12:32 36.6 77 16 185/117 (139) 98 Room Air Notes Mental Status: alert / awake / arousable, participated in evaluation Pt Amnestic to Procedure: Yes Nausea / Vomiting: adequately controlled Pain: adequately controlled Airway Patency, RR, SpO2: stable & adequate BP & HR: stable & adequate Hydration State: stable & adequate Anesthetic Complications: no major complications apparent
[2017-07-24 15:30] VITALS: BP 164/93; PULSE 72; O2SAT 95
[2017-07-24 16:00] VITALS: BP 150/84; PULSE 68; TEMP 36.8; O2SAT 94
== END | disposition home or self-care (01) ==
LOC: C.ACU 12:09
PROVIDERS: ATTEND Surgery
DX: L02.412 Cutaneous abscess of left axilla (principal); E11.9 Type 2 diabetes mellitus without complications; E03.9 Hypothyroidism, unspecified; F17.200 Nicotine dependence, unspecified, uncomplicated; Z79.899 Other long term (current) drug therapy; Z85.3 Personal history of malignant neoplasm of breast; I10 Essential (primary) hypertension

== ENCOUNTER 2017-10-12 11:06 | Emergency (ER) | payer OTHER ==
[~2017-10-12] VITALS: Ht 165.1 cm; Wt 106.6 kg
[~2017-10-12 11:06] MED LIST changes: -ATROPINE SULFATE 0.1 MG/ML 5ML SYR IV PRN; -BUPIVACAINE 0.5 % 5 MG/1 ML MPF 30ML VIAL ONE; -CLIN300C10 PO; -CLINDAMYCIN IV 900 MG in DEXTROSE 5% 50ML 44 ML IV SCH; -ESMOLOL HCL 10 MG/ML 10 ML VIAL ONE; -EpHEDrine SULFATE INJ 50 MG/ML AMP IV PRN; -FENTANYL CITRATE INJ 50 MCG/1 ML 2 ML VIAL ONE; -FLUMAZENIL 0.1 MG/1 ML 10 ML VIAL IV PRN; -GLYCOPYRROLATE INJ 0.2 MG/ML VIAL ONE; -LABETALOL HCL IV 5 MG/ML 20ML IV PRN; -LACTATED RINGER'S 1000ML 1,000 ML IV SCH; -LIDOCAINE HCL 2% 2 ML VIAL (20MG/ML) ONE; -LPT/20 PO; +LPT20 PO; -MIDAZOLAM HCL 1 MG/ML 2ML VIAL ONE; -NALOXONE HCL 0.4 MG/1 ML VIAL/CARP IV PRN; -NEOSTIGMINE METHYLSULFATE 5 MG/5 ML SYR ONE; -NURSING VERBAL MED ORDER ONE; -ONDANSETRON INJ 2 MG/ML 2 ML VIAL IV PRN; -OXYC-57 PO; -OXYCODONE/ACETAMINOPHEN 5-325 TAB PO PRN; -PROMETHAZINE HCL INJ 12.5 MG in SODIUM CHLORIDE 0.9% 50ML 50 ML IV PRN; -PROPOFOL IV EMULSION 10 MG/ML 20 ML VIAL IV ONE; -PRZ/40 PO; +RANI150T85 PO; -ROCURONIUM BROMIDE 10 MG/ML 5 ML VIAL IV ONE; -SUCCINYLCHOLINE CHLORIDE 20 MG/ML 10 ML VIAL IV ONE; -ZNTT/150 PO
[2017-10-12 11:22] VITALS: TEMP 37; Ht 165.1 cm; Wt 106.6 kg
[2017-10-12] MEDS ORDERED: HYDROmorphone INJ 1 MG/ML SYR IV STA ×4 (11:33→15:23)
[2017-10-12] MEDS ORDERED: SODIUM CHLORIDE 0.9% 1000ML 1,000 ML IV STA (11:33)
[2017-10-12] MEDS ORDERED: ONDANSETRON INJ 2 MG/ML 2 ML VIAL IV STA ×2 (11:33→15:23)
--- NOTE | 2017-10-12 11:40 | EMERGENCY ROOM VISIT NOTE ---
History Report prepared by Marcellibe: Indu Hirsch Under the Supervision of: Dr. Srikanth Guzman M.D. First contact with patient: 11:28 Chief Complaint: ABDOMINAL PAIN Stated Complaint: STOMACH & ABDOMINAL PAIN Nursing Triage Summary: Right upper abdominal pain States she has had the pain for the last three months but it has worsened in intensity since 10/08/17 Also notes nausea, vomiting, diarrhea states emesis is yellow History of Present Illness The patient is a 52 year old female who presents to the Emergency Room with complaints of worsening abdominal pain for the past 3 months. She rates her pain as an 8/10 in severity and states the pain radiates into her back. Walking worsens her pain. She denies any recent falls or injuries. She reports she first developed abdominal pain 3 months ago after experiencing a GI bug. It has never fully resolved since then. This past Friday, 4 days ago, her pain worsened and she had to leave work early. She also complains of nausea, vomiting and diarrhea. Her emesis is yellow in color. She denies any recent antibiotic use. She states she does not drink alcohol but is a current smoker. The patient has previously undergone a cholecystectomy and states her pain feels different from when she was having gallbladder issues. Source of History: patient Onset: 3 months [employer]OR [employer] Position: abdomen Symptom Intensity: 8/10 Timing: worsening Modifying Factors (Worsening): movement (walking) Associated Symptoms: + nausea, + vomiting, + diarrhea Review of Systems See HPI for pertinent positives & negatives. A total of 10 systems reviewed and were otherwise negative. Past Medical & Surgical Medical Problems: (1) ANXIETY STATE NOS (2) BIPOLAR DISORDER, UNSPECIFIED (3) section (4) Cholecystectomy (5) CHRONIC OBSTRUCTIVE ASTHMA, W (ACUTE) EXACERBATION (6) DIAB AIDAN WO COMPL, TYPE II OR UNSPEC TYPE, NOT UNCNTRLD (7) DIVERTICULITIS COLON (W/O MENT OF HEMORRHAGE) (8) ESOPHAGEAL REFLUX (9) FAM HX-DIABETES MELLITUS (10) FAM HX-ISCHEM HEART DIS (11) FAM HX-OTH MALIG NEOPLASM (12) FAMILY HISTORY OF OTHER CARDIOVASCULAR DISEASES (13) FAMILY HX-BREAST MALIG (14) FAMILY HX-GI MALIGNANCY (15) FAMILY HX-MALIGNANCY NOS (16) HISTORY OF TOBACCO USE (17) HX OF BREAST MALIGNANCY (18) HYPERTENSION NOS (19) HYPOTHYROIDISM NOS (20) Hysterectomy (21) SOB (shortness of breath) (22) Thyroid nodule Family History Cancer Diabetes mellitus Gallbladder disease Heart disease Hypertension Lung disease Social History Smoking Status: Current Every Day Smoker Alcohol Use: none Drug Use: none Marital Status: Housing Status: lives with family Occupation Status: employed Current/Historical Medications Scheduled Atorvastatin (Lipitor), 20 MG PO HS Cholecalciferol (Vitamin D 1000 Unit), 5,000 INTER.UNIT PO HS Levothyroxine Sodium (Levothyroxine Sodium), 250 MCG PO 3XWK Levothyroxine Sodium (Levothyroxine Sodium), 125 MCG PO 4XWK Losartan Potassium (Cozaar), 100 MG PO QAM Metoclopramide Hcl (Reglan), 10 MG PO QPM Metoprolol Tartrate (Lopressor) (Lopressor), 50 MG PO BID Ranitidine (Zantac), 150 MG PO HS Spironolactone (Spironolactone), 25 MG PO DAILY Topiramate (Topiramate), 100 MG PO BID Varenicline Tartrate (Chantix Continuing Month), 1 MG PO BID Venlafaxine Hcl (Effexor), 75 MG PO DAILY Scheduled PRN Albuterol Sulfate (Proair Respiclick), 2 PUFFS INH Q4H PRN for SOB/Wheezing Budesonide/Formoterol Fumarate (Symbicort 160/4.5 Inhaler), 2 PUFFS INH BID PRN for Shortness of Breath Ipratropium-Albuterol (Duoneb), 1 TREATMENT INH Q4H PRN for SOB/Wheezing Nitroglycerin (Nitrostat), 0.4 MG UT UD PRN for Chest Pain Allergies Coded Allergies: Tamoxifen (Unverified Allergy, Severe, "CAN'T MOVE", 10/12/17) Ceftriaxone (Verified Allergy, Intermediate, REDNESS, ITCHING, 10/12/17) IV ROCEPHIN IG ADMINISTERED VIA IV PUMP ORDERED AT 1903. AT APPROX 1930 PT RANG SMITH WITH COMPLAINT OF REDNESS AND ITCHINESS. IV ROCEPHIN STOPPED IMMEDIATELY (PT RECEIVED 75ML OF 100ML BAG). ORDER FOR BENADRYL 50MG IV RECEIVED AND ADMINISTERED. PT IV NSS INFUSING AT 999ML/HR VIA PUMP. AT 1937 PT WITH NOTED DECREASED REDNESS TO SKIN AND VERBALIZED DECREASED ITCHINESS. PT ON CARDIAC AND PULSE OX MONITORING. PT PULSE OX READING MAINTAINED 97% AND PT HAD NO COMPLAINT OF SOB, THROAT SWELLING, OR DIFFICULTY BREATHING. Cephalexin (Verified Allergy, Intermediate, SHORTNESS OF BREATH, 10/12/17) Sulfamethoxazole w/Trimethoprim (Verified Allergy, Intermediate, SHORTNESS OF BREATH, 10/12/17) Vancomycin (Verified Allergy, Intermediate, ITCHING ALL OVER, RASH, PARESTHESIAS, 10/12/17) Tramadol (Verified Allergy, Mild, ITCHY, 10/12/17) Codeine (Verified Adverse Reaction, Intermediate, GI BLEED, 10/12/17) Physical Exam Vital Signs Date Time Temp Pulse Resp B/P (MAP) Pulse Ox O2 Delivery O2 Flow Rate FiO2 10/12/17 16:27 16 116/76 98 10/12/17 15:21 74 16 122/67 95 Room Air 10/12/17 14:04 95 Nasal Cannula 2.0 10/12/17 13:08 88 18 150/74 94 Room Air 10/12/17 12:05 88 16 143/81 97 Room Air 10/12/17 11:22 37.0 75 20 154/96 98 Room Air Physical Exam GENERAL: Patient is acutely unwell appearing and in moderate distress. HEENT: No acute trauma, normocephalic atraumatic, mucous membranes moist, no nasal congestion, no scleral icterus. NECK: No stridor, no adenopathy, no meningismus, trachea is midline. LUNGS: No dyspnea. Clear to auscultation and equal bilaterally. No wheeze, no rhonchi. HEART: Regular rate and rhythm. No murmurs, rubs, gallops appreciated. ABDOMEN: Soft, moderate RUQ tenderness, mild diffuse tenderness to palpation, bowel sounds positive, no masses appreciated, no peritonitis. BACK: No midline tenderness, no CVA tenderness EXTREMITIES: Normal motion all extremities, no cyanosis, no edema. NEUROLOGIC: Alert and oriented, no acute motor or sensory deficits, no focal weakness, cranial nerves grossly intact. SKIN: No rash, no jaundice, no diaphoresis. Medical Decision & Procedures ER Provider Diagnostic Interpretation: Radiology results and stated below per my review and radiologist interpretation: CT OF THE ABDOMEN AND PELVIS WITH CONTRAST CLINICAL HISTORY: RUQ abdominal pain radiating entire abdomen. COMPARISON STUDY: CT of the abdomen and pelvis April 20, 2015. TECHNIQUE: Following IV administration of 89 mL of Optiray-320, axial images of the abdomen and pelvis were obtained from the lung bases to the proximal femurs. Images were reviewed in the axial, sagittal, and coronal planes. IV contrast was administered without complication. A dose lowering technique was utilized adhering to the principles of ALARA. CT DOSE: 1303.35 mGy.cm FINDINGS: The patient is status post right mastectomy. Fatty infiltration of the liver is noted. A 1.5 cm hypodense right hepatic dome lesion is unchanged since exam of May 10, 2013. This is benign given stability. A 1.7 cm right adrenal nodule is also unchanged. A 6 mm left renal cyst is noted. There is no hydronephrosis or hydroureter. Mild dilatation of the common bile duct is unchanged status post cholecystectomy. There is no peripancreatic infiltration. There is no evidence for a bowel obstruction. The appendix is normal. A small portion of the proximal sigmoid colon protrudes through an umbilical hernia. There is no resultant bowel obstruction. This is unchanged. Prominence of the left ovary is unchanged. No suspicious osseous lesions are present. There is no abdominal or pelvic lymphadenopathy. IMPRESSION: 1. No acute process within the abdomen or pelvis. No change since exam of April 20, 2015. 2. Fatty liver. 3. Stable biliary ductal dilatation which is likely related to prior cholecystectomy. 4. Stable left ovarian prominence. 5. No bowel obstruction. Normal appendix. Electronically signed by: Troy Medrano M.D. 10/12/2017 1:02 PM ABDOMINAL ULTRASOUND, RIGHT UPPER QUADRANT HISTORY: increasing RUQ abdominal pain, CT unremarkable. COMPARISON: Abdomen and pelvis CT 10/12/2017. FINDINGS: Pancreas: The pancreatic tail is obscured by overlying bowel gas. The remaining portions of the pancreas are within normal limits. Liver: The liver is echogenic consistent with fatty change. Gallbladder: The gallbladder is surgically absent. CBD: Difficult to visualize due to the fatty changes within the liver but appears to measure probably 5 mm. Right kidney: No hydronephrosis. IMPRESSION: 1. Cholecystectomy. 2. Hepatic steatosis. Electronically signed by: Dariel Guadarrama M.D. 10/12/2017 3:22 PM Laboratory Results 10/12/17 11:50 Red Blood Count 5.20, Mean Corpuscular Volume 86.3, Mean Corpuscular Hemoglobin 31.5, Mean Corpuscular Hemoglobin Concent 36.5, Mean Platelet Volume 9.3, Neutrophils (%) (Auto) 62.0, Lymphocytes (%) (Auto) 31.2, Monocytes (%) (Auto) 5.6, Eosinophils (%) (Auto) 0.8, Basophils (%) (Auto) 0.1, Neutrophils # (Auto) 6.55, Lymphocytes # (Auto) 3.29, Monocytes # (Auto) 0.59, Eosinophils # (Auto) 0.08, Basophils # (Auto) 0.01 10/12/17 11:50 Test 10/12/17 11:50 10/12/17 12:00 White Blood Count 10.55 K/uL (4.8-10.8) Red Blood Count 5.20 M/uL (4.2-5.4) Hemoglobin 16.4 g/dL (12.0-16.0) Hematocrit 44.9 % (37-47) Mean Corpuscular Volume 86.3 fL (80-100) Mean Corpuscular Hemoglobin 31.5 pg (25-34) Mean Corpuscular Hemoglobin Concent 36.5 g/dl (32-36) Platelet Count 239 K/uL (130-400) Mean Platelet Volume 9.3 fL (7.4-10.4) Neutrophils (%) (Auto) 62.0 % Lymphocytes (%) (Auto) 31.2 % Monocytes (%) (Auto) 5.6 % Eosinophils (%) (Auto) 0.8 % Basophils (%) (Auto) 0.1 % Neutrophils # (Auto) 6.55 K/uL (1.4-6.5) Lymphocytes # (Auto) 3.29 K/uL (1.2-3.4) Monocytes # (Auto) 0.59 K/uL (0.11-0.59) Eosinophils # (Auto) 0.08 K/uL (0-0.5) Basophils # (Auto) 0.01 K/uL (0-0.2) RDW Standard Deviation 39.3 fL (36.4-46.3) RDW Coefficient of Variation 12.3 % (11.5-14.5) Immature Granulocyte % (Auto) 0.3 % Immature Granulocyte # (Auto) 0.03 K/uL (0.00-0.02) Anion Gap 8.0 mmol/L (3-11) Est Creatinine Clear Calc Drug Dose 93.9 ml/min Estimated GFR () 91.3 Estimated GFR (Non- 78.8 BUN/Creatinine Ratio 10.9 (10-20) Calcium Level 8.9 mg/dl (8.5-10.1) Total Bilirubin 0.4 mg/dl (0.2-1) Direct Bilirubin < 0.1 mg/dl (0-0.2) Aspartate Amino Transf (AST/SGOT) 19 U/L (15-37) Alanine Aminotransferase (ALT/SGPT) 39 U/L (12-78) Alkaline Phosphatase 110 U/L (45-117) Total Protein 7.6 gm/dl (6.4-8.2) Albumin 3.7 gm/dl (3.4-5.0) Lipase 149 U/L (73-393) Urine Color YELLOW Urine Appearance CLEAR (CLEAR) Urine pH 6.0 (4.5-7.5) Urine Specific [place] 1.005 (1.000-1.030) Urine Protein NEG (NEG) Urine Glucose (UA) NEG (NEG) Urine Ketones NEG (NEG) Urine Occult Blood TRACE (NEG) Urine Nitrite NEG (NEG) Urine Bilirubin NEG (NEG) Urine Urobilinogen NEG (NEG) Urine Leukocyte Esterase NEG (NEG) Urine WBC (Auto) 1-5 /hpf (0-5) Urine RBC (Auto) 0-4 /hpf (0-4) Urine Hyaline Casts (Auto) 1-5 /lpf (0-5) Urine Epithelial Cells (Auto) 5-10 /lpf (0-5) Urine Bacteria (Auto) NEG (NEG) Laboratory results as reviewed by me. Medications Administered Medications (Trade) Dose Ordered Sig/Sunday Route Start Time Stop Time Status Last Admin Dose Admin Hydromorphone HCl (Dilaudid Inj) 1 mg NOW STAT IV 10/12/17 11:33 10/12/17 11:35 DC 10/12/17 11:44 1 MG Sodium Chloride 1,000 ml @ 999 mls/hr Q1H1M STAT IV 10/12/17 11:33 10/12/17 12:33 DC 10/12/17 11:33 999 MLS/HR Ondansetron HCl (Zofran Inj) 4 mg NOW STAT IV 10/12/17 11:33 10/12/17 11:35 DC 10/12/17 11:44 4 MG Hydromorphone HCl (Dilaudid Inj) 1 mg NOW STAT IV 10/12/17 13:02 10/12/17 13:03 DC 10/12/17 13:08 1 MG Hydromorphone HCl (Dilaudid Inj) 1 mg NOW STAT IV 10/12/17 13:23 10/12/17 13:25 DC 10/12/17 13:29 1 MG Ondansetron HCl (Zofran Inj) 4 mg NOW STAT IV 10/12/17 15:23 10/12/17 15:24 DC 10/12/17 15:23 4 MG Al Hydroxide/Mg Hydroxide (Maalox Susp) 30 ml STK-MED ONCE .ROUTE 10/12/17 15:25 10/12/17 15:26 DC 10/12/17 15:25 30 ML Lidocaine HCl (Viscous Lidocaine 2% Soln) 20 ml STK-MED ONCE .ROUTE 10/12/17 15:25 10/12/17 15:26 DC 10/12/17 15:25 20 ML ED Course 1130: The patient was evaluated in room B9. A complete history and physical exam was performed. 1133: Zofran 4 mg IV, NSS 1000 ml @ 999 mls/hr IV, Dilaudid 1 mg IV. 1300: I reevaluated the patient. She complains of increasing abdominal pain. 1302: Dilaudid 1 mg IV. 1322: I reevaluated the patient. She is having increasing pain again. 1323: Dilaudid 1 mg IV. 1523: Dilaudid 1 mg IV, Zofran 4 mg IV. 1525: Lidocaine HCl 20 ml PO, Maalox Susp 30 ml PO. 1610: I reevaluated the patient. She feels much better. She is able to tolerate PO and has an appointment with her doctor tomorrow morning. She feels comfortable with discharge home. I discussed her discharge instructions and she verbalized complete understanding and agreement. Medical Decision Differential: Appendicitis, Diverticulitis, PUD/Gastritis, Biliary Pathology, UTI, Pyelonephritis, Renal Colic, Bowel Obstruction, Aortic Pathology, Acute Coronary Syndrome, amongst other pathologies entertained. 52 yr old female with RUQ/Epi pain radiating throughout abdomen with out clear evidence of cause by exam/history. Has happened previously without clear cause though did have GB out previously. Extensive workup including CT abdo pelv and Liver US both unremarkable other than steatosis. Labs unremarkable. She was here for many hours during which she received multiple doses of narcotics. After everything was explained as unremarkable to her she notes feeling much better and wishing to go home. She has pain management appointment tomorrow. She does not have surgical abdomen. Exam and story not consistent with cardiac nor pulmonary cause. She feels comfortable with discharge, looks well and is in no distress. Reviewed symptoms requiring RTED. Medication Reconcilliation Current Medication List: was personally reviewed by me Blood Pressure Screening Patient's blood pressure: Elevated blood pressure Blood pressure disposition: Elevated BP felt to be situational Impression Primary Impression: RUQ abdominal pain Scribe Attestation The scribe's documentation has been prepared under my direction and personally reviewed by me in its entirety. I confirm that the note above accurately reflects all work, treatment, procedures, and medical decision making performed by me. Departure Information Dispostion Home / Self-Care Referrals Yash Baxter III, CRNP (PCP) Patient Instructions ED Epigastric Pain [facility], My [facility]
[2017-10-12 11:58] LABS: BASO % 0.1 %; BASO ABS # 0.01 K/uL (0-0.2); EOS % 0.8 %; EOS ABS # 0.08 K/uL (0-0.5); HEMATOCRIT 44.9 % (37-47); HEMOGLOBIN 16.4 g/dL (12.0-16.0); IG# 0.03 K/uL (0.00-0.02); LYMPH % 31.2 %; LYMPH ABS # 3.29 K/uL (1.2-3.4); MEAN CELL VOLUME 86.3 fL (80-100); MEAN CORPUSCULAR HEMOGLOBIN 31.5 pg (25-34); MEAN CORPUSCULAR HGB CONC 36.5 g/dl (32-36); MEAN PLATELET VOLUME 9.3 fL (7.4-10.4); MONO % 5.6 %; MONO ABS # 0.59 K/uL (0.11-0.59); NEUT ABS # 6.55 K/uL (1.4-6.5); PLATELET COUNT 239 K/uL (130-400); RED CELL DISTRIBUTION WIDTH CV 12.3 % (11.5-14.5); RED CELL DISTRIBUTION WIDTH SD 39.3 fL (36.4-46.3); WHITE BLOOD COUNT 10.55 K/uL (4.8-10.8)
[2017-10-12] MEDS ORDERED: OPTIRAY 320 IV PRN (12:00)
[2017-10-12 12:24] LABS: ALBUMIN 3.7 gm/dl (3.4-5.0); ALT/SGPT 39 U/L (12-78); AST/SGOT 19 U/L (15-37); BLOOD UREA NITROGEN 9 mg/dl (7-18); CALCIUM 8.9 mg/dl (8.5-10.1); CARBON DIOXIDE 25 mmol/L (21-32); CREATININE 0.85 mg/dl (0.60-1.20); GLUCOSE 116 mg/dl (70-99); LIPASE 149 U/L (73-393); POTASSIUM 3.2 mmol/L (3.5-5.1); SODIUM 138 mmol/L (136-145)
[2017-10-12 12:26] LABS: ALKALINE PHOSPHATASE 110 U/L (45-117); TOTAL PROTEIN 7.6 gm/dl (6.4-8.2)
[2017-10-12] MEDS ORDERED: VENL75TA4 PO (12:26)
--- NOTE | 2017-10-12 13:03 | DIAGNOSTIC IMAGING REPORT ---
CT OF THE ABDOMEN AND PELVIS WITH CONTRAST CLINICAL HISTORY: RUQ abdominal pain radiating entire abdomen. COMPARISON STUDY: CT of the abdomen and pelvis April 20, 2015. TECHNIQUE: Following IV administration of 89 mL of Optiray-320, axial images of the abdomen and pelvis were obtained from the lung bases to the proximal femurs. Images were reviewed in the axial, sagittal, and coronal planes. IV contrast was administered without complication. A dose lowering technique was utilized adhering to the principles of ALARA. CT DOSE: 1303.35 mGy.cm FINDINGS: The patient is status post right mastectomy. Fatty infiltration of the liver is noted. A 1.5 cm hypodense right hepatic dome lesion is unchanged since exam of May 10, 2013. This is benign given stability. A 1.7 cm right adrenal nodule is also unchanged. A 6 mm left renal cyst is noted. There is no hydronephrosis or hydroureter. Mild dilatation of the common bile duct is unchanged status post cholecystectomy. There is no peripancreatic infiltration. There is no evidence for a bowel obstruction. The appendix is normal. A small portion of the proximal sigmoid colon protrudes through an umbilical hernia. There is no resultant bowel obstruction. This is unchanged. Prominence of the left ovary is unchanged. No suspicious osseous lesions are present. There is no abdominal or pelvic lymphadenopathy. IMPRESSION: 1. No acute process within the abdomen or pelvis. No change since exam of April 20, 2015. 2. Fatty liver. 3. Stable biliary ductal dilatation which is likely related to prior cholecystectomy. 4. Stable left ovarian prominence. 5. No bowel obstruction. Normal appendix. Electronically signed by: Troy Medrano M.D. 10/12/2017 1:02 PM Dictated Date/Time: 10/12/2017 12:54 PM
[2017-10-12 14:04] VITALS: O2SAT 95
[2017-10-12 15:21] VITALS: PULSE 74
[2017-10-12] MEDS ORDERED: GI COCKTAIL PO STA (15:23)
--- NOTE | 2017-10-12 15:23 | DIAGNOSTIC IMAGING REPORT ---
ABDOMINAL ULTRASOUND, RIGHT UPPER QUADRANT HISTORY: increasing RUQ abdominal pain, CT unremarkable. COMPARISON: Abdomen and pelvis CT 10/12/2017. FINDINGS: Pancreas: The pancreatic tail is obscured by overlying bowel gas. The remaining portions of the pancreas are within normal limits. Liver: The liver is echogenic consistent with fatty change. Gallbladder: The gallbladder is surgically absent. CBD: Difficult to visualize due to the fatty changes within the liver but appears to measure probably 5 mm. Right kidney: No hydronephrosis. IMPRESSION: 1. Cholecystectomy. 2. Hepatic steatosis. Electronically signed by: Dariel Guadarrama M.D. 10/12/2017 3:22 PM Dictated Date/Time: 10/12/2017 3:20 PM
[2017-10-12] MEDS ORDERED: LIDOCAINE HCL 2% VISC SOLN 20 ML UDC ONE (15:25)
[2017-10-12] MEDS ORDERED: ALUMINUM/MAGNESIUM SUSP 30 ML UDC ONE (15:25)
[2017-10-12 16:27] VITALS: BP 116/76; O2SAT 98
== END 2017-10-12 16:28 | disposition home or self-care (01) ==
LOC: C.EDB 11:07
DX: R10.11 Right upper quadrant pain (principal); R11.2 Nausea with vomiting, unspecified; R19.7 Diarrhea, unspecified; K76.0 Fatty (change of) liver, not elsewhere classified; E11.9 Type 2 diabetes mellitus without complications; K21.9 Gastro-esophageal reflux disease without esophagitis; I10 Essential (primary) hypertension; E03.9 Hypothyroidism, unspecified; K57.32 Diverticulitis of large intestine without perforation or abscess without bleeding; F31.9 Bipolar disorder, unspecified; F41.9 Anxiety disorder, unspecified; F17.200 Nicotine dependence, unspecified, uncomplicated; Z90.49 Acquired absence of other specified parts of digestive tract; Z88.1 Allergy status to other antibiotic agents; Z88.8 Allergy status to other drugs, medicaments and biological substances; Z88.2 Allergy status to sulfonamides; Z88.6 Allergy status to analgesic agent; Z83.3 Family history of diabetes mellitus; Z83.79 Family history of other diseases of the digestive system; Z83.6 Family history of other diseases of the respiratory system; Z82.49 Family history of ischemic heart disease and other diseases of the circulatory system

== ENCOUNTER → 2017-10-23 | Outpatient (CLI) | payer OTHER ==
[~2017-10-23] MED LIST changes: -AMT100 PO; +VENL75TA4 PO
--- NOTE | 2017-10-23 15:18 | MAMMOGRAPHY REPORT ---
ULTRASOUND OF RIGHT BREAST: 10/23/2017 CLINICAL HISTORY: The patient is status post right mastectomy in 2009. She reports a new lump at her right mastectomy bed for approximately 1-2 weeks, which she feels is enlarging. She denies any othe r complaints. COMPARISON: Comparison is made to exams dated: 05/06/2017 mammogram, 05/01/2016 mammogram, 09/26/2014 ult rasound, 12/20/2013 mammogram, 03/15/2013 consultation, and 03/15/2013 ultrasound - [facility]. TECHNIQUE: Real-time targeted ultrasound of the right mastectomy bed was performed. FINDINGS: Real-time, high-resolution targeted ultrasound was performed of the area of the palpable l ump pointed out by the patient, in the right upper outer quadrant far superiorly and bilaterally at t he border of the right anterior shoulder and mastectomy bed. At the site of the palpable lump there is a subdermal ill-defined hyperechoic region which measures 1.1 x 1.0 cm. This has a nonspecific ap pearance on ultrasound but given the hyperechoic appearance on ultrasound is probably benign and coul d represent fat necrosis although the patient denies any known trauma to the region. Given that ther e is an enlarging palpable lump in given the history of right breast cancer, further evaluation with fine-needle aspiration is recommended. IMPRESSION: ACR BI-RADS CATEGORY 4: SUSPICIOUS - FOLLOW-UP RECOMMENDED Ill-defined 1.1 cm hyperechoic region at the site of the palpable lump pointed out by the patient at the border of the right anterior shoulder and right mastectomy bed. This has a nonspecific appearanc e on ultrasound but given the hyperechoic appearance is probably benign and could represent fat necro sis although the patient denies any known trauma to the region. Given that there is an enlarging pal pable lump and given the history of right breast cancer, further evaluation with fine-needle aspirati on (performed by the pathology department) is recommended. A phone call was made to the physician's office to confirm faxed results were received. The patient was verbally notified of the results. Mulu Carlson M.D. /:10/23/2017 09:12:44 [employer]: Mulu Carlson MD, [facility] letter sent: Abnormal 4/5 BI-RADS Code: ACR BI-RADS Category 4: Suspicious
== END | disposition home or self-care (01) ==
LOC: C.MAMM 08:37
PROVIDERS: ATTEND Neuromusculoskeletal Medicine & OMM
DX: N63.11 Unspecified lump in the right breast, upper outer quadrant (principal)

== ENCOUNTER → 2017-11-04 | Outpatient (CLI) | payer OTHER | END | disposition home or self-care (01) | LOC: C.PATH 08:09 | PROVIDERS: ATTEND Nurse Practitioner Family | DX: R92.8 Other abnormal and inconclusive findings on diagnostic imaging of breast (principal) ==

== ENCOUNTER 2017-11-19 11:15 | Emergency (ER) | payer OTHER ==
[~2017-11-19] VITALS: Ht 165.1 cm; Wt 107.9 kg
[2017-11-19 11:26] VITALS: Ht 165.1 cm; Wt 107.9 kg
[2017-11-19] MEDS ORDERED: ALBUT/IPRATROP 3MG/0.5MG NEB 3 ML VIAL INH STA (11:43)
[2017-11-19] MEDS ORDERED: KETOROLAC TROMETHAMINE 30 MG/ML VIAL IV STA (11:43)
[2017-11-19] MEDS ORDERED: SODIUM CHLORIDE 0.9% 1000ML 1,000 ML IV STA (11:43)
[2017-11-19] MEDS ORDERED: METHYLPREDNISOLONE 125 MG VIAL IV STA (11:43)
[2017-11-19] MEDS ORDERED: ONDANSETRON INJ 2 MG/ML 2 ML VIAL IV STA (11:49)
[2017-11-19] MEDS ORDERED: BENZONATATE 100MG CAP PO ONE (12:00)
--- NOTE | 2017-11-19 12:02 | DIAGNOSTIC IMAGING REPORT ---
SINGLE VIEW CHEST CLINICAL HISTORY: Atypical chest pain. Wheezing. FINDINGS: An AP, portable, upright chest radiograph is compared to study dated 12/09/2016 and correlated with chest CT dated 03/05/2015. The examination is significantly degraded by portable technique and patient rotation. A left subclavian central venous infusion port is unchanged in position. The heart is mildly enlarged and there is atherosclerotic calcification of the thoracic aorta. The pulmonary vasculature is noncongested. Emphysematous change and chronic interstitial thickening are similar to previous. No airspace consolidation or large pleural effusion is identified. No pneumothorax is seen. The skeletal structures are osteopenic. The bony thorax is grossly intact. IMPRESSION: Cardiomegaly and emphysema. No acute cardiopulmonary abnormality is seen. Electronically signed by: Bishop Luna M.D. 11/19/2017 12:01 PM Dictated Date/Time: 11/19/2017 12:00 PM
[2017-11-19 12:07] LABS: BASO % 0.2 %; BASO ABS # 0.02 K/uL (0-0.2); EOS % 0.7 %; EOS ABS # 0.08 K/uL (0-0.5); HEMATOCRIT 46.1 % (37-47); IG# 0.05 K/uL (0.00-0.02); LYMPH ABS # 3.68 K/uL (1.2-3.4); MEAN CELL VOLUME 88.1 fL (80-100); MEAN CORPUSCULAR HEMOGLOBIN 30.6 pg (25-34); MEAN CORPUSCULAR HGB CONC 34.7 g/dl (32-36); MEAN PLATELET VOLUME 9.3 fL (7.4-10.4); MONO % 4.2 %; MONO ABS # 0.51 K/uL (0.11-0.59); NEUT % 64.5 %; NEUT ABS # 7.94 K/uL (1.4-6.5); PLATELET COUNT 297 K/uL (130-400); RED CELL DISTRIBUTION WIDTH CV 12.9 % (11.5-14.5); RED CELL DISTRIBUTION WIDTH SD 41.6 fL (36.4-46.3); WHITE BLOOD COUNT 12.28 K/uL (4.8-10.8)
[2017-11-19 12:23] LABS: ALBUMIN 3.5 gm/dl (3.4-5.0); ALT/SGPT 30 U/L (12-78); AST/SGOT 18 U/L (15-37); BLOOD UREA NITROGEN 10 mg/dl (7-18); CARBON DIOXIDE 23 mmol/L (21-32); CREATININE 0.75 mg/dl (0.60-1.20); GLUCOSE 124 mg/dl (70-99); LIPASE 121 U/L (73-393); POTASSIUM 3.6 mmol/L (3.5-5.1); SODIUM 138 mmol/L (136-145)
[2017-11-19 12:26] LABS: ALKALINE PHOSPHATASE 104 U/L (45-117); TOTAL PROTEIN 7.3 gm/dl (6.4-8.2)
[2017-11-19] MEDS ORDERED: ALBUT/IPRATROP 3MG/0.5MG NEB 3 ML VIAL INH ONE (12:45)
[2017-11-19 12:48] VITALS: PULSE 65; O2SAT 93
[2017-11-19 12:58] VITALS: O2SAT 94
[2017-11-19 14:24] VITALS: BP 165/111; PULSE 74; TEMP 36.7; O2SAT 96
[2017-11-19] MEDS ORDERED: BENZ100C18 PO (14:44)
[2017-11-19] MEDS ORDERED: PRED20TA2 PO (14:44)
[2017-11-19] MEDS ORDERED: VNTHFA/IN INH (14:44)
--- NOTE | 2017-11-20 12:33 | EMERGENCY ROOM VISIT NOTE ---
ED Visit Note First contact with patient: 11:39 Chief Complaint: Wheezing and hard to breathe. History of Present Illness: Ms. Verduzco is a 52-year-old white female who ambulates into the ED complaining of shortness of breath and chest discomfort. Historically patient has a history of asthma, bronchitis, pneumonia and COPD. Patient reports approximately 5 days ago she started experiencing a nonproductive cough. Since that time her cough has been constant and has increased in intensity and she has developed nasal congestion and her cough is now productive of a clear sputum. She initiated her treatment with her albuterol inhalers but ran out of the medications. Patient goes on to report that her cough is become more violent over the last 2 days and she has developed right sided chest/rib pain. She describes her pain as a sharp sensation. She rates her discomfort 8/10. Her pain is nonradiating. Her pain worsens with palpation, deep inspiration and coughing. She has not identified any alleviating factors related to the pain. She has not taken any medications for pain prior to arrival at the hospital. Associated she reports she is now hearing herself wheeze and she has been having intermittent chills but no minh fevers. She denies skin eruptions, skin color changes, headache, dizziness, lightheadedness, throat pain, hemoptysis, palpitations, orthopnea, dependent edema, previous clots, claudication, cramping, recent surgery/inactivity/ extended travel, abdominal pain, nausea/vomiting. Review of Systems: As noted above in history of present illness. All body systems were reviewed and found to be negative as noted above. Past Medical History: As noted above and diabetes, hypertension, GERD, diverticulitis, breast cancer, hypothyroidism, bipolar disorder, anxiety, status post hysterectomy, mastectomy, cholecystectomy and section. Current Medications: Medications Dose Route/Sig Max Daily Dose Days Date Category Dose Instructions Effexor (Venlafaxine Hcl) 75 Mg Tab 75 Mg PO DAILY 10/12/17 Reported Chantix Continuing Month (Varenicline Tartrate) 1 Mg Arslan 1 Mg PO BID 05/18/17 Reported Spironolactone 25 Mg Tab 25 Mg PO DAILY 05/18/17 Reported Reglan (Metoclopramide Hcl) 10 Mg Tab 10 Mg PO QPM 05/18/17 Reported Zantac (Ranitidine HCl) 150 Mg Tab 150 Mg PO HS 01/03/17 Reported Duoneb (Ipratropium-Albuterol) 3 Ml Nebu 1 Treatment INH Q4H PRN 01/03/17 Reported Cozaar (Losartan Potassium) 100 Mg Tab 100 Mg PO QAM 11/20/16 Reported Symbicort 160/4.5 Inhaler (Budesonide/Formoterol Fumarate) 120 Puffs/ Aero 2 Puffs INH BID PRN 11/20/16 Reported Levothyroxine Sodium 125 Mcg Tab 125 Mcg PO 4XWK 11/20/16 Reported TAKE 125 MCG EVERY FRIDAY,FRIDAY,FRIDAY & FRIDAY. Topiramate 100 Mg Tab 100 Mg PO BID 11/20/16 Reported Nitrostat (Nitroglycerin) 0.4 Mg Tab 0.4 Mg UT UD PRN 11/20/16 Reported Levothyroxine Sodium 125 Mcg Tab 250 Mcg PO 3XWK 11/20/16 Reported TAKE 250 MCG EVERY FRIDAY, FRIDAY AND FRIDAY Proair Respiclick (Albuterol Sulfate) 108 Mcg/Act Aer 2 Puffs INH Q4H PRN 10/18/16 Reported Lopressor (Metoprolol Tartrate) 50 Mg Tab 50 Mg PO BID 05/31/16 Reported Lipitor (Atorvastatin Calcium) 20 Mg Tab 20 Mg PO HS 05/31/16 Reported Vitamin D 1000 Unit (Cholecalciferol) 1,000 Unit Cap 5,000 Inter.unit PO HS 11/02/13 Reported Allergies to Medications: Ceftriaxone, cephalexin, codeine, Bactrim, tamoxifen, tramadol, vancomycin. Social History: Patient is currently employed; she feels safe in her home environment; she admits to tobacco use. Physical Examination: Vital Signs: Date Time Temp Pulse Resp B/P (MAP) Pulse Ox O2 Delivery O2 Flow Rate FiO2 11/19/17 14:24 36.7 74 22 165/111 96 Nebulizer 98 11/19/17 14:07 74 22 157/86 96 Nebulizer 11/19/17 12:58 94 Room Air 11/19/17 12:48 65 16 93 Room Air 11/19/17 12:19 71 24 175/102 98 Room Air 11/19/17 12:19 69 11/19/17 12:16 98 Room Air 11/19/17 12:13 Room Air 98 11/19/17 11:26 36.7 74 20 169/133 98 Room Air GENERAL: 52-year-old female in mild to moderate respiratory distress, distress due to pain, nontoxic-appearing, afebrile and hemodynamically stable. NEUROLOGICAL: Awake, alert and oriented to person, place and time. Answering questions appropriately and following commands. Normal gait. Good hand eye coordination. SKIN: Warm, dry and pink. No soft tissue eruptions or trauma noted. HEENT: Atraumatic and normocephalic. PERRLA. Sclera white and conjunctiva pink. No drainage from naris, but audible congestion. Oral cavity moist and pink. Airway is patent. Speech is normal but soft. Pharynx is nonerythematous or edematous. No lymphadenopathy. Trachea midline. No jugular venous distention. No auditory or ausculatory stridor. BACK: No tenderness over the bony spine. No CVA tenderness. THORAX: Lungs sounds are decreased bilaterally with poor air movement and wheezing in all tee. Equal bilaterally with symmetrical chest wall. Moderate tenderness over the right anterior lateral ribs without bony deformity , bony crepitus or subcutaneous air. Increased respiratory rate to 28 breaths per minute and there is increase in respiratory effort. No retractions were noted. HEART: Regular rate and rhythm. No gallops, rubs or murmurs are appreciated. PMI was not displaced. No lifts, heaves or thrills. ABDOMEN: Obese, soft and nontender. Positive bowel sounds in all quadrants. No guarding, rigidity or organomegaly. EXTREMITIES: Moves all extremities well on command and with purpose. All distal neurovascular statuses are intact and equal bilaterally. +1 dependent edema. No calf tenderness or cords. ED Course: Patient is assessed as noted above. Patient's medication list was reviewed. Laboratory Testing: Test 11/19/17 11:55 11/19/17 12:16 Range/Units White Blood Count 12.28 4.8-10.8 K/uL Red Blood Count 5.23 4.2-5.4 M/uL Hemoglobin 16.0 12.0-16.0 g/dL Hematocrit 46.1 37-47 % Mean Corpuscular Volume 88.1 80-100 fL Mean Corpuscular Hemoglobin 30.6 25-34 pg Mean Corpuscular Hemoglobin Concent 34.7 32-36 g/dl Platelet Count 297 130-400 K/uL Mean Platelet Volume 9.3 7.4-10.4 fL Neutrophils (%) (Auto) 64.5 % Lymphocytes (%) (Auto) 30.0 % Monocytes (%) (Auto) 4.2 % Eosinophils (%) (Auto) 0.7 % Basophils (%) (Auto) 0.2 % Neutrophils # (Auto) 7.94 1.4-6.5 K/uL Lymphocytes # (Auto) 3.68 1.2-3.4 K/uL Monocytes # (Auto) 0.51 0.11-0.59 K/uL Eosinophils # (Auto) 0.08 0-0.5 K/uL Basophils # (Auto) 0.02 0-0.2 K/uL RDW Standard Deviation 41.6 36.4-46.3 fL RDW Coefficient of Variation 12.9 11.5-14.5 % Immature Granulocyte % (Auto) 0.4 % Immature Granulocyte # (Auto) 0.05 0.00-0.02 K/uL Sodium Level 138 136-145 mmol/L Potassium Level 3.6 3.5-5.1 mmol/L Chloride Level 105 98-107 mmol/L Carbon Dioxide Level 23 21-32 mmol/L Anion Gap 10.0 3-11 mmol/L Blood Urea Nitrogen 10 7-18 mg/dl Creatinine 0.75 0.60-1.20 mg/dl Est Creatinine Clear Calc Drug Dose 107.2 ml/min Estimated GFR () 106.2 Estimated GFR (Non- 91.6 BUN/Creatinine Ratio 13.0 10-20 Random Glucose 124 70-99 mg/dl Calcium Level 9.0 8.5-10.1 mg/dl Total Bilirubin 0.3 0.2-1 mg/dl Direct Bilirubin < 0.1 0-0.2 mg/dl Aspartate Amino Transf (AST/SGOT) 18 15-37 U/L Alanine Aminotransferase (ALT/SGPT) 30 12-78 U/L Alkaline Phosphatase 104 45-117 U/L Troponin I < 0.015 0-0.045 ng/ml Total Protein 7.3 6.4-8.2 gm/dl Albumin 3.5 3.4-5.0 gm/dl Lipase 121 73-393 U/L Bedside D-Dimer 373 0-450 ng/mlFEU EKG: Was read by myself and reviewed with Dr. Dean; shows normal sinus rhythm with a ventricular rate of 75 bpm. Normal axis, intervals and complexes. No acute ST changes indicating ischemia, injury or infarction. This was compared to her previous from October 2016 and no acute changes were noted. Chest X-Ray: Was read by myself and the radiologist showing no acute infiltrates , effusions or pneumothorax. There is cardiomegaly and emphysema changes that were compared to previous and no acute changes were noted. An IV lock was initiated and patient was hydrated with normal saline and she received a single albuterol/Atrovent nebulizer breathing treatment, 125 mg of Solu-Medrol IV, 30 mg of Toradol IV for pain, 200 mg of Tessalon Perles by mouth for cough and 4 mg of Zofran IV for nausea. Patient was reassessed after her first breathing treatment and she had improved air movements but still had moderate wheezing in all tee. Patient received an hour-long albuterol/Atrovent nebulizer breathing treatment. After her hour-long breathing treatment patient reports she was feeling much better and reports she was no longer feeling short of breath. On reevaluation of her lungs she had markedly improved air movement in all tee and resolution of all wheezing. Patient's case was reviewed with Dr. Dean; we agreed on diagnostic approach , treatment, disposition and plan. Patient was educated about today's findings and instructed on her treatment plan ; she verbalized understanding and agreement with this plan. Clinical Impression: Acute asthma exacerbation. Decision-Making: Initially my differential diagnosis I considered asthma/COPD exacerbation, pulmonary embolism, acute coronary syndrome, pneumothorax, pneumonia, rib fracture and other causes. Disposition: Patient discharged home in stable condition accompanied by her ; prior to departure she was reassessed and subjectively reported that she was pain and symptom-free. Plan: Patient was encouraged to continue her current medications. Patient was encouraged to use 60 mg of prednisone once a day for 5 days. Patient was encouraged to use 100 mg of Tessalon Perles every 8 hours as needed for cough. Patient was encouraged alternate ibuprofen and acetaminophen every 3 hours as needed for pain. Patient was encouraged to use 2 puffs of her albuterol inhaler every 6 hours for 5 days and a as needed for shortness of breath/wheezing or severe coughing episode. Patient was encouraged to have close follow-up with her family doctor for recheck in 1-2 days. Patient was encouraged return the ED for worsening/uncontrolled shortness of breath, fevers, coughing up blood, uncontrolled vomiting or any new/concerning symptoms.
== END 2017-11-19 14:50 | disposition home or self-care (01) ==
LOC: C.EDB 11:17 → C.EDC 14:50
DX: J45.901 Unspecified asthma with (acute) exacerbation (principal); Z87.01 Personal history of pneumonia (recurrent); J44.9 Chronic obstructive pulmonary disease, unspecified; E11.9 Type 2 diabetes mellitus without complications; I10 Essential (primary) hypertension; K21.9 Gastro-esophageal reflux disease without esophagitis; Z85.9 Personal history of malignant neoplasm, unspecified; K57.92 Diverticulitis of intestine, part unspecified, without perforation or abscess without bleeding; E03.9 Hypothyroidism, unspecified; F31.9 Bipolar disorder, unspecified; F41.9 Anxiety disorder, unspecified; Z72.0 Tobacco use; Z79.899 Other long term (current) drug therapy; Z88.1 Allergy status to other antibiotic agents; Z88.5 Allergy status to narcotic agent; Z88.8 Allergy status to other drugs, medicaments and biological substances

== ENCOUNTER 2017-12-02 18:47 | Emergency (ER) | payer OTHER ==
[~2017-12-02] VITALS: Ht 160 cm; Wt 110.7 kg
[2017-12-02 18:51] VITALS: TEMP 36.7; Ht 160 cm; Wt 110.7 kg
[2017-12-02] MEDS ORDERED: LOSARTAN POTASSIUM 50 MG TAB PO STA (19:02)
[2017-12-02] MEDS ORDERED: METOPROLOL TARTRATE 50 MG TAB PO STA (19:02)
[2017-12-02] MEDS ORDERED: KETOROLAC TROMETHAMINE 30 MG/ML VIAL IV STA (19:02)
[2017-12-02] MEDS ORDERED: ONDANSETRON INJ 2 MG/ML 2 ML VIAL IV STA (19:02)
[2017-12-02] MEDS ORDERED: OPTIRAY 320 IV PRN (19:15)
[2017-12-02] MEDS ORDERED: PRED10TA PO (19:37)
[2017-12-02] MEDS ORDERED: MAGIC MIX MT (19:42)
[2017-12-02 19:44] LABS: INR 0.9 (0.9-1.1); PTT PATIENT 25.5 SECONDS (21.0-31.0)
[2017-12-02] MEDS ORDERED: LEVO-366 PO (19:44)
--- NOTE | 2017-12-02 19:51 | EMERGENCY ROOM VISIT NOTE ---
History Report prepared by Karly: Uriah Villa Under the Supervision of: Dr. Bishop Welch M.D. First contact with patient: 18:55 Chief Complaint: ILLNESS Stated Complaint: THROAT HURTS, SORES IN MOUTH, PAIN RT SIDE History of Present Illness The patient is a 52 year old female who presents to the Emergency Room with complaints of a constant right sided chest pain that began three weeks ago. She reports her pain is worsened with coughing. She rates her pain as an 8/10 in severity. The patient states that starting three weeks ago, she developed lower back pain, abdominal pain, right sided chest pain, shortness of breath, vomiting , intermittent diarrhea, a sore throat, and mouth sores. The patient was seen in our ER 3 weeks ago for similar symptoms to today's symptoms. She was treated for an asthma exacerbation, she feels that her lungs are actually improved but the right sided pain is still present. The patient states that her abdominal pain is similar to the pain she had in September. During her ER visit in September, an ultrasound of her right upper quadrant and a CT of her abdomen and pelvis were performed-no significant acute findings noted. She reports she has been more fatigued. She denies fever, fall, trauma, injury, having ulcers in the past. The patient reports a history of a right sided breast resection for cancer, diverticulitis, gastroparesis, hypertension which she takes medication for, and cholecystectomy. She denies a history of an appendectomy and a blood clot in her legs or lungs. Source of History: patient Onset: three weeks ago Position: chest (right) Symptom Intensity: 8/10 Timing: constant Associated Symptoms: + cough, + chest pain, + SOB (improved), + vomiting, + abdominal pain, + back pain, + diarrhea, + fatigue, No fevers Review of Systems See HPI for pertinent positives & negatives. A total of 10 systems reviewed and were otherwise negative. Past Medical & Surgical Medical Problems: (1) ANXIETY STATE NOS (2) BIPOLAR DISORDER, UNSPECIFIED (3) section (4) Cholecystectomy (5) CHRONIC OBSTRUCTIVE ASTHMA, W (ACUTE) EXACERBATION (6) DIAB AIDAN WO COMPL, TYPE II OR UNSPEC TYPE, NOT UNCNTRLD (7) DIVERTICULITIS COLON (W/O MENT OF HEMORRHAGE) (8) ESOPHAGEAL REFLUX (9) FAM HX-DIABETES MELLITUS (10) FAM HX-ISCHEM HEART DIS (11) FAM HX-OTH MALIG NEOPLASM (12) FAMILY HISTORY OF OTHER CARDIOVASCULAR DISEASES (13) FAMILY HX-BREAST MALIG (14) FAMILY HX-GI MALIGNANCY (15) FAMILY HX-MALIGNANCY NOS (16) HISTORY OF TOBACCO USE (17) HX OF BREAST MALIGNANCY (18) HYPERTENSION NOS (19) HYPOTHYROIDISM NOS (20) Hysterectomy (21) SOB (shortness of breath) (22) Thyroid nodule Family History Cancer Diabetes mellitus Gallbladder disease Heart disease Hypertension Lung disease Social History Smoking Status: Current Every Day Smoker Alcohol Use: none Drug Use: none Marital Status: Housing Status: lives with family Occupation Status: employed Current/Historical Medications Scheduled Atorvastatin (Lipitor), 20 MG PO HS Cholecalciferol (Vitamin D 1000 Unit), 5,000 INTER.UNIT PO HS Levofloxacin (Levaquin), 500 MG PO DAILY Levothyroxine Sodium (Levothyroxine Sodium), 250 MCG PO 3XWK Levothyroxine Sodium (Levothyroxine Sodium), 125 MCG PO 4XWK Losartan Potassium (Cozaar), 100 MG PO QAM Metoclopramide Hcl (Reglan), 10 MG PO QPM Metoprolol Tartrate (Lopressor) (Lopressor), 50 MG PO BID Omeprazole (Prilosec), 40 MG PO BID Prednisone Tab (Prednisone), 10 MG PO DAILY/UD Ranitidine (Zantac), 150 MG PO HS Spironolactone (Spironolactone), 25 MG PO DAILY Topiramate (Topiramate), 100 MG PO BID Valacyclovir (Valtrex), 500 MG PO BID Venlafaxine Hcl (Effexor), 75 MG PO DAILY Scheduled PRN Albuterol Sulfate (Proair Respiclick), 2 PUFFS INH Q4H PRN for SOB/Wheezing Budesonide/Formoterol Fumarate (Symbicort 160/4.5 Inhaler), 2 PUFFS INH BID PRN for Shortness of Breath Ipratropium-Albuterol (Duoneb), 1 TREATMENT INH Q4H PRN for SOB/Wheezing Nitroglycerin (Nitrostat), 0.4 MG UT UD PRN for Chest Pain Ondansetron Hcl (Zofran), 4 MG PO Q6H PRN for Nausea [Magic Mix], 30 ML MT Q6H PRN for Pain Allergies Coded Allergies: Tamoxifen (Unverified Allergy, Severe, "CAN'T MOVE", 11/19/17) Ceftriaxone (Verified Allergy, Intermediate, REDNESS, ITCHING, 11/19/17) IV ROCEPHIN IG ADMINISTERED VIA IV PUMP ORDERED AT 1903. AT APPROX 1930 PT RANG SMITH WITH COMPLAINT OF REDNESS AND ITCHINESS. IV ROCEPHIN STOPPED IMMEDIATELY (PT RECEIVED 75ML OF 100ML BAG). ORDER FOR BENADRYL 50MG IV RECEIVED AND ADMINISTERED. PT IV NSS INFUSING AT 999ML/HR VIA PUMP. AT 1937 PT WITH NOTED DECREASED REDNESS TO SKIN AND VERBALIZED DECREASED ITCHINESS. PT ON CARDIAC AND PULSE OX MONITORING. PT PULSE OX READING MAINTAINED 97% AND PT HAD NO COMPLAINT OF SOB, THROAT SWELLING, OR DIFFICULTY BREATHING. Cephalexin (Verified Allergy, Intermediate, SHORTNESS OF BREATH, 11/19/17) Sulfamethoxazole w/Trimethoprim (Verified Allergy, Intermediate, SHORTNESS OF BREATH, 11/19/17) Vancomycin (Verified Allergy, Intermediate, ITCHING ALL OVER, RASH, PARESTHESIAS, 11/19/17) Tramadol (Verified Allergy, Mild, ITCHY, 11/19/17) Codeine (Verified Adverse Reaction, Intermediate, GI BLEED, 11/19/17) Physical Exam Vital Signs Date Time Temp Pulse Resp B/P (MAP) Pulse Ox O2 Delivery O2 Flow Rate FiO2 12/02/17 20:50 75 18 150/86 97 Room Air 12/02/17 20:38 66 12/02/17 18:51 36.7 84 16 171/118 98 Room Air Physical Exam GENERAL: Patient is in no acute distress. HEENT: No acute trauma, normocephalic atraumatic, mucous membranes moist, no nasal congestion, no scleral icterus. No throat erythema or exudates. Tiny ulcers along both cheeks primarily on the right with some ulcers noted at the gum lines as well. NECK: No stridor, no adenopathy, no meningismus, trachea is midline. LUNGS: Clear to auscultation bilaterally, no wheeze, no rhonchi, breath sounds equal. HEART: Without murmurs gallops or rubs, regular rate and rhythm. CHEST: Right mastectomy tender along the right lateral and anterior lower ribs. No rash. Pain worsened with movement and coughing. ABDOMEN: Soft, mildly tender in the right upper quadrant, bowel sounds positive , no hernias, no peritonitis. EXTREMITIES: No cyanosis or edema, full range of motion of all the joints without pain or difficulty, no signs for acute trauma. NEUROLOGIC: Oriented x 3, no acute motor or sensory deficits, no focal weakness. SKIN: No rash, no jaundice, no diaphoresis. Medical Decision & Procedures ER Provider Diagnostic Interpretation: Radiology results as stated below per my review and radiologist interpretation: (CHEST FOR PE) ANGIO WITH HISTORY: 52 years-old Female female presents with acute chest pain with concern for pulmonary embolus TECHNIQUE: Multiple CTA images of the chest were obtained after the intravenous administration of 116 ml Optiray 320. Coronal and sagittal MIPS were obtained from the axial data set and were submitted for review. A dose lowering technique was utilized adhering to the principles of ALARA. COMPARISON: Chest radiograph 11/19/2017, CTA chest 03/05/2015 FINDINGS: CTA: Heart is normal in size without pericardial effusion. Thoracic aorta is normal in course and caliber without aneurysm or dissection. Mild mixed plaquing of the thoracic aorta. Linear increased attenuation within the region of the ligamentum arteriosum suggests physiologic calcification. The pulmonary arterial tree is opacified to level of the subsegmental branches and demonstrates no focal filling defects to suggest pulmonary thromboembolic disease. CT CHEST: No dominant thyroid nodule or pathologic adenopathy. Mild upper lobe predominant centrilobular emphysema. No pneumothorax, pleural effusion or focal airspace consolidation. Mild subsegmental bibasilar atelectasis. No suspicious pulmonary nodules or masses. No acute abnormality of the imaged upper abdomen. Reflux of contrast in the IVC. Fatty infiltration of the liver. Prior right-sided mastectomy. Bones appear intact. IMPRESSION: 1. No acute intrathoracic abnormality identified, specifically no acute aortic pathology or pulmonary thromboembolic disease. 2. No lobar airspace consolidation or pathologic adenopathy. 3. Fatty infiltration of the liver. The above report was generated using voice recognition software. It may contain grammatical, syntax or spelling errors. Electronically signed by: Polo Romero M.D. 12/02/2017 9:31 PM Dictated Date/Time: 12/02/2017 9:26 PM ABDOMEN AND PELVIS CT WITH IV CONTRAST CT DOSE: 1990.25 mGy.cm HISTORY: Acute generalized abdominal pain ABD PAIN, POSS divertic, IV CONTRAST ONLY TECHNIQUE: Multiaxial CT images of the abdomen and pelvis were performed following the use of intravenous contrast. A dose lowering technique was utilized adhering to the principles of ALARA. COMPARISON STUDY: CTA chest of same day, CT abdomen and pelvis 10/12/2017 and May 10, 2013 FINDINGS: Absent right breast. Clear lung bases. No pneumatosis or pneumoperitoneum. Imaged inferior cardiac chambers are unremarkable. Prior cholecystectomy. Fatty infiltration of the liver. 11 x 11 mm area of increased attenuation involving the hepatic dome is unchanged dating back to May 10, 2013 study suggesting benign etiology such as a hemangioma. Liver is otherwise unremarkable. Spleen, pancreas and left adrenal gland are unremarkable. 1.5 cm right adrenal gland lesion is unchanged. Exophytic low attenuating lesion of the superior pole left kidney, 6 mm suggests renal cyst. No renal calculi or obstructive uropathy. Bladder is unremarkable. Prior hysterectomy. Prominence of the left ovary is unchanged. Mild atherosclerosis of the aorta without aneurysm. No bulky adenopathy. No bowel obstruction or focal bowel wall thickening. Infraumbilical ventral midline lower abdominal wall hernia contains a loop of nonobstructed sigmoid colon, diastases of the hernia 2.1 cm. Diastases recti with tiny fat filled periumbilical hernia. No inflammatory changes of the colon. Normal appendix. No ascites. Bones appear intact. IMPRESSION: 1. No acute intra-abdominal or intrapelvic abnormality identified. 2. Small infraumbilical ventral midline lower abdominal wall hernia contains a loop of nonobstructed sigmoid colon. 3. Normal appendix. 4. Hepatic steatosis. 5. Prior cholecystectomy and hysterectomy. 6. Unchanged prominence of the left ovary. Electronically signed by: Polo Romero M.D. 12/02/2017 9:40 PM Dictated Date/Time: 12/02/2017 9:31 PM Laboratory Results 12/02/17 19:20 12/02/17 19:20 Test 12/02/17 19:20 12/02/17 19:30 Red Blood Count 5.24 M/uL (4.2-5.4) Mean Corpuscular Volume 89.9 fL (80-100) Mean Corpuscular Hemoglobin 31.3 pg (25-34) Mean Corpuscular Hemoglobin Concent 34.8 g/dl (32-36) RDW Standard Deviation 44.4 fL (36.4-46.3) RDW Coefficient of Variation 13.5 % (11.5-14.5) Mean Platelet Volume 9.3 fL (7.4-10.4) Prothrombin Time 9.4 SECONDS (9.0-12.0) Prothromb Time International Ratio 0.9 (0.9-1.1) Activated Partial Thromboplast Time 25.5 SECONDS (21.0-31.0) Partial Thromboplastin Ratio 1.0 Anion Gap 4.0 mmol/L (3-11) Est Creatinine Clear Calc Drug Dose 94.8 ml/min Estimated GFR () 94.0 Estimated GFR (Non- 81.1 BUN/Creatinine Ratio 13.7 (10-20) Calcium Level 9.1 mg/dl (8.5-10.1) Total Bilirubin 0.3 mg/dl (0.2-1) Aspartate Amino Transf (AST/SGOT) 12 U/L (15-37) Alanine Aminotransferase (ALT/SGPT) 28 U/L (12-78) Alkaline Phosphatase 105 U/L (45-117) Troponin I < 0.015 ng/ml (0-0.045) Total Protein 6.8 gm/dl (6.4-8.2) Albumin 3.2 gm/dl (3.4-5.0) Globulin 3.6 gm/dl (2.5-4.0) Albumin/Globulin Ratio 0.9 (0.9-2) Lipase 437 U/L (73-393) Urine Color YELLOW Urine Appearance TURBID (CLEAR) Urine pH 8.0 (4.5-7.5) Urine Specific [place] 1.017 (1.000-1.030) Urine Protein NEG (NEG) Urine Glucose (UA) NEG (NEG) Urine Ketones NEG (NEG) Urine Occult Blood NEG (NEG) Urine Nitrite NEG (NEG) Urine Bilirubin NEG (NEG) Urine Urobilinogen NEG (NEG) Urine Leukocyte Esterase NEG (NEG) Urine WBC (Auto) 1-5 /hpf (0-5) Urine RBC (Auto) 0-4 /hpf (0-4) Urine Hyaline Casts (Auto) 1-5 /lpf (0-5) Urine Epithelial Cells (Auto) >30 /lpf (0-5) Urine Bacteria (Auto) NEG (NEG) Laboratory results reviewed by me. Medications Administered Medications (Trade) Dose Ordered Sig/Sunday Route Start Time Stop Time Status Last Admin Dose Admin Ondansetron HCl (Zofran Inj) 4 mg NOW STAT IV 12/02/17 19:02 12/02/17 19:09 DC 12/02/17 19:44 4 MG Ketorolac Tromethamine (Toradol Inj) 30 mg NOW STAT IV 12/02/17 19:02 12/02/17 19:09 DC 12/02/17 19:45 30 MG Losartan Potassium (coZAAR TAB) 100 mg NOW STAT PO 12/02/17 19:02 12/02/17 19:10 DC 12/02/17 19:28 100 MG Metoprolol Tartrate (Lopressor Tab) 50 mg NOW STAT PO 12/02/17 19:02 12/02/17 19:10 DC 12/02/17 19:44 50 MG Valacyclovir HCl (Valtrex Tab) 1,000 mg NOW ONCE PO 12/02/17 19:15 12/02/17 19:16 DC 12/02/17 19:44 1,000 MG ECG Per My Interpretation Indication: chest pain Rate (beats per minute): 74 Rhythm: normal sinus Findings: no ectopy, other (No ST elevations, No PVCs) ED Course 1857: The patient was evaluated in room B07. A complete history and physical exam was performed. 1901: Ordered Lopressor Tab 50 mg PO, Losartan Potassium 100 mg PO, Toradol Injection 30 mg IV, Zofran Injection 4 mg IV. 1911: Review old records course - On October 12 she had come to ER with similar pain and had a CT of abdomen and US of right upper quadrant. Both were essentially unremarkable for acute findings. 1914: Ordered Valtrex Tab 1000 mg PO. 2210: Reevaluated the patient. Discussed results and discharge instructions: She verbalized understanding and agreement. The patient is ready for discharge. Medical Decision The patient is a 52 year old female who presents to the Emergency Room with complaints of a constant right sided chest pain that began three weeks ago. Differential diagnoses considered include pneumonia, rib fracture, musculoskeletal pain, PE, UTI, renal colic, cardiac ischemia, rib fracture. There is a moderate leukocytosis at 15,000, this could be consistent with infection or her steroid use. No concerning anemia. No significant electrolyte abnormality, kidney failure or hepatitis. Urinalysis does not show infection or significant hematuria. EKG shows a normal sinus rhythm, no acute ischemia. Cardiac enzyme testing 1 is not consistent with acute cardiac injury. Chest CT does not show PE, pneumonia or pneumothorax. Abdominal and pelvis CT shows no acute surgical process, no acute diverticulitis, no bowel obstruction. Lipase was mildly elevated but not high enough to diagnose pancreatitis. The patient received her typical doses of nighttime oral metoprolol and oral Cozaar. She received IV Toradol, IV Zofran. She was given oral Valtrex. The cause for the patient's right-sided chest and flank pain is unclear. It has been an ongoing issue. It does seem musculoskeletal and possibly may be related to the mastectomy performed on the same side. In regard to the ulcers in her mouth, this has been ongoing and I think it is reasonable to try a week of Valtrex. The patient will follow with her primary doctor's office and return here if worsening. Of note, the patient is on oral antibiotics, she is on oral prednisone. She can continue to take these meds. I am only adding the Valtrex. Medication Reconcilliation Current Medication List: was personally reviewed by me Blood Pressure Screening Patient's blood pressure: Elevated blood pressure Blood pressure disposition: Elevated BP felt to be situational Impression Primary Impression: Right-sided chest pain Additional Impressions: Right flank pain Mouth ulcers Scribe Attestation The scribe's documentation has been prepared under my direction and personally reviewed by me in its entirety. I confirm that the note above accurately reflects all work, treatment, procedures, and medical decision making performed by me. Departure Information Dispostion Home / Self-Care Prescriptions Valacyclovir (Valtrex) 500 Mg Tab 500 MG PO BID for 7 Days, #14 TAB Prov: Bishop Welch M.D. 12/02/17 Referrals No Doctor, Assigned (PCP) Forms HOME CARE DOCUMENTATION FORM, IMPORTANT VISIT INFORMATION, WORK / SCHOOL INSTRUCTIONS Patient Instructions My [facility] Additional Instructions add valtrex 2x per day for the ulcers continue all the other meds see [facility] in a day or so return if worsening testing today was reassuring as we discussed Problem Qualifiers
[2017-12-02 19:52] LABS: HEMATOCRIT 47.1 % (37-47); HEMOGLOBIN 16.4 g/dL (12.0-16.0); MEAN CELL VOLUME 89.9 fL (80-100); MEAN CORPUSCULAR HEMOGLOBIN 31.3 pg (25-34); MEAN CORPUSCULAR HGB CONC 34.8 g/dl (32-36); MEAN PLATELET VOLUME 9.3 fL (7.4-10.4); PLATELET COUNT 285 K/uL (130-400); RED CELL DISTRIBUTION WIDTH CV 13.5 % (11.5-14.5); RED CELL DISTRIBUTION WIDTH SD 44.4 fL (36.4-46.3); WHITE BLOOD COUNT 15.83 K/uL (4.8-10.8)
[2017-12-02] MEDS ORDERED: OMEP40CA41 PO (19:53)
[2017-12-02] MEDS ORDERED: ONDA4TAB46 PO (19:54)
[2017-12-02 20:16] LABS: ALBUMIN 3.2 gm/dl (3.4-5.0); ALT/SGPT 28 U/L (12-78); AST/SGOT 12 U/L (15-37); BLOOD UREA NITROGEN 11 mg/dl (7-18); CALCIUM 9.1 mg/dl (8.5-10.1); CARBON DIOXIDE 29 mmol/L (21-32); CREATININE 0.83 mg/dl (0.60-1.20); GLUCOSE 180 mg/dl (70-99); LIPASE 437 U/L (73-393); POTASSIUM 3.8 mmol/L (3.5-5.1); SODIUM 135 mmol/L (136-145)
[2017-12-02 20:22] LABS: ALKALINE PHOSPHATASE 105 U/L (45-117); TOTAL PROTEIN 6.8 gm/dl (6.4-8.2)
[2017-12-02 20:50] VITALS: BP 150/86; PULSE 75; O2SAT 97
--- NOTE | 2017-12-02 21:32 | DIAGNOSTIC IMAGING REPORT ---
(CHEST FOR PE) ANGIO WITH HISTORY: 52 years-old Female female presents with acute chest pain with concern for pulmonary embolus TECHNIQUE: Multiple CTA images of the chest were obtained after the intravenous administration of 116 ml Optiray 320. Coronal and sagittal MIPS were obtained from the axial data set and were submitted for review. A dose lowering technique was utilized adhering to the principles of ALARA. COMPARISON: Chest radiograph 11/19/2017, CTA chest 03/05/2015 FINDINGS: CTA: Heart is normal in size without pericardial effusion. Thoracic aorta is normal in course and caliber without aneurysm or dissection. Mild mixed plaquing of the thoracic aorta. Linear increased attenuation within the region of the ligamentum arteriosum suggests physiologic calcification. The pulmonary arterial tree is opacified to level of the subsegmental branches and demonstrates no focal filling defects to suggest pulmonary thromboembolic disease. CT CHEST: No dominant thyroid nodule or pathologic adenopathy. Mild upper lobe predominant centrilobular emphysema. No pneumothorax, pleural effusion or focal airspace consolidation. Mild subsegmental bibasilar atelectasis. No suspicious pulmonary nodules or masses. No acute abnormality of the imaged upper abdomen. Reflux of contrast in the IVC. Fatty infiltration of the liver. Prior right-sided mastectomy. Bones appear intact. IMPRESSION: 1. No acute intrathoracic abnormality identified, specifically no acute aortic pathology or pulmonary thromboembolic disease. 2. No lobar airspace consolidation or pathologic adenopathy. 3. Fatty infiltration of the liver. The above report was generated using voice recognition software. It may contain grammatical, syntax or spelling errors. Electronically signed by: Polo Romero M.D. 12/02/2017 9:31 PM Dictated Date/Time: 12/02/2017 9:26 PM
--- NOTE | 2017-12-02 21:41 | DIAGNOSTIC IMAGING REPORT ---
ABDOMEN AND PELVIS CT WITH IV CONTRAST CT DOSE: 1990.25 mGy.cm HISTORY: Acute generalized abdominal pain ABD PAIN, POSS divertic, IV CONTRAST ONLY TECHNIQUE: Multiaxial CT images of the abdomen and pelvis were performed following the use of intravenous contrast. A dose lowering technique was utilized adhering to the principles of ALARA. COMPARISON STUDY: CTA chest of same day, CT abdomen and pelvis 10/12/2017 and May 10, 2013 FINDINGS: Absent right breast. Clear lung bases. No pneumatosis or pneumoperitoneum. Imaged inferior cardiac chambers are unremarkable. Prior cholecystectomy. Fatty infiltration of the liver. 11 x 11 mm area of increased attenuation involving the hepatic dome is unchanged dating back to May 10, 2013 study suggesting benign etiology such as a hemangioma. Liver is otherwise unremarkable. Spleen, pancreas and left adrenal gland are unremarkable. 1.5 cm right adrenal gland lesion is unchanged. Exophytic low attenuating lesion of the superior pole left kidney, 6 mm suggests renal cyst. No renal calculi or obstructive uropathy. Bladder is unremarkable. Prior hysterectomy. Prominence of the left ovary is unchanged. Mild atherosclerosis of the aorta without aneurysm. No bulky adenopathy. No bowel obstruction or focal bowel wall thickening. Infraumbilical ventral midline lower abdominal wall hernia contains a loop of nonobstructed sigmoid colon, diastases of the hernia 2.1 cm. Diastases recti with tiny fat filled periumbilical hernia. No inflammatory changes of the colon. Normal appendix. No ascites. Bones appear intact. IMPRESSION: 1. No acute intra-abdominal or intrapelvic abnormality identified. 2. Small infraumbilical ventral midline lower abdominal wall hernia contains a loop of nonobstructed sigmoid colon. 3. Normal appendix. 4. Hepatic steatosis. 5. Prior cholecystectomy and hysterectomy. 6. Unchanged prominence of the left ovary. Electronically signed by: Polo Romero M.D. 12/02/2017 9:40 PM Dictated Date/Time: 12/02/2017 9:31 PM
[2017-12-02] MEDS ORDERED: VALA500T60 PO (22:13)
== END 2017-12-02 22:33 | disposition home or self-care (01) ==
LOC: C.EDB 18:49
DX: R07.89 Other chest pain (principal); R10.11 Right upper quadrant pain; K13.79 Other lesions of oral mucosa; D72.829 Elevated white blood cell count, unspecified; R74.8 Abnormal levels of other serum enzymes; M54.5 Low back pain; R06.02 Shortness of breath; R11.10 Vomiting, unspecified; R07.0 Pain in throat; R19.7 Diarrhea, unspecified; R53.83 Other fatigue; K57.32 Diverticulitis of large intestine without perforation or abscess without bleeding; K31.84 Gastroparesis; J44.9 Chronic obstructive pulmonary disease, unspecified; I10 Essential (primary) hypertension; Z90.49 Acquired absence of other specified parts of digestive tract; E03.9 Hypothyroidism, unspecified; K21.9 Gastro-esophageal reflux disease without esophagitis; F31.9 Bipolar disorder, unspecified; F41.9 Anxiety disorder, unspecified; F17.200 Nicotine dependence, unspecified, uncomplicated; Z79.52 Long term (current) use of systemic steroids; Z79.899 Other long term (current) drug therapy; Z88.1 Allergy status to other antibiotic agents; Z88.6 Allergy status to analgesic agent; Z88.2 Allergy status to sulfonamides; Z88.8 Allergy status to other drugs, medicaments and biological substances; Z90.11 Acquired absence of right breast and nipple; Z83.3 Family history of diabetes mellitus; Z83.79 Family history of other diseases of the digestive system; Z82.49 Family history of ischemic heart disease and other diseases of the circulatory system; Z83.6 Family history of other diseases of the respiratory system

== ENCOUNTER → 2017-12-19 | Outpatient (CLI) | payer OTHER ==
[~2017-12-19] MED LIST changes: +CHOL1TAB42 PO; +HYDR-5688 PO; +LEVO-366 PO; +MAGIC MIX MT; +OMEP40CA41 PO; +ONDA4TAB46 PO; +PRED10TA PO; -VARE1PAK10 PO
== END | disposition home or self-care (01) ==
LOC: C.LAB 10:29
PROVIDERS: ATTEND Internal Medicine Endocrinology, Diabetes & Metabolism
DX: E11.9 Type 2 diabetes mellitus without complications (principal); R19.7 Diarrhea, unspecified

== ENCOUNTER → 2017-12-23 | Day surgery (SDC) | payer OTHER ==
[2017-12-19 08:31] VITALS: Ht 165.1 cm; Wt 113.6 kg
[2017-12-22 15:11] LABS: HEMATOCRIT 41.5 % (37-47); HEMOGLOBIN 14.2 g/dL (12.0-16.0); MEAN CELL VOLUME 89.4 fL (80-100); MEAN CORPUSCULAR HEMOGLOBIN 30.6 pg (25-34); MEAN CORPUSCULAR HGB CONC 34.2 g/dl (32-36); MEAN PLATELET VOLUME 9.6 fL (7.4-10.4); PLATELET COUNT 296 K/uL (130-400); RED CELL DISTRIBUTION WIDTH CV 14.1 % (11.5-14.5)
[~2017-12-23] VITALS: Ht 165.1 cm; Wt 113.6 kg
[~2017-12-23] MED LIST changes: +ATROPINE SULFATE 0.1 MG/ML 5ML SYR IV PRN; -CHOL100027 PO; +CLINDAMYCIN PHOS 150 MG/ML 2 ML VIAL IV SCH; +EpHEDrine SULFATE INJ 50 MG/ML AMP IV PRN; +FENTANYL CITRATE INJ 50 MCG/1 ML 2 ML VIAL IV PRN; +FENTANYL CITRATE INJ 50 MCG/1 ML 2 ML VIAL ONE; +HYDROCODONE/ACETAMIN 5/325MG TAB ONE; +HYDROCODONE/ACETAMIN 5/325MG TAB PO PRN; +HYDROmorphone INJ 2 MG/ML SYR/VIAL IV PRN; +LACTATED RINGER'S 1000ML 1,000 ML IV SCH; -LEVO-366 PO; +LIDOCAINE HCL 1% 20 ML VIAL ONE; +LIDOCAINE HCL 2% 2 ML VIAL (20MG/ML) ONE; +MIDAZOLAM HCL 1 MG/ML 2ML VIAL ONE; +ONDANSETRON INJ 2 MG/ML 2 ML VIAL IV PRN; +PHENYLEPHRINE 100MCG/ML 5ML SYR IV PRN; +PROMETHAZINE HCL INJ 12.5 MG in SODIUM CHLORIDE 0.9% 50ML 50 ML IV PRN; +PROPOFOL IV EMULSION 10 MG/ML 20 ML VIAL ONE; +SODIUM CHLORIDE 0.9% 1000ML 1,000 ML IV SCH
--- NOTE | 2017-12-23 06:51 | History & Physical Bridge - SC ---
H&P Re-Evaluation Bridge Note: I have examined the patient, reviewed the History & Physical and in the interval since the performance of the History & Physical I have noted the following changes of clinical significance: No changes noted
--- NOTE | 2017-12-23 07:29 | [facility] Operative Report ---
Operative Report Operative Date December 23, 2017. Pre-Operative Diagnosis Right Anterior Shoulder Mass Post-Operative Diagnosis same as pre op Procedure(s) Performed Right Anterior Shoulder Mass Excision Surgeon Dr Brunner Flat Knitter Surgeon(s) PERRY De La O Estimated Blood Loss 5cc Findings appeared to be lipoma Specimens Rt upper chest mass Drains None Anesthesia Type MAC Complication(s) none Disposition Recovery Room / PACU I attest to the content of the Intraoperative Record and any orders documented therein. Any exceptions are noted below.
--- NOTE | 2017-12-23 07:36 | Discharge Instructions-SurgCtr ---
Discharge Instructions Date of Service December 23, 2017. Visit Reason for Visit: Right Anterior Shoulder Mass Discharge Discharge Diagnosis / Problem: Rt upper chest wall mass Discharge Goals Goal(s): Decrease discomfort, Improve function, Improve disease control Medications Stopped Medications Name(s): Pt. was told to only take B/P med this a.m.. Activity Recommendations Activity Limitations: as noted below Lifting Limitations: no more than 25 pounds (light activity for 2 weeks) Exercise/Sports Limitations: until after follow-up appointment May Resume Sexual Activity: when tolerated Shower/Bathe: tomorrow Driving or Machine Use: resume 1 day after discharge Anesthesia . Post Anesthesia Instructions: If you have had General Anesthesia or IV Sedation: * Do not drive today. * Resume driving when surgeon permits. * Do not make important decisions or sign legal documents today. * Call surgeon for: 1. Temperature elevations greater than 101 degrees F. 2. Uncontrollable pain. 3. Excessive bleeding. 4. Persistent nausea and vomiting. 5. Medication intolerance (nausea, vomiting or rash). * For nausea and vomiting use only clear liquids such as: tea, soda, bouillon until nausea subsides, then gradually increase diet as tolerated. * If you have any concerns or questions, call your surgeon's office. If physician is unavailable and it is an emergency, call 911 or go to the nearest emergency room. . Instructions / Follow-Up Instructions / Follow-Up SPECIAL CARE INSTRUCTIONS: * Cover incisions and change daily for comfort/drainage. * May use ibuprofen for pain as tolerated. * Expect some swelling and bruising. Call your doctor if: * Temperature above 101 degrees * Pain not relieved by pain medicine ordered * There is increased drainage or redness from any incision * You have any unanswered questions or concerns [phone]. FOLLOW UP VISIT: If not already scheduled, please call the office for a follow-up visit. for next week- check up and some possible suture removal OFFICE PHONE NUMBER: Dr. Brunner Office Diet Recommendations Home Diet: resume previous diet Procedures Procedures Performed: Right Anterior Shoulder Mass Excision Pending Studies Studies pending at discharge: no Medical Emergencies . Who to Call and When: Medical Emergencies: If at any time you feel your situation is an emergency, please call 911 immediately. . Non-Emergent Contact Non-Emergency issues call your: Primary Care Provider, Surgeon . . "Provider Documentation" section prepared by Arnaldo Brunner. .
[2017-12-23 07:38] VITALS: TEMP 36.9
--- NOTE | 2017-12-23 07:50 | OPERATIVE REPORT ---
DATE OF OPERATION: 12/23/2017 NAME OF OPERATION: Excision of right upper chest wall mass 1 cm with 2 cm incision. STAFF SURGEON: Arnaldo Brunner MD DATA PROCESSING AUDITOR: Lizzy Chaudhary PA-C ANESTHESIA: Local with sedation. PROCEDURE IN DETAIL: The patient was brought in the operating room and placed on the operating table in supine position. Her right upper chest and shoulder area were prepped and draped in usual fashion. 1% plain lidocaine was used to anesthetize the skin and subcutaneous tissue over the palpable mass. An incision was made carrying dissection down excising the tissue. It appeared to be a lipoma approximately 1 cm in diameter. The incision was approximately 2 cm. Deep tissue was reapproximated using 2-0 chromic suture and then the skin was reapproximated using 5-0 Prolene suture. My early childhood assistant helped with prepping, draping, exposure and excision of the mass, and closure of the wound. I attest to the content of the Intraoperative Record and any orders documented therein. Any exception s are noted below.
[2017-12-23 08:04] VITALS: BP 133/86; PULSE 69; O2SAT 99
--- NOTE | 2017-12-23 08:16 | Anesthesia Progress Nt - [facility] ---
Anesthesia Post Op Note Date & Time December 23, 2017 at 08:16 Vital Signs Pain Intensity: 3 Vital Signs Past 12 Hours Date Time Temp Pulse Resp B/P (MAP) Pulse Ox O2 Delivery O2 Flow Rate FiO2 12/23/17 08:04 69 16 133/86 (102) 99 Room Air 12/23/17 07:38 36.9 74 16 177/77 (110) 96 Room Air 12/23/17 06:31 36.5 75 16 91/ (30) 98 Room Air Notes Mental Status: alert / awake / arousable, participated in evaluation Pt Amnestic to Procedure: Yes Nausea / Vomiting: adequately controlled Pain: adequately controlled Airway Patency, RR, SpO2: stable & adequate BP & HR: stable & adequate Hydration State: stable & adequate Anesthetic Complications: no major complications apparent
== END | disposition home or self-care (01) ==
LOC: X.SURG 06:05
PROVIDERS: ATTEND Surgery
DX: R22.2 Localized swelling, mass and lump, trunk (principal); J44.9 Chronic obstructive pulmonary disease, unspecified; E11.9 Type 2 diabetes mellitus without complications; J45.909 Unspecified asthma, uncomplicated; E78.00 Pure hypercholesterolemia, unspecified; I10 Essential (primary) hypertension; E03.9 Hypothyroidism, unspecified; F41.8 Other specified anxiety disorders; E66.3 Overweight; Z68.38 Body mass index [BMI] 38.0-38.9, adult; Z90.10 Acquired absence of unspecified breast and nipple; Z90.49 Acquired absence of other specified parts of digestive tract; Z90.710 Acquired absence of both cervix and uterus; Z90.89 Acquired absence of other organs; Z79.899 Other long term (current) drug therapy; Z82.49 Family history of ischemic heart disease and other diseases of the circulatory system; Z83.3 Family history of diabetes mellitus; Z88.1 Allergy status to other antibiotic agents; Z88.5 Allergy status to narcotic agent

== ENCOUNTER → 2018-01-06 | Outpatient (CLI) | payer OTHER ==
[~2018-01-06] MED LIST changes: -ATROPINE SULFATE 0.1 MG/ML 5ML SYR IV PRN; -CLINDAMYCIN PHOS 150 MG/ML 2 ML VIAL IV SCH; -EpHEDrine SULFATE INJ 50 MG/ML AMP IV PRN; -FENTANYL CITRATE INJ 50 MCG/1 ML 2 ML VIAL IV PRN; -FENTANYL CITRATE INJ 50 MCG/1 ML 2 ML VIAL ONE; -HYDROCODONE/ACETAMIN 5/325MG TAB ONE; -HYDROCODONE/ACETAMIN 5/325MG TAB PO PRN; -HYDROmorphone INJ 2 MG/ML SYR/VIAL IV PRN; -LACTATED RINGER'S 1000ML 1,000 ML IV SCH; -LIDOCAINE HCL 1% 20 ML VIAL ONE; -LIDOCAINE HCL 2% 2 ML VIAL (20MG/ML) ONE; -MIDAZOLAM HCL 1 MG/ML 2ML VIAL ONE; -ONDANSETRON INJ 2 MG/ML 2 ML VIAL IV PRN; -PHENYLEPHRINE 100MCG/ML 5ML SYR IV PRN; -PROMETHAZINE HCL INJ 12.5 MG in SODIUM CHLORIDE 0.9% 50ML 50 ML IV PRN; -PROPOFOL IV EMULSION 10 MG/ML 20 ML VIAL ONE; -SODIUM CHLORIDE 0.9% 1000ML 1,000 ML IV SCH
== END | disposition home or self-care (01) ==
LOC: C.LAB 01:32
PROVIDERS: ATTEND Internal Medicine Endocrinology, Diabetes & Metabolism
DX: E03.9 Hypothyroidism, unspecified (principal)

== ENCOUNTER → 2018-01-07 | Outpatient (CLI) | payer OTHER ==
--- NOTE | 2018-01-07 11:54 | DIAGNOSTIC IMAGING REPORT ---
NUCLEAR GASTRIC EMPTYING STUDY: CLINICAL HISTORY: K31.84 Gastroparesis COMPARISON STUDY: None TECHNIQUE: Following the oral administration of 1.1 mCi of technetium 99m sulfur colloid in egg sandwich and 8 ounces of water, static abdominal images are performed anteriorly and posteriorly at 0 minutes, 1 hour, 2 hours, and 4 hour time intervals. Gastric emptying was calculated utilizing the geometric mean method. FINDINGS: There is approximately 72 % gastric activity remaining at the 1 hour time interval, 31 % at the 2 hour time interval (normal is less than 60%), and 1 % remaining at the 4 hour time interval (normal is less than 10%). These findings are consistent with a normal study IMPRESSION: Findings are consistent with a normal study Electronically signed by: Drake Jimenez M.D. 01/07/2018 11:53 AM Dictated Date/Time: 01/07/2018 11:52 AM
== END | disposition home or self-care (01) ==
LOC: C.NUCL 07:29
PROVIDERS: ATTEND Nurse Practitioner Family
DX: K31.84 Gastroparesis (principal)

== ENCOUNTER → 2018-03-19 | Outpatient (CLI) | payer OTHER ==
[~2018-03-19] MED LIST changes: -HYDR-5688 PO; +IPRA-64 INH; -IPRASOL4 INH; -MAGIC MIX MT; -PRED10TA PO; +SPIR25TA6 PO; -SPR25 PO
== END | disposition home or self-care (01) ==
LOC: C.LAB 02:54
PROVIDERS: ATTEND Internal Medicine Endocrinology, Diabetes & Metabolism
DX: E03.9 Hypothyroidism, unspecified (principal)

== ENCOUNTER 2021-06-28 17:57 | Inpatient (IN) ==
[2021-06-28 20:12] LABS: Basophils # (auto) 0.04 K/uL (0-0.2); Basophils % (auto) 0.4 %; Eosinophils # (auto) 0.15 K/uL (0-0.5); Eosinophils % (auto) 1.7 %; Hematocrit (blood only) 47.7 % (37-47); Hemoglobin 16.6 g/dL (12.0-16.0); Immature Granulocytes # (auto) 0.02 K/uL (0.00-0.02); Immature Granulocytes % (auto) 0.2 %; Lymphocytes # (auto) 3.34 K/uL (1.2-3.4); Lymphocytes % (auto) 37.3 %; Mean Corpuscular Hemoglobin 31.7 pg (25-34); Mean Corpuscular Hgb Conc 34.8 g/dL (32-36); Mean Corpuscular Volume 91.2 fL (80-100); Mean Platelet Volume 10.8 fL (7.4-10.4); Monocytes # (auto) 0.38 K/uL (0.11-0.59); Monocytes % (auto) 4.2 %; Neutrophils # (auto) 5.03 K/uL (1.4-6.5); Neutrophils % (auto) 56.2 %; Platelet Count 256 K/uL (130-400); RDW Standard Deviation 43.5 fL (36.4-46.3); Red Blood Count 5.23 M/uL (4.2-5.4); White Blood Count 8.96 K/uL (4.8-10.8)
[2021-06-28 20:35] LABS: BUN Creatinine Ratio 5.3 (10-20); Calcium 9.7 mg/dl (8.5-10.1); Creatinine Clr Calc Pharmacy 99.5 ml/min; Est GFR (African American) 94.8 ml/min; Est GFR (Non-African American) 81.8 ml/min; Potassium 3.2 mmol/L (3.5-5.1)
[2021-06-28 20:38] LABS: Bilirubin,Total 0.4 mg/dl (0.2-1); Globulin 4.2 gm/dl (2.5-4.0); Total Protein 8.2 gm/dl (6.4-8.2)
[2021-06-28] MEDS ORDERED: ONDANSETRON INJ 2 MG/ML 2 ML VIAL IV STA (21:14)
[2021-06-28] MEDS ORDERED: HYDROmorphone INJ 1 MG/ML SYRINGE IV STA (21:14)
--- NOTE | 2021-06-28 22:06 | Emergency Department Note ---
Impression & Plan Abdominal pain, Acute hypokalemia, Acute hyperglycemia ED Provider Note NAME: GANGA CERRATO AGE: 55 SEX: F : 1965 ARRIVES VIA: Walk-In INFORMANT: Patient ED PROVIDER(S): George Lam DO CHIEF COMPLAINT: Abdominal pain HPI: Patient is a 55-year-old female who presents ER for abdominal pain. Pain is located periumbilically. She was seen by her PCP sent for CT and then referred in after the CT. She notes her pain has been constant for several months progressively worsened over the past 24 hours. Denies any headache or change in vision. No chest pain or shortness of breath. Pain is sharp stabbing and 9 out of 10. She admits to nausea but refuses to vomit. Last bowel movement was yesterday. She is still passing gas. No dysuria urgency or fr equency. ROS: See above HPI for pertinent positives & negatives. A total of 10 systems reviewed and were otherwise negative. PAST MEDICAL HISTORY:See Below PAST SURGICAL HISTORY:See Below FAMILY HISTORY:See Below SOCIAL HISTORY:See Below HOME MEDICATIONS:See Below ALLERGIES:See Below VITALS:See Below PHYSICAL EXAMINATION: GENERAL: Sitting up in bed, alert, morbidly obese, disheveled EYE EXAM: normal conjunctiva. PERRL and EOM's grossly intact. OROPHARYNX: no exudate, no erythema, lips, buccal mucosa, and tongue normal and mucous membranes are moist NECK: supple, no nuchal rigidity, no adenopathy, non-tender LUNGS: Clear to auscultation. Normal chest wall mechanics HEART: no murmurs, S1 normal and S2 normal ABDOMEN: abdomen soft, tender to palpation over ventral hernia, normo-active bowel sounds, no masses, no rebound or guarding. UPPER EXTREMITIES: upper extremities are grossly normal. LOWER EXTREMITIES: No pitting edema. NEURO EXAM: Normal sensorium, cranial nerves II-XII grossly intact, normal speech, no gross weakness of arms, no gross weakness of legs. MEDICAL DECISION MAKING: Patient is a 55-year-old female who presents ER for above-stated complaint. IV was established and blood work was obtained. Labs show no significant leukocytosis. Hemoglobin 16. BMP with mild hypokalemia 3.2. LFTs, bilirubin, and lipase is unremarkable. Patient was given Zofran and and Dilaudid. CT was reviewed. Discussed with general surgery who evaluate the patient at bedside. Dr. Flaherty recommended admission to hospitalist due to blood pressure and he will take to the OR in the morning. Discussed with Keiko Sotomayor for further evaluation. Triage Nursing notes reviewed. Limited review of prior medical records performed Vital Signs: reviewed and remarkable for HTN Differential diagnosis: Differential diagnoses includes but is not limited to gastritis, peptic ulcer disease, GERD, gallbladder disease, pancreatitis, small bowel obstruction, acute coronary syndrome, pericarditis, ischemic bowel, irritable bowel disease, irritable bowel syndrome, appendicitis, diverticulitis, malignancy, hernia, urin macy tract infection, torsion, [/ectopic (if female)], perforation, trauma, infectious. ER treatment provided: See below Diagnostics interpreted by me: ECG: none Cardiac Monitoring: An order was placed for continuous cardiac monitoring. The monitor shows a rate of 80 with sinus rhythm. Laboratory studies: As stated above and show below. Imaging studies: CT of the outpatient was reviewed Consultation(s): This as discussed above Procedures: none Critical Care: None Past Med/Surg History Medical History Anxiety and depression Asthma COPD (chronic obstructive pulmonary disease) Diabetes mellitus, type 2 Gastroparesis GERD (gastroesophageal reflux disease) H/O abscess of breast Hearing difficulty Hiatal hernia History of diverticulitis History of dysplastic nevus Hx of breast cancer Hyperlipidemia Hypertension Hypothyroidism Liver lesion Migraine Osteoarthritis Pituitary abnormality Syncope Umbilical hernia Surgical History H/O section H/O colonoscopy H/O thyroidectomy History of breast biopsy History of esophagogastroduodenoscopy (EGD) History of excision of lesion History of mastectomy History of removal of Port-a-Cath (12/08/20) History of tooth extraction History of vascular access device Hx laparoscopic cholecystectomy Hx of hysterectomy Hx of melanoma excision Family History Mother Ovarian cancer Father Pancreatic cancer Other No family history of adverse response to anesthesia Denies family history of Prostate cancer Myocardial infarction Breast cancer Colorectal cancer Social History Smoking Status: Current every day smoker Tobacco Type: Cigarettes Age Started Using Tobacco: 10; packs per day: 0.5; Years Smoked: 40; Cigarettes Per Day: 10 CIG DAILY; Second Hand Exposure: No; Hx Alcohol Use: Yes Alcohol type: hard liquor Alcohol Intake Frequency: Monthly or Less Hx Substance Use: No Preferred Language: Estonian Communication Ability: Effective Visual Impairment: No Limitations Hearing Ability: Normal Data Warehousing Manager Required: No Beliefs That Will Affect Care: None marital status: Current Living Situation: Spouse 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 How many Children do You have: 2 Feels Safe at Home: Yes Childhood Exposure to Second-Hand Smoke: Yes Dental Care, Regularly: No Physical Activity Frequency: Daily Seatbelt Use: always Sunscreen Use: Yes Assistive Devices: Cane, Denture - Upper, Denture - Lower and Glasses Allergies Allergies Allergy/AdvReac Type Severity Reaction Status Date / Time tamoxifen Allergy Severe "CAN'T Verified 06/28/21 10:15 MOVE" ceftriaxone Allergy Intermediate REDNESS, Verified 06/28/21 10:15 ITCHING cephalexin Allergy Intermediate SHORTNESS Verified 06/28/21 10:15 OF BREATH sulfamethoxazole [Bactrim] Allergy Intermediate SHORTNESS Verified 06/28/21 10:15 OF BREATH trimethoprim [Bactrim] Allergy Intermediate SHORTNESS Verified 06/28/21 10:15 OF BREATH vancomycin Allergy Intermediate ITCHING Verified 06/28/21 10:15 ALL OVER, RASH, PARESTHESIAS tramadol Allergy Mild ITCHY Verified 06/28/21 10:15 cefdinir Allergy Unknown unknown Verified 06/28/21 10:15 codeine AdvReac Intermediate GI BLEED Verified 06/28/21 10:15 Home Meds Home Medications Medication Instructions Recorded Confirmed nitroglycerin 0.4 mg sublingual 0.4 mg SUBLINGUAL DIRECTED PRN 04/29/18 06/28/21 tablet (Nitrostat) ondansetron HCl 4 mg tablet 4 mg PO Q6H PRN 04/29/18 06/28/21 cholecalciferol (vitamin D3) 125 5,000 unit PO QAM 04/04/19 06/28/21 mcg (5,000 unit) tablet (Vitamin D3) albuterol sulfate 90 mcg/actuation 1 - 2 puff INHALATION .Q4-6HRS PRN 09/16/20 06/28/21 aerosol inhaler nortriptyline 25 mg capsule 2,550 mg PO HS 06/28/21 06/28/21 Previous Rx's Medication Instructions Recorded atorvastatin 20 mg tablet 20 mg PO QAM #90 tab 05/15/20 budesonide-formoterol HFA 160 2 puff INHALATION BID PRN #10.2 g 05/15/20 mcg-4.5 mcg/actuation aerosol inhaler ipratropium 0.5 mg-albuterol 3 mg 3 ml INHALATION Q4H PRN #90 ml 05/15/20 (2.5 mg base)/3 mL nebulization soln losartan 100 mg tablet 100 mg PO QAM #90 tab 05/15/20 metoprolol tartrate 50 mg tablet 50 mg PO BID #180 tab 05/15/20 omeprazole 40 mg capsule,delayed 40 mg PO BID #180 cap 05/15/20 release spironolactone 25 mg tablet 25 mg PO HS #90 tab 05/15/20 topiramate 100 mg tablet 100 mg PO BID #180 tab 05/15/20 glimepiride 1 mg tablet 1 mg PO QAM #90 tab 05/19/20 levothyroxine 125 mcg capsule 125 mcg PO .COMPLEX #180 cap 10/23/20 hydrocodone 5 mg-acetaminophen 325 See Rx Instructions PO .COMPLEX 10/25/20 mg tablet PRN #30 tab sertraline 50 mg tablet 50 mg PO DAILY #30 tab 11/20/20 chlorhexidine gluconate 4 % 1 applic TOPICAL DAILY 60 Days 12/28/20 topical liquid (Hibiclens) #118 ml clindamycin phosphate 1 % lotion 1 applic TOPICAL DAILY #60 ml 12/28/20 doxycycline hyclate 100 mg capsule 100 mg PO DAILY #30 cap 12/28/20 metformin 1,000 mg tablet 1,000 mg PO BID #180 tab 01/10/21 furosemide 20 mg tablet 20 mg PO QAM #90 tab 01/23/21 Results & Data (ED) Vital Signs Vital Signs - 24 hr 06/28/21 18:03 06/28/21 21:02 06/28/21 22:00 Temperature 36.6 C Temperature Source Temporal Artery Scan Pulse Rate 109 H Pulse Rate [Finger] 83 81 Pulse Rhythm Regular Pulse Strength Normal Respiratory Rate 20 18 18 Respiratory Effort / Characteristics Non-Labored Spontaneous Non-Labored Spontaneous Non-Labored Spontaneous Respiratory Depth Normal Normal Normal Respiratory Pattern Regular Blood Pressure 180/120 H Blood Pressure [Left Arm] 196/144 H 176/96 H Blood Pressure Mean 140 Blood Pressure Mean [Left Arm] 161 122 Blood Pressure Position Sitting Pulse Oximetry 98 98 96 Oxygen Delivery Method Room Air Room Air Room Air Sepsis Recent Fever Within 48 Hours No Sepsis New/Unexplained Change in Mental Status No Sepsis Action Taken by Nursing No Action Required 06/28/21 23:10 Temperature Temperature Source Pulse Rate Pulse Rate [Finger] 78 Pulse Rhythm Pulse Strength Respiratory Rate 18 Respiratory Effort / Characteristics Non-Labored Spontaneous Respiratory Depth Normal Respiratory Pattern Blood Pressure Blood Pressure [Left Arm] 153/100 H Blood Pressure Mean Blood Pressure Mean [Left Arm] 117 Blood Pressure Position Pulse Oximetry 97 Oxygen Delivery Method Room Air Sepsis Recent Fever Within 48 Hours Sepsis New/Unexplained Change in Mental Status Sepsis Action Taken by Nursing Laboratory Data Result diagrams: 06/28/21 19:26 06/28/21 19:26 Lab Results 06/28/21 06/28/21 06/28/21 Range/Units 19:26 19:26 22:49 WBC 8.96 (4.8-10.8) K/uL RBC 5.23 (4.2-5.4) M/uL Hgb 16.6 H (12.0-16.0) g/dL Hct 47.7 H (37-47) % MCV 91.2 (80-100) fL MCH 31.7 (25-34) pg MCHC 34.8 (32-36) g/dL RDW Std Deviation 43.5 (36.4-46.3) fL RDW Coeff of Luisa 13.0 (11.5-14.5) % Plt Count 256 (130-400) K/uL MPV 10.8 H (7.4-10.4) fL Immature Gran % (Auto) 0.2 % Neut % (Auto) 56.2 % Lymph % (Auto) 37.3 % Wells % (Auto) 4.2 % Eos % (Auto) 1.7 % Baso % (Auto) 0.4 % Neut # (Auto) 5.03 (1.4-6.5) K/uL Lymph # (Auto) 3.34 (1.2-3.4) K/uL Wells # (Auto) 0.38 (0.11-0.59) K/uL Eos # (Auto) 0.15 (0-0.5) K/uL Baso # (Auto) 0.04 (0-0.2) K/uL Immature Gran # (Auto) 0.02 (0.00-0.02) K/uL Sodium 137 (136-145) mmol/L Potassium 3.2 L (3.5-5.1) mmol/L Chloride 103 (98-107) mmol/L Carbon Dioxide 28 (21-32) mmol/L Anion Gap 7.0 (3-11) BUN 4 L (7-18) mg/dl Creatinine 0.81 (0.6-1.2) mg/dl Est Cr Clr Drug Dosing 99.5 ml/min Est GFR ( Amer) 94.8 ml/min Est GFR (Non-Af Amer) 81.8 ml/min BUN/Creatinine Ratio 5.3 L (10-20) Glucose 279 H (70-99) mg/dl POC Glucose 209 H (70-99) mg/dl Calcium 9.7 (8.5-10.1) mg/dl Total Bilirubin 0.4 (0.2-1) mg/dl AST 73 H (15-37) U/L ALT 72 (12-78) U/L Alkaline Phosphatase 159 H (45-117) U/L Total Protein 8.2 (6.4-8.2) gm/dl Albumin 4.0 (3.4-5.0) gm/dl Globulin 4.2 H (2.5-4.0) gm/dl Albumin/Globulin Ratio 1.0 (0.9-2) Lipase 127 (73-393) U/L Administered Medications Discontinued Medications Hydralazine HCl (Hydralazine Hcl 20 Mg/Ml Vial) 10 mg IV NOW STA Stop: 06/28/21 22:44 Last Admin: 06/28/21 23:14 Dose: Not Given Documented by: [id number] Hydralazine HCl (Hydralazine Hcl 20 Mg/Ml Vial) 5 mg IV NOW ONE Stop: 06/28/21 22:47 Last Admin: 06/28/21 23:11 Dose: 5 mg Documented by: [id number] Hydromorphone HCl (Hydromorphone Inj 1 Mg/Ml Syringe) 1 mg IV NOW STA Stop: 06/28/21 21:15 Last Admin: 06/28/21 21:24 Dose: 1 mg Documented by: [id number] Ondansetron HCl (Ondansetron Inj 2 Mg/Ml 2 Ml Vial) 4 mg IV NOW STA Stop: 06/28/21 21:15 Last Admin: 06/28/21 21:23 Dose: 4 mg Documented by: [id number] Discharge Plan Visit Data Chief Complaint: Abdominal Pain Stated Complaint: ABDOMINAL PAIN, CHEST PAIN ED Provider: George Lam Discharge Problem: Abdominal pain, Acute hypokalemia, Acute hyperglycemia Forms Stand Alone Forms: [facility] [employer] Prescriptions Prescriptions: No Action glimepiride 1 mg tablet 1 mg PO QAM Qty: 90 RF: 1 levothyroxine 125 mcg capsule 125 mcg PO .COMPLEX Qty: 180 RF: 1 hydrocodone-acetaminophen 5-325 mg tablet See Rx Instructions PO .COMPLEX PRN (Reason: pain) Qty: 30 RF: 0 metformin 1,000 mg tablet 1,000 mg PO BID Qty: 180 RF: 1 furosemide 20 mg tablet 20 mg PO QAM Qty: 90 RF: 1 sertraline 50 mg tablet 50 mg PO DAILY Qty: 30 RF: 5 atorvastatin 20 mg tablet 20 mg PO QAM Qty: 90 RF: 1 budesonide-formoterol 160-4.5 mcg/actuation HFA aerosol inhaler 2 puff INHALATION BID PRN (Reason: Shortness Of Breath Or Wheezing) Qty: 10.2 RF: 3 ipratropium-albuterol 0.5 mg-3 mg(2.5 mg base)/3 mL solution for nebulization 3 ml INHALATION Q4H PRN (Reason: Shortness Of Breath Or Wheezing) Qty: 90 RF: 0 losartan 100 mg tablet 100 mg PO QAM Qty: 90 RF: 1 metoprolol tartrate 50 mg tablet 50 mg PO BID Qty: 180 RF: 1 omeprazole 40 mg capsule,delayed release(DR/EC) 40 mg PO BID Qty: 180 RF: 1 spironolactone 25 mg tablet 25 mg PO HS Qty: 90 RF: 1 topiramate 100 mg tablet 100 mg PO BID Qty: 180 RF: 1 chlorhexidine gluconate [Hibiclens] 4 % liquid 1 applic topical DAILY 60 Days Qty: 118 RF: 1 doxycycline hyclate 100 mg capsule 100 mg PO DAILY Qty: 30 RF: 2 clindamycin phosphate 1 % lotion 1 applic topical DAILY Qty: 60 RF: 2 albuterol sulfate 90 mcg/actuation HFA aerosol inhaler 1 - 2 puff inhalation .Q4-6HRS PRN (Reason: Shortness Of Breath Or Wheezing) RF: 0 nitroglycerin [Nitrostat] 0.4 mg Tablet, Sublingual 0.4 mg Sublingual DIRECTED PRN (Reason: Chest Pain) RF: 0 ondansetron HCl 4 mg Tablet 4 mg PO Q6H PRN (Reason: Nausea) RF: 0 cholecalciferol (vitamin D3) [Vitamin D3] 5,000 unit Tablet 5,000 unit PO QAM RF: 0 nortriptyline 25 mg capsule 2,550 mg PO HS RF: 0 Referrals Referrals: Yash Baxter III, CRNP [Primary Care Provider] - Discharge Problem: Abdominal pain Qualifiers: Abdominal location: unspecified location Qualified Code(s): R10.9 - Unspecified abdominal pain
--- NOTE | 2021-06-28 22:26 | Surgery Consultation ---
Date of Consultation June 28, 2021 Assessment & Plan (1) Ventral hernia: pt is a 55 year-old female who presents to ER with lower abdominal pain and chest pain, IMP: ventral hernia( incisional hernia) Plan, recommend hospitalist admit pt to hospital for good control HTN, chest pain, DM, IV fluid, do open repair incisional hernia possible mesh tomorrow, NPO after MN, D/W benefits, risks and alternatives of the surgery, the risks - infection, bleeding, hernia recurrence, seroma, complications relate to mesh, NM, DVT, stroke, , injury other organs, pt understood, she agrees with the surgery and the plan, I answered all questions, History of Present Illness Reason for Consultation: ventral hernia Requesting Physician: George Miranda History of Present Illness CHIEF COMPLAINT: Abdominal pain HPI: Patient is a 55-year-old female who presents ER for abdominal pain. Pain is located periumbilically. She seen by her PCP sent for CT and then referred in after the CT. She notes her pain has been constant for several months progressively worsened over the past 24 hours. Denies any headache or change in vision. No chest pain or shortness of breath. Pain is sharp stabbing and 9 out of 10. She admits to nausea but refuses to vomit. Last bowel movement was yesterday. She is still passing gas. No dysuria urgency or frequency. I ( Carin Flaherty MD ) got a call for consult ventral hernia, I reviewed pt's H/P, labs CT scan with pt, last BM yesterday, pt pass gas now, no vomiting, C- section in the past, ROS: See above HPI for pertinent positives & negatives. A total of 10 systems reviewed and were otherwise negative. PAST MEDICAL HISTORY:See Below PAST SURGICAL HISTORY:See Below FAMILY HISTORY:See Below SOCIAL HISTORY:See Below HOME MEDICATIONS:See Below ALLERGIES:See Below MEDICAL DECISION MAKING: Patient is a 55-year-old female who presents ER for above-stated complaint. IV was established blood work was obtained. Labs show no significant leukocytosis. Hemoglobin 16. BMP with mild hypokalemia 3.2. LFTs bilirubin and lipase is unremarkable. Patient was given Zofran and and Dilaudid. CT was reviewed. Discussed with general surgery who evaluate the patient at bedside. Dr. Flaherty recommended admission to hospitalist due to blood pressure and he will take to the OR in the morning. Discussed with Keiko Sotomayor for further evaluation. Triage Nursing notes reviewed. Limited review of prior medical records performed Vital Signs: reviewed and remarkable for HTN Differential diagnosis: Differential diagnoses includes but is not limited to gastritis, peptic ulcer disease, GERD, gallbladder disease, pancreatitis, small bowel obstruction, acute coronary syndrome, pericarditis, ischemic bowel, irritable bowel disease, irritable bowel syndrome, appendicitis, diverticulitis, malignancy, hernia, urinary tract infection, torsion, [/ectopic (if female)], perforation, trauma, infectious. ER treatment provided: See below Diagnostics interpreted by me: ECG: none Cardiac Monitoring: An order was placed for continuous cardiac monitoring. The monitor shows a rate of 80 with sinus rhythm. Laboratory studies: As stated above and show below. Imaging studies: CT of the outpatient was reviewed Consultation(s): This as discussed above Procedures: none Critical Care: None Past Med/Surg History Medical History Anxiety and depression Asthma COPD (chronic obstructive pulmonary disease) Diabetes mellitus, type 2 Gastroparesis GERD (gastroesophageal reflux disease) H/O abscess of breast Hearing difficulty Hiatal hernia History of diverticulitis History of dysplastic nevus Hx of breast cancer Hyperlipidemia Hypertension Hypothyroidism Liver lesion Migraine Osteoarthritis Pituitary abnormality Syncope Umbilical hernia Surgical History H/O section H/O colonoscopy H/O thyroidectomy History of breast biopsy History of esophagogastroduodenoscopy (EGD) History of excision of lesion History of mastectomy History of removal of Port-a-Cath (12/08/20) History of tooth extraction History of vascular access device Hx laparoscopic cholecystectomy Hx of hysterectomy Hx of melanoma excision Family History Mother Ovarian cancerFather Pancreatic cancerOther No family history of adverse response to anesthesia Denies family history of Prostate cancer Myocardial infarction Breast cancer Colorectal cancer Social History Smoking Status: Current every day smoker Tobacco Type: Cigarettes Age Started Using Tobacco: 10; packs per day: 0.5; Years Smoked: 40; Cigarettes Per Day: 10 CIG DAILY; Second Hand Exposure: No; Hx Alcohol Use: Yes Alcohol type: hard liquor Alcohol Intake Frequency: Monthly or Less Hx Substance Use: No Preferred Language: Mosotho Communication Ability: Effective Visual Impairment: No Limitations Hearing Ability: Normal Storage Specialist Required: No Beliefs That Will Affect Care: None marital status: Current Living Situation: Spouse 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 How many Children do You have: 2 Feels Safe at Home: Yes Childhood Exposure to Second-Hand Smoke: Yes Dental Care, Regularly: No Physical Activity Frequency: Daily Seatbelt Use: always Sunscreen Use: Yes Assistive Devices: Cane, Denture - Upper, Denture - Lower and Glasses Allergies Allergies Allergy/AdvReac Type Severity Reaction Status Date / Time tamoxifen Allergy Severe "CAN'T Verified 06/28/21 10:15 MOVE" ceftriaxone Allergy Intermediate REDNESS, Verified 06/28/21 10:15 ITCHING cephalexin Allergy Intermediate SHORTNESS Verified 06/28/21 10:15 OF BREATH sulfamethoxazole [Bactrim] Allergy Intermediate SHORTNESS Verified 06/28/21 10:15 OF BREATH trimethoprim [Bactrim] Allergy Intermediate SHORTNESS Verified 06/28/21 10:15 OF BREATH vancomycin Allergy Intermediate ITCHING Verified 06/28/21 10:15 ALL OVER, RASH, PARESTHESIAS tramadol Allergy Mild ITCHY Verified 06/28/21 10:15 cefdinir Allergy Unknown unknown Verified 06/28/21 10:15 codeine AdvReac Intermediate GI BLEED Verified 06/28/21 10:15 Home Meds Home Medications Medication Instructions Recorded Confirmed nitroglycerin 0.4 mg sublingual 0.4 mg SUBLINGUAL DIRECTED PRN 04/29/18 06/28/21 E tablet (Nitrostat) ondansetron HCl 4 mg tablet 4 mg PO Q6H PRN 04/29/18 06/28/21 cholecalciferol (vitamin D3) 125 5,000 unit PO QAM 04/04/19 1 mcg (5,000 unit) tablet (Vitamin D3) albuterol sulfate 90 mcg/actuation 1 - 2 puff INHALATION .Q4-6HRS PRN 09/16/20 06/28/21 aerosol inhaler nortriptyline 25 mg capsule 2,550 mg PO HS 06/28/21 06/28/21 Previous Rx's Medication Instructions Recorded atorvastatin 20 mg tablet 20 mg PO QAM #90 tab 05/15/20 budesonide-formoterol HFA 160 2 puff INHALATION BID PRN #10.2 g 05/15/20 mcg-4.5 mcg/actuation aerosol inhaler ipratropium 0.5 mg-albuterol 3 mg 3 ml INHALATION Q4H PRN #90 ml 05/15/20 (2.5 mg base)/3 mL nebulization soln losartan 100 mg tablet 100 mg PO QAM #90 tab 05/15/20 metoprolol tartrate 50 mg tablet 50 mg PO BID #180 tab 05/15/20 omeprazole 40 mg capsule,delayed 40 mg PO BID #180 cap 05/15/20 release spironolactone 25 mg tablet 25 mg PO HS #90 tab 05/15/20 topiramate 100 mg tablet 100 mg PO BID #180 tab 05/15/20 glimepiride 1 mg tablet 1 mg PO QAM #90 tab 05/19/20 levothyroxine 125 mcg capsuleF 125 mcg PO .COMPLEX #180 cap 10/23/20 hydrocodone 5 mg-acetaminophen 325 See Rx Instructions PO .COMPLEX 10/25/20 mg tablet PRN #30 tab sertraline 50 mg tablet 50 mg PO DAILY #30 tab 11/20/20 chlorhexidine gluconate 4 % 1 applic TOPICAL DAILY 60 Days 12/28/20 topical liquid (Hibiclens) #118 ml clindamycin phosphate 1 % lotion 1 applic TOPICAL DAILY #60 ml 12/28/20 doxycycline hyclate 100 mg capsule 100 mg PO DAILY #30 cap 12/28/20 metformin 1,000 mg tablet 1,000 mg PO BID #180 tab 01/10/21 furosemide 20 mg tablet 20 mg PO QAM #90 tab 01/23/21 Results & Data (ED) Vital Signs Vital Signs - 24 hr 06/28/21 18:03 06/28/21 21:02 Temperature 36.6 C Temperature Source Temporal Artery Scan Pulse Rate 109 H Pulse Rate [Finger] 83 Pulse Rhythm Regular Pulse Strength Normal Respiratory Rate 20 18 Respiratory Effort / Characteristics Non-Labored Spontaneous Non-Labored Spontaneous Respiratory Depth Normal Normal Respiratory Pattern Regular Blood Pressure 180/120 H Blood Pressure [Left Arm] 196/144 H Blood Pressure Mean 140 Blood Pressure Mean [Left Arm] 161 Blood Pressure Position Sitting Pulse Oximetry 98 98 Oxygen Delivery Method Room Air Room Air Sepsis Recent Fever Within 48 Hours No Sepsis New/Unexplained Change in Mental Status No Sepsis Action Taken by Nursing No Action Required Laboratory Data Result diagrams: 06/28/21 19:26 06/28/21 19:26 Lab Results 06/28/21 06/28/21 Range/Units 19:26 19:26 WBC 8.96 (4.8-10.8) K/uL RBC 5.23 (4.2-5.4) M/uL Hgb 16.6 H (12.0-16.0) g/dL Hct 47.7 H (37-47) % MCV 91.2 (80-100) fL MCH 31.7 (25-34) pg MCHC 34.8 (32-36) g/dL RDW Std Deviation 43.5 (36.4-46.3) fL RDW Coeff of Luisa 13.0 (11.5-14.5) % Plt Count 256 (130-400) K/uL MPV 10.8 H (7.4-10.4) fL Immature Gran % (Auto) 0.2 % Neut % (Auto) 56.2 % Lymph % (Auto) 37.3 % [place] % (Auto) 4.2 % Eos % (Auto) 1.7 % Baso % (Auto) 0.4 % Neut # (Auto) 5.03 (1.4-6.5) K/uL Lymph # (Auto) 3.34 (1.2-3.4) K/uL [place] # (Auto) 0.38 (0.11-0.59) K/uL Eos # (Auto) 0.15 (0-0.5) K/uL Baso # (Auto) 0.04 (0-0.2) K/uL Immature Gran # (Auto) 0.02 (0.00-0.02) K/uL Sodium 137 (136-145) mmol/L Potassium 3.2 L (3.5-5.1) mmol/L Chloride 103 (98-107) mmol/L Carbon Dioxide 28 (21-32) mmol/L Anion Gap 7.0 (3-11) BUN 4 L (7-18) mg/dl Creatinine 0.81 (0.6-1.2) mg/dl Est Cr Clr Drug Dosing 99.5 ml/min Est GFR ( Amer) 94.8 ml/min Est GFR (Non-Af Amer) 81.8 ml/min BUN/Creatinine Ratio 5.3 L (10-20) Glucose 279 H (70-99) mg/dl Calcium 9.7 (8.5-10.1) mg/dl Total Bilirubin 0.4 (0.2-1) mg/dl AST 73 H (15-37) U/L ALT 72 (12-78) U/L Alkaline Phosphatase 159 H (45-117) U/L Total Protein 8.2 (6.4-8.2) gm/dl Albumin 4.0 (3.4-5.0) gm/dl Globulin 4.2 H (2.5-4.0) gm/dl Albumin/Globulin Ratio 1.0 (0.9-2) Lipase 127 (73-393) U/L Allergies Allergy/AdvReac Type Severity Reaction Status Date / Time tamoxifen Allergy Severe "CAN'T Verified 06/28/21 10:15 MOVE" ceftriaxone Allergy Intermediate REDNESS, Verified 06/28/21 10:15 ITCHING cephalexin Allergy Intermediate SHORTNESS Verified 06/28/21 10:15 OF BREATH sulfamethoxazole [Bactrim] Allergy Intermediate SHORTNESS Verified 06/28/21 10:15 OF BREATH trimethoprim [Bactrim] Allergy Intermediate SHORTNESS Verified 06/28/21 10:15 OF BREATH vancomycin Allergy Intermediate ITCHING Verified 06/28/21 10:15 ALL OVER, RASH, PARESTHESIAS tramadol Allergy Mild ITCHY Verified 06/28/21 10:15 cefdinir Allergy Unknown unknown Verified 06/28/21 10:15 codeine AdvReac Intermediate GI BLEED Verified 06/28/21 10:15 Home Medications Medication Instructions Recorded Confirmed Type nitroglycerin 0.4 mg sublingual 0.4 mg SUBLINGUAL DIRECTED PRN 04/29/18 06/28/21 History tablet (Nitrostat) ondansetron HCl 4 mg tablet 4 mg PO Q6H PRN 04/29/18 06/28/21 History cholecalciferol (vitamin D3) 125 5,000 unit PO QAM 04/04/19 06/28/21 History mcg (5,000 unit) tablet (Vitamin D3) atorvastatin 20 mg tablet 20 mg PO QAM #90 tab 05/15/20 06/28/21 Rx budesonide-formoterol HFA 160 2 puff INHALATION BID PRN #10.2 g 05/15/20 06/28/21 Rx mcg-4.5 mcg/actuation aerosol inhaler ipratropium 0.5 mg-albuterol 3 mg 3 ml INHALATION Q4H PRN #90 ml 05/15/20 06/28/21 Rx (2.5 mg base)/3 mL nebulization soln losartan 100 mg tablet 100 mg PO QAM #90 tab 05/15/20 06/28/21 Rx metoprolol tartrate 50 mg tablet 50 mg PO BID #180 tab 05/15/20 06/28/21 Rx omeprazole 40 mg capsule,delayed 40 mg PO BID #180 cap 05/15/20 06/28/21 Rx release spironolactone 25 mg tablet 25 mg PO HS #90 tab 05/15/20 06/28/21 Rx topiramate 100 mg tablet 100 mg PO BID #180 tab 05/15/20 06/28/21 Rx glimepiride 1 mg tablet 1 mg PO QAM #90 tab 05/19/20 06/28/21 Rx albuterol sulfate 90 mcg/actuation 1 - 2 puff INHALATION .Q4-6HRS PRN 09/16/20 06/28/21 History aerosol inhaler levothyroxine 125 mcg capsule 125 mcg PO .COMPLEX #180 cap 10/23/20 06/28/21 Rx hydrocodone 5 mg-acetaminophen 325 See Rx Instructions PO .COMPLEX 10/25/20 06/28/21 Rx mg tablet PRN #30 tab sertraline 50 mg tablet 50 mg PO DAILY #30 tab 11/20/20 06/28/21 Rx chlorhexidine gluconate 4 % 1 applic TOPICAL DAILY 60 Days 12/28/20 06/28/21 Rx topical liquid (Hibiclens) #118 ml clindamycin phosphate 1 % lotion 1 applic TOPICAL DAILY #60 ml 12/28/20 06/28/21 Rx doxycycline hyclate 100 mg capsule 100 mg PO DAILY #30 cap 12/28/20 06/28/21 Rx metformin 1,000 mg tablet 1,000 mg PO BID #180 tab 01/10/21 06/28/21 Rx furosemide 20 mg tablet 20 mg PO QAM #90 tab 01/23/21 06/28/21 Rx nortriptyline 25 mg capsule 2,550 mg PO HS 06/28/21 06/28/21 History Patient History Medical History Anxiety and depression Asthma COPD (chronic obstructive pulmonary disease) Diabetes mellitus, type 2 Gastroparesis GERD (gastroesophageal reflux disease) H/O abscess of breast Hearing difficulty Hiatal hernia History of diverticulitis History of dysplastic nevus Hx of breast cancer Hyperlipidemia Hypertension Hypothyroidism Liver lesion Migraine Osteoarthritis Pituitary abnormality Syncope Umbilical hernia Surgical History H/O section H/O colonoscopy H/O thyroidectomy History of breast biopsy History of esophagogastroduodenoscopy (EGD) History of excision of lesion History of mastectomy History of removal of Port-a-Cath (12/08/20) History of tooth extraction History of vascular access device Hx laparoscopic cholecystectomy Hx of hysterectomy Hx of melanoma excision Family History Mother Ovarian cancer Father Pancreatic cancer Other No family history of adverse response to anesthesia Denies family history of Prostate cancer Myocardial infarction Breast cancer Colorectal cancer Social History Smoking Status: Current every day smoker Tobacco Type: Cigarettes Age Started Using Tobacco: 10; packs per day: 0.5; Years Smoked: 40; Cigarettes Per Day: 10 CIG DAILY; Second Hand Exposure: No; Hx Alcohol Use: Yes Alcohol type: hard liquor Alcohol Intake Frequency: Monthly or Less Hx Substance Use: No Preferred Language: Mosotho Communication Ability: Effective Visual Impairment: No Limitations Hearing Ability: Normal Storage Specialist Required: No Beliefs That Will Affect Care: None marital status: Current Living Situation: Spouse 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 How many Children do You have: 2 Feels Safe at Home: Yes Childhood Exposure to Second-Hand Smoke: Yes Dental Care, Regularly: No Physical Activity Frequency: Daily Seatbelt Use: always Sunscreen Use: Yes Assistive Devices: Cane, Denture - Upper, Denture - Lower and Glasses Physical Exam Constitutional: WD/WN, vitals as above obesity Eyes: PERRL, conjunctivae normal, anicteric sclerae Neck: trachea midline, no thyromegaly Respiratory: normal respiratory effort, lungs clear to auscultation Cardiovascular: RRR, no murmur, no edema Gastrointestinal (Abdomen): soft, mild tenderness at lower abdomen, no rebound pain, BS +, no distend, could not feel mass on lower abdomen, Musculoskeletal: no cyanosis or clubbing, extremities motor strength 5/5 Neurologic: patellar DTR's 2+ bilat, sensation intact Psychiatric: A+Ox3, euthymic affect Results & Data ([facility]) Vital Signs (Past 12 Hours) Vital Signs Temp Pulse Pulse Resp BP BP Pulse Ox 06/28/21 21:02 83 18 196/144 H 98 06/28/21 18:03 36.6 C 109 H 20 180/120 H 98 Laboratory Results Abnormal lab results 06/28/21 06/28/21 Range/Units 19:26 19:26 Hgb 16.6 H (12.0-16.0) g/dL Hct 47.7 H (37-47) % MPV 10.8 H (7.4-10.4) fL Potassium 3.2 L (3.5-5.1) mmol/L BUN 4 L (7-18) mg/dl BUN/Creatinine Ratio 5.3 L (10-20) Glucose 279 H (70-99) mg/dl AST 73 H (15-37) U/L Alkaline Phosphatase 159 H (45-117) U/L Globulin 4.2 H (2.5-4.0) gm/dl Diagnostic Findings CT abd pelvis oral and IV con CLINICAL HISTORY: R10.9 ABD PAIN,EVAL FOR DIVERTICULITIS TECHNIQUE: Helical axial images of the abdomen and pelvis were obtained and displayed. Automated dose lowering techniques and/or adjustment according to patient size were utilized for this exam. This exam was performed with intravenous contrast. COMPARISON: Comparison is made to CT abdomen pelvis 02/28/2020 FINDINGS: Lower chest: Bibasilar atelectasis is seen. Liver: Hepatic steatosis is noted. Gallbladder and biliary tree: Patient is status post cholecystectomy. No intra- or extrahepatic biliary ductal dilation. Pancreas: Unremarkable, no focal lesions. Spleen: Unremarkable. Adrenals: Unremarkable. Kidneys and ureters: Unremarkable. Bladder: Unremarkable. Reproductive organs: Patient is status post hysterectomy. Left adnexal prominence is unchanged from prior exam. Bowel: A hiatal hernia is seen. The appendix is normal. No evidence of diverticulitis. Scattered diverticula are noted. Lymph nodes Retroperitoneal: Unremarkable. Mesenteric: Unremarkable. Pelvic: Unremarkable. Peritoneum: Normal Vessels: Atherosclerotic calcifications are seen. Abdominal wall: Again seen is a low ventral defect containing a loop of bowel. No evidence of bowel obstruction. Bones: Degenerative changes in the visualized spine. IMPRESSION: 1. No acute abnormalities. In particular, diverticulosis is noted but there is no evidence of diverticulitis. 2. Hepatic steatosis. 3. Redemonstration of a lower abdominal ventral wall hernia containing a loop of sigmoid colon.
[2021-06-28] MEDS ORDERED: hydrALAZINE HCL 20 MG/ML VIAL IV STA (22:43)
[2021-06-28] MEDS ORDERED: hydrALAZINE HCL 20 MG/ML VIAL IV ONE (22:46)
--- NOTE | 2021-06-28 23:14 | History & Physical Report ---
Date of Service June 28, 2021 Assessment & Plan (1) Ventral hernia: Plan: Aretha is a 55-year-old female with a notable past medical history of multiple past abdominal surgeries ( x2, hysterectomy, gallbladder removal), type 2 diabetes, hypertension, COPD, hypothyroidism, breast cancer, hypercholesterolemia who presented to [facility] for evaluation of abdominal pain, subsequently found to have concern for incarcerated ventral hernia. Ventral hernia, concern for incarceration Patient with history of multiple abdominal surgeries, as mentioned above CT abdomen pelvis demonstrating lower abdominal ventral wall hernia containing a loop of sigmoid colon Surgery consulted in the ER, concern for possibly incarcerated hernia: Proceed to the OR in a.m. Pain control: Dilaudid 0.5 mg IV every 4 hours as needed N.p.o. Gentle hydration at 80 cc an hour Hypertension In the ER, patient noted to have blood pressures between 160-190/80-110s In the setting of not taking oral medications this morning Thankfully, hypertension has improved with analgesia; suspect pain is partially component Lopressor 5 mg IV as needed for blood pressures over (SBP > 160 / DBP > 110) Can consider addition of hydralazine 5 mg IV as needed for further pressure control Resume losartan, Lasix, metoprolol, spironolactone following surgery Dysphagia Patient reporting history of 2 weeks of worsening dysphagia/globus sensation History of thyroid removal in 2017 Patient has been seen by gastroenterology for this in 06/2019; it seems that an EGD was planned to be performed at that time, however I am unable to find record of this Speech consult placed given concerns of her being unable to swallow pills, solids per her report Can consider CT soft tissues neck pending their evaluation /as outpatient Type 2 diabetes Patient with known history of type 2 diabetes, last A1c 8.8% in January 2021 Hold home medications Sliding scale insulin to maintain blood sugars between 100-140 History of COPD Stable, continue home inhalers GERD Stable, continue PPI Anxiety/Neuropathic Pain Continue sertraline, continue topiramate, continue nortriptyline Hypothyroidism History of thyroid surgery in 2017 Continue levothyroxine Code: DNR/DNI Diet: N.p.o. Dispo: MedSurg Prophylaxis: SCDs in anticipation of operation tomorrow (2) Hypercholesterolemia: (3) Laryngopharyngeal reflux: (4) Hypothyroidism: (5) Benign essential hypertension: (6) Gastro-esophageal reflux disease without esophagitis: (7) DM w/o complication type II: (8) History of breast cancer: (9) COPD (chronic obstructive pulmonary disease): History of Present Illness Primary Care Provider: Yash Baxter, III, ROSAURA Aretha is a 55-year-old female with a notable past medical history of multiple past abdominal surgeries ( x2, hysterectomy, gallbladder removal), type 2 diabetes, hypertension, COPD, hypothyroidism, breast cancer, h ypercholesterolemia who presented to [facility] for evaluation of abdominal pain. Patient was seen by her PCP earlier today for worsening periumbilical abdominal pain. She reported as a sharp pain that, throughout today, was approximately a 10 out of 10 in intensity. She notes that this is worsened over the past 24 hours (atop her chronic abdominal pain). She did report nausea without vomiting. She reports passing gas. She denies any chest pain, palpitations, shortness of breath. Denies any fever, chills, night sweats. Of note, patient does report to me that over the last 2 weeks, she has progressively difficulty swallowing. She said that this morning, was so because the pain but because of the swelling, she was unable to take her medications. She feels like food is getting stuck. She has no difficulty with swallowing liquids, but says she does experience difficulty with solids. She is still passing bowel movements. She does report a significant smoking history, approximately 1 pack/day since she was 10 years old (approximately 45 pack years). She denies alcohol use or recreational drug use. In the ED, she was found to be hypertensive to [id number]. Vital signs stable otherwise. Her hemoglobin was slightly elevated at 16.6, mild hypokalemia to 3.2, elevated blood sugar to 200,, mildly elevated AST and alk phos. CT of the abdomen and pelvis did demonstrate hepatic steatosis as well as a lower abdominal ventral wall hernia containing a loop of sigmoid colon. She was given Zofran, Dilaudid 1 mg with good relief in her symptoms. Surgery was consulted, with concern for possible incarcerated hernia. Hospitalist was consulted for aid in management of blood pressures. Allergies Allergy/AdvReac Type Severity Reaction Status Date / Time tamoxifen Allergy Severe "CAN'T Verified 06/28/21 10:15 MOVE" ceftriaxone Allergy Intermediate REDNESS, Verified 06/28/21 10:15 ITCHING cephalexin Allergy Intermediate SHORTNESS Verified 06/28/21 10:15 OF BREATH sulfamethoxazole [Bactrim] Allergy Intermediate SHORTNESS Verified 06/28/21 10:15 OF BREATH trimethoprim [Bactrim] Allergy Intermediate SHORTNESS Verified 06/28/21 10:15 OF BREATH vancomycin Allergy Intermediate ITCHING Verified 06/28/21 10:15 ALL OVER, RASH, PARESTHESIAS tramadol Allergy Mild ITCHY Verified 06/28/21 10:15 cefdinir Allergy Unknown unknown Verified 06/28/21 10:15 codeine AdvReac Intermediate GI BLEED Verified 06/28/21 10:15 Home Medications Medication Instructions Recorded Confirmed Type nitroglycerin 0.4 mg sublingual 0.4 mg SUBLINGUAL DIRECTED PRN 04/29/1806/28 History tablet (Nitrostat) ondansetron HCl 4 mg tablet 4 mg PO Q6H PRN 04/29/18 06/28/21 History cholecalciferol (vitamin D3) 125 5,000 unit PO QAM 04/04/19 06/28/21 History mcg (5,000 unit) tablet (Vitamin D3) atorvastatin 20 mg tablet 20 mg PO QAM #90 tab 05/15/20 06/28/21 Rx budesonide-formoterol HFA 160 2 puff INHALATION BID PRN #10.2 g 05/15/20 06/28/21 Rx mcg-4.5 mcg/actuation aerosol inhaler ipratropium 0.5 mg-albuterol 3 mg 3 ml INHALATION Q4H PRN #90 ml 05/15/20 06/28/21 Rx (2.5 mg base)/3 mL nebulization soln losartan 100 mg tablet 100 mg PO QAM #90 tab 05/15/20 06/28/21 Rx metoprolol tartrate 50 mg tablet 50 mg PO BID #180 tab 05/15/20 06/28/21 Rx omeprazole 40 mg capsule,delayed 40 mg PO BID #180 cap 05/15/20 06/28/21 Rx release spironolactone 25 mg tablet 25 mg PO HS #90 tab 05/15/20 06/28/21 Rx topiramate 100 mg tablet 100 mg PO BID #180 tab 05/15/20 06/28/21 Rx glimepiride 1 mg tablet 1 mg PO QAM #90 tab 05/19/20 06/28/21 Rx albuterol sulfate 90 mcg/actuation 1 - 2 puff INHALATION .Q4-6HRS PRN 09/16/20 06/28/21 History aerosol inhaler levothyroxine 125 mcg capsule 125 mcg PO .COMPLEX #180 cap 10/23/20 06/28/21 Rx hydrocodone 5 mg-acetaminophen 325 See Rx Instructions PO .COMPLEX 10/25/20 06/28/21 Rx mg tablet PRN #30 tab sertraline 50 mg tablet 50 mg PO DAILY #30 tab 11/20/20 06/28/21 Rx chlorhexidine gluconate 4 % 1 applic TOPICAL DAILY 60 Days 12/28/20 06/28/21 Rx topical liquid (Hibiclens) #118 ml clindamycin phosphate 1 % lotion 1 applic TOPICAL DAILY #60 ml 12/28/20 06/28/21 Rx doxycycline hyclate 100 mg capsule 100 mg PO DAILY #30 cap 12/28/20 06/28/21 Rx metformin 1,000 mg tablet 1,000 mg PO BID #180 tab 01/10/21 06/28/21 Rx furosemide 20 mg tablet 20 mg PO QAM #90 tab 01/23/21 06/28/21 Rx nortriptyline 25 mg capsule 2,550 mg PO HS 06/28/21 06/28/21 History Past Med/Surg History Medical History Anxiety and depression Asthma LAST USED RESCUE INHALER 08/2020 COPD (chronic obstructive pulmonary disease) Diabetes mellitus, type 2 Gastroparesis GERD (gastroesophageal reflux disease) H/O abscess of breast NO CURRENT INFECTION Hearing difficulty Hiatal hernia History of diverticulitis History of dysplastic nevus Hx of breast cancer RT (SURGERY WITH RADIATION) Hyperlipidemia Hypertension Hypothyroidism Liver lesion Migraine Morbid obesity Osteoarthritis Pituitary abnormality Syncope LAST EPISODE JULY 2020 Umbilical hernia Surgical History H/O section X 2 H/O colonoscopy H/O thyroidectomy REMOVED D/T "SO MANY PROBLEMS WITH MY THRYOID" History of breast biopsy History of esophagogastroduodenoscopy (EGD) History of excision of lesion 2017 excision left axilla- abscess Dr. Brunner [address] Brunner History of mastectomy partial mastectomy 2008 Dr. Ferris Total mastectomy 2009 Dr. Ferris NO RECONSTRUCTION History of removal of Port-a-Cath (12/08/20) Access Port Removal(Left) 12/08/20 Dr. Gallegos History of tooth extraction History of vascular access device A-PORT Hx laparoscopic cholecystectomy Hx of hysterectomy Hx of melanoma excision Family History Mother Ovarian cancer Father Pancreatic cancer Other No family history of adverse response to anesthesia Denies family history of Prostate cancer Myocardial infarction Breast cancer Colorectal cancer Social History Smoking Status: Current every day smoker Tobacco Type: Cigarettes Age Started Using Tobacco: 10; packs per day: 0.5; Years Smoked: 40; Cigarettes Per Day: 1; Second Hand Exposure: No; Do You Dip or Chew Tobacco: No; Hx Alcohol Use: No Hx Substance Use: No Preferred Language: [place] Citizen Communication Ability: Effective Visual Impairment: No Limitations Hearing Ability: Normal [employer] Required: No Beliefs That Will Affect Care: None marital status: Current Living Situation: Spouse 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 She is in no acute distress. HEENT: NCAT. Eyes - Sclera are white, anicteric, and without injection. Neck - supple and without LAD. Thyroid - no appreciable goiter or nodules. Cardiac: Normal rate and regular rhythm; S1 and S2 present with no murmurs, rubs, or gallops. Pulmonary: Good respiratory effort with symmetric expansion of the chest. No use of accessory muscles. Lungs were clear to auscultation bilaterally with no crackles or wheezes. Abdominal: Normoactive bowel sounds. Abdomen was mildly distended, painful around the supraumbilical and infraumbilical area. No rebound or guarding. Extremities: Upper and lower extremities are warm and well perfused. 1+ peripheral edema in the lower extremities bilaterally. Psych: Well-developed, well-nourished, appropriately dressed for occasion. Behavior is cooperative and appropriate. Affect is WNL. Insight is appropriate. Results & Data Results & Data ([facility]) Vital Signs (Past 12 Hours) Vital Signs Temp Pulse Pulse Resp BP BP Pulse Ox 06/28/21 22:00 81 18 176/96 H 96 06/28/21 21:02 83 18 196/144 H 98 06/28/21 18:03 36.6 C 109 H 20 180/120 H 98 Code Status & VTE Plan VTE Prophylaxis Plan VTE Prophylaxis will be ordered: Yes Supervising Physician Co-Signing Physician Notes Patient seen and examined, chart reviewed, case discussed with Dr. Pride and I agree with the assessment and plan as above Resident Activity Tracking Resident Involvement: Resident Care Provided Care Provided: Adult Hospital Medicine (1) COPD (chronic obstructive pulmonary disease) COPD type: unspecified COPD Qualified Code(s): J44.9 - Chronic obstructive pulmonary disease, unspecified
[2021-06-29] MEDS ORDERED: HYDROmorphone INJ 1 MG/ML SYRINGE IV PRN (00:09)
[2021-06-29] MEDS ORDERED: HYDROmorphone INJ 0.5 MG/0.5 ML SYR IV PRN (05:30)
[2021-06-29] MEDS ORDERED: GLUCOSE 40% GEL 15 GM TUBE PO PRN (05:30)
[2021-06-29] MEDS ORDERED: GLUCOSE 10 TABS/TUBE PO PRN (05:30)
[2021-06-29] MEDS ORDERED: CARBOHYDRATES FOR HYPOGLYCEMIA PO PRN (05:30)
[2021-06-29] MEDS ORDERED: DEXTROSE 50% 50 ML SYRINGE IV PRN (05:30)
[2021-06-29] MEDS ORDERED: NITROGLYCERIN SL 0.4 MG/TAB TAB SL PRN (05:30)
[2021-06-29] MEDS ORDERED: HYDROCODONE/ACETAMOPHEN 5/325MG TAB PO PRN (05:30)
[2021-06-29] MEDS ORDERED: GLUCAGON FOR INJ 1 MG VIAL SQ PRN (05:30)
[2021-06-29] MEDS ORDERED: METOPROLOL TARTRATE 1 MG/ML VIAL IV PRN (05:30)
[2021-06-29] MEDS ORDERED: ALBUT/IPRATROP 3MG/0.5MG NEB 3 ML VIAL INH PRN (05:30)
[2021-06-29] MEDS ORDERED: FLUTICASONE/VILANTEROL 200/25MCG 14 PUFFS/INHALER INH PRN (05:52)
[2021-06-29] MEDS ORDERED: ONDANSETRON 4 MG OD TAB PO PRN (05:58)
[2021-06-29] MEDS ORDERED: CLINDAMYCIN 600 MG/54 ML BAG IV SCH (06:00)
[2021-06-29] MEDS ORDERED: LACTATED RINGER'S 1,000 ML IV SCH (06:00)
--- NOTE | 2021-06-29 07:01 | Billing Data ---
Date of Service June 28, 2021 Coding Level of Care Code 58206 Initial Inpt Care Lvl 3
--- NOTE | 2021-06-29 07:39 | Hospitalist Progress Note ---
Date of Service June 29, 2021 Assessment & Plan (1) Ventral hernia: Plan: Aretha is a 55-year-old female with a notable past medical history of multiple past abdominal surgeries ( x2, hysterectomy, gallbladder removal), type 2 diabetes, hypertension, COPD, hypothyroidism, breast cancer, hypercholesterolemia who presented to [facility] for evaluation of abdominal pain, subsequently found to have concern for incarcerated ventral hernia. Ventral hernia, concern for incarceration Patient with history of multiple abdominal surgeries CT abdomen pelvis demonstrating lower abdominal ventral wall hernia containing a loop of sigmoid colon Surgery consulted in the ER, concern for possibly incarcerated hernia: Proceed to the OR 06/29 Postoperatively was eating food and doing well Hypertension Lopressor 5 mg IV as needed for blood pressures over (SBP > 160 / DBP > 110) Resume metoprolol,, restert in 48 hr losartan, Lasix, spironolactone following surgery Dysphagia Patient reporting history of 2 weeks of worsening dysphagia/globus sensation History of thyroid removal in 2016 Patient has been seen by gastroenterology for this in 06/2019; Speech consult placed given concerns of her being unable to swallow pills, solids per pt Type 2 diabetes Patient with known history of type 2 diabetes, last A1c 8.8% in January 2021 Hold home medications Sliding scale insulin to maintain blood sugars between 100-140 History of COPD Stable, continue home inhalers GERD Stable, continue PPI Anxiety/Neuropathic Pain Continue sertraline, continue topiramate, continue nortriptyline, when taking po Hypothyroidism History of thyroid surgery in 2016 Continue levothyroxine Code: DNR/DNI Diet: N.p.o. Dispo: MedSurg Prophylaxis: SCDs in anticipation of operation tomorrow (2) Hypercholesterolemia: (3) Laryngopharyngeal reflux: (4) Hypothyroidism: (5) Benign essential hypertension: (6) Gastro-esophageal reflux disease without esophagitis: (7) DM w/o complication type II: (8) History of breast cancer: (9) COPD (chronic obstructive pulmonary disease): (10) Acute hypokalemia: Admission and Anticipated Discharge Date Admission Date: June 28, 2021 Subjective Patient feels much better postoperatively is actually eating food Review of Systems Review of Systems: Mild distress and fatigue no headache, no visual changes no speech or swallowing issues no chest pain, pressure or palpitations no shortness of breath, cough or wheezes abdominal pain to examination no nausea or vomiting no bowel movement or flatus no dysuria, hematuria or frequency no focal joint pain or swelling no back pain, CVA tenderness or radicular pain no bruising, bleeding or rashes no focal signs of weakness or numbness or altered sensation no complaints of anxiety or depression.. Physical Exam Physical Exam: The patient appeared well Vital signs as documented. Lungs are clear to auscultation and appear unlabored Cardiac exam, Rhythm is regular.. No murmurs, rubs or gallops. Abdominal exam reveals normal bowel sounds, soft non tender, no masses, dressing in place Extremities are nonedematous and both pedal pulses are normal. Neurologic exam is alert and oriented, no focal loss of strength or sensation Skin is without bruises or rashes Psychologically is without concerns for anxiety or depression. Results & Data Results & Data ([facility]) Vital Signs (Past 12 Hours) Vital Signs Temp Pulse Pulse Resp BP Pulse Ox 06/29/21 06:23 73 06/29/21 06:16 158/96 H 06/29/21 05:30 97.9 F 81 18 176/109 H 95 06/29/21 05:05 63 18 175/106 H 99 06/29/21 03:04 71 18 152/97 H 91 06/29/21 01:00 71 18 129/106 H 91 06/28/21 23:10 78 18 153/100 H 97 06/28/21 22:00 81 18 176/96 H 96 06/28/21 21:02 83 18 196/144 H 98 PG Care Time/CCT Total # of Minutes Spent Total Time Spent with Patient: Total time spent is greater than 50% in coordination of care (as documented) at patient's floor/unit and/or counseling patient: Coding Level of Care Code 29985 Subseq Hosp Care Lvl 2 Diagnoses Ventral hernia K43.9 Hypercholesterolemia E78.00 Laryngopharyngeal reflux K21.9 Hypothyroidism E03.9 Benign essential hypertension I10 Gastro-esophageal reflux disease without esophagitis K21.9 DM w/o complication type II E11.9 History of breast cancer Z85.3 COPD (chronic obstructive pulmonary disease) J44.9 COPD type: unspecified COPD Acute hypokalemia E87.6 (1) COPD (chronic obstructive pulmonary disease) COPD type: unspecified COPD Qualified Code(s): J44.9 - Chronic obstructive pulmonary disease, unspecified
[2021-06-29] MEDS ORDERED: PROMETHAZINE HCL 12.5 MG in SODIUM CHLORIDE 0.9% 50 ML IV PRN (07:41)
[2021-06-29] MEDS ORDERED: ONDANSETRON INJ 2 MG/ML 2 ML VIAL IV PRN ×2 (07:41→11:34)
[2021-06-29] MEDS ORDERED: FLUARIX QUADRIVALENT 0.5 ML SYR IM ONE (08:00)
[2021-06-29] MEDS: ALBUTEROL HFA 8 GM INHALER INH SCH ×5 (08:02→22:51)
[2021-06-29] MEDS ORDERED: MIDAZOLAM HCL 1 MG/ML 2ML VIAL ONE (08:19)
[2021-06-29] MEDS ORDERED: ROCURONIUM BROMIDE 10 MG/ML 5 ML VIAL IV ONE (08:19)
[2021-06-29] MEDS ORDERED: DEXAMETHASONE SOD INJ 4 MG/ML VIAL ONE (08:19)
[2021-06-29] MEDS ORDERED: LIDOCAINE 2% 2 ML VIAL/AMP(20MG/ML) INFIL ONE (08:19)
[2021-06-29] MEDS ORDERED: ONDANSETRON INJ 2 MG/ML 2 ML VIAL ONE (08:19)
[2021-06-29] MEDS ORDERED: fentaNYL citrate 100 MCG/2 ML VIAL ONE ×2 (08:19→10:20)
[2021-06-29] MEDS ORDERED: PROPOFOL IV EMULSION 10 MG/ML 20 ML VIAL IV ONE (08:19)
[2021-06-29] MEDS: INSULIN ASPART 100 UNITS/ML 3 ML PEN SC SCH ×5 (08:36→23:53)
[2021-06-29] MEDS ORDERED: FUROSEMIDE 20 MG TAB PO SCH (09:00)
[2021-06-29] MEDS ORDERED: LOSARTAN POTASSIUM 50 MG TAB PO SCH (09:00)
[2021-06-29] MEDS ORDERED: CLINDAMYCIN 600 MG/54 ML D5W IV ONE (09:22)
--- NOTE | 2021-06-29 09:24 | Anesthesiology Consultation ---
Date of Service June 29, 2021 Assessment & Plan (1) Encounter for pre-operative examination: Chart Review Chart Review: Acceptable Risk for Surgery (necessary surgery) and Patient NOT seen in Pre Admission Testing Consults Requested none History Surgery Operation Date: 06/29/21 10:45 Proposed Procedures p Ventral Hernia Repair - Carin Flaherty MD Height/Weight Height: 5 ft 5 in Weight: 114.2 kg Allergies Allergy/AdvReac Type Severity Reaction Status Date / Time tamoxifen Allergy Severe "CAN'T Verified 06/28/21 10:15 MOVE" ceftriaxone Allergy Intermediate REDNESS, Verified 06/28/21 10:15 ITCHING cephalexin Allergy Intermediate SHORTNESS Verified 06/28/21 10:15 OF BREATH sulfamethoxazole [Bactrim] Allergy Intermediate SHORTNESS Verified 06/28/21 10:15 OF BREATH trimethoprim [Bactrim] Allergy Intermediate SHORTNESS Verified 06/28/21 10:15 OF BREATH vancomycin Allergy Intermediate ITCHING Verified 06/28/21 10:15 ALL OVER, RASH, PARESTHESIAS tramadol Allergy Mild ITCHY Verified 06/28/21 10:15 cefdinir Allergy Unknown unknown Verified 06/28/21 10:15 codeine AdvReac Intermediate GI BLEED Verified 06/28/21 10:15 Medications Home Medications Medication Instructions Recorded Confirmed Last Taken nitroglycerin 0.4 mg sublingual 0.4 mg SUBLINGUAL DIRECTED PRN 04/29/18 06/28/21 Unknown tablet (Nitrostat) ondansetron HCl 4 mg tablet 4 mg PO Q6H PRN 04/29/18 06/28/21 12/07/20 cholecalciferol (vitamin D3) 125 5,000 unit PO QAM 04/04/19 06/28/21 12/07/20 mcg (5,000 unit) tablet (Vitamin D3) atorvastatin 20 mg tablet 20 mg PO QAM #90 tab 05/15/20 06/28/21 12/07/20 budesonide-formoterol HFA 160 2 puff INHALATION BID PRN #10.2 g 05/15/2012/07/20 mcg-4.5 mcg/actuation aerosol inhaler ipratropium 0.5 mg-albuterol 3 mg 3 ml INHALATION Q4H PRN #90 ml 05/15/20 06/28/21 12/07/20 (2.5 mg base)/3 mL nebulization soln losartan 100 mg tablet 100 mg PO QAM #90 tab 05/15/20 06/28/21 12/07/20 metoprolol tartrate 50 mg tablet 50 mg PO BID #180 tab 05/15/20 06/28/21 12/07/20 omeprazole 40 mg capsule,delayed 40 mg PO BID #180 cap 05/15/20 06/28/21 12/07/20 release spironolactone 25 mg tablet 25 mg PO HS #90 tab 05/15/20 06/28/21 12/07/20 topiramate 100 mg tablet 100 mg PO BID #180 tab 05/15/20 06/28/21 12/07/20 glimepiride 1 mg tablet 1 mg PO QAM #90 tab 05/19/20 06/28/21 12/07/20 albuterol sulfate 90 mcg/actuation 1 - 2 puff INHALATION .Q4-6HRS PRN 09/16/20 06/28/21 Unknown aerosol inhaler levothyroxine 125 mcg capsule 125 mcg PO .COMPLEX #180 cap 10/23/20 06/28/21 12/07/20 hydrocodone 5 mg-acetaminophen 325 See Rx Instructions PO .COMPLEX 10/25/20 06/28/21 10/27/20 mg tablet PRN #30 tab sertraline 50 mg tablet 50 mg PO DAILY #30 tab 11/20/20 06/28/21 12/07/20 chlorhexidine gluconate 4 % 1 applic TOPICAL DAILY 60 Days 12/28/20 06/28/21 Unknown topical liquid (Hibiclens) #118 ml clindamycin phosphate 1 % lotion 1 applic TOPICAL DAILY #60 ml 12/28/20 06/28/21 Unknown doxycycline hyclate 100 mg capsule 100 mg PO DAILY #30 cap 12/28/20 06/28/21 Unknown metformin 1,000 mg tablet 1,000 mg PO BID #180 tab 01/10/21 06/28/21 Unknown furosemide 20 mg tablet 20 mg PO QAM #90 tab 01/23/21 06/28/21 Unknown nortriptyline 25 mg capsule 2,550 mg PO HS 06/28/21 06/28/21 Unknown Active Medications Generic Name Dose Route Start Last Admin Trade Name Freq PRN Reason Stop Dose Admin Albuterol 2 puffs 06/29/21 07:00 06/29/21 08:02 Albuterol Hfa 8 Gm Inhaler INH 07/29/21 06:59 2 puffs Q4R KAILEE Administration Hydromorphone HCl 1 mg 06/29/21 00:09 06/29/21 00:26 Hydromorphone Inj 1 Mg/Ml Syringe IV 07/13/21 00:08 1 mg Q2H PRN Administration Pain Lactated Ringer's 1,000 mls @ 80 mls/hr 06/29/21 06:00 06/29/21 07:40 Lr IV 06/29/21 18:29 80 mls/hr .[id number] KAILEE Infusion Insulin Aspart 0 units 06/29/21 07:30 06/29/21 08:36 Insulin Aspart 100 Units/Ml 3 Ml Pen SC 07/29/21 07:29 3 units ACHS KAILEE Administration Metoprolol Tartrate 5 mg 06/29/21 05:30 06/29/21 08:40 Metoprolol Tartrate 1 Mg/Ml Vial IV 07/29/21 05:29 5 mg Q4 PRN Administration SBP > 160, DBP > 110 Ondansetron HCl 4 mg 06/29/21 07:41 06/29/21 08:20 Ondansetron Inj 2 Mg/Ml 2 Ml Vial IV 07/29/21 07:40 4 mg Q6H PRN Administration Nausea NPO Date Last Intake of Fluids: 06/28/21 Time Last Intake of Fluids: 23:45 Date Last Intake of Solids: 06/27/21 Time Last Intake of Solids: 18:30 Past Medical History Medical History Anxiety and depression Asthma LAST USED RESCUE INHALER 08/2020 COPD (chronic obstructive pulmonary disease) Diabetes mellitus, type 2 Gastroparesis GERD (gastroesophageal reflux disease) H/O abscess of breast NO CURRENT INFECTION Hearing difficulty Hiatal hernia History of diverticulitis History of dysplastic nevus Hx of breast cancer RT (SURGERY WITH RADIATION) Hyperlipidemia Hypertension Hypothyroidism Liver lesion Migraine Morbid obesity Osteoarthritis Pituitary abnormality Syncope LAST EPISODE JULY 2020 Umbilical hernia Past Family History Family History Mother Ovarian cancer Father Pancreatic cancer Other No family history of adverse response to anesthesia Denies family history of Prostate cancer Myocardial infarction Breast cancer Colorectal cancer Past Surgical History Surgical History H/O section X 2 H/O colonoscopy H/O thyroidectomy REMOVED D/T "SO MANY PROBLEMS WITH MY THRYOID" History of breast biopsy History of esophagogastroduodenoscopy (EGD) History of excision of lesion 2017 excision left axilla- abscess Dr. Brunner [address] Brunner History of mastectomy partial mastectomy 2008 Dr. Ferris Total mastectomy 2009 Dr. Ferris NO RECONSTRUCTION History of removal of Port-a-Cath (12/08/20) Access Port Removal(Left) 12/08/20 Dr. Gallegos History of tooth extraction History of vascular access device A-PORT Hx laparoscopic cholecystectomy Hx of hysterectomy Hx of melanoma excision Social History Smoking Status: Current every day smoker tobacco type: cigarettes Smoking cigarettes per day: 1 Do You Dip or Chew Tobacco: No Hx Alcohol Use: No Alcohol type: hard liquor alcohol intake frequency: a few times a month Hx Substance Use: No substance use type: does not use Physical Exam Vital Signs Last Vital Signs Temp 36.8 C 06/29/21 09:03 Pulse 63 06/29/21 09:03 Resp 18 06/29/21 09:03 BP 189/105 H 06/29/21 09:03 Pulse Ox 95 06/29/21 09:03 Testing Laboratory Results 06/28/21 19:26 06/28/21 19:26 06/29/21 06/28/21 08:34 22:49 POC Glucose 243 H 209 H Electrocardiogram Date: 07/29/21 Findings: + NSR @ (66) Chest X-Ray CT abd pelvis oral and IV con CLINICAL HISTORY: R10.9 ABD PAIN,EVAL FOR DIVERTICULITIS TECHNIQUE: Helical axial images of the abdomen and pelvis were obtained and displayed. Automated dose lowering techniques and/or adjustment according to patient size were utilized for this exam. This exam was performed with intrav enous contrast. COMPARISON: Comparison is made to CT abdomen pelvis 02/28/2020 FINDINGS: Lower chest: Bibasilar atelectasis is seen. Liver: Hepatic steatosis is noted. Gallbladder and biliary tree: Patient is status post cholecystectomy. No intra- or extrahepatic biliary ductal dilation. Pancreas: Unremarkable, no focal lesions. Spleen: Unremarkable. Adrenals: Unremarkable. Kidneys and ureters: Unremarkable. Bladder: Unremarkable. Reproductive organs: Patient is status post hysterectomy. Left adnexal prominence is unchanged from prior exam. Bowel: A hiatal hernia is seen. The appendix is normal. No evidence of diverticulitis. Scattered diverticula are noted. Lymph nodes Retroperitoneal: Unremarkable. Mesenteric: Unremarkable. Pelvic: Unremarkable. Peritoneum: Normal Vessels: Atherosclerotic calcifications are seen. Abdominal wall: Again seen is a low ventral defect containing a loop of bowel. No evidence of bowel obstruction. Bones: Degenerative changes in the visualized spine. IMPRESSION: 1. No acute abnormalities. In particular, diverticulosis is noted but there is no evidence of diverticulitis. 2. Hepatic steatosis. 3. Redemonstration of a lower abdominal ventral wall hernia containing a loop of sigmoid colon. ACT 112: Negative or not required by law. Electronically signed by: Harjit Hagen M.D. 06/28/2021 2:33 PM
[2021-06-29 09:26] LABS: iSTAT Creatinine 0.5 mg/dl (0.6-1.3); iSTAT Ionized Calcium 1.19 mmol/l (1.12-1.32); iSTAT Potassium 3.7 mmol/L (3.3-5.0)
--- NOTE | 2021-06-29 09:26 | History & Physical Bridge Note ---
Date of Service June 29, 2021 History & Physical Bridge Note I have examined the patient, reviewed the History & Physical and in the interval since the performance of the History & Physical I have noted the following changes of clinical significance: no changes noted
[2021-06-29] MEDS ORDERED: INSULIN ASPART PER UNIT 6 UNITS in SYRINGE 0 ML SC STA (09:27)
[2021-06-29] MEDS ORDERED: INSULIN ASPART PER UNIT ONE (09:33)
[2021-06-29] MEDS ORDERED: BUPIVACAINE 0.5 % 5 MG/1 ML MPF 30ML VIAL ONE (09:37)
[2021-06-29] MEDS ORDERED: BACITRACIN OINT 15 GM TUBE ONE (09:37)
[2021-06-29] MEDS ORDERED: LIDOCAINE 1% LOCAL 20 ML VIAL ONE (09:38)
[2021-06-29] MEDS ORDERED: PHENYLEPHRINE 100MCG/ML 5ML SYR ONE (10:21)
[2021-06-29] MEDS ORDERED: NEOSTIGMINE METHYLSULFATE 1 MG/ML 10ML VIAL ONE (10:57)
[2021-06-29] MEDS ORDERED: GLYCOPYRROLATE 0.2 MG/ML VIAL ONE (10:57)
[2021-06-29] MEDS ORDERED: KETOROLAC 30 MG/ML VIAL ONE (11:02)
--- NOTE | 2021-06-29 11:09 | Post Operative Brief Note ---
Immediate Post Op Note v1 Date of Surgery June 29, 2021 Pre & Post Diagnosis Operation Date: 06/29/21 10:45 Pre-Op Diagnosis: ventral HERNIA,ABDOMINAL PAIN Post-Op Diagnosis: ventral HERNIA,ABDOMINAL PAIN I identified the patient and participated in the time-out.: Yes Procedure Operation Date: 06/29/21 10:45 Actual Procedures open repair Ventral Hernia - Carin Flaherty MD Surgeon Carin Flaherty MD Drug Department Worker surgical physician assistant Estimated Blood Loss 10 Findings Consistent with Post-Op Diagnosis ventral hernia, size about 2x2cm, Fluids 800ml Specimens none Drains [place] Catheter Anesthesia Type General Complications none Disposition Accompanied Patient To Recovery: Yes
[2021-06-29] MEDS ORDERED: SUGAMMADEX SODIUM 200 MG/2 ML VIAL IV ONE (11:12)
[2021-06-29] MEDS: LEVOTHYROXINE SODIUM 125 MCG TABLET PO SCH (11:19)
[2021-06-29] MEDS ORDERED: ATROPINE SULFATE 0.1 MG/ML 10ML SYR IV PRN (11:34)
[2021-06-29] MEDS ORDERED: ePHEDrine sulfate 50 MG/ML AMP IV PRN (11:34)
[2021-06-29] MEDS ORDERED: PHENYLEPHRINE 100MCG/ML 5ML SYR IV PRN (11:34)
[2021-06-29] MEDS ORDERED: LABETALOL HCL IV 5 MG/ML 20ML IV PRN (11:34)
--- NOTE | 2021-06-29 11:40 | Anesthesiology Progress Note ---
Date of Service June 29, 2021 Anesthesia Post Procedure Vital Signs Vital Signs: Temp Pulse Pulse Pulse Resp BP BP 06/29/21 11:38 66 18 128/92 06/29/21 11:30 36.3 C L 66 13 137/84 06/29/21 11:20 36.3 C L 75 18 160/105 H 06/29/21 09:03 36.8 C 63 18 189/105 H 06/29/21 08:40 89 165/93 H 06/29/21 08:03 80 16 06/29/21 07:46 36.3 C L 75 20 169/91 H 06/29/21 06:23 73 06/29/21 06:16 158/96 H 06/29/21 05:30 36.6 C 81 18 176/109 H 06/29/21 05:05 63 18 175/106 H 06/29/21 03:04 71 18 152/97 H 06/29/21 01:00 71 18 129/106 H 06/28/21 23:10 78 18 153/100 H 06/28/21 22:00 81 18 176/96 H 06/28/21 21:02 83 18 196/144 H 06/28/21 18:03 36.6 C 109 H 20 180/120 H Pulse Ox 06/29/21 11:38 97 06/29/21 11:30 97 06/29/21 11:20 95 06/29/21 09:03 95 06/29/21 08:40 06/29/21 08:03 95 06/29/21 07:46 93 06/29/21 06:23 06/29/21 06:16 06/29/21 05:30 95 06/29/21 05:05 99 06/29/21 03:04 91 06/29/21 01:00 91 06/28/21 23:10 97 06/28/21 22:00 96 06/28/21 21:02 98 06/28/21 18:03 98 Pain Intensity Bilateral Abdomen: Pain Intensity: 0 Transfer of Care Handoff Completed per policy Notes Mental Status: alert / awake / arousable Patient Amnestic to Procedure: Yes Nausea / Vomiting: adequately controlled Pain: adequately controlled Airway Patency, RR, SpO2: stable & adequate BP & HR: stable & adequate Hydration State: stable & adequate Anesthetic Complications: no major complications apparent and Pt Satisfied with anesthetic care
[2021-06-29] MEDS: fentaNYL citrate 100 MCG/2 ML VIAL IV PRN ×2 (11:45→11:50)
[2021-06-29] MEDS ORDERED: PHARMACY GLYCEMIC MGMT CONSULT PRN (12:24)
[2021-06-29] MEDS ORDERED: ALBUTEROL HFA 8 GM INHALER INH PRN (12:24)
[2021-06-29] MEDS: CHOLECALCIFEROL 1,000 UNITS 25 MCG TAB PO SCH (12:29)
[2021-06-29] MEDS: PANTOprazole 40 MG TAB PO SCH ×2 (12:30→20:36)
[2021-06-29] MEDS: TOPIRAMATE 100 MG TAB PO SCH ×2 (12:30→20:34)
[2021-06-29] MEDS: SERTRALINE HCL 50 MG TABLET PO SCH (12:30)
[2021-06-29] MEDS: CHLORHEXIDINE GLUCONATE 4% SOL 4OZ BTL EXT SCH (12:31)
[2021-06-29] MEDS: ATORVASTATIN 20 MG TAB PO SCH (12:31)
[2021-06-29] MEDS: METOPROLOL TARTRATE 50 MG TAB PO SCH ×2 (12:31→20:35)
--- NOTE | 2021-06-29 13:10 | Pharmacy Report ---
Pharmacy Glycemic Short Note 2 - Date of Service June 29, 2021 - Glycemic Short BSG Results (Last 24 hours): 06/28/21 06/28/21 06/29/21 19:26 22:49 08:34 Glucose 279 H POC Glucose 209 H 243 H POC Glucose (other) 06/29/21 06/29/21 06/29/21 08:57 09:26 10:32 Glucose POC Glucose 276 H 263 H POC Glucose (other) 281 H 06/29/21 06/29/21 11:25 12:22 Glucose POC Glucose 238 H 252 H POC Glucose (other) OUTPATIENT ANTIDIABETIC REGIMEN: * Glimepiride * Metformin * A1c = 8.8% on 01/23/21 {outdated} re-ordered for tomorrow with AM labs ASSESSMENT: * 55yo T2DM female with unknown degree of outpatient control - A1c is outdated. * Sustained hyperglycemia overnight and prior to surgery secondary to presumed sub-adequate outpatient control, stress, and held oral antidiabetic agents without basal insulin coverage. * Confirmed with Anesthesia that steroids were NOT given in OR/PACU. * Pt is maintained on oral antidiabetic agents as an outpatient * Oral agents are not recommended for inpatient use d/t drug interactions, changing PO intake, and difficulty titrating for acute hyper/hypoglycemia. ADA recommends re-initiating outpatient oral agents 1-2 days prior to discharge if/when appropriate if they were held on admission. * Will hold oral agents for admission and utilize SQ basal bolus insulin regimen which is the recommended regimen for inpatient glycemic control. * Will initiate weight based insulin dosing for insulin karen patient and titrate based on BSG trends. * Pt BMI is >35; will use adjusted body weight for insulin calcs * Goal is to maintain BSGs <180 (ideally <150) to prevent post-op infectious complications PLAN FOR INPATIENT GLYCEMIC CONTROL: * Hold outpatient oral diabetes medications * Basal insulin * Lantus 28 units SQ x 1 dose now; then further dosing based on BSGs. Will try to keep basal insulin once daily for easier transition to outpatient * Bolus insulin * NovoLog per scale ACHS or Q6hrs while NPO * Goal Range: Low 100 mg/dL - High 140 mg/dL * Correction Factor: 20 mg/dL/unit * Nutritional / Prandial insulin per carb ratio of 1 unit per 7 grams CHO consumed PLAN FOR DISCHARGE: * TBD based on A1c 06/30/21
[2021-06-29] MEDS ORDERED: INSULIN GLARGINE SOLOSTAR 100 UNITS/ML 3 ML PEN SC ONE (13:15)
[2021-06-29] MEDS ORDERED: NORTRIPTYLINE HCL 25 MG CAP PO SCH (21:00)
[2021-06-29] MEDS ORDERED: metFORMIN HCL 500 MG TAB PO SCH (21:00)
[2021-06-29] MEDS ORDERED: SPIRONOLACTONE 25 MG TAB PO SCH (21:00)
--- NOTE | 2021-06-29 21:26 | Operative Report (OR) ---
DATE OF PROCEDURE: 06/29/2021 PREOPERATIVE DIAGNOSIS: Ventral hernia. POSTOPERATIVE DIAGNOSIS: Ventral hernia. PROCEDURE: Open repair of ventral hernia. SURGEON: Carin Flaherty MD. ANESTHESIA: General. ESTIMATED BLOOD LOSS: About 10 mL. FINDINGS: Ventral hernia size about 2 x 2 cm. COMPLICATIONS: None. INDICATIONS FOR THE PROCEDURE: This is a 55-year-old female who was admitted to the hospital for abd ominal pain and lower abdominal ventral hernia, and I recommended to do the open repair of ventral he rnia, possible mesh. I did talk to the patient about the benefit, risk, alternate procedure. I alvarado cated the risks may include, but not limited to, such as bleeding, infection, hernia recurrence, sero ma, complication related to mesh, injury to other organs, possible bowel resection, stoma, myocardial infarction, DVT, stroke, even . The patient understands. She signed informed consent and I an swered all questions. DETAILS OF PROCEDURE: After we identified the patient and verified the procedure, we brought the pat ient to the OR, put the patient in the supine position on the OR table. The patient received SCD on bilateral legs to prevent DVT. Also, patient received 600 mg of clindamycin IV for prophylactic anti biotic. The patient received general anesthesia without difficulty. The abdomen and the pelvic area was prepped and draped in a routine sterile fashion. After timeout, we made a lower abdomen midline incision and reached the subcutaneous layer. Then, we saw the hernia sac and the hernia sac contained fat tissue. At this moment, we were able to complet reema return the hernia sac contents back to the abdominal cavity. Then we found the patient had a emory tral hernia size about 2 x 2 cm. I decided to use a #1 Ethibond to close the hernia interruptedly. So, I put a #1 Ethibond and closed the fascia to fascia to close the hernia interruptedly. Then, we tied the suture one by one, the hernia closed nicely, no tension. Hemostasis obtained. Then I closed the subcutaneous layer by using 2-0 Vicryl interruptedly, closed skin by using staple. Then, we put the dressing on. The patient tolerated the procedure well. All instrument, needle and sponge counts were correct x2 at the end of the case. The patient was transferred to recovery room in stable condition. After the procedure, I did talk to the patient and patient's family member abou t the OR finding and the procedure we did, they understand. Job ID: [id number]
[2021-06-30] MEDS: ALBUTEROL HFA 8 GM INHALER INH SCH ×2 (02:09→06:24)
[2021-06-30] MEDS: INSULIN ASPART 100 UNITS/ML 3 ML PEN SC SCH ×2 (04:24→09:26)
--- NOTE | 2021-06-30 05:16 | Surgery Progress Note ---
Date of Service June 30, 2021 Assessment & Plan (1) Ventral hernia: Plan: Status post ventral hernia repair on (POD#1) Continue diet as tolerated Continue analgesics Continue antiemetics Continue use of incentive spirometry Increase activity as tolerated Follow up on a.m. labs when available Likely discharge home later today Admission and Anticipated Discharge Date Admission Date: June 28, 2021 Supervising Physician Co-Signing Physician Notes I personally saw and evaluated the patient with Matteo Dykes PA-C and agree with the assessment and plan. 55 yo POD#1 ventral hernia repair -Advance diet as tolerated -Ok to discharge today from surgical standpoint Subjective Patient is resting comfortably in bed. She notes her pain is well controlled. She denies any shortness of breath or cough. She denies any nausea or vomiting. She says she has passed flatus since her surgery but has not had a bowel movement. She is tolerating solid food without difficulty. Physical Exam Gastrointestinal (Abdomen): Abdomen is soft and nondistended. Bowel sounds are present. Incision is clean dry and intact. Patient has appropriate tenderness near surgical incision. Results & Data ([facility]) Vital Signs (Past 12 Hours) Vital Signs Temp Pulse Pulse Pulse Resp BP Pulse Ox 06/30/21 03:29 36.9 C 73 18 139/89 93 06/30/21 02:09 65 16 90 06/30/21 01:26 60 06/29/21 22:58 36.8 C 71 18 129/84 92 06/29/21 22:51 65 20 92 06/29/21 19:56 36.8 C 71 18 141/84 H 93 06/29/21 19:55 70 20 93 PG Care Time/CCT Total # of Minutes Spent Total Time Spent with Patient: Total time spent is greater than 50% in coordination of care (as documented) at patient's floor/unit and/or counseling patient: Coding Level of Care Code None Diagnoses Ventral hernia K43.9
[2021-06-30] MEDS: LEVOTHYROXINE SODIUM 125 MCG TABLET PO SCH (06:02)
[2021-06-30 06:03] LABS: Basophils # (auto) 0.01 K/uL (0-0.2); Basophils % (auto) 0.1 %; Eosinophils # (auto) 0.11 K/uL (0-0.5); Eosinophils % (auto) 1.2 %; Hematocrit (blood only) 42.8 % (37-47); Hemoglobin 14.7 g/dL (12.0-16.0); Immature Granulocytes # (auto) 0.01 K/uL (0.00-0.02); Immature Granulocytes % (auto) 0.1 %; Lymphocytes # (auto) 2.64 K/uL (1.2-3.4); Lymphocytes % (auto) 28.2 %; Mean Corpuscular Hemoglobin 30.9 pg (25-34); Mean Corpuscular Hgb Conc 34.3 g/dL (32-36); Mean Corpuscular Volume 89.9 fL (80-100); Mean Platelet Volume 10.1 fL (7.4-10.4); Monocytes # (auto) 0.59 K/uL (0.11-0.59); Monocytes % (auto) 6.3 %; Neutrophils % (auto) 64.1 %; Platelet Count 234 K/uL (130-400); RDW Coefficient of Variation 13.2 % (11.5-14.5); RDW Standard Deviation 43.6 fL (36.4-46.3); Red Blood Count 4.76 M/uL (4.2-5.4); White Blood Count 9.36 K/uL (4.8-10.8)
--- NOTE | 2021-06-30 06:30 | Electrocardiogram Report ---
Test Reason : Blood Pressure : / mmHG Vent. Rate : 066 BPM Atrial Rate : 066 BPM P-R Int : 158 ms QRS Dur : 098 ms QT Int : 448 ms P-R-T Axes : 063 037 038 degrees QTc Int : 469 ms Normal sinus rhythm Normal ECG When compared with ECG of 28-FEB-2020 16:18, QRS axis Shifted right Confirmed by Mitchell Cadet ([id number]) on 06/30/2021 6:29:57 AM Referred By: Yash Baxter Confirmed By:Mitchell Cadet
[2021-06-30 06:43] LABS: Albumin Level 3.4 gm/dl (3.4-5.0); BUN Creatinine Ratio 11.8 (10-20); Calcium 8.4 mg/dl (8.5-10.1); Creatinine Clr Calc Pharmacy 86.7 ml/min; Est GFR (African American) 80.2 ml/min; Est GFR (Non-African American) 69.2 ml/min; Potassium 3.3 mmol/L (3.5-5.1)
[2021-06-30 06:46] LABS: Albumin Globulin Ratio 0.9 (0.9-2); Bilirubin,Total 0.8 mg/dl (0.2-1); Globulin 3.6 gm/dl (2.5-4.0)
[2021-06-30 08:15] LABS: Estimated Average Glucose 306 mg/dl; Hemoglobin A1C 12.3 % (4.5-5.6)
[2021-06-30] MEDS ORDERED: ENOXAPARIN INJ 40 MG/0.4 ML SYR SQ SCH (09:00)
[2021-06-30] MEDS ORDERED: GLIMEPIRIDE 2 MG TAB PO SCH (09:00)
[2021-06-30] MEDS ORDERED: INSULIN GLARGINE SOLOSTAR 100 UNITS/ML 3 ML PEN SC ONE (09:00)
[2021-06-30] MEDS ORDERED: DOXYCYCLINE HYCLATE 100 MG CAP PO SCH (09:00)
[2021-06-30] MEDS: ATORVASTATIN 20 MG TAB PO SCH (09:27)
[2021-06-30] MEDS: CHOLECALCIFEROL 1,000 UNITS 25 MCG TAB PO SCH (09:29)
[2021-06-30] MEDS: CHLORHEXIDINE GLUCONATE 4% SOL 4OZ BTL EXT SCH (09:29)
[2021-06-30] MEDS: PANTOprazole 40 MG TAB PO SCH (09:31)
[2021-06-30] MEDS: METOPROLOL TARTRATE 50 MG TAB PO SCH (09:31)
[2021-06-30] MEDS: SERTRALINE HCL 50 MG TABLET PO SCH (09:32)
[2021-06-30] MEDS: TOPIRAMATE 100 MG TAB PO SCH (09:32)
[2021-06-30] MEDS ORDERED: ALBUTEROL HFA 8 GM INHALER INH PRN (10:17)
--- NOTE | 2021-06-30 10:36 | Pharmacy Report ---
Pharmacy Glycemic Short Note 2 - Date of Service June 30, 2021 - Glycemic Short BSG Results (Last 24 hours): 06/29/21 06/29/21 06/29/21 10:32 11:25 12:22 Glucose POC Glucose 263 H 238 H 252 H 06/29/21 06/29/21 06/29/21 16:01 20:32 23:47 Glucose POC Glucose 193 H 160 H 168 H 06/30/21 06/30/21 06/30/21 04:22 05:48 07:19 Glucose 179 H POC Glucose 168 H 174 H OUTPATIENT ANTIDIABETIC REGIMEN: * Glimepiride * Metformin * A1c = 12.3 (06/30/21) ASSESSMENT: 06/30/21 * BSGs yesterday were [phone] mg/dL. Overnight BSGs were 168-168 mg/dL. Fasting today is 174 mg/dL. * Patient received 58 units (28 units of basal and 30 units of bolus). * Continue with Lantus 28 units this morning as fasting improved > 50 mg/dL. * Continue Novolog as BSGs stayed stable yesterday. May require loosening later today. Background * 55yo T2DM female with unknown degree of outpatient control - A1c is outdated. * Sustained hyperglycemia overnight and prior to surgery secondary to presumed sub-adequate outpatient control, stress, and held oral antidiabetic agents without basal insulin coverage. * Confirmed with Anesthesia that steroids were NOT given in OR/PACU. * Pt is maintained on oral antidiabetic agents as an outpatient * Oral agents are not recommended for inpatient use d/t drug interactions, changing PO intake, and difficulty titrating for acute hyper/hypoglycemia. ADA recommends re-initiating outpatient oral agents 1-2 days prior to discharge if/when appropriate if they were held on admission. * Will hold oral agents for admission and utilize SQ basal bolus insulin regimen which is the recommended regimen for inpatient glycemic control. * Will initiate weight based insulin dosing for insulin karen patient and titrate based on BSG trends. * Pt BMI is >35; will use adjusted body weight for insulin calcs * Goal is to maintain BSGs <180 (ideally <150) to prevent post-op infectious complications PLAN FOR INPATIENT GLYCEMIC CONTROL: * Hold outpatient oral diabetes medications * Basal insulin * Lantus 28 units SQ x 1 dose now; then further dosing based on BSGs. * Bolus insulin * NovoLog per scale ACHS or Q6hrs while NPO * Goal Range: Low 100 mg/dL - High 140 mg/dL * Correction Factor: 20 mg/dL/unit * Nutritional / Prandial insulin per carb ratio of 1 unit per 7 grams CHO consumed PLAN FOR DISCHARGE: * HbA1C is 12.3% which is above goal of < 7% for patient based upon age and cormorbidities. * Recommend starting Lantus 30 units daily. * Recommend d/c of glimepiride with initiation of Lantus due to increased risk of hypoglycemia. * Continue metformin.
--- NOTE | 2021-06-30 16:43 | Hospitalist Progress Note ---
Date of Service June 30, 2021 Assessment & Plan (1) Ventral hernia: Plan: Aretha is a 55-year-old female with a notable past medical history of multiple past abdominal surgeries ( x2, hysterectomy, gallbladder removal), type 2 diabetes, hypertension, COPD, hypothyroidism, breast cancer, hypercholesterolemia who presented to [facility] for evaluation of abdominal pain, subsequently found to have concern for incarcerated ventral hernia. Ventral hernia, concern for incarceration Patient with history of multiple abdominal surgeries, as mentioned above CT abdomen pelvis demonstrating lower abdominal ventral wall hernia containing a loop of sigmoid colon Surgery consulted in the ER, concern for possibly incarcerated hernia: Proceed to the OR in a.m. Pain control: Dilaudid 0.5 mg IV every 4 hours as needed N.p.o. Gentle hydration at 80 cc an hour Hypertension In the ER, patient noted to have blood pressures between 160-190/80-110s In the setting of not taking oral medications this morning Thankfully, hypertension has improved with analgesia; suspect pain is partially component Lopressor 5 mg IV as needed for blood pressures over (SBP > 160 / DBP > 110) Can consider addition of hydralazine 5 mg IV as needed for further pressure control Resume losartan, Lasix, metoprolol, spironolactone following surgery Dysphagia Patient reporting history of 2 weeks of worsening dysphagia/globus sensation History of thyroid removal in 2017 Patient has been seen by gastroenterology for this in 06/2019; it seems that an EGD was planned to be performed at that time, however I am unable to find record of this Speech consult placed given concerns of her being unable to swallow pills, solids per her report Can consider CT soft tissues neck pending their evaluation /as outpatient Type 2 diabetes Patient with known history of type 2 diabetes, last A1c 8.8% in January 2021 Hold home medications Sliding scale insulin to maintain blood sugars between 100-140 History of COPD Stable, continue home inhalers GERD Stable, continue PPI Anxiety/Neuropathic Pain Continue sertraline, continue topiramate, continue nortriptyline Hypothyroidism History of thyroid surgery in 2017 Continue levothyroxine Code: DNR/DNI Diet: N.p.o. Dispo: MedSurg Prophylaxis: SCDs in anticipation of operation tomorrow (2) Hypercholesterolemia: (3) Laryngopharyngeal reflux: (4) Hypothyroidism: (5) Benign essential hypertension: (6) Gastro-esophageal reflux disease without esophagitis: (7) DM w/o complication type II: (8) History of breast cancer: (9) COPD (chronic obstructive pulmonary disease): Admission and Anticipated Discharge Date Admission Date: June 28, 2021 Subjective Patient is resting comfortably in bed. She notes her pain is well controlled. She denies any shortness of breath or cough. She denies any nausea or vomiting. She says she has passed flatus since her surgery general surgery feels pt is able to go home Results & Data Results & Data ([facility]) Vital Signs (Past 12 Hours) Vital Signs Temp Pulse Pulse Resp BP Pulse Ox 06/30/21 12:09 98.1 F 70 67 18 166/93 H 94 06/30/21 12:00 98.1 F 70 18 166/93 H 94 06/30/21 06:58 98.8 F 67 18 153/92 H 92 06/30/21 06:25 80 16 93 PG Care Time/CCT Total # of Minutes Spent Total Time Spent with Patient: Total time spent is greater than 50% in coordination of care (as documented) at patient's floor/unit and/or counseling patient: Coding Diagnoses Ventral hernia K43.9 Hypercholesterolemia E78.00 Laryngopharyngeal reflux K21.9 Hypothyroidism E03.9 Benign essential hypertension I10 Gastro-esophageal reflux disease without esophagitis K21.9 DM w/o complication type II E11.9 History of breast cancer Z85.3 COPD (chronic obstructive pulmonary disease) J44.9 COPD type: unspecified COPD (1) COPD (chronic obstructive pulmonary disease) COPD type: unspecified COPD Qualified Code(s): J44.9 - Chronic obstructive pulmonary disease, unspecified
--- NOTE | 2021-06-30 16:46 | Discharge Summary ---
Date of Service June 30, 2021 Admission HPI Per Admitting Provider Aretha is a 55-year-old female with a notable past medical history of multiple past abdominal surgeries ( x2, hysterectomy, gallbladder removal), type 2 diabetes, hypertension, COPD, hypothyroidism, breast cancer, hypercholesterolemia who presented to [facility] for evaluation of abdominal pain. Patient was seen by her PCP earlier today for worsening periumbilical abdominal pain. She reported as a sharp pain that, throughout today, was approximately a 10 out of 10 in intensity. She notes that this is worsened over the past 24 hours (atop her chronic abdominal pain). She did report nausea without vomiting. She reports passing gas. She denies any chest pain, palpitations, shortness of breath. Denies any fever, chills, night sweats. Of note, patient does report to me that over the last 2 weeks, she has progressively difficulty swallowing. She said that this morning, was so because the pain but because of the swelling, she was unable to take her medications. She feels like food is getting stuck. She has no difficulty with swallowing liquids, but says she does experience difficulty with solids. She is still passing bowel movements. She does report a significant smoking history, approximately 1 pack/day since she was 10 years old (approximately 45 pack years). She denies alcohol use or recreational drug use. In the ED, she was found to be hypertensive to 364287/90-120. Vital signs stable otherwise. Her hemoglobin was slightly elevated at 16.6, mild hypokalemia to 3.2, elevated blood sugar to 200,, mildly elevated AST and alk phos. CT of the abdomen and pelvis did demonstrate hepatic steatosis as well as a lower abdominal ventral wall hernia containing a loop of sigmoid colon. She was given Zofran, Dilaudid 1 mg with good relief in her symptoms. Surgery was consulted, with concern for possible incarcerated hernia. Hospitalist was consulted for aid in management of blood pressures. Principal Diagnosis Rated ventral dominant hernia reduced with surgical means doing well Discharge Exam The patient appeared well Vital signs as documented. Lungs are clear to auscultation and appear unlabored Cardiac exam, Rhythm is regular.. No murmurs, rubs or gallops. Abdominal exam reveals normal bowel sounds, soft ventral incision is clean dry and intact Extremities are nonedematous and both pedal pulses are normal. Neurologic exam is alert and oriented, no focal loss of strength or sensation Skin is without bruises or rashes Psychologically is without concerns for anxiety or depression. Discharge Data Allergies Allergy/AdvReac Type Severity Reaction Status Date / Time tamoxifen Allergy Severe "CAN'T Verified 06/28/21 10:15 MOVE" ceftriaxone Allergy Intermediate REDNESS, Verified 06/28/21 10:15 ITCHING cephalexin Allergy Intermediate SHORTNESS Verified 06/28/21 10:15 OF BREATH sulfamethoxazole [Bactrim] Allergy Intermediate SHORTNESS Verified 06/28/21 10:15 OF BREATH trimethoprim [Bactrim] Allergy Intermediate SHORTNESS Verified 06/28/21 10:15 OF BREATH vancomycin Allergy Intermediate ITCHING Verified 06/28/21 10:15 ALL OVER, RASH, PARESTHESIAS tramadol Allergy Mild ITCHY Verified 06/28/21 10:15 cefdinir Allergy Unknown unknown Verified 06/28/21 10:15 codeine AdvReac Intermediate GI BLEED Verified 06/28/21 10:15 Consultations 06/28/21 21:45 Consult General Surgery Stat 06/28/21 21:57 ED Decision to Admit Stat Procedures Performed Operation Date: 06/29/21 10:45 Actual Procedures p Ventral Hernia Repair - Carin Flaherty MD Hospital Course (1) Ventral hernia: Aretha is a 55-year-old female with a notable past medical history of multiple past abdominal surgeries ( x2, hysterectomy, gallbladder removal), type 2 diabetes, hypertension, COPD, hypothyroidism, breast cancer, hypercholesterolemia who presented to [facility] for evaluation of abdominal pain, subsequently found to have concern for incarcerated ventral hernia. Ventral hernia, concern for incarceration Patient with history of multiple abdominal surgeries, as mentioned above CT abdomen pelvis demonstrating lower abdominal ventral wall hernia containing a loop of sigmoid colon Surgery consulted , incarcerated hernia: Ventral abdominal hernia repair 06/29/[address] Flaherty Patient is resting comfortably in bed. She notes her pain is well controlled. She denies any shortness of breath or cough. She denies any nausea or vomiting. She says she has passed flatus since her surgery general surgery feels pt is able to go home Hypertension resume home medications losartan, Lasix, metoprolol, spironolactone following surgery Dysphagia Patient reporting history of 2 weeks of worsening dysphagia/globus sensation History of thyroid removal in 2017 Patient has been seen by gastroenterology for this in 06/2019; it seems that an EGD was planned to be performed at that time, however I am unable to find record of this Speech consult placed given concerns of her being unable to swallow pills, solids per her report Consider outpatient evaluation if consistently a problem Type 2 diabetes Patient with known history of type 2 diabetes, last A1c 8.8% in January 2021 Resume home medications History of COPD Stable, continue home inhalers GERD Stable, continue PPI Anxiety/Neuropathic Pain Continue sertraline, continue topiramate, continue nortriptyline Hypothyroidism History of thyroid surgery in 2017 Continue levothyroxine Code: DNR/DNI (2) Hypercholesterolemia: (3) Laryngopharyngeal reflux: (4) Hypothyroidism: (5) Benign essential hypertension: (6) Gastro-esophageal reflux disease without esophagitis: (7) DM w/o complication type II: (8) History of breast cancer: (9) COPD (chronic obstructive pulmonary disease): Total Time Total Time Spent Total Time Spent (In Minutes): It required less than 30 minutes to prepare this patient for discharge Discharge Plan Discharge Items Patient Disposition: Home - Self-Care Reason For Visit: HERNIA,ABDOMINAL PAIN Discharge Diagnosis: incarcerated ventral hernia with surgical repair Activity: Per Instructions section Non-emergency contact: Primary Care Provider and Surgeon Call non-emergency contact if: your symptoms worsen and you have a fever Follow-up/Referrals: Yash Baxter III, CRNP [Primary Care Provider] - 07/11/21 9:20 am Carin Flaherty MD [Physician] - (PLEASE CALL DR. FLAHERTY'S OFFICE TO SCHEDULE A SURGICAL FOLLOW-UP WITHIN 7-10 DAYS.) Diet: Regular Addtl Attending Provider Instructions: please contact your primary care doctor on friday to see the want a follow up for post hosptal discharge Addtl Product Handler Provider Instructions: Post-Surgical ~Discharge Instructions Activity Recommendations: - lifting limitation: (25 pounds for 4-6 weeks), - exercise/sex/sports limit: (nonstrenuous for 2 weeks), - driving or machine use limit: (none for 1 week, until pain free or no longer taking pain medication), - Shower/bathe limit: (december shower beginning Friday) Diet: - Resume previous diet SPECIAL CARE INSTRUCTIONS: - May shower on Friday, Sponge bath and wash hair in meantime. Let water run over area and pat dry. - Leave steri strips on for one week. - Call the surgeon's office with any questions or concerns - - (ex. temperature higher than 101 degrees F, excessive bleeding or pain). MEDICATIONS: - Resume previous medications unless instructed otherwise by your surgeon. - Ibuprofen 600 mg every 6 hours as needed, take with food - Percocet 1 tab every 6 hours as needed for moderate to severe pain - Recommend stool softener (Colace) daily while taking narcotic pain medication to prevent constipation or straining. FOLLOW UP VISIT: - If not already scheduled, please call the office to schedule a two week follow-up appointment. Office number Pending Studies at Discharge: No Stand-Alone Forms: My [facility] [employer], Smoking Cessation Medications and DC Order Prescriptions: Continued glimepiride 1 mg tablet 1 mg PO QAM Qty: 90 RF: 1 levothyroxine 125 mcg capsule 125 mcg PO .COMPLEX Qty: 180 RF: 1 hydrocodone-acetaminophen 5-325 mg tablet See Rx Instructions PO .COMPLEX PRN (Reason: pain) Qty: 30 RF: 0 metformin 1,000 mg tablet 1,000 mg PO BID Qty: 180 RF: 1 furosemide 20 mg tablet 20 mg PO QAM Qty: 90 RF: 1 sertraline 50 mg tablet 50 mg PO DAILY Qty: 30 RF: 5 atorvastatin 20 mg tablet 20 mg PO QAM Qty: 90 RF: 1 budesonide-formoterol 160-4.5 mcg/actuation HFA aerosol inhaler 2 puff INHALATION BID PRN (Reason: Shortness Of Breath Or Wheezing) Qty: 10.2 RF: 3 ipratropium-albuterol 0.5 mg-3 mg(2.5 mg base)/3 mL solution for nebulization 3 ml INHALATION Q4H PRN (Reason: Shortness Of Breath Or Wheezing) Qty: 90 RF: 0 losartan 100 mg tablet 100 mg PO QAM Qty: 90 RF: 1 metoprolol tartrate 50 mg tablet 50 mg PO BID Qty: 180 RF: 1 omeprazole 40 mg capsule,delayed release(DR/EC) 40 mg PO BID Qty: 180 RF: 1 spironolactone 25 mg tablet 25 mg PO HS Qty: 90 RF: 1 topiramate 100 mg tablet 100 mg PO BID Qty: 180 RF: 1 chlorhexidine gluconate [Hibiclens] 4 % liquid 1 applic topical DAILY 60 Days Qty: 118 RF: 1 doxycycline hyclate 100 mg capsule 100 mg PO DAILY Qty: 30 RF: 2 clindamycin phosphate 1 % lotion 1 applic topical DAILY Qty: 60 RF: 2 albuterol sulfate 90 mcg/actuation HFA aerosol inhaler 1 - 2 puff inhalation .Q4-6HRS PRN (Reason: Shortness Of Breath Or Wheezing) RF: 0 nitroglycerin [Nitrostat] 0.4 mg Tablet, Sublingual 0.4 mg Sublingual DIRECTED PRN (Reason: Chest Pain) RF: 0 ondansetron HCl 4 mg Tablet 4 mg PO Q6H PRN (Reason: Nausea) RF: 0 cholecalciferol (vitamin D3) [Vitamin D3] 5,000 unit Tablet 5,000 unit PO QAM RF: 0 nortriptyline 25 mg capsule 2,550 mg PO HS RF: 0 Discharge Orders: Discharge Order (Routine); Ordered 06/30/21 Ordered By: Dk Sandoval Admission Data Admit Date/Time: 06/28/21 23:01 Attending Provider: Dk Sandoval Admit Provider: George Pride Primary Care Provider: Yash Baxter III Other Providers: Carin Flaherty ; Kristine Sotomayor Other Interventions: Discharge Summary Assessment (RN) Last Done: 06/30/21 12:09 Coding Level of Care Code D/C DAY MANAGEMENT <30 MINS Diagnoses Ventral hernia K43.9 Hypercholesterolemia E78.00 Laryngopharyngeal reflux K21.9 Hypothyroidism E03.9 Benign essential hypertension I10 Gastro-esophageal reflux disease without esophagitis K21.9 DM w/o complication type II E11.9 History of breast cancer Z85.3 COPD (chronic obstructive pulmonary disease) J44.9 COPD type: unspecified COPD
[2021-07-01] MEDS ORDERED: LOSARTAN POTASSIUM 50 MG TAB PO SCH (09:00)
[2021-07-01] MEDS ORDERED: FUROSEMIDE 20 MG TAB PO SCH (09:00)
[2021-07-03] MEDS ORDERED: LEVOTHYROXINE SODIUM 125 MCG TABLET PO SCH (06:30)
== END 2021-06-30 13:39 | disposition home or self-care (01) | DRG 355 ==
LOC: ED 17:57 → 2N 23:01 → SUATTDRO 23:01 → 2N 06-29 05:10

== ENCOUNTER 2024-08-24 12:18 | Inpatient (IN) ==
--- NOTE | 2024-08-24 12:31 | ED Triage Note ---
Date of Service August 24, 2024 Provider in Triage Author: Karon Smith History of Present Illness This patient was briefly evaluated while in triage. An abbreviated physical exam was performed. This patient is a 59-year-old Female who presents to the ED for evaluation sent by PCP for abnormal chest CT from this morning hx of breast cancer was having sternal/chest pain and SOB x weeks Chest CT: 1. No pulmonary emboli identified. 2. Increase in size of a moderate right pleural effusion. Subpleural right middle lobe and right lower lobe opacity favors atelectasis although pneumonia could appear similar. A malignant right pleural effusion cannot be excluded. 3. Increase in size and number of ill-defined pulmonary nodules measuring up to 9 mm. These may be infectious. However, pulmonary metastases could appear similar. These could be assessed with a short-term follow-up chest CT in one month. 4. Sclerotic sternal lesion with associated presternal lesion which measures 2.9 x 1.3 cm. This is suggestive of metastatic disease. The presternal lesion would be amenable to CT-guided percutaneous biopsy. The findings will be called/faxed to ordering provider at time of dictation. Physical Exam GENERAL: NAD CARDIOVASCULAR: RRR RESPIRATORY: CTA ABDOMEN: BS x 4. Nontender to palpation. Initial orders for labs and / or imaging were placed and patient was placed in the waiting area until a bed is available. Please see further documentation for the full ED course. MDM / Impression Impression Impression: Pleural effusion, Chest pain Impression: Chest pain Qualifiers: Chest pain type: unspecified Qualified Code(s): R07.9 - Chest pain, unspecified
--- NOTE | 2024-08-24 12:55 | Emergency Department Note ---
History of Present Illness General Chief Complaint: Abnormal Labs/Diagnostic Testing Stated Complaint: CANCER IS BACK IN CHEST Time Seen by Provider: 08/24/24 12:46 History of Present Illness Provider Complaint: shortness of breath and chest pain (Left-sided) Onset (ago): day(s) (3) Consistency/Duration: + progressively worsening Maximum Pain Intensity: 10 Relieved By: + rest Exacerbated By: + exertion and + coughing Known history of: COPD Associated symptoms: + cough, + wheezing and + chest congestion; no hemoptysis Home Medications Medication Instructions Recorded Confirmed Type nitroglycerin 0.4 mg sublingual 0.4 mg sublingual DIRECTED PRN 04/29/18 08/24/24 History tablet (Nitrostat) Chest Pain albuterol sulfate 90 mcg/actuation 1 - 2 puff inhalation .Q4-6HRS PRN 09/16/20 08/24/24 History aerosol inhaler Shortness Of Breath Or Wheezing rizatriptan 10 mg disintegrating See Rx Instructions PO .COMPLEX 11/21/21 08/24/24 Rx tablet (Maxalt-[employer]URE [employer]INEER) #12 tabs atorvastatin 20 mg tablet 20 mg PO QAM #90 tabs 11/26/22 08/24/24 Rx budesonide-formoterol HFA 160 2 puff inhalation BID PRN 11/26/22 08/24/24 Rx mcg-4.5 mcg/actuation aerosol Shortness Of Breath Or Wheezing inhaler #10.2 grams furosemide 20 mg tablet 20 mg PO QAM #90 tabs 11/26/22 08/24/24 Rx insulin glargine 100 unit/mL (3 10 unit (0.1 mL) subcut QPM #15 mL 11/26/22 08/24/24 Rx mL) subcutaneous pen (Lantus Solostar U-100 Insulin) losartan 100 mg tablet 100 mg PO QAM #90 tabs 11/26/22 08/24/24 Rx metoprolol tartrate 50 mg tablet 50 mg PO BID #180 tabs 11/26/22 08/24/24 Rx spironolactone 25 mg tablet 25 mg PO HS #90 tabs 11/26/22 08/24/24 Rx topiramate 100 mg tablet 100 mg PO BID #180 tabs 11/26/22 08/24/24 Rx cholecalciferol (vitamin D3) 1,250 50,000 unit PO WEEKLY #12 caps 12/11/23 08/24/24 Rx mcg (50,000 unit) capsule hydrocodone 5 mg-acetaminophen 325 See Rx Instructions PO .COMPLEX 07/06/24 08/24/24 Rx mg tablet PRN pain #30 tabs levothyroxine 125 mcg tablet 125 mcg PO .COMPLEX #220 tabs 07/12/24 08/24/24 Rx bupropion HCl 150 mg tablet,12 hr 150 mg PO BID #180 ea 08/16/24 08/24/24 Rx sustained-release (Wellbutrin SR) ipratropium 0.5 mg-albuterol 3 mg 3 ml inhalation Q4H PRN Shortness 08/19/24 08/24/24 Rx (2.5 mg base)/3 mL nebulization Of Breath Or Wheezing #90 mL soln Allergies Allergy/AdvReac Type Severity Reaction Status Date / Time cephalexin Allergy Severe SHORTNESS Verified 08/24/24 08:26 OF BREATH sulfamethoxazole [Bactrim] Allergy Severe SHORTNESS Verified 08/24/24 08:26 OF BREATH trimethoprim [Bactrim] Allergy Severe SHORTNESS Verified 08/24/24 08:26 OF BREATH ceftriaxone Allergy Intermediate REDNESS, Verified 08/24/24 08:26 ITCHING tramadol Allergy Intermediate ITCHY Verified 08/24/24 08:26 vancomycin Allergy Intermediate ITCHING Verified 08/24/24 08:26 ALL OVER, RASH, PARESTHESIAS cefdinir Allergy Unknown unknown Verified 08/24/24 08:26 codeine AdvReac Severe GI BLEED Verified 08/24/24 08:26 tamoxifen AdvReac Severe "CAN'T Verified 08/24/24 08:26 MOVE" Past Med/Surg History Problem List (Updated 08/24/24 @ 14:48 by Cooper Colon MD) Chest pain (Acute) Pleural effusion (Acute) Left leg pain Umbilical hernia without obstruction or gangrene Depression Tobacco abuse (Acute) Hypothyroidism (Acute 11/23/12) Benign essential hypertension (Acute 11/23/12) Gastro-esophageal reflux disease without esophagitis (Acute 11/23/12) Bipolar disorder, unspecified (Acute 11/23/12) History of breast cancer Port-A-Cath in place L aport 2012 Dr. Td Grossman Vitamin D deficiency (Acute) Laryngopharyngeal reflux (Acute) Hypercholesterolemia (Acute) Neuropathic pain of chest Ventral hernia Cervical radiculopathy Cervical stenosis of spine Diabetes mellitus, type 2 Morbid obesity COPD (chronic obstructive pulmonary disease) (Acute) Medical History Left cervical radiculopathy Hidradenitis Adhesive capsulitis of left shoulder History of colon polyps History of COVID-19 07/2021>HEADACHE/SOB/JOINT PAIN *RESOLVED Hearing difficulty History of dysplastic nevus Pituitary abnormality Osteoarthritis Gastroparesis GERD (gastroesophageal reflux disease) Hypothyroidism Asthma LAST USED RESCUE INHALER MAY 2022 Hypertension Hyperlipidemia Hiatal hernia Syncope LAST EPISODE JULY 2020 Migraine History of diverticulitis Hx of breast cancer RT (SURGERY WITH RADIATION) Anxiety and depression H/O abscess of breast NO CURRENT INFECTION Liver lesion Surgical History History of hernia surgery Sep 2022 H/O umbilical hernia repair History of removal of Port-a-Cath (12/08/20) Access Port Removal(Left) 12/08/20 Dr. Gallegos History of breast biopsy Hx of melanoma excision History of tooth extraction History of vascular access device A-PORT>REMOVED History of excision of lesion 2017 excision left axilla- abscess Dr. Brunner [address] Brunner H/O colonoscopy History of esophagogastroduodenoscopy (EGD) H/O thyroidectomy REMOVED D/T "SO MANY PROBLEMS WITH MY THRYOID" Hx of hysterectomy Hx laparoscopic cholecystectomy History of mastectomy partial mastectomy 2008 Dr. Ferris Total mastectomy>RT 2009 Dr. Ferris NO RECONSTRUCTION H/O section X 2 Family History Mother Ovarian cancer Colon cancer Father Pancreatic cancer Colorectal cancer Grandmother (Maternal) Colorectal cancer Other No family history of adverse response to anesthesia Denies family history of Prostate cancer Myocardial infarction Breast cancer Social History Smoking Status: Former smoker Tobacco Type: Cigarettes Age Started Using Tobacco: 10; packs per day: 0.5; Cigarettes Per Day: 1; Second Hand Exposure: No; Do You Dip or Chew Tobacco: No; Hx Alcohol Use: No Hx Substance Use: No Preferred Language: Tajik Communication Ability: Effective Visual Impairment: No Limitations Hearing Ability: Normal Pricing Clerk Required: No Beliefs That Will Affect Care: None marital status: Current Living Situation: Spouse 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 How many Children do You have: 2 Feels Safe at Home: Yes Childhood Exposure to Second-Hand Smoke: Yes Diet: regular Dental Care, Regularly: No Physical Activity Frequency: Daily Seatbelt Use: never Sunscreen Use: Yes Assistive Devices: None Physical Exam 2 Vital Signs: Vital Signs - 24 hr 08/24/24 12:29 08/24/24 13:11 08/24/24 13:18 Temperature 36.6 C Temperature Source Temporal Artery Sc an Pulse Rate 88 78 Pulse Rate from Sp O2 Sensor Respiratory Rate Respiratory Effort / Characteristics Non-Labored Respiratory Depth Normal Respiratory Patter n Regular Blood Pressure 190/134 H Blood Pressure Nicole n 152 Pulse Oximetry 95 94 Oxygen Delivery Me thod Room Air Room Air Sepsis Recent Feve r Within 48 Hours No Sepsis New/Unexpla ined Change in Men raf Status No Sepsis Action Take n by Nursing No Action Required 08/24/24 13:24 08/24/24 13:27 08/24/24 13:31 Temperature Temperature Source Pulse Rate 85 78 Pulse Rate from Sp O2 Sensor 86 79 Respiratory Rate 22 21 Respiratory Effort / Characteristics Respiratory Depth Respiratory Patter n Blood Pressure 160/96 H Blood Pressure Nicole n 113 Pulse Oximetry 96 93 Oxygen Delivery Me thod Sepsis Recent Feve r Within 48 Hours Sepsis New/Unexpla ined Change in Men raf Status Sepsis Action Take n by Nursing 08/24/24 13:33 08/24/24 14:00 08/24/24 14:00 Temperature Temperature Source Pulse Rate 77 Pulse Rate from Sp O2 Sensor 76 Respiratory Rate 17 Respiratory Effort / Characteristics Respiratory Depth Respiratory Patter n Blood Pressure 157/100 H 157/100 H Blood Pressure Nicole n 116 116 Pulse Oximetry 93 Oxygen Delivery Me thod Sepsis Recent Feve r Within 48 Hours Sepsis New/Unexpla ined Change in Men raf Status Sepsis Action Take n by Nursing 08/24/24 14:00 Temperature Temperature Source Pulse Rate 67 Pulse Rate from Sp O2 Sensor 67 Respiratory Rate 21 Respiratory Effort / Characteristics Respiratory Depth Respiratory Patter n Blood Pressure Blood Pressure Nicole n Pulse Oximetry 90 Oxygen Delivery Me thod Sepsis Recent Feve r Within 48 Hours Sepsis New/Unexpla ined Change in Men raf Status Sepsis Action Take n by Nursing Physical Exam: Physical Exam GENERAL: oriented to person, place, and time. appears well-developed and well- nourished. HENT: Exam performed. - Head: Normocephalic and atraumatic. EYES: Conjunctivae and EOM are normal. Right eye exhibits no discharge. Left eye exhibits no discharge. No scleral icterus. NECK: Normal range of motion. Neck supple. No JVD present. CV: Normal rate, regular rhythm, normal heart sounds and intact distal pulses. There is no peripheral edema. Palpable radial pulses bue. PULM/CHEST: Expiratory wheezes bilaterally. Diminished breath sounds on the right. ABD: The abdomen is soft. There is no tenderness. NEURO: Motor and sensation grossly intact. SKIN: Skin is warm and dry. He is not diaphoretic. PSYCH: normal mood and affect. Behavior is normal. Judgment and thought content normal. Course Course 1246: The patient was evaluated in room D8. A complete history and physical exam was performed Cardiac monitoring: An order was placed for continuous cardiac monitoring. The monitor shows a rate of 80 with sinus rhythm interpreted by me External medical records reviewed. Patient has CT of the chest performed outpatient which showed no pulmonary embolus. There is increase in size of the moderate right-sided pleural effusion with subpleural right middle lobe and right lower lobe opacities favoring atelectasis although pneumonia could be similar. Malignant pleural effusion cannot be excluded. There is an increase in the size number of ill-defined pulmonary nodules measuring up to 9 mm. Patient reports that she had breast cancer in her right breast that was treated for and cured in 2009. Patient states her treatments were done at [facility]. Patient reports she has not been on any chemo or radiation therapy in the last 14 years. 1313: Vital signs stable. I discussed the patient's case with on-call pulmonology Dr. Munroe. He reviewed the patient's CT scan and stated he thought it was most likely a malignant pleural effusion. Both he and I agreed that the patient would need to be admitted for her left-sided chest pain, he stated he would evaluate the patient during admission and plan on doing a thoracentesis to determine if it was truly malignant effusion. We will plan on admitting the patient to the [facility] hospitalist team. Administered Medications Discontinued Medications Albuterol (Albut/Ipratrop 3mg/0.5mg Neb 3 Ml Vial) 3 ml NEB NOW STA; Protocol Stop: 08/24/24 12:52 Last Admin: 08/24/24 13:15 Dose: 3 ml Documented By: OTTO Medical Decision Making Medical Records Attestation: I reviewed the patient's medical records. External medical records reviewed. Patient has CT of the chest performed outpatient which showed no pulmonary embolus. There is increase in size of the moderate right-sided pleural effusion with subpleural right middle lobe and right lower lobe opacities favoring atelectasis although pneumonia could be similar. Malignant pleural effusion cannot be excluded. There is an increase in the size number of ill-defined pulmonary nodules measuring up to 9 mm. Laboratory Data Attestation: I reviewed the patient's lab results. 08/24/24 12:51 08/24/24 12:51 Lab Results 08/24/24 08/24/24 Range/Units 12:51 13:12 WBC 9.59 (4.8-10.8) K/ul RBC 5.52 H (4.20-5.40) M/uL Hgb 16.4 H (12.0-16.0) g/dl Hct 47.2 H (37.0-47.0) % MCV 85.5 (80.0-100.0) fL MCH 29.7 (25.0-34.0) pg MCHC 34.7 (32.0-36.0) g/dL RDW Std Deviation 38.7 (36.4-46.3) fL RDW Coeff of Luisa 12.4 (11.5-14.5) % Plt Count 268 (130-400) K/uL MPV 9.7 (9.4-12.4) fL Immature Gran % (Auto) 0.2 % Neut % (Auto) 61.4 % Lymph % (Auto) 31.1 % [place] % (Auto) 5.9 % Eos % (Auto) 1.0 % Baso % (Auto) 0.4 % Neut # (Auto) 5.88 (1.40-6.50) K/uL Lymph # (Auto) 2.98 (1.20-3.40) K/uL [place] # (Auto) 0.57 (0.11-0.59) K/uL Eos # (Auto) 0.10 (0.00-0.50) K/uL Baso # (Auto) 0.04 (0.00-0.20) K/uL Immature Gran # (Auto) 0.02 (0.01-0.20) K/uL PT 10.3 (9.0-12.0) Seconds INR 0.9 (0.9-1.1) APTT 29 (21-31) Seconds PTT Ratio 1.1 VBG pH 7.38 (7.36-7.41) VBG pCO2 52 H (38-50) mmHg VBG pO2 24 mmHg VBG HCO3 31 mmol/L VBG O2 Saturation < 60.0 % VBG Base Excess 4.1 mEq/L Sodium 140 (136-145) mmol/L Potassium 3.8 (3.5-5.1) mmol/L Chloride 103 (98-107) mmol/L Carbon Dioxide 31 (21-32) mmol/L Anion Gap 6 (3-11) BUN 11 (6-23) mg/dl Creatinine 0.77 (0.6-1.2) mg/dl Est Cr Clr Drug Dosing 98.0 ml/min eGFR 88.81 BUN/Creatinine Ratio 14.3 (10-20) Glucose 126 H (70-99(Fasting)) mg/dl Calcium 9.5 (8.6-10.3) mg/dl Total Bilirubin 0.5 (0.2-1.0) mg/dl AST 25 (13-39) U/L ALT 29 (7-52) U/L Alkaline Phosphatase 92 (34-104) U/L Troponin I High Sens 5.1 (0-14) pg/ml Total Protein 7.4 (6.0-8.3) gm/dl Albumin 4.4 (3.4-5.0) gm/dl Globulin 3.0 (2.5-4.0) gm/dl Albumin/Globulin Ratio 1.5 (0.9-2) SARS-CoV-2 (PCR) NEGATIVE (Negative) Influenza Type A (PCR) Negative (Neg) Influenza Type B (PCR) Negative (Neg) RSV (RT-PCR) Negative (Neg) ECG Data Attestation: I personally reviewed and interpreted this ECG as follows: Interpretation: Sinus rhythm with a rate of 85. IA QRS and QTc intervals within normal limits. No ST elevation or ST depression. [facility] Narrative 1246: The patient was evaluated in room D8. A complete history and physical exam was performed Cardiac monitoring: An order was placed for continuous cardiac monitoring. The monitor shows a rate of 80 with sinus rhythm interpreted by me External medical records reviewed. Patient has CT of the chest performed outpatient which showed no pulmonary embolus. There is increase in size of the moderate right-sided pleural effusion with subpleural right middle lobe and right lower lobe opacities favoring atelectasis although pneumonia could be similar. Malignant pleural effusion cannot be excluded. There is an increase in the size number of ill-defined pulmonary nodules measuring up to 9 mm. Patient reports that she had breast cancer in her right breast that was treated for and cured in 2009. Patient states her treatments were done at [facility]. Patient reports she has not been on any chemo or radiation therapy in the last 14 years. 1313: Vital signs stable. I discussed the patient's case with on-call pulmonology Dr. Munreo. He reviewed the patient's CT scan and stated he thought it was most likely a malignant pleural effusion. Both he and I agreed that the patient would need to be admitted for her left-sided chest pain, he stated he would evaluate the patient during admission and plan on doing a thoracentesis to determine if it was truly malignant effusion. We will plan on admitting the patient to the [facility] hospitalist team. Impression & Plan Pleural effusion, Chest pain Discharge Plan Visit Data Chief Complaint: Abnormal Labs/Diagnostic Testing Stated Complaint: CANCER IS BACK IN CHEST ED Provider: Cooper Colon Discharge Problem: Pleural effusion, Chest pain Patient Disposition: Being Evaluated by Hospitalist Forms Stand Alone Forms: My [facility] Prescriptions Prescriptions: No Action cholecalciferol (vitamin D3) 1,250 mcg (50,000 unit) capsule 50,000 unit PO WEEKLY Qty: 12 1RF Ozempic 0.25 mg or 0.5 mg (2 mg/3 mL) pen injector 0RF levothyroxine 125 mcg tablet 125 mcg PO .COMPLEX Qty: 220 1RF Rx Instructions: TAKES 125 MCG FRIDAY THROUGH FRIDAY, THE 250 MCG ON SUNDAYS. bupropion HCl [Wellbutrin SR] 150 mg tablet sustained-release 12 hr 150 mg PO BID Qty: 180 1RF ipratropium-albuterol 0.5 mg-3 mg(2.5 mg base)/3 mL solution for nebulization 3 ml INHALATION Q4H PRN (Reason: Shortness Of Breath Or Wheezing) Qty: 90 0RF rizatriptan [Maxalt-[employer]CTURE ENGINEER] 10 mg tablet,disintegrating See Rx Instructions PO .COMPLEX Qty: 12 1RF Rx Instructions: take 1 tab at onset of headache; if no relief may repeat 1 tab after at least 2 hrs; max = 3 tabs/24 hr PO insulin glargine [Lantus Solostar U-100 Insulin] 100 unit/mL (3 mL) insulin pen 10 unit subcut QPM Qty: 15 2RF Rx Instructions: IF BSG IN AM IS >140, ADD 2 UNITS TO DOSE. atorvastatin 20 mg tablet 20 mg PO QAM Qty: 90 1RF furosemide 20 mg tablet 20 mg PO QAM Qty: 90 1RF budesonide-formoterol 160-4.5 mcg/actuation HFA aerosol inhaler 2 puff INHALATION BID PRN (Reason: Shortness Of Breath Or Wheezing) Qty: 10.2 3RF losartan 100 mg tablet 100 mg PO QAM Qty: 90 1RF metoprolol tartrate 50 mg tablet 50 mg PO BID Qty: 180 1RF spironolactone 25 mg tablet 25 mg PO HS Qty: 90 1RF topiramate 100 mg tablet 100 mg PO BID Qty: 180 1RF Ozempic 0.25 mg or 0.5 mg (2 mg/3 mL) pen injector See Rx Instructions .ROUTE .COMPLEX 0RF Rx Instructions: 0.5 mg per pt. Saturdays Ozempic 0.25 mg or 0.5 mg (2 mg/3 mL) pen injector 0RF Ozempic 0.25 mg or 0.5 mg (2 mg/3 mL) pen injector 0RF hydrocodone-acetaminophen 5-325 mg tablet See Rx Instructions PO .COMPLEX PRN (Reason: pain) Qty: 30 0RF Rx Instructions: 1-2 tabs PO Q4-6 HRS PRN; No more than 8 tablets daily. albuterol sulfate 90 mcg/actuation HFA aerosol inhaler 1 - 2 puff inhalation .Q4-6HRS PRN (Reason: Shortness Of Breath Or Wheezing) nitroglycerin [Nitrostat] 0.4 mg Tablet, Sublingual 0.4 mg Sublingual DIRECTED PRN (Reason: Chest Pain) Rx Instructions: PLACE ONE TABLET UNDER THE TONGUE EVERY 5 MINUTES FOR UP TO 3 DOSES OVER 15 MINUTES IF NEEDED FOR CHEST PAIN Referrals Referrals: Yash Baxter III, CRNP [Primary Care Provider] - Discharge Problem: Chest pain Qualifiers: Chest pain type: unspecified Qualified Code(s): R07.9 - Chest pain, unspecified
[2024-08-24 13:01] LABS: Base Excess VBG 4.1 mEq/L; HCO3 VBG 31 mmol/L; Oxygen Saturation VBG < 60.0 %; PCO2 VBG 52 mmHg (38-50); PO2 VBG 24 mmHg; pH VBG 7.38 (7.36-7.41)
[2024-08-24 13:02] LABS: Basophils # (auto) 0.04 K/uL (0.00-0.20); Basophils % (auto) 0.4 %; Hematocrit (blood only) 47.2 % (37.0-47.0); Hemoglobin 16.4 g/dl (12.0-16.0); Immature Granulocytes # (auto) 0.02 K/uL (0.01-0.20); Immature Granulocytes % (auto) 0.2 %; Lymphocytes # (auto) 2.98 K/uL (1.20-3.40); Lymphocytes % (auto) 31.1 %; Mean Corpuscular Hemoglobin 29.7 pg (25.0-34.0); Mean Corpuscular Hgb Conc 34.7 g/dL (32.0-36.0); Mean Corpuscular Volume 85.5 fL (80.0-100.0); Mean Platelet Volume 9.7 fL (9.4-12.4); Monocytes # (auto) 0.57 K/uL (0.11-0.59); Monocytes % (auto) 5.9 %; Neutrophils # (auto) 5.88 K/uL (1.40-6.50); Neutrophils % (auto) 61.4 %; Platelet Count 268 K/uL (130-400); RDW Coefficient of Variation 12.4 % (11.5-14.5); RDW Standard Deviation 38.7 fL (36.4-46.3); Red Blood Count 5.52 M/uL (4.20-5.40); White Blood Count 9.59 K/ul (4.8-10.8)
[2024-08-24] MEDS: ALBUT/IPRATROP 3MG/0.5MG NEB 3 ML VIAL NEB STA (13:15)
[2024-08-24 13:20] LABS: Albumin Level 4.4 gm/dl (3.4-5.0); Bilirubin,Total 0.5 mg/dl (0.2-1.0); Calcium 9.5 mg/dl (8.6-10.3); Potassium 3.8 mmol/L (3.5-5.1)
[2024-08-24 13:22] LABS: INR 0.9 (0.9-1.1); Partial Thromboplastin Ratio 1.1; Partial Thromboplastin Time 29 Seconds (21-31); Prothrombin Time 10.3 Seconds (9.0-12.0)
[2024-08-24 13:26] LABS: Albumin Globulin Ratio 1.5 (0.9-2); BUN Creatinine Ratio 14.3 (10-20); Total Protein 7.4 gm/dl (6.0-8.3)
[2024-08-24 13:31] LABS: Troponin I High Sensitivity 5.1 pg/ml (0-14)
[2024-08-24 14:04] LABS: Influenza A virus by PCR Negative (Neg); Influenza B virus by PCR Negative (Neg); RSV by PCR Negative (Neg); SARS CoV2 RNA(COVID-19) Ceph NEGATIVE (Negative)
[2024-08-24] MEDS ORDERED: MAGNESIUM HYDROXIDE SUSP 30 ML UDC PO PRN (14:28)
[2024-08-24] MEDS ORDERED: ACETAMINOPHEN 325 MG TAB PO PRN (14:28)
[2024-08-24] MEDS ORDERED: ALUMINUM/MAGNESIUM SUSP 30 ML UDC PO PRN (14:28)
[2024-08-24] MEDS ORDERED: MELATONIN 3 MG TAB PO PRN (14:28)
[2024-08-24] MEDS ORDERED: ONDANSETRON INJ 2 MG/ML 2 ML VIAL IV PRN (14:28)
[2024-08-24] MEDS ORDERED: MoRPHine SULFATE 4 MG/ML 1 ML CARP\\VIAL IV PRN ×2 (15:24)
[2024-08-24] MEDS ORDERED: methylPREDNISolone 10 mg/mL (For Ped Dose < 7mg) IV SCH (15:30)
--- NOTE | 2024-08-24 15:57 | Pulmonary Consultation ---
Date of Consultation August 24, 2024 Assessment & Plan (1) Pleural effusion: (2) COPD with emphysema: (3) Multiple pulmonary nodules: (4) Tobacco abuse: (5) Hydropneumothorax: (6) Morbid obesity: Plan CTA chest 08/24/2024 personally reviewed: Moderate right-sided pleural effusion Multiple pulmonary nodules appreciated bilaterally Centrilobular emphysema with bullae in the lingula Compressive atelectasis of the right lower lobe No significant mediastinal lymphadenopathy -- Moderate right-sided pleural effusion In a patient with history of breast cancer as well as smoking Possibility of it being recurrence of breast cancer is high --COPD with emphysema Approximately [id number] smoking history, current smoker On Symbicort 160 at home along with as needed albuterol -- Multiple pulmonary nodules Increasing in size Possibility of recurrence of breast cancer versus new lung cancer is again --Left-sided chest pain Reproducible on palpation Likely musculoskeletal from coughing Plan: S/p thoracentesis on the right side, 1 L of serous fluid was removed Patient was coughing a lot at the end of thoracentesis. Chest x-ray shows small right apical pneumothorax with some subcu emphysema Put the patient on nonrebreather, antitussive medication [id number] Repeat chest x-ray in 4 hours Avoid positive pressure ventilation. Avoid flutter valve Case discussed with RN Please note the above document was generated using voice recognition software. It may contain grammatical, syntax or spelling errors.Any formal questions or concerns about the content, text or information contained within the body of this dictation should be directly addressed to the provider for clarification. History of Present Illness History of Present Illness 59-year-old female present to the hospital with complaints of left-sided chest pain, shortness of breath and coughing Past medical history: Right-sided breast cancer s/p lumpectomy and radiation, dyslipidemia, anxiety/depression, hypertension, hypothyroidism Pulmonary consulted for right-sided pleural effusion At the time of examination patient was in mild respiratory distress She complained of left-sided chest pain under the breast which was reproducible on palpation. She has been complaining of cough for the last 3-4 days progressively getting worse When she does bring up phlegm is mostly clear. No hemoptysis No dysuria. Does have chronic diarrhea which has not changed in frequency or intensity. Denies any nausea or vomiting No unusual headache or blurry vision Has lost approximately 5 pounds in the last month or so. Social history: [id number] smoking history, currently smoking a pack a day Allergies Allergy/AdvReac Type Severity Reaction Status Date / Time cephalexin Allergy Severe SHORTNESS Verified 08/24/24 15:53 OF BREATH sulfamethoxazole [Bactrim] Allergy Severe SHORTNESS Verified 08/24/24 15:53 OF BREATH trimethoprim [Bactrim] Allergy Severe SHORTNESS Verified 08/24/24 15:53 OF BREATH ceftriaxone Allergy Intermediate REDNESS, Verified 08/24/24 15:53 ITCHING tramadol Allergy Intermediate ITCHY Verified 08/24/24 15:53 vancomycin Allergy Intermediate ITCHING Verified 08/24/24 15:53 ALL OVER, RASH, PARESTHESIAS cefdinir Allergy Unknown unknown Verified 08/24/24 15:53 codeine AdvReac Severe GI BLEED Verified 08/24/24 15:53 tamoxifen AdvReac Severe "CAN'T Verified 08/24/24 15:53 MOVE" Home Medications Medication Instructions Recorded Confirmed Type nitroglycerin 0.4 mg sublingual 0.4 mg sublingual DIRECTED PRN 04/29/18 08/24/24 History tablet (Nitrostat) Chest Pain albuterol sulfate 90 mcg/actuation 1 - 2 puff inhalation .Q4-6HRS PRN 09/16/20 08/24/24 History aerosol inhaler Shortness Of Breath Or Wheezing rizatriptan 10 mg disintegrating See Rx Instructions PO .COMPLEX 11/21/21 08/24/24 Rx tablet (Maxalt-[employer] OFFBEARER) #12 tabs atorvastatin 20 mg tablet 20 mg PO QAM #90 tabs 11/26/22 08/24/24 Rx budesonide-formoterol HFA 160 2 puff inhalation BID PRN 11/26/22 08/24/24 Rx mcg-4.5 mcg/actuation aerosol Shortness Of Breath Or Wheezing inhaler #10.2 grams furosemide 20 mg tablet 20 mg PO QAM #90 tabs 11/26/22 08/24/24 Rx insulin glargine 100 unit/mL (3 10 unit (0.1 mL) subcut QPM #15 mL 11/26/22 08/24/24 Rx mL) subcutaneous pen (Lantus Solostar U-100 Insulin) losartan 100 mg tablet 100 mg PO QAM #90 tabs 11/26/22 08/24/24 Rx metoprolol tartrate 50 mg tablet 50 mg PO BID #180 tabs 11/26/22 08/24/24 Rx spironolactone 25 mg tablet 25 mg PO HS #90 tabs 11/26/22 08/24/24 Rx topiramate 100 mg tablet 100 mg PO BID #180 tabs 11/26/22 08/24/24 Rx cholecalciferol (vitamin D3) 1,250 50,000 unit PO WEEKLY #12 caps 12/11/23 08/24/24 Rx mcg (50,000 unit) capsule hydrocodone 5 mg-acetaminophen 325 See Rx Instructions PO .COMPLEX 07/06/24 08/24/24 Rx mg tablet PRN pain #30 tabs levothyroxine 125 mcg tablet 125 mcg PO .COMPLEX #220 tabs 07/12/24 08/24/24 Rx bupropion HCl 150 mg tablet,12 hr 150 mg PO BID #180 ea 08/16/24 08/24/24 Rx sustained-release (Wellbutrin SR) ipratropium 0.5 mg-albuterol 3 mg 3 ml inhalation Q4H PRN Shortness 08/19/24 08/24/24 Rx (2.5 mg base)/3 mL nebulization Of Breath Or Wheezing #90 mL soln Patient History Medical History (Updated 08/24/24 @ 18:23 by Laila Munroe MD, [facility]) Left cervical radiculopathy Hidradenitis Adhesive capsulitis of left shoulder History of colon polyps History of COVID-19 07/2021>HEADACHE/SOB/JOINT PAIN *RESOLVED Hearing difficulty History of dysplastic nevus Pituitary abnormality Osteoarthritis Gastroparesis GERD (gastroesophageal reflux disease) Hypothyroidism Asthma LAST USED RESCUE INHALER MAY 2022 Hypertension Hyperlipidemia Hiatal hernia Syncope LAST EPISODE JULY 2020 Migraine History of diverticulitis Hx of breast cancer RT (SURGERY WITH RADIATION) Anxiety and depression H/O abscess of breast NO CURRENT INFECTION Liver lesion Surgical History History of hernia surgery Sep 2022 H/O umbilical hernia repair History of removal of Port-a-Cath (12/08/20) Access Port Removal(Left) 12/08/20 Dr. Gallegos History of breast biopsy Hx of melanoma excision History of tooth extraction History of vascular access device A-PORT>REMOVED History of excision of lesion 2017 excision left axilla- abscess Dr. Brunner [address] Brunner H/O colonoscopy History of esophagogastroduodenoscopy (EGD) H/O thyroidectomy REMOVED D/T "SO MANY PROBLEMS WITH MY THRYOID" Hx of hysterectomy Hx laparoscopic cholecystectomy History of mastectomy partial mastectomy 2008 Dr. Ferris Total mastectomy>RT 2010 Dr. Ferris NO RECONSTRUCTION H/O section X 2 Family History Mother Ovarian cancer Colon cancer Father Pancreatic cancer Colorectal cancer Grandmother (Maternal) Colorectal cancer Other No family history of adverse response to anesthesia Denies family history of Prostate cancer Myocardial infarction Breast cancer Social History Smoking Status: Former smoker Tobacco Type: Cigarettes Age Started Using Tobacco: 10; packs per day: 0.5; Cigarettes Per Day: 1; Second Hand Exposure: No; Do You Dip or Chew Tobacco: No; Hx Alcohol Use: No Hx Substance Use: No Preferred Language: Liberian Communication Ability: Effective Visual Impairment: No Limitations Hearing Ability: Normal Occ Med Physician Required: No Beliefs That Will Affect Care: None marital status: Current Living Situation: Spouse 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 How many Children do You have: 2 Feels Safe at Home: Yes Childhood Exposure to Second-Hand Smoke: Yes Diet: regular Dental Care, Regularly: No Physical Activity Frequency: Daily Seatbelt Use: never Sunscreen Use: Yes Assistive Devices: None Review of Systems 2 Review of Systems: All systems reviewed & are unremarkable except as noted in HPI & below Physical Exam 2 Physical Exam: Constitutional: Mild respiratory distress HEENT: EOMI, PERRLA Respiratory system: Decreased air entry on the right side, no wheeze, no rhonchi, positive crackles right lower lobe CVS: S1-S2 positive, no murmurs or gallops Abdomen: Soft, nontender, nondistended, positive bowel sounds x4, obese Extremities: +2 pulses bilaterally radialis/ dorsalis pedis, no cyanosis, +1 pitting edema bilateral lower extremity Neuro: Awake alert oriented x3 Psych: Normal mood and affect G/U: No [place] Skin: no rashes, warm and dry Lymphatic: no cervical or axillary lymphadenopathy Results & Data Results & Data Vital Signs (Past 12 Hours) Vital Signs Temp Pulse Resp BP Pulse Ox O2 Del Method 08/24/24 14:00 67 21 90 08/24/24 14:00 157/100 H 08/24/24 14:00 157/100 H 08/24/24 13:33 77 17 93 08/24/24 13:31 160/96 H 08/24/24 13:27 78 21 93 08/24/24 13:24 85 22 96 08/24/24 13:18 94 Room Air 08/24/24 13:11 78 08/24/24 12:29 36.6 C 88 190/134 H 95 Room Air Laboratory Results 08/24/24 12:51 08/24/24 12:51 PG Care Time/CCT Total # of Minutes Spent Total Time Spent with Patient: Total time spent is greater than 50% in coordination of care (as documented) at patient's floor/unit and/or counseling patient: Coding Level of Care Code 82667 INT INP/OBS CARE 3/75MIN Diagnoses Pleural effusion J90 COPD with emphysema J43.9 Multiple pulmonary nodules R91.8 Tobacco abuse Z72.0 Hydropneumothorax J94.8 Morbid obesity E66.01
--- NOTE | 2024-08-24 17:34 | Procedure Note ---
Procedure Note Date of Service August 24, 2024 Procedure: Diagnostic therapeutic ultrasound-guided catheter thoracentesis Oil Gas And Pipe Tester: Dr. Laila Munroe Indication: Right-sided pleural effusion Consent: Signed by patient and verified with timeout prior to procedure Anesthesia: 1% lidocaine without epinephrine local. Procedure: Consent was verified and timeout performed. Appropriate imaging studies were reviewed prior to the procedure. Patient was placed in a seated position and limited thoracic ultrasound was performed of the right chest. See separate imaging. Appropriate site above the diaphragm for thoracentesis was selected. The skin was prepped and draped in normal sterile fashion. Lidocaine was used for local analgesia. Fluid was aspirated via the finder needle. A small skin yash was made with the scalpel and the catheter over the needle apparatus was advanced over the rib into the pleural space. Using the syringe one-way valve system, a total of 1000 mL's of serous fluid was removed. Procedure was terminated due to patient coughing. The catheter was removed and observed to be intact. A sterile dressing was applied. Post procedure chest x-ray was ordered. Fluid was sent for labs, culture and cytology. Complications: None Blood loss: Less than 1 cc [facility] [place] Codes (Charges) Pulmonary/Thoracic Procedure 1: Pulmonary and Thoracic: 36036 Thoracentesis w imaging Coding CPT Codes Pulmonary/Thoracic - Pulmonary and Thoracic: 77026 Thoracentesis w imaging ([id number]) Additional Codes Date of Service (PG.SURGERY)
--- NOTE | 2024-08-24 18:13 | XRay Report ---
EXAM: Radiograph of the Chest 1 View INDICATION: Thoracentesis. TECHNIQUE: Frontal view of the chest. COMPARISON: 02/16/2024 FINDINGS: Lungs and pleural spaces: Trace right basilar pleural effusion noted. There is a small right apical pneumothorax measuring approximately 1.3 cm greatest diameter at the apex. Mild atelectasis noted in the right lung base. Heart: Shape and configuration within normal limits allowing for technique. Mediastinum: Normal contour. No shift allowing for patient rotation. Bones/joints: No fracture, erosion or dislocation. Soft tissues: Subcutaneous emphysema noted along the right chest wall. Upper abdomen: No abnormality noted. IMPRESSION: Small right hydropneumothorax. ACT 112: Negative or not required by law. Electronically signed by Whitney Brizuela 08-24-2024 7:13 PM
[2024-08-24] MEDS ORDERED: ALBUTEROL HFA 8 GM INHALER INH PRN (18:27)
[2024-08-24] MEDS ORDERED: HYDROCODONE/ACETAMOPHEN 5/325MG TAB PO PRN (18:27)
[2024-08-24] MEDS ORDERED: NITROGLYCERIN SL 0.4 MG/TAB TAB SL PRN (18:27)
[2024-08-24] MEDS ORDERED: NON-FORMULARY MEDICATION (Rizatriptan [Maxalt-Mlt] 10 mg tablet,disintegrating) PO SCH (18:30)
--- NOTE | 2024-08-24 18:39 | History & Physical Report ---
Date of Service August 24, 2024 Assessment & Plan (1) Multiple pulmonary nodules: Plan: Possible metastatic lesion of sternum / right pleural effusion Pulm eval completed - s/p thoracentesis / follow up with cytology Hydropneumothorax sec to thoracentesis Follow up CXR per pulm Supplemental O2 via NRBM AECOPD / Emphysema Recommend steroids, nebs and Doxy given increased sputum GERD PPI Hypertension Resume home regimen, monitor and adjust regimen if needed Diabetes DM Diet Home insulin regimen / serial accu checks / ISS coverage adjust for steroid induced hyperglycemia HLD Statin Bipolar disorder Cont outpatient regimen OOB as tolerated DVT Px Full code Admission and Anticipated Discharge Date Admission Date: August 24, 2024 History of Present Illness Chief Complaint: left sided chest pain and shortness of breath Primary Care Provider: Yash Baxter, III, [facility] Patient is a pleasant 59 y/o lady presented to ED due to above complaints. She has also been experiencing increased cough, sputum production a nd wheezing. She discussed her s/s with her PCP who ordered an outpatient CT chest which showed possible metastatic disease and she was advised to present to ED. She has h/o breast ca for which she underwent right mastectomy and XRT. She denies fever or chills but admits to decreased appetite and possible weight loss as her clothes have been fitting loose. 10 systems reviewed and negative except as listed in HPI She is a chronic smoker, smokes 1PPD. Allergies Allergy/AdvReac Type Severity Reaction Status Date / Time cephalexin Allergy Severe SHORTNESS Verified 08/24/24 15:53 OF BREATH sulfamethoxazole [Bactrim] Allergy Severe SHORTNESS Verified 08/24/24 15:53 OF BREATH trimethoprim [Bactrim] Allergy Severe SHORTNESS Verified 08/24/24 15:53 OF BREATH ceftriaxone Allergy Intermediate REDNESS, Verified 08/24/24 15:53 ITCHING tramadol Allergy Intermediate ITCHY Verified 08/24/24 15:53 vancomycin Allergy Intermediate ITCHING Verified 08/24/24 15:53 ALL OVER, RASH, PARESTHESIAS cefdinir Allergy Unknown unknown Verified 08/24/24 15:53 codeine AdvReac Severe GI BLEED Verified 08/24/24 15:53 tamoxifen AdvReac Severe "CAN'T Verified 08/24/24 15:53 MOVE" Home Medications Medication Instructions Recorded Confirmed Type nitroglycerin 0.4 mg sublingual 0.4 mg sublingual DIRECTED PRN 04/29/18 08/24/24 History tablet (Nitrostat) Chest Pain albuterol sulfate 90 mcg/actuation 1 - 2 puff inhalation .Q4-6HRS PRN 09/16/20 08/24/24 History aerosol inhaler Shortness Of Breath Or Wheezing rizatriptan 10 mg disintegrating See Rx Instructions PO .COMPLEX 11/21/21 08/24/24 Rx tablet (Maxalt-[employer] 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) #12 tabs atorvastatin 20 mg tablet 20 mg PO QAM #90 tabs 11/26/22 08/24/24 Rx budesonide-formoterol HFA 160 2 puff inhalation BID PRN 11/26/22 08/24/24 Rx mcg-4.5 mcg/actuation aerosol Shortness Of Breath Or Wheezing inhaler #10.2 grams furosemide 20 mg tablet 20 mg PO QAM #90 tabs 11/26/22 08/24/24 Rx insulin glargine 100 unit/mL (3 10 unit (0.1 mL) subcut QPM #15 mL 11/26/22 08/24/24 Rx mL) subcutaneous pen (Lantus Solostar U-100 Insulin) losartan 100 mg tablet 100 mg PO QAM #90 tabs 11/26/22 08/24/24 Rx metoprolol tartrate 50 mg tablet 50 mg PO BID #180 tabs 11/26/22 08/24/24 Rx spironolactone 25 mg tablet 25 mg PO HS #90 tabs 11/26/22 08/24/24 Rx topiramate 100 mg tablet 100 mg PO BID #180 tabs 11/26/22 08/24/24 Rx cholecalciferol (vitamin D3) 1,250 50,000 unit PO WEEKLY #12 caps 12/11/23 08/24/24 Rx mcg (50,000 unit) capsule hydrocodone 5 mg-acetaminophen 325 See Rx Instructions PO .COMPLEX 07/06/24 08/24/24 Rx mg tablet PRN pain #30 tabs levothyroxine 125 mcg tablet 125 mcg PO .COMPLEX #220 tabs 07/12/24 08/24/24 Rx bupropion HCl 150 mg tablet,12 hr 150 mg PO BID #180 ea 08/16/24 08/24/24 Rx sustained-release (Wellbutrin SR) ipratropium 0.5 mg-albuterol 3 mg 3 ml inhalation Q4H PRN Shortness 08/19/24 08/24/24 Rx (2.5 mg base)/3 mL nebulization Of Breath Or Wheezing #90 mL soln Past Med/Surg History Problem List (Updated 08/24/24 @ 18:23 by Laila Munroe MD, [facility]) Hydropneumothorax Multiple pulmonary nodules COPD with emphysema Chest pain (Acute) Pleural effusion (Acute) Left leg pain Umbilical hernia without obstruction or gangrene Depression Tobacco abuse (Acute) Hypothyroidism (Acute 11/23/12) Benign essential hypertension (Acute 11/23/12) Gastro-esophageal reflux disease without esophagitis (Acute 11/23/12) Bipolar disorder, unspecified (Acute 11/23/12) History of breast cancer Port-A-Cath in place L aport 2012 Dr. Td Grossman Vitamin D deficiency (Acute) Laryngopharyngeal reflux (Acute) Hypercholesterolemia (Acute) Neuropathic pain of chest Ventral hernia Cervical radiculopathy Cervical stenosis of spine Diabetes mellitus, type 2 Morbid obesity COPD (chronic obstructive pulmonary disease) (Acute) Medical History (Updated 08/24/24 @ 18:23 by Laila Munroe MD, [facility]) Left cervical radiculopathy Hidradenitis Adhesive capsulitis of left shoulder History of colon polyps History of COVID-19 07/2021>HEADACHE/SOB/JOINT PAIN *RESOLVED Hearing difficulty History of dysplastic nevus Pituitary abnormality Osteoarthritis Gastroparesis GERD (gastroesophageal reflux disease) Hypothyroidism Asthma LAST USED RESCUE INHALER MAY 2022 Hypertension Hyperlipidemia Hiatal hernia Syncope LAST EPISODE JULY 2020 Migraine History of diverticulitis Hx of breast cancer RT (SURGERY WITH RADIATION) Anxiety and depression H/O abscess of breast NO CURRENT INFECTION Liver lesion Surgical History History of hernia surgery Sep 2022 H/O umbilical hernia repair History of removal of Port-a-Cath (12/08/20) Access Port Removal(Left) 12/08/20 Dr. Gallegos History of breast biopsy Hx of melanoma excision History of tooth extraction History of vascular access device A-PORT>REMOVED History of excision of lesion 2017 excision left axilla- abscess Dr. Brunner [address] Brunner H/O colonoscopy History of esophagogastroduodenoscopy (EGD) H/O thyroidectomy REMOVED D/T "SO MANY PROBLEMS WITH MY THRYOID" Hx of hysterectomy Hx laparoscopic cholecystectomy History of mastectomy partial mastectomy 2008 Dr. Ferris Total mastectomy>RT 2009 Dr. Ferris NO RECONSTRUCTION H/O section X 2 Family History Mother Ovarian cancer Colon cancer Father Pancreatic cancer Colorectal cancer Grandmother (Maternal) Colorectal cancer Other No family history of adverse response to anesthesia Denies family history of Prostate cancer Myocardial infarction Breast cancer Social History Smoking Status: Former smoker Tobacco Type: Cigarettes Age Started Using Tobacco: 10; packs per day: 0.5; Cigarettes Per Day: 1; Second Hand Exposure: No; Do You Dip or Chew Tobacco: No; Hx Alcohol Use: No Hx Substance Use: No Preferred Language: Armenian Communication Ability: Effective Visual Impairment: No Limitations Hearing Ability: Normal Title Search Manager Required: No Beliefs That Will Affect Care: None marital status: Current Living Situation: Spouse 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 How many Children do You have: 2 Feels Safe at Home: Yes Childhood Exposure to Second-Hand Smoke: Yes Diet: regular Dental Care, Regularly: No Physical Activity Frequency: Daily Seatbelt Use: never Sunscreen Use: Yes Assistive Devices: None Physical Exam Physical Exam: Pleaant, AAO#3, Non focal Lungs b/l wheezing and decreased air entry Heart RRR PA soft NT, ND, BS+ Skin no rash but a boil noted on the left breast, chest wall tender to palpation Results & Data Results & Data Vital Signs (Past 12 Hours) Vital Signs Temp Pulse Resp BP Pulse Ox O2 Del Method 08/24/24 14:00 67 21 90 08/24/24 14:00 157/100 H 08/24/24 14:00 157/100 H 08/24/24 13:33 77 17 93 08/24/24 13:31 160/96 H 08/24/24 13:27 78 21 93 08/24/24 13:24 85 22 96 08/24/24 13:18 94 Room Air 08/24/24 13:11 78 08/24/24 12:29 36.6 C 88 190/134 H 95 Room Air Laboratory Results Reviewed Diagnostic Findings Reviewed Code Status & VTE Plan Code Status Full VTE Prophylaxis Plan VTE Prophylaxis will be ordered: Yes PG Care Time/CCT Total # of Minutes Spent Total Time Spent with Patient: Total time spent is greater than 50% in coordination of care (as documented) at patient's floor/unit and/or counseling patient: Coding Level of Care Code 29942 INT INP/OBS CARE 3/75MIN Diagnoses Multiple pulmonary nodules R91.8
[2024-08-24 18:49] LABS: Albumin Level 4.5 gm/dl (3.4-5.0); Bilirubin,Total 0.6 mg/dl (0.2-1.0); Total Protein 7.5 gm/dl (6.0-8.3)
[2024-08-24] MEDS: FORMOTEROL 20 MCG/2 ML VIAL INH SCH (19:12)
[2024-08-24] MEDS: ALBUT/IPRATROP 3MG/0.5MG NEB 3 ML VIAL NEB SCH (19:12)
[2024-08-24] MEDS: BUDESONIDE 0.5 MG/2 ML VIAL (PULMICORT) NEB SCH (19:13)
[2024-08-24 19:17] LABS: Appearance Pleural Fluid Hazy; Color Pleural Fluid Pale Yellow; Eosinophils, Fluid 2 %; Lymphocytes, Fluid 21 %; Mono,Macrophage,Mesothelial 77 %; Neutrophils, Fluid 0 %; RBC Pleural Fluid Auto < 2000 /uL; Source Pleural Fluid Right Lung; WBC Pleural Fluid Auto 1921 /uL
[2024-08-24 19:18] LABS: Total Protein Pleural Fluid 4.2 gm/dl
[2024-08-24] MEDS: INSULIN ASPART PER UNIT CHARGE SC SCH (19:22)
[2024-08-24] MEDS: methylPREDNISolone 40 MG in SYRINGE 0 ML IV SCH ×2 (20:10→20:42)
[2024-08-24] MEDS: guaiFENesin/DEXTROM SYRUP 200MG/20MG 10ML UDC PO SCH ×2 (20:10→23:14)
--- NOTE | 2024-08-24 20:29 | Electrocardiogram Report ---
Test Reason : Blood Pressure : */* mmHG Vent. Rate : 85 BPM Atrial Rate : 85 BPM P-R Int : 138 ms QRS Dur : 92 ms QT Int : 364 ms P-R-T Axes : 33 -69 45 degrees QTcB Int : 433 ms Normal sinus rhythm Left axis deviation Cannot rule out Septal infarct Abnormal ECG When compared with ECG of 16-Feb-2024 14:35, No significant change Confirmed by Mitchell Cadet ([id number]) on 08/24/2024 8:29:32 PM Referred By: REFERRED SELF Confirmed By: Mitchell Cadet
--- NOTE | 2024-08-24 20:34 | XRay Report ---
EXAM: XR chest 1V portable CLINICAL HISTORY: F/U WTW TECHNIQUE: Chest X-ray, frontal Projection. COMPARISON: None. FINDINGS: Prominent broncho vascular markings are seen bilaterally with possible infiltrates in both lower lobes. A patch of air space opacification is also noted in the right lower zone silhouetting the right hemidiaphragm. Haziness in the left costophrenic angle with opacity Both mediastinal and hilar contours are intact. Subcutaneous emphysema is noted in the right half of the neck and along the right lateral chest wall...h/o intervention needs to be evaluated. Cardiac size appears normal. Retrocardiac spaces are clear. No significant pathology was identified in the visualized skeleton. IMPRESSION: 1. Prominent broncho vascular markings with bilateral lower lobe infiltrates and right lower lobe opacification silhouetting the right hemidiaphragm. These might represent acute infectious changes. 2. Please correlate with the clinical picture for further evaluation. Electronically signed by Yee Renner 08-24-2024 8:34 PM
[2024-08-24] MEDS: SPIRONOLACTONE 25 MG TAB PO SCH (20:42)
[2024-08-24] MEDS: ENOXAPARIN INJ 40 MG/0.4 ML SYR SQ SCH (20:42)
[2024-08-24] MEDS: METOPROLOL TARTRATE 50 MG TAB PO SCH (20:42)
[2024-08-24] MEDS: DOXYCYCLINE HYCLATE 100 MG CAP PO SCH (20:42)
[2024-08-24] MEDS: buPROPion SR 150 MG TABCR PO SCH (20:42)
[2024-08-24] MEDS: TOPIRAMATE 100 MG TAB PO SCH (20:43)
[2024-08-24] MEDS ORDERED: guaiFENesin 600 MG TABCR PO SCH (21:00)
[2024-08-24] MEDS: LANTUS PER UNIT CHARGE SC SCH (22:25)
[2024-08-25] MEDS: LEVOTHYROXINE SODIUM 125 MCG TABLET PO SCH (06:48)
--- NOTE | 2024-08-25 08:05 | XRay Report ---
EXAM: XR chest 1V portable CLINICAL HISTORY: F/U ADS/LDS. TECHNIQUE: X-ray image of the chest was obtained in 1 view: Frontal projection. COMPARISON: Prior X-ray dated 08/24/2024. FINDINGS: Pulmonary Parenchyma: Mild interval increase in right pleural effusion and haziness in lower zone. Unchanged subtle haze in left lower zone. Heart and Mediastinum: Heart size and shape are normal. No mediastinal widening or masses. No hilar or mediastinal lymphadenopathy. Bony Thorax: Bony thorax appears intact without fractures or deformities. Soft Tissues: Unchanged subcutaneous emphysema in neck and chest on the right. Interval placement of right intercostal drainage tube. IMPRESSION: 1. Interval placement of right intercostal drainage tube. 2. Mild interval increase in right pleural effusion and haziness in lower zone. 3. Unchanged subtle haze in left lower zone. 4. Unchanged subcutaneous emphysema in neck and chest on the right. Electronically signed by Yee Renner 08-25-2024 08:03 AM
[2024-08-25 08:50] LABS: BUN Creatinine Ratio 19.5 (10-20); Calcium 8.9 mg/dl (8.6-10.3); Creatinine Clr Calc Pharmacy 97.2 ml/min; Potassium 4.1 mmol/L (3.5-5.1)
[2024-08-25] MEDS: ATORVASTATIN 20 MG TAB PO SCH (09:43)
[2024-08-25] MEDS: FUROSEMIDE 20 MG TAB PO SCH (09:44)
[2024-08-25] MEDS: LOSARTAN POTASSIUM 50 MG TAB PO SCH (09:44)
[2024-08-25] MEDS: POLYETHYLENE (MIRALAX) 17 GM PACK PO SCH (09:46)
--- NOTE | 2024-08-25 09:49 | Pulmonology Progress Note ---
Date of Service August 25, 2024 Assessment & Plan (1) Pleural effusion: (2) COPD with emphysema: (3) Multiple pulmonary nodules: (4) Tobacco abuse: (5) Hydropneumothorax: (6) Morbid obesity: Plan CTA chest 08/24/2024 personally reviewed: Moderate right-sided pleural effusion Multiple pulmonary nodules appreciated bilaterally Centrilobular emphysema with bullae in the lingula Compressive atelectasis of the right lower lobe No significant mediastinal lymphadenopathy -- Moderate right-sided pleural effusion In a patient with history of breast cancer as well as smoking Possibility of it being recurrence of breast cancer is high S/p thoracentesis 08/24/2024, 1 L serous fluid removed, exudative as per lights criteria Pleural fluid appears slightly exudative. Will await cytology. --COPD with emphysema Approximately [id number] smoking history, current smoker On Symbicort 160 at home along with as needed albuterol -- Multiple pulmonary nodules Increasing in size Possibility of recurrence of breast cancer versus new lung cancer. --Left-sided chest pain Reproducible on palpation Likely musculoskeletal from coughing Admission and Anticipated Discharge Date Admission Date: August 24, 2024 Supervising Physician Co-Signing Physician Notes I saw and evaluated the patient with Shaji Qiu PA-C, and agree with findings and plan as documented in the note. Patient seen and examined at bedside. No acute distress, no adverse events overnight She was getting nebulizer when I examined the patient treatment Denies any chest pain Cough is decreased in intensity and frequency Overall breathing is better compared to when she came to the hospital Constitutional: Mild respiratory distress HEENT: EOMI, PERRLA, does have some subcu crepitus on the right neck as well as posteriorly Respiratory system: Decreased air entry on the right side, no wheeze, no rhonchi, positive crackles right lower lobe CVS: S1-S2 positive, no murmurs or gallops Abdomen: Soft, nontender, nondistended, positive bowel sounds x4, obese Extremities: +2 pulses bilaterally radialis/ dorsalis pedis, no cyanosis, +1 pitting edema bilateral lower extremity Neuro: Awake alert oriented x3 Psych: Normal mood and affect G/U: No [place] Plan: S/p thoracentesis on the right side, 1 L of serous fluid was removed Fluid represents exudative effusion per lights criteria. Would recommend to await cytology before thinking about biopsying the start of lesion. No change in apical pneumothorax for more than 12 hours. Recommend to continue with antitussive medication [id number] Not to do any strenuous exercise for at least a week, no lifting anything heavy, try to avoid increasing intrathoracic pressure The right-sided pleural effusion seems to be reaccumulating slowly. If it reaccumulate's in the next couple of weeks and cytology is positive and Pleurx catheter could be thought of Avoid positive pressure ventilation. Avoid flutter valve Patient will need 2 L oxygen on exertion. Would recommend chest x-ray to be done on Friday which will be 2 days from now All questions and queries of the patient were answered in depth Case was discussed with RT as well as primary team Please note the above document was generated using voice recognition software. It may contain grammatical, syntax or spelling errors.Any formal questions or concerns about the content, text or information contained within the body of this dictation should be directly addressed to the provider for clarification. Subjective Patient seen and evaluated at bedside. She reports that she is feeling better and having less cough. She does have some discomfort with deep inspiration, but states that it has improved as well. She has had no hemoptysis. No persistent pleuritic pain. She is asked discharge to home soon. Review of Systems 2 Review of Systems: As per HPI. Physical Exam 2 Physical Exam: VITAL SIGNS Vital signs and nursing notes were reviewed. GENERAL 59-year-old female appearing her stated age who is in no acute distress. Communicates well with provider and answers questions appropriately. SKIN Without rashes or lesions. NOSE Midline and without cyanosis. MOUTH/OROPHARYNX Without perioral cyanosis. NECK Neck with FROM. LUNGS Chest wall evaluation demonstrates normal chest wall A:P diameter. Auscultation reveals slight inspiratory wheeze in the RIGHT mid lung field. No rales. CARDIAC RRR with S1/S2. No murmur, rubs, or gallops appreciated. EXTREMITIES Nail clubbing not present. No peripheral cyanosis. No pretibial edema present. +3/5 radial palpated throughout. PSYCH A&Ox3 and cooperates fully with examiner. Pt is very pleasant and interacts well with examiner. Skin: no rashes, warm and dry Lymphatic: no cervical or axillary lymphadenopathy Results & Data Results & Data Vital Signs (Past 12 Hours) Vital Signs Temp Pulse Resp BP Pulse Ox O2 Del Method O2 Flow Rate 08/25/24 07:09 36.5 C 70 17 128/84 97 Nebulizer 08/25/24 07:04 70 16 94 Nasal Cannula 5 08/25/24 06:53 95 Nasal Cannula 4 08/24/24 23:12 Nasal Cannula 5 08/24/24 23:12 36.7 C 88 16 154/95 H 95 Nasal Cannula 5 Laboratory Results 08/24/24 12:51 08/25/24 08:09 PG Care Time/CCT Total # of Minutes Spent Total Time Spent with Patient: Total time spent is greater than 50% in coordination of care (as documented) at patient's floor/unit and/or counseling patient: Coding Level of Care Code 69844 SUB INP/OBS CARE 2/35MIN Diagnoses Pleural effusion J90 COPD with emphysema J43.9 Multiple pulmonary nodules R91.8 Tobacco abuse Z72.0 Hydropneumothorax J94.8 Morbid obesity E66.01
[2024-08-25 10:58] VITALS: RESP 16
--- NOTE | 2024-08-25 12:26 | XRay Report ---
XR chest 1V portable CLINICAL HISTORY: f/u COMPARISON STUDY: Chest CT and chest radiograph August 24, 2024. FINDINGS: Gas within the right neck and chest wall similar to prior exam. A small right hydropneumoth orax is also similar to prior chest radiograph. Cardiomediastinal silhouette is stable. There is no l eft pneumothorax. There is pulmonary vascular congestion without overt pulmonary edema. IMPRESSION: 1. No significant change in a small right hydropneumothorax and small amount of gas within the right chest wall and neck. 2. Pulmonary vascular congestion. ACT 112: Negative or not required by law. Electronically signed by: Troy Medrano M.D. 08/25/2024 12:25 PM
[2024-08-25 14:26] VITALS: BP 146/94; PULSE 70; TEMP 97.5; O2SAT 96
--- NOTE | 2024-08-26 14:25 | Discharge Summary ---
Discharge Summary Date of Service August 26, 2024 Principal Dx & Hospital Course #1 = Principal Diagnosis (1) Multiple pulmonary nodules: Possible metastatic lesion of sternum / right pleural effusion Pulm eval completed - s/p thoracentesis / follow up with cytology Hydropneumothorax sec to thoracentesis Follow up CXR per pulm Supplemental O2 via NRBM AECOPD / Emphysema Recommend steroids, nebs and Doxy given increased sputum GERD PPI Hypertension Resume home regimen, monitor and adjust regimen if needed Diabetes DM Diet Home insulin regimen / serial accu checks / ISS coverage adjust for steroid induced hyperglycemia HLD Statin Bipolar disorder Cont outpatient regimen OOB as tolerated DVT Px Full code Admission HPI Per Admitting Provider Patient is a pleasant 59 y/o lady presented to ED due to above complaints. She has also been experiencing increased cough, sputum production and wheezing. She discussed her s/s with her PCP who ordered an outpatient CT chest which showed possible metastatic disease and she was advised to present to ED. She has h/o breast ca for which she underwent right mastectomy and XRT. She denies fever or chills but admits to decreased appetite and possible weight loss as her clothes have been fitting loose. 10 systems reviewed and negative except as listed in HPI She is a chronic smoker, smokes 1PPD. Discharge Exam Pleaant, AAO#3, Non focal Lungs b/l wheezing and decreased air entry Heart RRR PA soft NT, ND, BS+ Skin no rash but a boil noted on the left breast, chest wall tender to palpation Discharge Plan Discharge Items Patient Disposition: Home - Self-Care Reason For Visit: METASTATIC DISEASE Discharge Diagnosis: Acute hypoxic respiratory failure Condition on Discharge: Good Health Concerns: smoking Goals: smoking cessation Non-emergency contact: Primary Care Provider and Animal [employer] Call non-emergency contact if: you have any medication questions, your symptoms worsen and your pain is worsening Follow-up/Referrals: Yash Baxter III, CRNP [Primary Care Provider] - 09/01/24 11:00 am Diet: Carb Consistent or DM2 Addtl Attending Provider Instructions: Follow up with Dr Laila Munroe ( Pulmonary ) in 1-2 weeks Studies:: Pleural fluid cytology report Stand-Alone Forms: [employer], Smoking Cessation Medications and DC Order Prescriptions: New dextromethorphan-guaifenesin [Robitussin Cough-Chest Doc DM] 5-100 mg/5 mL Liquid 10 ml PO Q6 PRN (Reason: cough) Qty: 200 1RF prednisone 20 mg tablet 40 mg PO DAILY 5 Days Qty: 10 0RF doxycycline hyclate 100 mg capsule 100 mg PO BID 7 Days Qty: 14 0RF Continued cholecalciferol (vitamin D3) 1,250 mcg (50,000 unit) capsule 50,000 unit PO WEEKLY Qty: 12 1RF levothyroxine 125 mcg tablet 125 mcg PO .COMPLEX Qty: 220 1RF Rx Instructions: TAKES 125 MCG FRIDAY THROUGH FRIDAY, THE 250 MCG ON SUNDAYS. bupropion HCl [Wellbutrin SR] 150 mg tablet sustained-release 12 hr 150 mg PO BID Qty: 180 1RF ipratropium-albuterol 0.5 mg-3 mg(2.5 mg base)/3 mL solution for nebulization 3 ml INHALATION Q4H PRN (Reason: Shortness Of Breath Or Wheezing) Qty: 90 0RF rizatriptan [Maxalt-[employer]] 10 mg tablet,disintegrating See Rx Instructions PO .COMPLEX Qty: 12 1RF Rx Instructions: take 1 tab at onset of headache; if no relief may repeat 1 tab after at least 2 hrs; max = 3 tabs/24 hr PO insulin glargine [Lantus Solostar U-100 Insulin] 100 unit/mL (3 mL) insulin pen 10 unit subcut QPM Qty: 15 2RF Rx Instructions: IF BSG IN AM IS >140, ADD 2 UNITS TO DOSE. atorvastatin 20 mg tablet 20 mg PO QAM Qty: 90 1RF furosemide 20 mg tablet 20 mg PO QAM Qty: 90 1RF budesonide-formoterol 160-4.5 mcg/actuation HFA aerosol inhaler 2 puff INHALATION BID PRN (Reason: Shortness Of Breath Or Wheezing) Qty: 10.2 3RF losartan 100 mg tablet 100 mg PO QAM Qty: 90 1RF metoprolol tartrate 50 mg tablet 50 mg PO BID Qty: 180 1RF spironolactone 25 mg tablet 25 mg PO HS Qty: 90 1RF topiramate 100 mg tablet 100 mg PO BID Qty: 180 1RF Ozempic 0.25 mg or 0.5 mg (2 mg/3 mL) pen injector 0.5 mg subcut WK 0RF hydrocodone-acetaminophen 5-325 mg tablet See Rx Instructions PO .COMPLEX PRN (Reason: pain) Qty: 30 0RF Rx Instructions: 1-2 tabs PO Q4-6 HRS PRN; No more than 8 tablets daily. albuterol sulfate 90 mcg/actuation HFA aerosol inhaler 1 - 2 puff inhalation .Q4-6HRS PRN (Reason: Shortness Of Breath Or Wheezing) nitroglycerin [Nitrostat] 0.4 mg Tablet, Sublingual 0.4 mg Sublingual DIRECTED PRN (Reason: Chest Pain) Rx Instructions: PLACE ONE TABLET UNDER THE TONGUE EVERY 5 MINUTES FOR UP TO 3 DOSES OVER 15 MINUTES IF NEEDED FOR CHEST PAIN Discharge Orders: Discharge Order (Routine); Ordered 08/25/24 Ordered By: Ana Schilling Admission Data Admit Date/Time: 08/24/24 14:28 Attending Provider: Ana Schilling Admit Provider: Ana Schilling Primary Care Provider: Yash Baxter III Other Providers: Laila Munroe Other Interventions: Discharge Summary Assessment (RN) Last Done: 08/25/24 16:12 Hospital Stay Data Consultations 08/24/24 13:25 ED Decision to Admit Stat Diagnostic Imagining Performed 08/24/24 16:20 US point of care ultrasound Urgent Discharge Instructions Given to Patient (Per Discharging Provider) Follow up with Dr Laila Munroe ( Pulmonary ) in 1-2 weeks Supervising Physician Co-Signing Physician Notes Pulm recommendations Plan: S/p thoracentesis on the right side, 1 L of serous fluid was removed Fluid represents exudative effusion per lights criteria. Would recommend to await cytology before thinking about biopsying the start of lesion. No change in apical pneumothorax for more than 12 hours. Recommend to continue with antitussive medication [id number] Not to do any strenuous exercise for at least a week, no lifting anything heavy, try to avoid increasing intrathoracic pressure The right-sided pleural effusion seems to be reaccumulating slowly. If it reaccumulate's in the next couple of weeks and cytology is positive and Pleurx catheter could be thought of Avoid positive pressure ventilation. Avoid flutter valve Patient will need 2 L oxygen on exertion. Would recommend chest x-ray to be done on Friday All questions and queries of the patient were answered in depth Case was discussed with RT as well as primary team Total Time Total Time Spent Total Time Spent (In Minutes): 40 minutes Coding Level of Care Code 69194 INP/OBS DISCH >30 MIN Diagnoses Multiple pulmonary nodules R91.8
== END 2024-08-25 17:01 | disposition home or self-care (01) | DRG 181 ==
LOC: ED 12:18 → EDINP 14:28 → 3N 23:07

== ENCOUNTER 2024-09-01 10:23 | Inpatient (IN) ==
--- NOTE | 2024-09-01 10:39 | Emergency Department Note ---
Impression & Plan Hydropneumothorax ED Provider Note NAME: GANGA CERRATO AGE: 59 SEX: F : 1965 ARRIVES VIA: Walk-In INFORMANT: Patient, ED PROVIDER(S): Deion Fine DO CHIEF COMPLAINT: Pleural effusion HPI: The patient is a 59-year-old female who has a history of breast cancer who presented to the emergency department for an evaluation of shortness of breath. The patient has a history of a pleural effusion which was drained a week ago. She had a repeat chest x-ray done this morning which does show reaccumulation and a hydropneumothorax. The patient states that she has been having shortness of breath especially with exertion and lying flat. She denies having any leg swelling greater than normal. The patient was told to come to the emergency department by her primary health technician. ROS: See above HPI for pertinent positives & negatives. A total of 10 systems reviewed and were otherwise negative. PAST MEDICAL HISTORY: See Below PAST SURGICAL HISTORY: See Below FAMILY HISTORY: See Below SOCIAL HISTORY: See Below HOME MEDICATIONS: See Below ALLERGIES: See Below VITALS: See Below PHYSICAL EXAMINATION: GENERAL: Patient is awake alert in no acute distress patient is resting comfortably and showing no signs of anxiety EYES: The conjunctivae are clear. The pupils are round and reactive. EARS, NOSE, MOUTH AND THROAT: The nose is without any evidence of any deformity. NECK: The neck is nontender and supple. RESPIRATORY: Diminished breath sounds are noted in the right lower lung field. There was no tachypnea or conversational dyspnea. CARDIOVASCULAR: Regular rate and rhythm noted there no murmurs rubs or gallops normal S1 normal S2. GASTROINTESTINAL: The abdomen is soft. Abdomen is nontender. MUSCULOSKELETAL/EXTREMITIES: There is no evidence of gross deformity full range of motion is noted in the hips and shoulders. SKIN: There is no obvious evidence of any rash. Skin is warm and dry. NEUROLOGIC: Patient is awake alert and oriented x3 MEDICAL DECISION MAKING: The patient is a 59-year-old female who presented to the emergency department for an evaluation of difficulty breathing. The patient has a history of cancer with a malignant effusion. This has been drained in the past. She presented today after an outpatient chest x-ray did show reoccurrence and reaccumulation of a pleural effusion with hydropneumothorax. The patient was evaluated in the emergency department by her primary pulmonary doctor. After chest tube insertion the patient was felt to be a good candidate for inpatient management. For this reason I discussed her condition with the on-call [facility] hospitalist. They have agreed to evaluate the patient in the emergency department. Triage Nursing notes reviewed. Prior medical records reviewed Vital Signs: reviewed and remarkable for elevated blood pressure. Differential diagnosis: Reactive airway disease, pneumonia, pneumothorax, COPD, CHF, infections, cardiac ischemia, pulmonary embolism, musculoskeletal, gastrointestinal, as well as other pathologies. ER treatment provided: See below Diagnostics interpreted by me: ECG: none Consultation(s): I discussed this case with Dr. Munroe who is the patient's primary pulmonary physician. I discussed this case with Dr. Ortiz who is on-call for the [facility] group. Past Med/Surg History Problem List (Updated 09/01/24 @ 13:24 by Ino Ortiz MD) Malignant pleural effusion Hydropneumothorax (Acute) Hydropneumothorax Multiple pulmonary nodules COPD with emphysema Chest pain (Acute) Pleural effusion (Acute) Left leg pain Umbilical hernia without obstruction or gangrene Depression Tobacco abuse (Acute) Hypothyroidism (Acute 11/23/12) Benign essential hypertension (Acute 11/23/12) Gastro-esophageal reflux disease without esophagitis (Acute 11/23/12) Bipolar disorder, unspecified (Acute 11/23/12) History of breast cancer Port-A-Cath in place L aport 2012 Dr. Td Grossman Vitamin D deficiency (Acute) Laryngopharyngeal reflux (Acute) Hypercholesterolemia (Acute) Neuropathic pain of chest Ventral hernia Cervical radiculopathy Cervical stenosis of spine Diabetes mellitus, type 2 Morbid obesity COPD (chronic obstructive pulmonary disease) (Acute) Medical History Left cervical radiculopathy Hidradenitis Adhesive capsulitis of left shoulder History of colon polyps History of COVID-19 07/2021>HEADACHE/SOB/JOINT PAIN *RESOLVED Hearing difficulty History of dysplastic nevus Pituitary abnormality Osteoarthritis Gastroparesis GERD (gastroesophageal reflux disease) Hypothyroidism Asthma LAST USED RESCUE INHALER MAY 2022 Hypertension Hyperlipidemia Hiatal hernia Syncope LAST EPISODE JULY 2020 Migraine History of diverticulitis Hx of breast cancer RT (SURGERY WITH RADIATION) Anxiety and depression H/O abscess of breast NO CURRENT INFECTION Liver lesion Surgical History History of hernia surgery Sep 2022 H/O umbilical hernia repair History of removal of Port-a-Cath (12/08/20) Access Port Removal(Left) 12/08/20 Dr. Gallegos History of breast biopsy Hx of melanoma excision History of tooth extraction History of vascular access device A-PORT>REMOVED History of excision of lesion 2016 excision left axilla- abscess Dr. Brunner [address] Brunner H/O colonoscopy History of esophagogastroduodenoscopy (EGD) H/O thyroidectomy REMOVED D/T "SO MANY PROBLEMS WITH MY THRYOID" Hx of hysterectomy Hx laparoscopic cholecystectomy History of mastectomy partial mastectomy 2008 Dr. Ferris Total mastectomy>RT 2009 Dr. Ferris NO RECONSTRUCTION H/O section X 2 Family History Mother Ovarian cancer Colon cancer Father Pancreatic cancer Colorectal cancer Grandmother (Maternal) Colorectal cancer Other No family history of adverse response to anesthesia Denies family history of Prostate cancer Myocardial infarction Breast cancer Social History Smoking Status: Former smoker Tobacco Type: Cigarettes Age Started Using Tobacco: 10; packs per day: 0.5; Cigarettes Per Day: 1/2-1 PPD; Second Hand Exposure: No; Do You Dip or Chew Tobacco: No; Hx Alcohol Use: No Hx Substance Use: No Preferred Language: Sami Communication Ability: Effective Visual Impairment: No Limitations Hearing Ability: Normal Step Finisher Required: No Beliefs That Will Affect Care: None marital status: Current Living Situation: Spouse Current Living Situation Comment: home with in trailer, 4 steps to enter 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 How many Children do You have: 2 Feels Safe at Home: Yes Childhood Exposure to Second-Hand Smoke: Yes Diet: regular Dental Care, Regularly: No Physical Activity Frequency: Daily Seatbelt Use: never Sunscreen Use: Yes Assistive Devices: Glasses and Nebulizer Allergies Allergies Allergy/AdvReac Type Severity Reaction Status Date / Time cephalexin Allergy Severe SHORTNESS Verified 08/24/24 15:53 OF BREATH sulfamethoxazole [Bactrim] Allergy Severe SHORTNESS Verified 08/24/24 15:53 OF BREATH trimethoprim [Bactrim] Allergy Severe SHORTNESS Verified 08/24/24 15:53 OF BREATH ceftriaxone Allergy Intermediate REDNESS, Verified 08/24/24 15:53 ITCHING tramadol Allergy Intermediate ITCHY Verified 08/24/24 15:53 vancomycin Allergy Intermediate ITCHING Verified 08/24/24 15:53 ALL OVER, RASH, PARESTHESIAS cefdinir Allergy Unknown unknown Verified 08/24/24 15:53 codeine AdvReac Severe GI BLEED Verified 08/24/24 15:53 tamoxifen AdvReac Severe "CAN'T Verified 08/24/24 15:53 MOVE" Home Meds Home Medications Medication Instructions Recorded Confirmed nitroglycerin 0.4 mg sublingual 0.4 mg sublingual DIRECTED PRN 04/29/18 08/24/24 tablet (Nitrostat) Chest Pain albuterol sulfate 90 mcg/actuation 1 - 2 puff inhalation .Q4-6HRS PRN 09/16/20 08/24/24 aerosol inhaler Shortness Of Breath Or Wheezing Previous Rx's Medication Instructions Recorded rizatriptan 10 mg disintegrating See Rx Instructions PO .COMPLEX 11/21/21 tablet (Maxalt-BOBTAIL DRIVER) #12 tabs atorvastatin 20 mg tablet 20 mg PO QAM #90 tabs 11/26/22 budesonide-formoterol HFA 160 2 puff inhalation BID PRN 11/26/22 mcg-4.5 mcg/actuation aerosol Shortness Of Breath Or Wheezing inhaler #10.2 grams furosemide 20 mg tablet 20 mg PO QAM #90 tabs 11/26/22 insulin glargine 100 unit/mL (3 10 unit (0.1 mL) subcut QPM #15 mL 11/26/22 mL) subcutaneous pen (Lantus Solostar U-100 Insulin) losartan 100 mg tablet 100 mg PO QAM #90 tabs 11/26/22 metoprolol tartrate 50 mg tablet 50 mg PO BID #180 tabs 11/26/22 spironolactone 25 mg tablet 25 mg PO HS #90 tabs 11/26/22 topiramate 100 mg tablet 100 mg PO BID #180 tabs 11/26/22 cholecalciferol (vitamin D3) 1,250 50,000 unit PO WEEKLY #12 caps 12/11/23 mcg (50,000 unit) capsule hydrocodone 5 mg-acetaminophen 325 See Rx Instructions PO .COMPLEX 07/06/24 mg tablet PRN pain #30 tabs levothyroxine 125 mcg tablet 125 mcg PO .COMPLEX #220 tabs 07/12/24 bupropion HCl 150 mg tablet,12 hr 150 mg PO BID #180 ea 08/16/24 sustained-release (Wellbutrin SR) ipratropium 0.5 mg-albuterol 3 mg 3 ml inhalation Q4H PRN Shortness 08/19/24 (2.5 mg base)/3 mL nebulization Of Breath Or Wheezing #90 mL soln dextromethorphan-guaifenesin 5 10 ml PO Q6 PRN cough #200 mL 08/25/24 mg-100 mg/5 mL oral liquid (Robitussin Cough-Chest Congestion DM) Results & Data (ED) Vital Signs Vital Signs - 24 hr 09/01/24 10:25 09/01/24 11:01 09/01/24 11:10 Temperature 36.5 C Temperature Source Temporal Artery Scan Pulse Rate 86 74 Pulse Rate from SpO2 Sensor Respiratory Rate 18 Respiratory Effort / Characteristics Non-Labored Spontaneous Respiratory Depth Normal Blood Pressure 183/108 H 158/97 H Blood Pressure Mean 133 109 Blood Pressure Position Sitting Pulse Oximetry 94 Oxygen Delivery Method Room Air Sepsis Recent Fever Within 48 Hours No Sepsis New/Unexplained Change in Mental Status No Sepsis Action Taken by Nursing No Action Required 09/01/24 11:12 09/01/24 11:42 09/01/24 12:00 Temperature Temperature Source Pulse Rate 70 70 78 Pulse Rate from SpO2 Sensor 70 70 77 Respiratory Rate 18 18 21 Respiratory Effort / Characteristics Respiratory Depth Blood Pressure Blood Pressure Mean Blood Pressure Position Pulse Oximetry 94 94 95 Oxygen Delivery Method Room Air Room Air Room Air Sepsis Recent Fever Within 48 Hours Sepsis New/Unexplained Change in Mental Status Sepsis Action Taken by Nursing 09/01/24 12:01 09/01/24 12:03 09/01/24 12:13 Temperature Temperature Source Pulse Rate 76 76 Pulse Rate from SpO2 Sensor 76 76 Respiratory Rate 18 17 Respiratory Effort / Characteristics Respiratory Depth Blood Pressure 184/84 H Blood Pressure Mean 114 Blood Pressure Position Pulse Oximetry 95 96 Oxygen Delivery Method Room Air Room Air Sepsis Recent Fever Within 48 Hours Sepsis New/Unexplained Change in Mental Status Sepsis Action Taken by Nursing 09/01/24 12:30 09/01/24 12:33 09/01/24 12:42 Temperature Temperature Source Pulse Rate 74 74 Pulse Rate from SpO2 Sensor 73 76 Respiratory Rate 17 18 Respiratory Effort / Characteristics Respiratory Depth Blood Pressure 137/90 Blood Pressure Mean 116 Blood Pressure Position Pulse Oximetry 96 94 Oxygen Delivery Method Room Air Room Air Sepsis Recent Fever Within 48 Hours Sepsis New/Unexplained Change in Mental Status Sepsis Action Taken by Nursing 09/01/24 12:57 09/01/24 13:00 09/01/24 13:00 Temperature Temperature Source Pulse Rate 87 83 Pulse Rate from SpO2 Sensor 87 83 Respiratory Rate 26 H 21 Respiratory Effort / Characteristics Respiratory Depth Blood Pressure 168/88 H Blood Pressure Mean 125 Blood Pressure Position Pulse Oximetry 99 96 Oxygen Delivery Method Room Air Room Air Sepsis Recent Fever Within 48 Hours Sepsis New/Unexplained Change in Mental Status Sepsis Action Taken by Nursing 09/01/24 13:12 09/01/24 13:24 Temperature Temperature Source Pulse Rate 99 H 89 Pulse Rate from SpO2 Sensor 95 H 89 Respiratory Rate 28 H 17 Respiratory Effort / Characteristics Respiratory Depth Blood Pressure Blood Pressure Mean Blood Pressure Position Pulse Oximetry 96 96 Oxygen Delivery Method Room Air Room Air Sepsis Recent Fever Within 48 Hours Sepsis New/Unexplained Change in Mental Status Sepsis Action Taken by Residential Medications Current Medication List: was personally reviewed by me Administered Medications Discontinued Medications Lidocaine HCl (Lidocaine 2% Local 50 Ml Vial) Confirm Administered Dose 50 ml .ROUTE .Shoulder Tap ONE Stop: 09/01/24 12:40 Last Admin: 09/01/24 13:25 Dose: 25 ml Documented By: [id number] Imaging Data Attestation: I personally reviewed and interpreted this imaging study as follows: My Impression: I did review the patient's chest x-ray which was done as an outpatient. There does appear to be a hydropneumothorax on the right. A postprocedure x-ray was done in the emergency department. My interpretation is interval placement of chest tube. Final report below. Radiologist's Impression: Chest X-Ray 09/01/24 13:13 XR chest 1V portable CLINICAL HISTORY: Chest tube placement COMPARISON STUDY: 09/01/2024 FINDINGS: There is interval pleural catheter lateral right base. There is a trace residual right basilar hydropneumothorax, improved. Otherwise the lungs remain aerated. IMPRESSION: Interval improvement. ACT 112: Negative or not required by law. Electronically signed by: Henri Lazo M.D. 09/01/2024 1:37 PM Discharge Plan Visit Data Chief Complaint: Referred by Doctor Stated Complaint: RT LUNG/TUBE NEEDS PLACED ED Provider: Deion Fine Discharge Problem: Hydropneumothorax Patient Disposition: Being Evaluated by Hospitalist Forms Stand Alone Forms: My [facility] Prescriptions Prescriptions: No Action cholecalciferol (vitamin D3) 1,250 mcg (50,000 unit) capsule 50,000 unit PO WEEKLY Qty: 12 1RF levothyroxine 125 mcg tablet 125 mcg PO .COMPLEX Qty: 220 1RF Rx Instructions: TAKES 125 MCG FRIDAY THROUGH FRIDAY, THE 250 MCG ON SUNDAYS. bupropion HCl [Wellbutrin SR] 150 mg tablet sustained-release 12 hr 150 mg PO BID Qty: 180 1RF ipratropium-albuterol 0.5 mg-3 mg(2.5 mg base)/3 mL solution for nebulization 3 ml INHALATION Q4H PRN (Reason: Shortness Of Breath Or Wheezing) Qty: 90 0RF rizatriptan [Maxalt-BOBTAIL DRIVER] 10 mg tablet,disintegrating See Rx Instructions PO .COMPLEX Qty: 12 1RF Rx Instructions: take 1 tab at onset of headache; if no relief may repeat 1 tab after at least 2 hrs; max = 3 tabs/24 hr PO insulin glargine [Lantus Solostar U-100 Insulin] 100 unit/mL (3 mL) insulin pen 10 unit subcut QPM Qty: 15 2RF Rx Instructions: IF BSG IN AM IS >140, ADD 2 UNITS TO DOSE. atorvastatin 20 mg tablet 20 mg PO QAM Qty: 90 1RF furosemide 20 mg tablet 20 mg PO QAM Qty: 90 1RF budesonide-formoterol 160-4.5 mcg/actuation HFA aerosol inhaler 2 puff INHALATION BID PRN (Reason: Shortness Of Breath Or Wheezing) Qty: 10.2 3RF losartan 100 mg tablet 100 mg PO QAM Qty: 90 1RF metoprolol tartrate 50 mg tablet 50 mg PO BID Qty: 180 1RF spironolactone 25 mg tablet 25 mg PO HS Qty: 90 1RF topiramate 100 mg tablet 100 mg PO BID Qty: 180 1RF Ozempic 0.25 mg or 0.5 mg (2 mg/3 mL) pen injector 0.5 mg subcut WK 0RF hydrocodone-acetaminophen 5-325 mg tablet See Rx Instructions PO .COMPLEX PRN (Reason: pain) Qty: 30 0RF Rx Instructions: 1-2 tabs PO Q4-6 HRS PRN; No more than 8 tablets daily. albuterol sulfate 90 mcg/actuation HFA aerosol inhaler 1 - 2 puff inhalation .Q4-6HRS PRN (Reason: Shortness Of Breath Or Wheezing) nitroglycerin [Nitrostat] 0.4 mg Tablet, Sublingual 0.4 mg Sublingual DIRECTED PRN (Reason: Chest Pain) Rx Instructions: PLACE ONE TABLET UNDER THE TONGUE EVERY 5 MINUTES FOR UP TO 3 DOSES OVER 15 MINUTES IF NEEDED FOR CHEST PAIN dextromethorphan-guaifenesin [Robitussin Cough-Chest Doc DM] 5-100 mg/5 mL Liquid 10 ml PO Q6 PRN (Reason: cough) Qty: 200 1RF Referrals Referrals: Yash Baxter III, CRNP [Primary Care Provider] -
--- NOTE | 2024-09-01 13:23 | Procedure Note ---
Procedure Note Date of Service September 01, 2024 Procedure: Pigtail chest tube insertion Almond Paste Mixer: Dr. Laila Munroe Indication: Worsening symptomatic right-sided pneumothorax Consent: Signed by patient and verified with timeout prior to procedure Anesthesia: 1% lidocaine without epinephrine local Procedure: Consent was verified and timeout performed. Appropriate imaging studies were reviewed prior to the procedure. Patient was placed in a seated position. Appropriate site above the diaphragm on the right midaxillary line fourth intercostal space for chest tube insertion was selected. The skin was prepped and draped in normal sterile fashion. Lidocaine was used for local analgesia. Serosanguineous was aspirated via the finder needle. A small skin yash was made with the scalpel and the catheter over the needle apparatus was advanced over the rib into the pleural space. With the help of guidewire and Seldinger technique, 14 Divehi pigtail catheter was inserted and connected to Pleur-evac. After approximately 750 mL of serosanguineous fluid air bubbling were appreciated which were intermittent. Patient did have extensive coughing. Chest x-ray to follow Fluid was sent for culture and cytology The patient tolerated the procedure without obvious complication Complications: None Blood loss: Less than 1 cc. [facility] [place]Charges) Pulmonary/Thoracic Procedure 1: Pulmonary and Thoracic: 59474 Tube thoracostomy Procedure 2: Pulmonary and Thoracic: 68578 Pleural drainage w/o imaging Coding CPT Codes Pulmonary/Thoracic - Pulmonary and Thoracic: 78839 Tube thoracostomy ([id number]) Pulmonary/Thoracic - Pulmonary and Thoracic: 75937 Pleural drainage w/o imaging ([id number]) Additional Codes Date of Service (PG.SURGERY)
--- NOTE | 2024-09-01 13:24 | History & Physical Report ---
Date of Service September 01, 2024 Assessment & Plan (1) Malignant pleural effusion: Plan: Consult pulmonology for consideration of chest tube Follow up CXR per pulm recommendations (2) Hydropneumothorax: Plan HTN / hypothyroidism / Chronic migraines / depression - continue usual medications VTE Prophylaxis - deferred pending chest tube insertion and decisions regarding pleurx Diet - T2DM Disposition - admit to med/tele Admission and Anticipated Discharge Date Admission Date: September 01, 2024 History of Present Illness Chief Complaint: Right sided hydropneumothorax Primary Care Provider: Yash Baxter, III, ROSAURA Aretha Ceja is a 59 year old female who presents to the ER with right sided chest pressure (she denies this is painful) and worsening hydropneumothorax. She was advised to come to the ER by her i&c technician for chest tube insertion. She denies any fever or chills. She has a known malignant pleural effusion with thoracentesis performed on August 24 with 1000ml removed at that time. Initially she felt her shortness of breath improve but this started to get worse again yesterday. She denies any cough. Allergies Allergy/AdvReac Type Severity Reaction Status Date / Time cephalexin Allergy Severe SHORTNESS Verified 08/24/24 15:53 OF BREATH sulfamethoxazole [Bactrim] Allergy Severe SHORTNESS Verified 08/24/24 15:53 OF BREATH trimethoprim [Bactrim] Allergy Severe SHORTNESS Verified 08/24/24 15:53 OF BREATH ceftriaxone Allergy Intermediate REDNESS, Verified 08/24/24 15:53 ITCHING tramadol Allergy Intermediate ITCHY Verified 08/24/24 15:53 vancomycin Allergy Intermediate ITCHING Verified 08/24/24 15:53 ALL OVER, RASH, PARESTHESIAS cefdinir Allergy Unknown unknown Verified 08/24/24 15:53 codeine AdvReac Severe GI BLEED Verified 08/24/24 15:53 tamoxifen AdvReac Severe "CAN'T Verified 08/24/24 15:53 MOVE" Home Medications Medication Instructions Recorded Confirmed Type nitroglycerin 0.4 mg sublingual 0.4 mg sublingual DIRECTED PRN 04/29/18 09/01/24 History tablet (Nitrostat) Chest Pain albuterol sulfate 90 mcg/actuation 1 - 2 puff inhalation .Q4-6HRS PRN 09/16/20 09/01/24 History aerosol inhaler Shortness Of Breath Or Wheezing rizatriptan 10 mg disintegrating See Rx Instructions PO .COMPLEX 11/21/21 09/01/24 Rx tablet (Maxalt-BOW MACHINE OPERATOR) #12 tabs atorvastatin 20 mg tablet 20 mg PO QAM #90 tabs 11/26/22 09/01/24 Rx budesonide-formoterol HFA 160 2 puff inhalation BID PRN 11/26/22 09/01/24 Rx mcg-4.5 mcg/actuation aerosol Shortness Of Breath Or Wheezing inhaler #10.2 grams furosemide 20 mg tablet 20 mg PO QAM #90 tabs 11/26/22 09/01/24 Rx insulin glargine 100 unit/mL (3 10 unit (0.1 mL) subcut QPM #15 mL 11/26/22 09/01/24 Rx mL) subcutaneous pen (Lantus Solostar U-100 Insulin) losartan 100 mg tablet 100 mg PO QAM #90 tabs 11/26/22 09/01/24 Rx metoprolol tartrate 50 mg tablet 50 mg PO BID #180 tabs 11/26/22 09/01/24 Rx spironolactone 25 mg tablet 25 mg PO HS #90 tabs 11/26/22 09/01/24 Rx topiramate 100 mg tablet 100 mg PO BID #180 tabs 11/26/22 09/01/24 Rx cholecalciferol (vitamin D3) 1,250 50,000 unit PO WEEKLY #12 caps 12/11/23 09/01/24 Rx mcg (50,000 unit) capsule hydrocodone 5 mg-acetaminophen 325 See Rx Instructions PO .COMPLEX 07/06/24 09/01/24 Rx mg tablet PRN pain #30 tabs levothyroxine 125 mcg tablet 125 mcg PO .COMPLEX #220 tabs 07/12/24 09/01/24 Rx bupropion HCl 150 mg tablet,12 hr 150 mg PO BID #180 ea 08/16/24 09/01/24 Rx sustained-release (Wellbutrin SR) ipratropium 0.5 mg-albuterol 3 mg 3 ml inhalation Q4H PRN Shortness 08/19/24 09/01/24 Rx (2.5 mg base)/3 mL nebulization Of Breath Or Wheezing #90 mL soln dextromethorphan-guaifenesin 5 10 ml PO Q6 PRN cough #200 mL 08/25/24 09/01/24 Rx mg-100 mg/5 mL oral liquid (Robitussin Cough-Chest Congestion DM) Past Med/Surg History Problem List (Updated 09/01/24 @ 13:24 by Ino Ortiz MD) Malignant pleural effusion Hydropneumothorax (Acute) Hydropneumothorax Multiple pulmonary nodules COPD with emphysema Chest pain (Acute) Pleural effusion (Acute) Left leg pain Umbilical hernia without obstruction or gangrene Depression Tobacco abuse (Acute) Hypothyroidism (Acute 11/23/12) Benign essential hypertension (Acute 11/23/12) Gastro-esophageal reflux disease without esophagitis (Acute 11/23/12) Bipolar disorder, unspecified (Acute 11/23/12) History of breast cancer Port-A-Cath in place [place] 2012 Dr. Td Grossman Vitamin D deficiency (Acute) Laryngopharyngeal reflux (Acute) Hypercholesterolemia (Acute) Neuropathic pain of chest Ventral hernia Cervical radiculopathy Cervical stenosis of spine Diabetes mellitus, type 2 Morbid obesity COPD (chronic obstructive pulmonary disease) (Acute) Medical History Left cervical radiculopathy Hidradenitis Adhesive capsulitis of left shoulder History of colon polyps History of COVID-19 07/2021>HEADACHE/SOB/JOINT PAIN *RESOLVED Hearing difficulty History of dysplastic nevus Pituitary abnormality Osteoarthritis Gastroparesis GERD (gastroesophageal reflux disease) Hypothyroidism Asthma LAST USED RESCUE INHALER MAY 2022 Hypertension Hyperlipidemia Hiatal hernia Syncope LAST EPISODE JULY 2020 Migraine History of diverticulitis Hx of breast cancer RT (SURGERY WITH RADIATION) Anxiety and depression H/O abscess of breast NO CURRENT INFECTION Liver lesion Surgical History History of hernia surgery Sep 2022 H/O umbilical hernia repair History of removal of Port-a-Cath (12/08/20) Access Port Removal(Left) 12/08/20 Dr. Gallegos History of breast biopsy Hx of melanoma excision History of tooth extraction History of vascular access device A-PORT>REMOVED History of excision of lesion 2017 excision left axilla- abscess Dr. Brunner [address] Brunner H/O colonoscopy History of esophagogastroduodenoscopy (EGD) H/O thyroidectomy REMOVED D/T "SO MANY PROBLEMS WITH MY THRYOID" Hx of hysterectomy Hx laparoscopic cholecystectomy History of mastectomy partial mastectomy 2008 Dr. Ferris Total mastectomy>RT 2009 Dr. Ferris NO RECONSTRUCTION H/O section X 2 Family History Mother Ovarian cancer Colon cancer Father Pancreatic cancer Colorectal cancer Grandmother (Maternal) Colorectal cancer Other No family history of adverse response to anesthesia Denies family history of Prostate cancer Myocardial infarction Breast cancer Social History Smoking Status: Current every day smoker Tobacco Type: Cigarettes Age Started Using Tobacco: 10; packs per day: 0.5; Cigarettes Per Day: 2-3; Second Hand Exposure: No; Do You Dip or Chew Tobacco: No; Hx Alcohol Use: No Hx Substance Use: No Preferred Language: Citizen Of [place] Communication Ability: Effective Visual Impairment: No Limitations Hearing Ability: Normal Material Manager Required: No Beliefs That Will Affect Care: None marital status: Current Living Situation: Spouse Current Living Situation Comment: home with 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 How many Children do You have: 2 Other Information That Helps Us Care for You: No Feels Safe at Home: Yes Safety Concerns: Feels Safe At This Time Childhood Exposure to Second-Hand Smoke: Yes Diet: regular Dental Care, Regularly: No Physical Activity Frequency: Daily Seatbelt Use: never Sunscreen Use: Yes Assistive Devices: Glasses and Nebulizer Review of Systems Review of Systems: All systems reviewed & are unremarkable except as noted in HPI & below Physical Exam Constitutional: WD/WN, vitals as above ENMT: external ear and nose normal, oropharynx normal Respiratory: normal respiratory effort; no respiratory distress Auscultation: + crackles (bibasal R > L); no diminished lung sounds, no rales and no wheezes Cardiovascular: RRR, no murmur, no edema Gastrointestinal (Abdomen): normal bowel sounds, soft, nontender, no hepatosplenomegaly Musculoskeletal: no cyanosis or clubbing, extremities motor strength 5/5 Results & Data Results & Data Vital Signs (Past 12 Hours) Vital Signs Temp Pulse Resp BP Pulse Ox O2 Del Method 09/01/24 12:01 184/84 H 09/01/24 12:00 78 21 95 Room Air 09/01/24 11:42 70 18 94 Room Air 09/01/24 11:12 70 18 94 Room Air 09/01/24 11:10 74 09/01/24 11:01 158/97 H 09/01/24 10:25 36.5 C 86 18 183/108 H 94 Room Air Diagnostic Findings XR chest 2V PA/lateral HISTORY: 59 years-old Female J94.8 - Other specified pleural conditions COMPARISON: 08/30/2024 TECHNIQUE: PA and lateral views of the chest FINDINGS: Cardiac silhouette is enlarged. Pulmonary vascular congestion with interstitial coarsening. Small left pleural effusion with bibasilar consolidation. Right- sided hydropneumothorax redemonstrated with pneumothorax component again most notably seen in the lateral right lung base. The pneumothorax appears to be small and the pleural effusion appears to be small to moderate and may have slightly increased. Subcutaneous emphysema the right lateral chest wall and back. IMPRESSION: 1. Right-sided hydropneumothorax is redemonstrated with stable to slightly increased amount of pleural fluid. 2. Cardiomegaly with pulmonary vascular congestion. 3. Small left pleural effusion with mild left basilar consolidation. Medications Administered ER Medications Given: None Code Status & VTE Plan Code Status DNR/DNI per patient wishes VTE Prophylaxis Plan VTE Prophylaxis will be ordered: No PG Care Time/CCT Total # of Minutes Spent Total Time Spent with Patient: Total time spent is greater than 50% in coordination of care (as documented) at patient's floor/unit and/or counseling patient: Coding Level of Care Code 64422 INT INP/OBS CARE 2/55MIN Diagnoses Malignant pleural effusion J91.0 Hydropneumothorax J94.8
[2024-09-01] MEDS: LIDOCAINE 2% LOCAL 50 ML VIAL ONE (13:25)
--- NOTE | 2024-09-01 13:32 | Pulmonary Consultation ---
Date of Consultation September 01, 2024 Assessment & Plan (1) Malignant pleural effusion: (2) Hydropneumothorax: (3) COPD with emphysema: (4) Tobacco abuse: Plan Chest x-ray 09/01/2024 personally reviewed: PA/lateral view, right-sided hydropneumothorax with worsening pleural effusion, slight progression of pneumothorax CTA chest 08/24/2024 personally reviewed: Moderate right-sided pleural effusion Multiple pulmonary nodules appreciated bilaterally Centrilobular emphysema with bullae in the lingula Compressive atelectasis of the right lower lobe No significant mediastinal lymphadenopathy -- Symptomatic moderate right-sided hydropneumothorax S/p thoracentesis 08/24/2024, 1 L serous fluid removed, cytology positive for breast cancer Pigtail catheter placed 09/01/2024 Continue with serial chest x-rays --COPD with emphysema Approximately [id number] smoking history, current smoker On Symbicort 160 at home along with as needed albuterol -- Multiple pulmonary nodules Increasing in size Possibility of recurrence of breast cancer versus new lung cancer is again -- Malignant right-sided pleural effusion Cytology was positive for breast cancer Recommend oncology to see the patient as well to get the plan set Plan: Patient was given option regarding Pleurx catheter versus simple pigtail catheter. Patient opted for pigtail catheter Antitussive medication [id number] postprocedure Risk and benefit of the procedure explained to the patient in depth. Patient understands and wants to go ahead with the procedures Consent signed, witnessed and put in the chart Please note the above document was generated using voice recognition software. It may contain grammatical, syntax or spelling errors.Any formal questions or concerns about the content, text or information contained within the body of this dictation should be directly addressed to the provider for clarification. History of Present Illness History of Present Illness 59-year-old female present to the hospital for right-sided chest pressure and w orsening hydropneumothorax Past medical history: Right-sided breast cancer s/p lumpectomy and radiation, dyslipidemia, anxiety/depression, hypertension, hypothyroidism Patient's was in the room at the time of examination Patient was in the hospital end of July for right-sided pleural effusion and hydropneumothorax She was feeling well so she was discharged with close monitoring with serial chest x-rays. On the serial chest x-ray it seemed that the patient's pleural effusion was getting worse. Her pneumothorax seem to be stable to slightly worse but she was complaining of chest discomfort and pressure on the right side for which she was asked to come to the ER. At the time of examination patient was not in any respiratory distress Systolic blood pressure was in the 160s. Heart rate in the high 70s to low 80s. She was saturating 94-95% on room air. Occasional cough with clear phlegm. No hemoptysis No dysuria. Does have chronic diarrhea which has not changed in frequency or intensity. Denies any nausea or vomiting No unusual headache or blurry vision Has lost approximately 5 pounds in the last month or so. Social history: [id number] smoking history, currently smoking a pack a day Allergies Allergy/AdvReac Type Severity Reaction Status Date / Time cephalexin Allergy Severe SHORTNESS Verified 08/24/24 15:53 OF BREATH sulfamethoxazole [Bactrim] Allergy Severe SHORTNESS Verified 08/24/24 15:53 OF BREATH trimethoprim [Bactrim] Allergy Severe SHORTNESS Verified 08/24/24 15:53 OF BREATH ceftriaxone Allergy Intermediate REDNESS, Verified 08/24/24 15:53 ITCHING tramadol Allergy Intermediate ITCHY Verified 08/24/24 15:53 vancomycin Allergy Intermediate ITCHING Verified 08/24/24 15:53 ALL OVER, RASH, PARESTHESIAS cefdinir Allergy Unknown unknown Verified 08/24/24 15:53 codeine AdvReac Severe GI BLEED Verified 08/24/24 15:53 tamoxifen AdvReac Severe "CAN'T Verified 08/24/24 15:53 MOVE" Home Medications Medication Instructions Recorded Confirmed Type nitroglycerin 0.4 mg sublingual 0.4 mg sublingual DIRECTED PRN 04/29/18 08/24/24 History tablet (Nitrostat) Chest Pain albuterol sulfate 90 mcg/actuation 1 - 2 puff inhalation .Q4-6HRS PRN 09/16/20 08/24/24 History aerosol inhaler Shortness Of Breath Or Wheezing rizatriptan 10 mg disintegrating See Rx Instructions PO .COMPLEX 11/21/21 08/24/24 Rx tablet (Maxalt-ELECTRONIC PAGE MAKEUP SYSTEM OPERATOR) #12 tabs atorvastatin 20 mg tablet 20 mg PO QAM #90 tabs 11/26/22 08/24/24 Rx budesonide-formoterol HFA 160 2 puff inhalation BID PRN 11/26/22 08/24/24 Rx mcg-4.5 mcg/actuation aerosol Shortness Of Breath Or Wheezing inhaler #10.2 grams furosemide 20 mg tablet 20 mg PO QAM #90 tabs 11/26/22 08/24/24 Rx insulin glargine 100 unit/mL (3 10 unit (0.1 mL) subcut QPM #15 mL 11/26/22 08/24/24 Rx mL) subcutaneous pen (Lantus Solostar U-100 Insulin) losartan 100 mg tablet 100 mg PO QAM #90 tabs 11/26/22 08/24/24 Rx metoprolol tartrate 50 mg tablet 50 mg PO BID #180 tabs 11/26/22 08/24/24 Rx spironolactone 25 mg tablet 25 mg PO HS #90 tabs 11/26/22 08/24/24 Rx topiramate 100 mg tablet 100 mg PO BID #180 tabs 11/26/22 08/24/24 Rx cholecalciferol (vitamin D3) 1,250 50,000 unit PO WEEKLY #12 caps 12/11/23 08/24/24 Rx mcg (50,000 unit) capsule hydrocodone 5 mg-acetaminophen 325 See Rx Instructions PO .COMPLEX 07/06/24 08/24/24 Rx mg tablet PRN pain #30 tabs levothyroxine 125 mcg tablet 125 mcg PO .COMPLEX #220 tabs 07/12/24 08/24/24 Rx bupropion HCl 150 mg tablet,12 hr 150 mg PO BID #180 ea 08/16/24 08/24/24 Rx sustained-release (Wellbutrin SR) ipratropium 0.5 mg-albuterol 3 mg 3 ml inhalation Q4H PRN Shortness 08/19/24 08/24/24 Rx (2.5 mg base)/3 mL nebulization Of Breath Or Wheezing #90 mL soln dextromethorphan-guaifenesin 5 10 ml PO Q6 PRN cough #200 mL 08/25/24 Rx mg-100 mg/5 mL oral liquid (Robitussin Cough-Chest Congestion DM) Patient History Medical History Left cervical radiculopathy Hidradenitis Adhesive capsulitis of left shoulder History of colon polyps History of COVID-19 07/2021>HEADACHE/SOB/JOINT PAIN *RESOLVED Hearing difficulty History of dysplastic nevus Pituitary abnormality Osteoarthritis Gastroparesis GERD (gastroesophageal reflux disease) Hypothyroidism Asthma LAST USED RESCUE INHALER MAY 2022 Hypertension Hyperlipidemia Hiatal hernia Syncope LAST EPISODE JULY 2020 Migraine History of diverticulitis Hx of breast cancer RT (SURGERY WITH RADIATION) Anxiety and depression H/O abscess of breast NO CURRENT INFECTION Liver lesion Surgical History History of hernia surgery Sep 2022 H/O umbilical hernia repair History of removal of Port-a-Cath (12/08/20) Access Port Removal(Left) 12/08/20 Dr. Gallegos History of breast biopsy Hx of melanoma excision History of tooth extraction History of vascular access device A-PORT>REMOVED History of excision of lesion 2016 excision left axilla- abscess Dr. Brunner [address] Brunner H/O colonoscopy History of esophagogastroduodenoscopy (EGD) H/O thyroidectomy REMOVED D/T "SO MANY PROBLEMS WITH MY THRYOID" Hx of hysterectomy Hx laparoscopic cholecystectomy History of mastectomy partial mastectomy 2008 Dr. Ferris Total mastectomy>RT 2009 Dr. Ferris NO RECONSTRUCTION H/O section X 2 Family History Mother Ovarian cancer Colon cancer Father Pancreatic cancer Colorectal cancer Grandmother (Maternal) Colorectal cancer Other No family history of adverse response to anesthesia Denies family history of Prostate cancer Myocardial infarction Breast cancer Social History Smoking Status: Former smoker Tobacco Type: Cigarettes Age Started Using Tobacco: 10; packs per day: 0.5; Cigarettes Per Day: 1/2-1 PPD; Second Hand Exposure: No; Do You Dip or Chew Tobacco: No; Hx Alcohol Use: No Hx Substance Use: No Preferred Language: Spanish Communication Ability: Effective Visual Impairment: No Limitations Hearing Ability: Normal Port Patrol Officer Required: No Beliefs That Will Affect Care: None marital status: Current Living Situation: Spouse Current Living Situation Comment: home with in trailer, 4 steps to enter 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 How many Children do You have: 2 Feels Safe at Home: Yes Childhood Exposure to Second-Hand Smoke: Yes Diet: regular Dental Care, Regularly: No Physical Activity Frequency: Daily Seatbelt Use: never Sunscreen Use: Yes Assistive Devices: Glasses and Nebulizer Review of Systems Review of Systems: All systems reviewed & are unremarkable except as noted in HPI & below Physical Exam Physical Exam: Constitutional: No respiratory distress HEENT: EOMI, PERRLA Respiratory system: Decreased air entry on the right side, no wheeze, no rhonchi, positive crackles right lower lobe CVS: S1-S2 positive, no murmurs or gallops Abdomen: Soft, nontender, nondistended, positive bowel sounds x4, obese Extremities: +2 pulses bilaterally radialis/ dorsalis pedis, no cyanosis, +1 pitting edema bilateral lower extremity Neuro: Awake alert oriented x3 Psych: Normal mood and affect G/U: No [place] Skin: no rashes, warm and dry Lymphatic: no cervical or axillary lymphadenopathy Results & Data Results & Data Vital Signs (Past 12 Hours) Vital Signs Temp Pulse Resp BP Pulse Ox O2 Del Method 09/01/24 12:01 184/84 H 09/01/24 12:00 78 21 95 Room Air 09/01/24 11:42 70 18 94 Room Air 09/01/24 11:12 70 18 94 Room Air 09/01/24 11:10 74 09/01/24 11:01 158/97 H 09/01/24 10:25 36.5 C 86 18 183/108 H 94 Room Air PG Care Time/CCT Total # of Minutes Spent Total Time Spent with Patient: Total time spent is greater than 50% in coordination of care (as documented) at patient's floor/unit and/or counseling patient: Coding Level of Care Code 81000 INT INP/OBS CARE 3/75MIN Diagnoses Malignant pleural effusion J91.0 Hydropneumothorax J94.8 COPD with emphysema J43.9 Tobacco abuse Z72.0
--- NOTE | 2024-09-01 13:38 | XRay Report ---
XR chest 1V portable CLINICAL HISTORY: Chest tube placement COMPARISON STUDY: 09/01/2024 FINDINGS: There is interval pleural catheter lateral right base. There is a trace residual right basi lar hydropneumothorax, improved. Otherwise the lungs remain aerated. IMPRESSION: Interval improvement. ACT 112: Negative or not required by law. Electronically signed by: Henri Lazo M.D. 09/01/2024 1:37 PM
[2024-09-01] MEDS ORDERED: DEXTROSE 50% 50 ML SYRINGE IV PRN (14:46)
[2024-09-01] MEDS ORDERED: GLUCOSE 40% GEL 15 GM TUBE PO PRN (14:46)
[2024-09-01] MEDS ORDERED: CARBOHYDRATES FOR HYPOGLYCEMIA PO PRN (14:46)
[2024-09-01] MEDS ORDERED: GLUCOSE 10 TAB/TUBE PO PRN (14:46)
[2024-09-01] MEDS ORDERED: GLUCAGON FOR INJ 1 MG VIAL SQ PRN (14:46)
[2024-09-01] MEDS ORDERED: ALBUT/IPRATROP 3MG/0.5MG NEB 3 ML VIAL INH PRN (14:56)
[2024-09-01 15:32] LABS: Basophils # (auto) 0.04 K/uL (0.00-0.20); Basophils % (auto) 0.3 %; Eosinophils # (auto) 0.29 K/uL (0.00-0.50); Eosinophils % (auto) 2.1 %; Hematocrit (blood only) 48.5 % (37.0-47.0); Hemoglobin 16.9 g/dl (12.0-16.0); Immature Granulocytes # (auto) 0.08 K/uL (0.01-0.20); Immature Granulocytes % (auto) 0.6 %; Lymphocytes # (auto) 3.23 K/uL (1.20-3.40); Lymphocytes % (auto) 23.5 %; Mean Corpuscular Hemoglobin 29.5 pg (25.0-34.0); Mean Corpuscular Hgb Conc 34.8 g/dL (32.0-36.0); Mean Corpuscular Volume 84.8 fL (80.0-100.0); Mean Platelet Volume 9.4 fL (9.4-12.4); Monocytes # (auto) 0.57 K/uL (0.11-0.59); Monocytes % (auto) 4.1 %; Neutrophils # (auto) 9.55 K/uL (1.40-6.50); Neutrophils % (auto) 69.4 %; Platelet Count 300 K/uL (130-400); RDW Coefficient of Variation 12.5 % (11.5-14.5); RDW Standard Deviation 38.4 fL (36.4-46.3); Red Blood Count 5.72 M/uL (4.20-5.40); White Blood Count 13.76 K/ul (4.8-10.8)
[2024-09-01] MEDS: LOSARTAN POTASSIUM 50 MG TAB PO STA (15:32)
[2024-09-01 15:47] LABS: BUN Creatinine Ratio 16.7 (10-20); Calcium 8.9 mg/dl (8.6-10.3); Potassium 3.8 mmol/L (3.5-5.1)
[2024-09-01 16:02] LABS: Prothrombin Time 10.5 Seconds (9.0-12.0)
[2024-09-01] MEDS: ONDANSETRON INJ 2 MG/ML 2 ML VIAL IV PRN (18:06)
[2024-09-01] MEDS: HYDROCODONE/ACETAMOPHEN 5/325MG TAB PO PRN (18:09)
[2024-09-01] MEDS: ONDANSETRON 4 MG OD TAB PO PRN (18:18)
[2024-09-01] MEDS: INSULIN ASPART PER UNIT CHARGE SC SCH (19:22)
[2024-09-01] MEDS: SPIRONOLACTONE 25 MG TAB PO SCH (22:19)
[2024-09-01] MEDS: buPROPion SR 150 MG TABCR PO SCH (22:19)
[2024-09-01] MEDS: TOPIRAMATE 100 MG TAB PO SCH (22:20)
[2024-09-01] MEDS: METOPROLOL TARTRATE 50 MG TAB PO SCH (22:20)
[2024-09-01] MEDS: LANTUS PER UNIT CHARGE SQ SCH (22:25)
[2024-09-02] MEDS ORDERED: NICOTINE POLACRILEX 2 MG GUM MT PRN (00:21)
[2024-09-02] MEDS: LEVOTHYROXINE SODIUM 125 MCG TABLET PO SCH (05:42)
--- NOTE | 2024-09-02 07:41 | XRay Report ---
EXAM: XR chest 1V portable CLINICAL HISTORY: F/U [facility] TECHNIQUE: CR chest, in 1 frontal projection. COMPARISON: 08/25/2024 CR. FINDINGS: An intercostal pigtail catheter is seen overlying the right lower zone. Resolution of the previously noted surgical emphysema. Interval regression regarding the degree of right pleural effusion (suggested minimal to mild amount in the current study). No gross air-space opacities. Limited evaluation of the cardiac size given an AP projection (unchanged). No mediastinal widening. No acute osseous abnormality. IMPRESSION: 1. Interval improvement regarding the degree of right pleural effusion (considered minimal to mild amount in the current study). 2. No newly developed pathology. 3. An intercostal pig-tail catheter is seen overlying the right lower zone. Electronically signed by Yee Renner 09-02-2024 07:40 AM
[2024-09-02] MEDS: FUROSEMIDE 20 MG TAB PO SCH (07:58)
[2024-09-02] MEDS: ATORVASTATIN 20 MG TAB PO SCH (07:58)
[2024-09-02] MEDS: LOSARTAN POTASSIUM 50 MG TAB PO SCH (07:59)
--- NOTE | 2024-09-02 08:36 | Pulmonology Progress Note ---
Date of Service September 02, 2024 Assessment & Plan (1) Malignant pleural effusion: (2) Hydropneumothorax: (3) COPD with emphysema: (4) Tobacco abuse: Plan Chest x-ray 09/01/2024 personally reviewed: PA/lateral view, right-sided hydropneumothorax with worsening pleural effusion, slight progression of pneumothorax CTA chest 08/24/2024 personally reviewed: Moderate right-sided pleural effusion Multiple pulmonary nodules appreciated bilaterally Centrilobular emphysema with bullae in the lingula Compressive atelectasis of the right lower lobe No significant mediastinal lymphadenopathy -- Symptomatic moderate right-sided hydropneumothorax S/p thoracentesis 08/24/2024, 1 L serous fluid removed, cytology positive for breast cancer Pigtail catheter placed 09/01/2024 Continue with serial chest x-rays --COPD with emphysema Approximately [id number] smoking history, current smoker On Symbicort 160 at home along with as needed albuterol -- Multiple pulmonary nodules Increasing in size Possibility of recurrence of breast cancer versus new lung cancer is again -- Malignant right-sided pleural effusion Cytology was positive for breast cancer Recommend oncology to see the patient as well to get the plan set Plan: Chest x-ray from today does not show any signs of right-sided pneumothorax Will continue with chest tube to waterseal today. Will plan to clamp the tube tomorrow in the morning and repeat chest x-ray around noon Case was discussed with primary team Please note the above document was generated using voice recognition software. It may contain grammatical, syntax or spelling errors.Any formal questions or concerns about the content, text or information contained within the body of this dictation should be directly addressed to the provider for clarification. Admission and Anticipated Discharge Date Admission Date: September 01, 2024 Subjective Patient seen and examined at bedside. No acute distress, no adverse events overnight Patient stated that her coughing is significantly decreased. She is not coughing at all She was saturating well on room air No air leak appreciated on the chest tube. Level was around 950 mL No nausea or vomiting Review of Systems 2 Review of Systems: All systems reviewed & are unremarkable except as noted in Subjective Physical Exam 2 Physical Exam: Constitutional: No respiratory distress HEENT: EOMI, PERRLA Respiratory system: Good air entry bilaterally, no wheeze, no rhonchi, positive crackles right lower lobe CVS: S1-S2 positive, no murmurs or gallops Abdomen: Soft, nontender, nondistended, positive bowel sounds x4, obese Extremities: +2 pulses bilaterally radialis/ dorsalis pedis, no cyanosis, +1 pitting edema bilateral lower extremity Neuro: Awake alert oriented x3 Psych: Normal mood and affect G/U: No [place] Skin: no rashes, warm and dry Lymphatic: no cervical or axillary lymphadenopathy Results & Data Results & Data Vital Signs (Past 12 Hours) Vital Signs Temp Pulse Pulse Resp BP Pulse Ox O2 Del Method 09/02/24 08:18 36.4 C L 64 20 107/78 93 Room Air 09/02/24 07:21 Room Air 09/02/24 07:02 60 09/02/24 03:21 36.4 C L 58 L 16 133/92 93 Room Air 09/02/24 00:19 36.6 C 64 20 122/82 94 Room Air 09/01/24 22:20 Room Air 09/01/24 22:20 37.2 C 65 18 122/78 96 Room Air 09/01/24 22:15 37.2 C 65 16 122/78 96 Room Air 09/01/24 21:41 66 Laboratory Results 09/01/24 15:15 09/01/24 15:15 PG Care Time/CCT Total # of Minutes Spent Total Time Spent with Patient: Total time spent is greater than 50% in coordination of care (as documented) at patient's floor/unit and/or counseling patient: Coding Level of Care Code 60008 SUB INP/OBS CARE 3/50MIN Diagnoses Malignant pleural effusion J91.0 Hydropneumothorax J94.8 COPD with emphysema J43.9 Tobacco abuse Z72.0
--- NOTE | 2024-09-02 12:46 | Hospitalist Progress Note ---
Date of Service September 02, 2024 Assessment & Plan (1) Malignant pleural effusion: Plan: The patient underwent right thoracentesis on August 24. She subsequently developed a right pneumothorax that warranted chest tube insertion yesterday, September 01. Overall she has improved and chest x-ray has improved. I suspect the chest tube will be clamped today, September 02, and subsequently removed. Appreciate pulmonary medicine consultation recommendations. (2) Hydropneumothorax: Plan: Right base. This developed after thoracentesis performed on August 24. Known breast cancer with lung metastases and malignant right pleural effusion (3) COPD with emphysema: Plan: Stable. Continue current medical management (4) Hypothyroidism: Plan: Stable. Continue current medical (5) Benign essential hypertension: Plan: Stable. Continue current medical management (6) Diabetes mellitus, type 2: Plan: ADA diet. Sliding scale insulin coverage if needed. Continue current medical management Plan Hopeful discharge to home tomorrow, September 03 Admission and Anticipated Discharge Date Admission Date: September 01, 2024 Subjective Alert and oriented. No distress. Vital signs are stable. Her chest x-ray appears better. I suspect pulmonary medicine will clamp the chest tube today and it can be removed later today or tomorrow. Hopefully she can go home tomorrow, September 03. Review of Systems 2 Review of Systems: Constitutionalno fever or chills ENTno blurred vision, no double vision, no epistaxis, no sore throat Respiratoryno cough, no wheezing, no shortness of breath Cardiacno palpitations, no chest pain, no syncope Abel nausea, vomiting, diarrhea, melena, hematochezia GUno urinary retention, no urinary incontinence, no dysuria, no hematuria Musculoskeletalno joint pain, no muscle tenderness Skinno bruising, no rashes, no pruritus Neurono isolated weakness, no paresthesia, no weakness Psychno depression, no anxiety Physical Exam 2 Physical Exam: General-alert and oriented x3, no fever, no chills HEENT-head atraumatic and normocephalic, pupils equal and reactive to light, extraocular muscles intact Neck-no lymphadenopathy or thyromegaly, trachea midline Chest-diminished breath sounds at the right base. No rales, wheezing or rhonchi Cardiac-regular rate and rhythm, normal S1 and S2 Abdomen-normal bowel sounds, no hepatosplenomegaly Extremities-no cyanosis, clubbing, or edema Neuro-cranial nerves II through XII intact, motor and sensory function within normal limits, strength symmetrical, no focal deficits Psych-normal affect, normal mood Results & Data Results & Data Vital Signs (Past 12 Hours) Vital Signs Temp Pulse Pulse Resp BP Pulse Ox O2 Del Method 09/02/24 11:21 36.6 C 63 20 128/85 92 Room Air 09/02/24 08:18 36.4 C L 64 20 107/78 93 Room Air 09/02/24 07:21 Room Air 09/02/24 07:02 60 09/02/24 03:21 36.4 C L 58 L 16 133/92 93 Room Air Laboratory Results 09/01/24 15:15 09/01/24 15:15 PG Care Time/CCT Total # of Minutes Spent Total Time Spent with Patient: Total time spent is greater than 50% in coordination of care (as documented) at patient's floor/unit and/or counseling patient: Coding Level of Care Code 67606 SUB INP/OBS CARE 3/50MIN Diagnoses Malignant pleural effusion J91.0 Hydropneumothorax J94.8 COPD with emphysema J43.9 Acquired hypothyroidism E03.9 Hypothyroidism type: acquired Benign essential hypertension I10 Type 2 diabetes mellitus without complication, with long-term current use of insulin E11.9; Z79.4 Diabetes mellitus intermediate accountant insulin use: with intermediate accountant use Diabetes mellitus complication status: without complication (4) Hypothyroidism Hypothyroidism type: acquired Qualified Code(s): E03.9 - Hypothyroidism, unspecified (6) Diabetes mellitus, type 2 Diabetes mellitus intermediate accountant insulin use: with fpc use Diabetes mellitus complication status: without complication Qualified Code(s): E11.9 - Type 2 diabetes mellitus without complications; Z79.4 - terminal block assembler (current) use of insulin
--- NOTE | 2024-09-02 17:00 | Oncology Consultation ---
Date of Consultation September 02, 2024 Assessment & Plan (1) Malignant pleural effusion: (2) Multiple pulmonary nodules: (3) Pleural effusion: Plan 59-year-old recently diagnosed with stage IV breast cancer with malignant pleural effusion.She has ER/NV positive disease and HER2 was 2+ by IHC with FISH pending. Given ER/NV positive disease, she would likely benefit from CDK 4/6 inhibitor in combination with endocrine therapy as long as HER2 is negative by FISH. If HER2 positive, we will plan to treat with monoclonal antibody in combination with single agent chemotherapy -Consider obtaining CT abdomen and pelvis for full staging. If this cannot be obtained while inpatient, we will plan to schedule her for outpatient PET/CT -Follow-up with me in about 1 to 2 weeks to discuss treatment options Patient agreed with above plan. Thank you for this consult. Please feel free to call if you have any further questions History of Present Illness Reason for Consultation: Breast cancer Attending Physician: Arnaldo Bland MD History of Present Illness Pleasant 59-year-old female with medical history significant for ER/NV positive right breast cancer diagnosed in 2008 for which she is s/p initial lumpectomy followed by adjuvant radiation treatment and subsequent mastectomy due to recurrent infections. She was recently diagnosed with metastatic ER/NV positive, HER2 2+ by IHC with FISH pending metastatic breast cancer from cytology which was obtained from pleural effusion on 08/26/2024 Allergies Allergy/AdvReac Type Severity Reaction Status Date / Time cephalexin Allergy Severe SHORTNESS Verified 08/24/24 15:53 OF BREATH sulfamethoxazole [Bactrim] Allergy Severe SHORTNESS Verified 08/24/24 15:53 OF BREATH trimethoprim [Bactrim] Allergy Severe SHORTNESS Verified 08/24/24 15:53 OF BREATH ceftriaxone Allergy Intermediate REDNESS, Verified 08/24/24 15:53 ITCHING tramadol Allergy Intermediate ITCHY Verified 08/24/24 15:53 vancomycin Allergy Intermediate ITCHING Verified 08/24/24 15:53 ALL OVER, RASH, PARESTHESIAS cefdinir Allergy Unknown unknown Verified 08/24/24 15:53 codeine AdvReac Severe GI BLEED Verified 08/24/24 15:53 tamoxifen AdvReac Severe "CAN'T Verified 08/24/24 15:53 MOVE" Home Medications Medication Instructions Recorded Confirmed Type nitroglycerin 0.4 mg sublingual 0.4 mg sublingual DIRECTED PRN 04/29/18 09/01/24 History tablet (Nitrostat) Chest Pain albuterol sulfate 90 mcg/actuation 1 - 2 puff inhalation .Q4-6HRS PRN 09/16/20 09/01/24 History aerosol inhaler Shortness Of Breath Or Wheezing rizatriptan 10 mg disintegrating See Rx Instructions PO .COMPLEX 11/21/21 09/01/24 Rx tablet (Maxalt-SCREENING SPECIALIST) #12 tabs atorvastatin 20 mg tablet 20 mg PO QAM #90 tabs 11/26/22 09/01/24 Rx budesonide-formoterol HFA 160 2 puff inhalation BID PRN 11/26/22 09/01/24 Rx mcg-4.5 mcg/actuation aerosol Shortness Of Breath Or Wheezing inhaler #10.2 grams furosemide 20 mg tablet 20 mg PO QAM #90 tabs 11/26/22 09/01/24 Rx insulin glargine 100 unit/mL (3 10 unit (0.1 mL) subcut QPM #15 mL 11/26/22 09/01/24 Rx mL) subcutaneous pen (Lantus Solostar U-100 Insulin) losartan 100 mg tablet 100 mg PO QAM #90 tabs 11/26/22 09/01/24 Rx metoprolol tartrate 50 mg tablet 50 mg PO BID #180 tabs 11/26/22 09/01/24 Rx spironolactone 25 mg tablet 25 mg PO HS #90 tabs 11/26/22 09/01/24 Rx topiramate 100 mg tablet 100 mg PO BID #180 tabs 11/26/22 09/01/24 Rx cholecalciferol (vitamin D3) 1,250 50,000 unit PO WEEKLY #12 caps 12/11/23 09/01/24 Rx mcg (50,000 unit) capsule hydrocodone 5 mg-acetaminophen 325 See Rx Instructions PO .COMPLEX 07/06/24 09/01/24 Rx mg tablet PRN pain #30 tabs levothyroxine 125 mcg tablet 125 mcg PO .COMPLEX #220 tabs 07/12/24 09/01/24 Rx bupropion HCl 150 mg tablet,12 hr 150 mg PO BID #180 ea 08/16/24 09/01/24 Rx sustained-release (Wellbutrin SR) ipratropium 0.5 mg-albuterol 3 mg 3 ml inhalation Q4H PRN Shortness 08/19/24 09/01/24 Rx (2.5 mg base)/3 mL nebulization Of Breath Or Wheezing #90 mL soln dextromethorphan-guaifenesin 5 10 ml PO Q6 PRN cough #200 mL 08/25/24 09/01/24 R x mg-100 mg/5 mL oral liquid (Robitussin Cough-Chest Congestion DM) Patient History Medical History Left cervical radiculopathy Hidradenitis Adhesive capsulitis of left shoulder History of colon polyps History of COVID-19 07/2021>HEADACHE/SOB/JOINT PAIN *RESOLVED Hearing difficulty History of dysplastic nevus Pituitary abnormality Osteoarthritis Gastroparesis GERD (gastroesophageal reflux disease) Hypothyroidism Asthma LAST USED RESCUE INHALER MAY 2022 Hypertension Hyperlipidemia Hiatal hernia Syncope LAST EPISODE JULY 2020 Migraine History of diverticulitis Hx of breast cancer RT (SURGERY WITH RADIATION) Anxiety and depression H/O abscess of breast NO CURRENT INFECTION Liver lesion Surgical History History of hernia surgery Sep 2022 H/O umbilical hernia repair History of removal of Port-a-Cath (12/08/20) Access Port Removal(Left) 12/08/20 Dr. Gallegos History of breast biopsy Hx of melanoma excision History of tooth extraction History of vascular access device A-PORT>REMOVED History of excision of lesion 2017 excision left axilla- abscess Dr. Brunner [address] Brunner H/O colonoscopy History of esophagogastroduodenoscopy (EGD) H/O thyroidectomy REMOVED D/T "SO MANY PROBLEMS WITH MY THRYOID" Hx of hysterectomy Hx laparoscopic cholecystectomy History of mastectomy partial mastectomy 2008 Dr. Ferris Total mastectomy>RT 2009 Dr. Ferris NO RECONSTRUCTION H/O section X 2 Family History Mother Ovarian cancer Colon cancer Father Pancreatic cancer Colorectal cancer Grandmother (Maternal) Colorectal cancer Other No family history of adverse response to anesthesia Denies family history of Prostate cancer Myocardial infarction Breast cancer Social History Smoking Status: Current every day smoker Tobacco Type: Cigarettes Age Started Using Tobacco: 10; packs per day: 0.5; Cigarettes Per Day: 2-3; Second Hand Exposure: No; Do You Dip or Chew Tobacco: No; Hx Alcohol Use: No Hx Substance Use: No Preferred Language: Thai Communication Ability: Effective Visual Impairment: No Limitations Hearing Ability: Normal Logistics Analyst Required: No Beliefs That Will Affect Care: None marital status: Current Living Situation: Spouse Current Living Situation Comment: home with 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 How many Children do You have: 2 Other Information That Helps Us Care for You: No Feels Safe at Home: Yes Safety Concerns: Feels Safe At This Time Childhood Exposure to Second-Hand Smoke: Yes Diet: regular Dental Care, Regularly: No Physical Activity Frequency: Daily Seatbelt Use: never Sunscreen Use: Yes Assistive Devices: Oxygen - Continuous Results & Data Vital Signs (Past 12 Hours) Vital Signs Temp Pulse Pulse Resp BP Pulse Ox O2 Del Method 09/02/24 15:37 36.6 C 67 20 133/86 94 Room Air 09/02/24 14:20 63 09/02/24 11:21 36.6 C 63 20 128/85 92 Room Air 09/02/24 08:18 36.4 C L 64 20 107/78 93 Room Air 09/02/24 07:21 Room Air 09/02/24 07:02 60
[2024-09-03 06:06] LABS: Basophils # (auto) 0.04 K/uL (0.00-0.20); Basophils % (auto) 0.3 %; Eosinophils # (auto) 0.37 K/uL (0.00-0.50); Eosinophils % (auto) 3.2 %; Hematocrit (blood only) 46.6 % (37.0-47.0); Immature Granulocytes # (auto) 0.08 K/uL (0.01-0.20); Immature Granulocytes % (auto) 0.7 %; Lymphocytes # (auto) 3.59 K/uL (1.20-3.40); Mean Corpuscular Hemoglobin 29.7 pg (25.0-34.0); Mean Corpuscular Hgb Conc 34.3 g/dL (32.0-36.0); Mean Corpuscular Volume 86.5 fL (80.0-100.0); Mean Platelet Volume 9.7 fL (9.4-12.4); Monocytes # (auto) 0.72 K/uL (0.11-0.59); Monocytes % (auto) 6.2 %; Neutrophils # (auto) 6.79 K/uL (1.40-6.50); Neutrophils % (auto) 58.6 %; Platelet Count 288 K/uL (130-400); RDW Coefficient of Variation 12.5 % (11.5-14.5); RDW Standard Deviation 39.8 fL (36.4-46.3); Red Blood Count 5.39 M/uL (4.20-5.40); White Blood Count 11.59 K/ul (4.8-10.8)
[2024-09-03 06:29] LABS: BUN Creatinine Ratio 20.4 (10-20); Calcium 8.9 mg/dl (8.6-10.3); Creatinine Clr Calc Pharmacy 79.7 ml/min; Potassium 3.6 mmol/L (3.5-5.1)
[2024-09-03 07:38] VITALS: RESP 18
--- NOTE | 2024-09-03 08:04 | XRay Report ---
EXAM: XR chest 1V portable CLINICAL HISTORY: Follow up exam. TECHNIQUE: An X-ray image of the chest is obtained in AP projection. COMPARISON: Prior X-ray study dated 09/02/2024. FINDINGS: A redemonstrated intercostal pigtail catheter overlying the right lower zone. Pulmonary Parenchyma: Stable appearance of obscuration of right costophrenic angle, secondary to mild pleural effusion. Bilateral prominent bronchovascular markings and hilar vessels. No evidence of consolidation. Heart and Mediastinum: Heart size and shape are normal. No mediastinal widening or masses. No hilar or mediastinal lymphadenopathy. Bony Thorax: Bony thorax appears intact without fractures or deformities. Soft Tissues: Soft tissues overlying the chest wall are unremarkable. IMPRESSION: 1. Stable mild right pleural effusion. 2. Stationary bilateral prominent bronchovascular markings and hilar vessels. 3. A redemonstrated intercostal pigtail catheter overlying the right lower zone. Electronically signed by Yee Renner 09-03-2024 08:03 AM
--- NOTE | 2024-09-03 09:34 | Pulmonology Progress Note ---
Date of Service September 03, 2024 Assessment & Plan (1) Malignant pleural effusion: (2) Hydropneumothorax: (3) COPD with emphysema: (4) Tobacco abuse: Plan Chest x-ray 09/01/2024 personally reviewed: PA/lateral view, right-sided hydropneumothorax with worsening pleural effusion, slight progression of pneumothorax CTA chest 08/24/2024 personally reviewed: Moderate right-sided pleural effusion Multiple pulmonary nodules appreciated bilaterally Centrilobular emphysema with bullae in the lingula Compressive atelectasis of the right lower lobe No significant mediastinal lymphadenopathy -- Symptomatic moderate right-sided hydropneumothorax S/p thoracentesis 08/24/2024, 1 L serous fluid removed, cytology positive for breast cancer Pigtail catheter placed 09/01/2024 Continue with serial chest x-rays --COPD with emphysema Approximately [id number] smoking history, current smoker On Symbicort 160 at home along with as needed albuterol -- Multiple pulmonary nodules Increasing in size Possibility of recurrence of breast cancer versus new lung cancer is again -- Malignant right-sided pleural effusion Cytology was positive for breast cancer Recommend oncology to see the patient as well to get the plan set Plan: Chest x-ray does not show any clear signs of pneumothorax. Minimal right-sided pleural effusion Chest tube has been clamped. Will repeat a chest x-ray around 12 PM. If the repeat chest x-ray does not show any signs of pneumothorax and chest tube will be removed Case was discussed with RN at bedside and primary team Please note the above document was generated using voice recognition software. It may contain grammatical, syntax or spelling errors.Any formal questions or concerns about the content, text or information contained within the body of this dictation should be directly addressed to the provider for clarification. Admission and Anticipated Discharge Date Admission Date: September 01, 2024 Subjective Patient seen and examined at bedside. No acute distress, no adverse events overnight Denies any cough Shortness of breath is improved, no chest pain No discomfort at the site of the chest tube No nausea vomiting Fair appetite Review of Systems 2 Review of Systems: All systems reviewed & are unremarkable except as noted in Subjective Physical Exam 2 Physical Exam: Constitutional: No respiratory distress HEENT: EOMI, PERRLA Respiratory system: Good air entry bilaterally, no wheeze, no rhonchi, positive crackles bilateral lower lobes, more on the right side CVS: S1-S2 positive, no murmurs or gallops Abdomen: Soft, nontender, nondistended, positive bowel sounds x4, obese Extremities: +2 pulses bilaterally radialis/ dorsalis pedis, no cyanosis, +1 pitting edema bilateral lower extremity Neuro: Awake alert oriented x3 Psych: Normal mood and affect G/U: No [place] Skin: no rashes, warm and dry Lymphatic: no cervical or axillary lymphadenopathy Results & Data Results & Data Vital Signs (Past 12 Hours) Vital Signs Temp Pulse Pulse Pulse Resp BP Pulse Ox 09/03/24 08:57 09/03/24 07:38 36.3 C L 63 18 136/83 93 09/03/24 07:11 61 09/03/24 04:44 36.4 C L 63 20 143/86 H 94 09/03/24 00:31 36.5 C 62 20 131/84 94 09/02/24 23:10 58 L 09/02/24 21:43 O2 Del Method 09/03/24 08:57 Room Air 09/03/24 07:38 Room Air 09/03/24 07:11 09/03/24 04:44 Room Air 09/03/24 00:31 Room Air 09/02/24 23:10 09/02/24 21:43 Room Air Laboratory Results 09/03/24 05:23 09/03/24 05:23 PG Care Time/CCT Total # of Minutes Spent Total Time Spent with Patient: Total time spent is greater than 50% in coordination of care (as documented) at patient's floor/unit and/or counseling patient: Coding Level of Care Code 22834 SUB INP/OBS CARE 2/35MIN Diagnoses Malignant pleural effusion J91.0 Hydropneumothorax J94.8 COPD with emphysema J43.9 Tobacco abuse Z72.0
[2024-09-03 11:56] VITALS: BP 126/83; TEMP 97.5; O2SAT 95
--- NOTE | 2024-09-03 12:23 | XRay Report ---
XR chest 1V portable CLINICAL HISTORY: f/u COMPARISON STUDY: Chest radiograph performed earlier today. Chest CT August 24, 2024. FINDINGS: Right basilar pleural catheter is in place. This may have been repositioned. A small right pleural effusion has decreased in size since prior exam. There is a trace right apical pneumothorax. Cardiomediastinal silhouette is stable. Hazy right basilar opacity is noted. Right lower lung aeratio n has improved. IMPRESSION: 1. Right basilar pleural catheter in place. Interval decrease in size of a right pleural effusion. Tr mandeep right apical pneumothorax. 2. Hazy right lower lung opacity with improved right lower lung aeration. ACT 112: Negative or not required by law. Electronically signed by: Troy Medrano M.D. 09/03/2024 12:21 PM
--- NOTE | 2024-09-03 12:24 | Discharge Summary ---
Discharge Summary Date of Service September 03, 2024 Principal Dx & Hospital Course #1 = Principal Diagnosis (1) Malignant pleural effusion: The patient underwent right thoracentesis on August 24. She subsequently developed a right pneumothorax that warranted chest tube insertion yesterday, September 01. Overall she has improved and chest x-ray has improved. The chest tube is clamped and pending another chest x-ray, will be removed later today, September 03. Appreciate pulmonary medicine consultation recommendations. (2) Hydropneumothorax: Right base. This developed after thoracentesis performed on August 24. Known breast cancer with lung metastases and malignant right pleural effusion. Resolved with pigtail catheter placement (3) COPD with emphysema: Stable. Continue current medical management (4) Hypothyroidism: Stable. Continue current medical (5) Benign essential hypertension: Stable. Continue current medical management (6) Diabetes mellitus, type 2: ADA diet. Sliding scale insulin coverage if needed. Continue current medical management Plan Anticipate discharge to home later today, September 03 Admission HPI Per Admitting Provider Aretha Ceja is a 59 year old female who presents to the ER with right sided chest pressure (she denies this is painful) and worsening hydropneumothorax. She was advised to come to the ER by her [place] police lieutenant for chest tube insertion. She d enies any fever or chills. She has a known malignant pleural effusion with thoracentesis performed on August 24 with 1000ml removed at that time. Initially she felt her shortness of breath improve but this started to get worse again yesterday. She denies any cough. Discharge Exam General-alert and oriented x3, no fever, no chills HEENT-head atraumatic and normocephalic, pupils equal and reactive to light, extraocular muscles intact Neck-no lymphadenopathy or thyromegaly, trachea midline Chest-diminished breath sounds at the right base. No rales, wheezing or rhonchi Cardiac-regular rate and rhythm, normal S1 and S2 Abdomen-normal bowel sounds, no hepatosplenomegaly Extremities-no cyanosis, clubbing, or edema Neuro-cranial nerves II through XII intact, motor and sensory function within normal limits, strength symmetrical, no focal deficits Psych-normal affect, normal mood Discharge Plan Discharge Items Patient Disposition: Home - Self-Care Reason For Visit: MALIGNANT R SIDED HYDROPNEUMOTHORAX Discharge Diagnosis: Malignant right hydropneumothorax, known breast cancer with lung metastases Activity: Resume your previous activity Non-emergency contact: Primary Care Provider and Oncologist Call non-emergency contact if: your symptoms worsen Follow-up/Referrals: Yash Baxter III, CRNP [Primary Care Provider] - Diet: Carb Consistent or DM2 Addtl Attending Provider Instructions: Follow-up with oncologist as scheduled Pending Studies at Discharge: No Stand-Alone Forms: My [facility] [place], Smoking Cessation Medications and DC Order Prescriptions: Continued cholecalciferol (vitamin D3) 1,250 mcg (50,000 unit) capsule 50,000 unit PO WEEKLY Qty: 12 1RF levothyroxine 125 mcg tablet 125 mcg PO .COMPLEX Qty: 220 1RF Rx Instructions: TAKES 125 MCG FRIDAY THROUGH FRIDAY, THE 250 MCG ON SUNDAYS. bupropion HCl [Wellbutrin SR] 150 mg tablet sustained-release 12 hr 150 mg PO BID Qty: 180 1RF ipratropium-albuterol 0.5 mg-3 mg(2.5 mg base)/3 mL solution for nebulization 3 ml INHALATION Q4H PRN (Reason: Shortness Of Breath Or Wheezing) Qty: 90 0RF rizatriptan [Maxalt-JAVA LEAD DEVELOPER] 10 mg tablet,disintegrating See Rx Instructions PO .COMPLEX Qty: 12 1RF Rx Instructions: take 1 tab at onset of headache; if no relief may repeat 1 tab after at least 2 hrs; max = 3 tabs/24 hr PO insulin glargine [Lantus Solostar U-100 Insulin] 100 unit/mL (3 mL) insulin pen 10 unit subcut QPM Qty: 15 2RF Rx Instructions: IF BSG IN AM IS >140, ADD 2 UNITS TO DOSE. atorvastatin 20 mg tablet 20 mg PO QAM Qty: 90 1RF furosemide 20 mg tablet 20 mg PO QAM Qty: 90 1RF budesonide-formoterol 160-4.5 mcg/actuation HFA aerosol inhaler 2 puff INHALATION BID PRN (Reason: Shortness Of Breath Or Wheezing) Qty: 10.2 3RF losartan 100 mg tablet 100 mg PO QAM Qty: 90 1RF metoprolol tartrate 50 mg tablet 50 mg PO BID Qty: 180 1RF spironolactone 25 mg tablet 25 mg PO HS Qty: 90 1RF topiramate 100 mg tablet 100 mg PO BID Qty: 180 1RF Ozempic 0.25 mg or 0.5 mg (2 mg/3 mL) pen injector 0.5 mg subcut WK 0RF hydrocodone-acetaminophen 5-325 mg tablet See Rx Instructions PO .COMPLEX PRN (Reason: pain) Qty: 30 0RF Rx Instructions: 1-2 tabs PO Q4-6 HRS PRN; No more than 8 tablets daily. albuterol sulfate 90 mcg/actuation HFA aerosol inhaler 1 - 2 puff inhalation .Q4-6HRS PRN (Reason: Shortness Of Breath Or Wheezing) nitroglycerin [Nitrostat] 0.4 mg Tablet, Sublingual 0.4 mg Sublingual DIRECTED PRN (Reason: Chest Pain) Rx Instructions: PLACE ONE TABLET UNDER THE TONGUE EVERY 5 MINUTES FOR UP TO 3 DOSES OVER 15 MINUTES IF NEEDED FOR CHEST PAIN dextromethorphan-guaifenesin [Robitussin Cough-Chest Doc DM] 5-100 mg/5 mL Liquid 10 ml PO Q6 PRN (Reason: cough) Qty: 200 1RF Discharge Orders: Discharge Order (Routine); Ordered 09/03/24 Ordered By: Arnaldo Bland Admission Data Admit Date/Time: 09/01/24 13:23 Attending Provider: Arnaldo Bland Admit Provider: Ino Ortiz Primary Care Provider: Yash Baxter III Other Providers: Laila Munroe; Ino Ortiz; Audra Ferrera; Mireya Carlisle; Sheldon Girard; Ruby Larsen; Yobani Arreola; Dmitry Fabian; Tino Diana; Allison Alvarez; JimiP,Rox Attending Hospital Stay Data Consultations 09/01/24 10:31 Consult Pulmonology Stat 09/01/24 12:46 ED Decision to Admit Stat 09/02/24 08:50 Consult Oncology Routine Diagnostic Imagining Performed 09/01/24 11:49 US point of care ultrasound Urgent Pending Results Patient Have Any Pending Studies at Discharge: No Discharge Instructions Given to Patient (Per Discharging Provider) Follow-up with oncologist as scheduled Total Time Total Time Spent Total Time Spent (In Minutes): 45 minutes Coding Level of Care Code 00823 INP/OBS DISCH >30 MIN Diagnoses Malignant pleural effusion J91.0 Hydropneumothorax J94.8 COPD with emphysema J43.9 Acquired hypothyroidism E03.9 Hypothyroidism type: acquired Benign essential hypertension I10 Type 2 diabetes mellitus without complication, with long-term current use of insulin E11.9; Z79.4 Diabetes mellitus care home insulin use: with care home use Diabetes mellitus complication status: without complication
[2024-09-03 12:26] VITALS: PULSE 63
--- NOTE | 2024-09-03 12:55 | Procedure Note ---
Procedure Note Date of Service September 03, 2024 Procedure: Pigtail chest tube removal Centrifugal Casting Machine Tender: Dr. Laila Munroe Indication: Resolved pneumothorax Consent: Verbal consent obtained from the patient Anesthesia: None Procedure: Old dressing of the pigtail catheter was removed Under aseptic precautions the sterile measures the pigtail catheter was removed on exhalation. It was found to be intact. Little bit of fluid was oozing for less than a minute and then it finally stopped. Vaseline gauze was placed on the incision site followed by 4 x 4 and dressed with silk tape The patient tolerated the procedure without obvious complication Complications: None Blood loss: None [facility] Procedure Codes (Charges) Pulmonary/Thoracic Procedure 1: Pulmonary and Thoracic: 67303 Remove lung catheter Coding CPT Codes Pulmonary/Thoracic - Pulmonary and Thoracic: 07754 Remove lung catheter ([id number]) Additional Codes Date of Service ([facility].SURGERY)
== END 2024-09-03 13:10 | disposition home or self-care (01) | DRG 598 ==
LOC: ED 10:23 → SUATTDRO 13:23 → EDINP 13:23 → 2N 14:05

== ENCOUNTER 2024-10-31 13:23 | Inpatient (IN) ==
--- NOTE | 2024-10-31 14:21 | XRay Report ---
EXAM: Radiograph of the Chest 1 View INDICATION: Sepsis TECHNIQUE: Frontal view of the chest. Image obtained at 2:05 PM. COMPARISON: 09/23/2024 FINDINGS: Lungs and pleural spaces: Enlarged right pleural effusion and worsening consolidation in the lower half of the right lung. No pneumothorax. Heart: Stable prominent cardiac shadow. Mediastinum: Normal contour. Bones/joints: No fracture, erosion or dislocation. Soft tissues: No abnormality noted. No radiopaque foreign body noted. Tubes, lines and devices: Chest tube projects over the right lung base. Upper abdomen: No abnormality noted. IMPRESSION: 1. Lines and tubes as above. 2. Worsening right pleural effusion and right basilar airspace consolidation. ACT 112: N/A Electronically signed by Whitney Brizuela 10-31-2024 2:19 PM
[2024-10-31 14:24] LABS: iSTAT Creatinine 0.6 mg/dl (0.6-1.3); iSTAT Hemoglobin 13.6 g/dl (12.0-16.0); iSTAT Ionized Calcium 1.1 mmol/l (1.12-1.32); iSTAT Potassium 3.7 mmol/L (3.3-5.0)
[2024-10-31 14:39] LABS: Hematocrit (blood only) 39.7 % (37.0-47.0); Hemoglobin 13.5 g/dl (12.0-16.0); Mean Corpuscular Hemoglobin 28.5 pg (25.0-34.0); Mean Corpuscular Volume 83.9 fL (80.0-100.0); Mean Platelet Volume 10.2 fL (9.4-12.4); Platelet Count 272 K/uL (130-400); RDW Coefficient of Variation 12.3 % (11.5-14.5); RDW Standard Deviation 37.3 fL (36.4-46.3); Red Blood Count 4.73 M/uL (4.20-5.40); White Blood Count 7.72 K/ul (4.8-10.8)
[2024-10-31] MEDS: OPTIRAY 320 125ml IV ONE (14:45)
[2024-10-31 14:54] LABS: BUN Creatinine Ratio 18.4 (10-20); Bilirubin Direct 1.1 mg/dl (0-0.2); Bilirubin,Total 1.9 mg/dl (0.2-1.0); Calcium 8.8 mg/dl (8.6-10.3); Creatinine Clr Calc Pharmacy 151.1 ml/min; Magnesium 1.7 mg/dl (1.7-2.4); Potassium 3.6 mmol/L (3.5-5.1); Total Protein 6.2 gm/dl (6.0-8.3)
[2024-10-31 15:01] LABS: Troponin I High Sensitivity 8.7 pg/ml (0-14)
[2024-10-31 15:15] LABS: Adenovirus PCR Not Detected (NotDetected); Bordetella parapertussis PCR Not Detected (NotDetected); Bordetella pertussis PCR Not Detected (NotDetected); Chlamydia pneumoniae PCR Not Detected (NotDetected); Coronavirus 229E PCR Not Detected (NotDetected); Coronavirus CoV-2 (COVID19)PCR Not Detected (NotDetected); Coronavirus HKU1 PCR Not Detected (NotDetected); Coronavirus NL63 PCR Not Detected (NotDetected); Coronavirus OC43PCR Not Detected (NotDetected); Human Metapneumovirus PCR Not Detected (NotDetected); Influenza A PCR Not Detected (NotDetected); Influenza B PCR Not Detected (NotDetected); Mycoplasma pneumoniae PCR Not Detected (NotDetected); Parainfluenza Virus 1 PCR Not Detected (NotDetected); Parainfluenza Virus 2 PCR Not Detected (NotDetected); Parainfluenza Virus 3 PCR Not Detected (NotDetected); Parainfluenza Virus 4 PCR Not Detected (NotDetected); Respiratory Syncytial VirusPCR Not Detected (NotDetected); Rhinovirus/Enterovirus PCR Not Detected (NotDetected)
[2024-10-31 15:16] LABS: Basophils # (auto) 0.08 K/uL (0.00-0.20); Eosinophils # (auto) 0.04 K/uL (0.00-0.50); Eosinophils % (auto) 0.5 %; INR 1.1 (0.9-1.1); Immature Granulocytes # (auto) 0.71 K/uL (0.01-0.20); Immature Granulocytes % (auto) 9.2 %; Lymphocytes # (auto) 0.53 K/uL (1.20-3.40); Lymphocytes % (auto) 6.9 %; Monocytes # (auto) 0.16 K/uL (0.11-0.59); Monocytes % (auto) 2.1 %; Neutrophils % (auto) 80.3 %; Partial Thromboplastin Time 28 Seconds (21-31); Prothrombin Time 11.4 Seconds (9.0-12.0); Toxic Vacuolation 1+
--- NOTE | 2024-10-31 15:16 | CT Scan Report ---
EXAM: CT Angiography Chest With Intravenous Contrast INDICATION: Increasing right chest pain. Stage IV breast cancer. TECHNIQUE: Axial computed tomographic angiography images of the chest with intravenous contrast. Sagittal and coronal reformatted images were created and reviewed. This CT exam was performed using one or more of the following dose reduction techniques: automated exposure control, adjustment of the mA and/or kV according to patient size, and/or use of iterative reconstruction technique. MIP reconstructed images were created and reviewed. CONTRAST: 88ml of Optiray 320 was administered intravenously. COMPARISON: PET/CT 09/23/2024 FINDINGS: Pulmonary arteries: No abnormality noted. No pulmonary embolism. Aorta: No acute change noted. No thoracic aortic aneurysm or dissection. Lungs and pleural spaces: Significant increase in generalized interstitial markings. No 1.6 x 1.4 cm groundglass subpleural opacity in the left upper lobe. There is stable right basilar airspace consolidation. Generally stable scattered pulmonary nodules. Heart: No abnormality noted. No cardiomegaly. No significant pericardial effusion. No evidence of RV dysfunction. Bones/joints: Stable sclerotic metastases of the sternum. Soft tissues: No abnormality noted. Lymph nodes: 4 mm paratracheal lymph node is decreased in size. Tubes, lines and devices: There is a right basilar pleural drain. There is decreased right pleural effusion with new medial loculation measuring 4.0 x 4.3 x 7.3 cm long. No pneumothorax. IMPRESSION: 1. No pulmonary embolus noted. 2. Decreased layering right pleural effusion with new right loculation. 3. Increased diffuse interstitial markings could reflect worsening metastatic disease. 4. New left upper lobe groundglass infiltrate could be infectious or metastatic. 5. Previously noted metabolically active pretracheal lymph node is decreased in size. 6. Stable sternal metastases. ACT 112: N/A Electronically signed by Whitney Brizuela 10-31-2024 3:16 PM
--- NOTE | 2024-10-31 15:16 | CT Scan Report ---
EXAM: CT Abdomen and Pelvis Without Intravenous Contrast INDICATION: Metastatic breast cancer. Right abdominal pain. TECHNIQUE: Axial computed tomography images of the abdomen and pelvis without intravenous contrast. Sagittal and coronal reformatted images were created and reviewed. This CT exam was performed using one or more of the following dose reduction techniques: automated exposure control, adjustment of the mA and/or kV according to patient size, and/or use of iterative reconstruction technique. COMPARISON: PET/CT 09/23/2024 FINDINGS: Limitations: None. ABDOMEN: Liver: Lack of intravenous contrast limits detection of some masses. No abnormality noted. Gallbladder and bile ducts: No calcified stones or surrounding fluid. Pancreas: No pancreatic mass, calcification, inflammation or ductal dilation noted. Spleen: No significant abnormality noted. Adrenals: Stable bilateral adrenal metastases. Kidneys and ureters: Stable renal nodules and right perinephric scarring. No stone or hydronephrosis. Stomach and bowel: Scattered moderate stool throughout the colon. No obstruction or inflammation. PELVIS: Appendix: Well seen and appears normal. Bladder: Appears normal for the degree of filling. No stones or inflammation. No large mass. Masses may not be detected in the absence of opacification. Reproductive: Hysterectomy. Stable prominent retained left ovary. ABDOMEN and PELVIS: Intraperitoneal space: No free air. No significant fluid collection. Bones/joints: No acute changes. Soft tissues: No significant abnormality noted. Vasculature: Atherosclerotic calcification of the aorta and branches. No aneurysm. Lymph nodes: Stable 8 mm short axis dimension lymph node to the right of the celiac trunk. IMPRESSION: Stable prominent retained left ovary and lymph node in the upper abdomen. No acute abnormality. ACT 112: N/A Electronically signed by Whitney Brizuela 10-31-2024 3:16 PM
--- NOTE | 2024-10-31 15:16 | CT Scan Report ---
EXAM: CT Head Without Intravenous Contrast INDICATION: Metastatic breast cancer. Headache. TECHNIQUE: Axial computed tomography images of the head/brain without intravenous contrast. Sagittal and/or coronal reformats are provided. Sagittal and coronal reformatted images were created and reviewed. This CT exam was performed using one or more of the following dose reduction techniques: automated exposure control, adjustment of the mA and/or kV according to patient size, and/or use of iterative reconstruction technique. COMPARISON: No relevant prior studies available. FINDINGS: Limitations: Streak artifact noted limiting assessment of the frontal lobes and skull base. Brain and extra-axial spaces: No abnormality noted. No hemorrhage. No significant white matter disease. No edema. No ventriculomegaly. Bones/joints: No acute changes. Soft tissues: No significant abnormality noted. Vasculature: No acute abnormality noted. Sinuses: No layering fluid in the visualized portions of the paranasal sinuses. Mastoid air cells: No mastoid effusion. Orbits: No significant abnormality noted. IMPRESSION: Slightly limited by artifact. No abnormality noted. If additional imaging is clinically warranted to exclude metastases, MRI is more sensitive. ACT 112: N/A Electronically signed by Whitney Brizuela 10-31-2024 3:16 PM
[2024-10-31] MEDS: levoFLOXacin/D5W 750 MG/150 ML BAG IV STA (15:43)
--- NOTE | 2024-10-31 16:51 | History & Physical Report ---
Date of Service October 31, 2024 Assessment & Plan (1) Acute on chronic respiratory failure with hypercapnia: Plan: 59yo with metastatic breast ca/miah with PleurX in place presented with increased SOB since Friday with elevated CO2 on ABG (normal pH) w/ associated leukoc ytosis, tachypnea and tachycardia concerning for infection. +cough, sputum w/ clear sputum reported but also notable poor PO intake 2nd to pain and on exam significant abdominal erythema/cellulitis and possible infection to PleurX catheter and believe some hypercapnia from tachypnea 2nd to abdominal pain from cellulitis vs infected pleurX. Lactic 1.3, procal 0.75. CTA negative for PE but notes layering RIGHT effusion with new R loculation with increased interstitial marking possible metastatic disease (?or overload), new SAURAV infiltrate infectious vs metastatic Procal 0.75, blood cultures pending Admit medical with telemetry Levaquin IV started in continue and will continue. --Adding Dapto for possible cellulitis and will check MRSA nares. Statin on hold while on dapto Blood cultures pending BiPAP ordered given CO2 elveation however notable w/ cellulitis above suspect hyperventilation from pain contributing Pain control, antiemetics as needed Pulmonology consulted, ?MIST protocol Lasix 40mg IV x 1 -check BNP/monitor for additional dosing as needed Duonebs prn Schedule budesonide/formoterol nebs Pulmonary toilet with incentive spirometer, flutter valve. Sputum if able to produce Heme/oncology consulted (messaged both pulm and oncology on admission) PT/OT consulted DVT proph: lovenox SQ Monitor labs, exam in AM (2) Malignant pleural effusion: Plan: as above, recent diagnosis. undergoing tx w/ Dr Alvarez, last seen 10/27 and last Abraxane on Friday (has had two doses) and was on Paclitaxel prior on 10/13 but developed reaction Oncology consulted as well as pulmonology and appreciate recs/assistance Cx from pleurX site as able, abx as outlined (3) COPD with emphysema: Plan: continue duonebs with formoterol/budesonide nebs, supplemental O2 as needed (4) Diabetes mellitus, type 2: Plan: sliding scale insulin while inpatient but reduced glargine to 5u given poor intake to prevent hypoglycemia and can adjust as needed (5) Abdominal wall cellulitis: Plan: noted. ?2nd to pleurx abx as outlined, monitor for improvement (6) Lung cancer: Plan DVT proph: Lovenox SQ Code status: DNR Dispo: admit telemetry, abx and consultation for pulm/oncology and monitor cultures. Anticipate minimum of 2-3 days inpatient to ensure cultures negative and possible need to exchange pleurX PT/OT consults placed Updated at bedside History of Present Illness Primary Care Provider: Yash Baxter, III, [employer] Aretha Ceja is a 59yo female who presents to the ER with worsening CP/SOB since Friday with increased work of breathing as well as some hematuria. PMHx significant for stage IV metastatic breast ca to lung/bone/abdomen and diagnosis since thoracentesis in August for effusion which was determined to be malignant and cytology positive for breast ca and PleurX placed 09/27 and [place] [facility] [place]. Just at pulm office 10/05. On Symbicort daily with albuterol as needed. Follows w/ Kim for metastatic breast ca, last seen 10/27 and at that time having upper abdominal pain/epigastric pain, nausea and prescribed metoclopramide which was reported effective. Undergoing treatment with Abraxane, started 10/19/24 due to reaction to Paclitaxel on 10/13. She notes draining this M/W/F, about 400-600cc and some discomfort around R chest wall/axilla. Patient eval in A10, in room. Last chemo treatment on Friday this past week and has received 2 treatments of the Abraxane. No fever/chills. +sputum white in color. Reports poor PO intake due to shortness of breath and abdominal discomfort. Evaluation of PleurX site/abdomen revealed significant surrounding cellulitis, significant tenderness to even grazing the surface. Not able to get morphine but tolerates dilaudid but reports need zofran with it and will order. No baseline O2 prior but has been using this past week and needed all day yesterday. No CPAP/BiPAP use but discussed hyperventilation from pain from site/cellulitis and will order BiPAP for now and monitor with improvement in intake. Has some b/l LE pitting edema. R leg prior more swollen than the left but about the same at present. CTA negative for PE but notes loculated effusion and conc erns for pneumonia and discussed consultation Some hematuria, new. hgb stable. ER Course: CXR w/ worsening RIGHT pleural effusion and R basilar airspace consolidation. ABG w/ normal pH but ELEVATED CO2 to 52. Vitals w/ stable BP but tachycardia and tachypnea w/ HR 120s, RR 40. Requiring 4L NC to maintain SpO2 92% EKG w/ sinus tachycardia, pulmonary disease pattern and RVH. No significant change compared to July 2024. Pulmonology and hematology consults placed and messages to both specialists on admission for her admission status and concerns for possible MIST II protocol/possible infected PleurX site w/ surrounding cellulitis. Code status DNR discussed. Allergies Allergy/AdvReac Type Severity Reaction Status Date / Time cephalexin Allergy Severe SHORTNESS Verified 09/27/24 07:07 OF BREATH sulfamethoxazole [Bactrim] Allergy Severe SHORTNESS Verified 09/27/24 07:07 OF BREATH trimethoprim [Bactrim] Allergy Severe SHORTNESS Verified 09/27/24 07:07 OF BREATH ceftriaxone Allergy Intermediate REDNESS, Verified 09/27/24 07:07 ITCHING tramadol Allergy Intermediate ITCHY Verified 09/27/24 07:07 vancomycin Allergy Intermediate ITCHING Verified 09/27/24 07:07 ALL OVER, RASH, PARESTHESIAS cefdinir Allergy Unknown unknown Verified 09/27/24 07:07 codeine AdvReac Severe GI BLEED Verified 09/27/24 07:07 tamoxifen AdvReac Severe "CAN'T Verified 09/27/24 07:07 MOVE" Home Medications Medication Instructions Recorded Confirmed Type nitroglycerin 0.4 mg sublingual 0.4 mg sublingual DIRECTED PRN 04/29/18 10/31/24 History tablet (Nitrostat) Chest Pain albuterol sulfate 90 mcg/actuation 1 - 2 puff inhalation .Q4-6HRS PRN 09/16/20 10/31/24 History aerosol inhaler Shortness Of Breath Or Wheezing rizatriptan 10 mg disintegrating See Rx Instructions PO .COMPLEX 11/21/21 10/31/24 Rx tablet ([facility]) #12 tabs budesonide-formoterol HFA 160 2 puff inhalation BID PRN 11/26/22 10/31/24 Rx mcg-4.5 mcg/actuation aerosol Shortness Of Breath Or Wheezing inhaler #10.2 grams insulin glargine 100 unit/mL (3 10 unit (0.1 mL) subcut QPM #15 mL 11/26/22 10/31/24 Rx mL) subcutaneous pen (Lantus Solostar U-100 Insulin) cholecalciferol (vitamin D3) 1,250 50,000 unit PO WEEKLY #12 caps 12/11/23 10/31/24 Rx mcg (50,000 unit) capsule hydrocodone 5 mg-acetaminophen 325 See Rx Instructions PO .COMPLEX 07/06/24 10/31/24 Rx mg tablet PRN pain #30 tabs levothyroxine 125 mcg tablet 125 mcg PO .COMPLEX #220 tabs 07/12/24 10/31/24 Rx bupropion HCl 150 mg tablet,12 hr 150 mg PO BID #180 ea 08/16/24 10/31/24 Rx sustained-release (Wellbutrin SR) ipratropium 0.5 mg-albuterol 3 mg 3 ml inhalation Q4H PRN Shortness 08/19/24 10/31/24 Rx (2.5 mg base)/3 mL nebulization Of Breath Or Wheezing #90 mL soln dextromethorphan-guaifenesin 5 10 ml PO Q6 PRN cough #200 mL 08/25/24 10/31/24 Rx mg-100 mg/5 mL oral liquid (Robitussin Cough-Chest Congestion DM) semaglutide 0.25 mg or 0.5 mg (2 1 mg (1.472 mL) subcut Q7D #3 mL 09/13/24 10/31/24 Rx mg/3 mL) subcutaneous pen injector (Ozempic) atorvastatin 20 mg tablet 20 mg PO QAM #90 tabs 10/21/24 10/31/24 Rx furosemide 20 mg tablet 20 mg PO QAM #90 tabs 10/21/24 10/31/24 Rx losartan 100 mg tablet 100 mg PO QAM #90 tabs 10/21/24 10/31/24 Rx metoprolol tartrate 50 mg tablet 50 mg PO BID #180 tabs 10/21/24 10/31/24 Rx spironolactone 25 mg tablet 25 mg PO HS #90 tabs 10/21/24 10/31/24 Rx topiramate 100 mg tablet 100 mg PO BID #180 tabs 10/21/24 10/31/24 Rx metoclopramide HCl 10 mg tablet 10 mg PO Q6H 10/31/24 10/31/24 History ondansetron 8 mg disintegrating 8 mg PO DAILY PRN Nausea 10/31/24 10/31/24 History tablet prochlorperazine maleate 10 mg 10 mg PO Q6H PRN Nausea 10/31/24 10/31/24 History tablet Past Med/Surg History Problem List (Updated 10/31/24 @ 17:36 by Jovanna Ryan PA-C) Lung cancer Abdominal wall cellulitis Acute on chronic respiratory failure with hypercapnia Chronic respiratory failure with hypoxia Malignant pleural effusion (Chronic) Hydropneumothorax (Acute) Multiple pulmonary nodules COPD with emphysema Left leg pain Umbilical hernia without obstruction or gangrene Depression Tobacco abuse (Acute) Hypothyroidism (Acute 11/23/12) Benign essential hypertension (Acute 11/23/12) Gastro-esophageal reflux disease without esophagitis (Acute 11/23/12) Bipolar disorder, unspecified (Acute 11/23/12) History of breast cancer Port-A-Cath in place L [facility]port 2012 Dr. Td Grossman Vitamin D deficiency (Acute) Laryngopharyngeal reflux (Acute) Hypercholesterolemia (Acute) Neuropathic pain of chest Ventral hernia Cervical radiculopathy Cervical stenosis of spine Diabetes mellitus, type 2 Morbid obesity COPD (chronic obstructive pulmonary disease) (Acute) Medical History Hydropneumothorax Chest pain Pleural effusion Left cervical radiculopathy Hidradenitis Adhesive capsulitis of left shoulder History of colon polyps History of COVID-19 07/2021>HEADACHE/SOB/JOINT PAIN *RESOLVED Hearing difficulty History of dysplastic nevus Pituitary abnormality Osteoarthritis Gastroparesis GERD (gastroesophageal reflux disease) Hypothyroidism Asthma LAST USED RESCUE INHALER MAY 2022 Hypertension Hyperlipidemia Hiatal hernia Syncope LAST EPISODE JULY 2020 Migraine History of diverticulitis Hx of breast cancer RT (SURGERY WITH RADIATION) Anxiety and depression H/O abscess of breast NO CURRENT INFECTION Liver lesion Surgical History History of hernia surgery Sep 2022 H/O umbilical hernia repair History of removal of Port-a-Cath (12/08/20) Access Port Removal(Left) 12/08/20 Dr. Gallegos History of breast biopsy Hx of melanoma excision History of tooth extraction History of vascular access device A-PORT>REMOVED History of excision of lesion 2016 excision left axilla- abscess Dr. Brunner [address] Brunner H/O colonoscopy History of esophagogastroduodenoscopy (EGD) H/O thyroidectomy REMOVED D/T "SO MANY PROBLEMS WITH MY THRYOID" Hx of hysterectomy Hx laparoscopic cholecystectomy History of mastectomy partial mastectomy 2008 Dr. Ferris Total mastectomy>RT 2009 Dr. Ferris NO RECONSTRUCTION H/O section X 2 Family History Mother Ovarian cancer Colon cancer Father Pancreatic cancer Colorectal cancer Grandmother (Maternal) Colorectal cancer Other No family history of adverse response to anesthesia Denies family history of Prostate cancer Myocardial infarction Breast cancer Social History Smoking Status: Current every day smoker Tobacco Type: Cigarettes Age Started Using Tobacco: 10; packs per day: 0.5; Cigarettes Per Day: 5; Second Hand Exposure: No; Do You Dip or Chew Tobacco: No; Hx Alcohol Use: No Hx Substance Use: No Preferred Language: Swedish Communication Ability: Effective Visual Impairment: No Limitations Hearing Ability: Normal Supervisor Coremaker Required: No Beliefs That Will Affect Care: None marital status: Current Living Situation: Spouse Current Living Situation Comment: home with 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 How many Children do You have: 2 Feels Safe at Home: Yes Childhood Exposure to Second-Hand Smoke: Yes Diet: regular Dental Care, Regularly: No Physical Activity Frequency: Daily Seatbelt Use: never Sunscreen Use: Yes Assistive Devices: Denture - Upper and Denture - Lower Review of Systems Review of Systems: All systems reviewed & are unremarkable except as noted in HPI & below Physical Exam Physical Exam: General: 59yo female sitting up in bed, mild distress with tachypnea/pain to her R abdomen at site of PleurX HEENT: head atraumatic, normocephalic, mmm, trachea midline Resp: diminished in the bases, R>L, expiratory wheezing, on 2L, +tachypnea, +cough CV: regular, tachy to 110s, 1+ b/l LE edema, pulses present/calves nontender GI: +BS, +distension, +tenderness primarily on the RIGHT ABDOMEN, cellulitic appearance surrounding pleurX without significant drainage but dressing not able to be removed 2nd to not having appropriate supplies in ER but to get/bring kathryn mejia MSK/Neuro: generalized weakness, nonfocal, not confused, no facial droop, answering questions appropriately Psych: alert, oriented x 3, anxious at times Results & Data Results & Data Vital Signs (Past 12 Hours) Vital Signs Temp Pulse Pulse Resp BP BP Pulse Ox 10/31/24 15:47 112 H 28 H 141/82 H 94 10/31/24 15:30 111 H 24 149/91 H 93 10/31/24 15:23 113 H 10/31/24 15:00 112 H 24 131/83 93 10/31/24 15:00 131/83 10/31/24 15:00 131/83 10/31/24 14:42 114 H 18 125/88 94 10/31/24 14:42 94 10/31/24 14:10 10/31/24 13:38 36.3 C L 120 H 40 H 120/75 92 O2 Del Method O2 Flow Rate 10/31/24 15:47 Nasal Cannula 2 10/31/24 15:30 Nasal Cannula 2 10/31/24 15:23 10/31/24 15:00 Nasal Cannula 2 10/31/24 15:00 10/31/24 15:00 10/31/24 14:42 Nasal Cannula 2 10/31/24 14:42 Nasal Cannula 2 10/31/24 14:10 Nasal Cannula 4 10/31/24 13:38 Nasal Cannula 2 Laboratory Results 10/31/24 10/31/24 10/31/24 Range/Units 14:13 14:11 14:06 WBC 7.72 (4.8-10.8) K/ul RBC 4.73 (4.20-5.40) M/uL Hgb 13.5 (12.0-16.0) g/dl POC Hgb 13.6 (12.0-16.0) g/dl Hct 39.7 (37.0-47.0) % POC Hct 40 (37-47) % MCV 83.9 (80.0-100.0) fL MCH 28.5 (25.0-34.0) pg MCHC 34.0 (32.0-36.0) g/dL RDW Std Deviation 37.3 (36.4-46.3) fL RDW Coeff of Luisa 12.3 (11.5-14.5) % Plt Count 272 (130-400) K/uL MPV 10.2 (9.4-12.4) fL Immature Gran % (Auto) 9.2 % Neut % (Auto) 80.3 % Lymph % (Auto) 6.9 % Wilbarger % (Auto) 2.1 % Eos % (Auto) 0.5 % Baso % (Auto) 1.0 % Neut # (Auto) 6.20 (1.40-6.50) K/uL Lymph # (Auto) 0.53 L (1.20-3.40) K/uL Wilbarger # (Auto) 0.16 (0.11-0.59) K/uL Eos # (Auto) 0.04 (0.00-0.50) K/uL Baso # (Auto) 0.08 (0.00-0.20) K/uL Immature Gran # (Auto) 0.71 H (0.01-0.20) K/uL Toxic Vacuolation 1+ PT 11.4 (9.0-12.0) Seconds INR 1.1 (0.9-1.1) APTT 28 (21-31) Seconds PTT Ratio 1.0 POC Sodium 131 L (135-144) mmol/L Sodium 130 L (136-145) mmol/L POC Potassium 3.7 (3.3-5.0) mmol/L Potassium 3.6 (3.5-5.1) mmol/L POC Chloride 95 L (101-112) mmol/L Chloride 97 L (98-107) mmol/L Carbon Dioxide 24 (21-32) mmol/L POC Total CO2 22 L (24-31) mmol/L Anion Gap 9 (3-11) POC Anion Gap 19.0 (16-25) mmol/L POC BUN 7 (7-18) mg/dl BUN 9 (6-23) mg/dl Creatinine 0.49 L (0.6-1.2) mg/dl POC Creatinine 0.6 (0.6-1.3) mg/dl Est Cr Clr Drug Dosing 151.1 ml/min eGFR 108.50 BUN/Creatinine Ratio 18.4 (10-20) Glucose 184 H (70-99(Fasting)) mg/dl POC Glucose (other) 180 H (70-99) mg/dl Lactate 1.3 (0.4-2.0) mmol/L Calcium 8.8 (8.6-10.3) mg/dl POC Ioniz Calcium Adrien 1.10 L (1.12-1.32) mmol/l Magnesium 1.7 (1.7-2.4) mg/dl Total Bilirubin 1.9 H (0.2-1.0) mg/dl Direct Bilirubin 1.1 H (0-0.2) mg/dl AST 20 (13-39) U/L ALT 38 (7-52) U/L Alkaline Phosphatase 113 H (34-104) U/L Troponin I High Sens 8.7 (0-14) pg/ml Total Protein 6.2 (6.0-8.3) gm/dl Albumin 3.0 L (3.4-5.0) gm/dl Procalcitonin 0.75 H (0-0.5) ng/ml Adenovirus (PCR) (NotDetected) B. pertussis DNA (PCR) (NotDetected) B.parapertussis DNA PCR (NotDetected) C. pneumoniae DNA (PCR) (NotDetected) Coronavirus OC43 (PCR) (NotDetected) Coronavirus HKU1 (PCR) (NotDetected) Coronavirus 229E (PCR) (NotDetected) SARS-CoV-2 (PCR) (NotDetected) Coronavirus NL63 (PCR) (NotDetected) Human Metapneumovir PCR (NotDetected) Influenza Type A (PCR) (NotDetected) Influenza Type B (PCR) (NotDetected) M. pneumoniae (PCR) (NotDetected) Parainfluenza 1 (PCR) (NotDetected) Parainfluenza 2 (PCR) (NotDetected) Parainfluenza 3 (PCR) (NotDetected) Parainfluenza 4 (PCR) (NotDetected) RSV (PCR) (NotDetected) Entero/Rhino (PCR) (NotDetected) 10/31/24 Range/Units 13:57 WBC (4.8-10.8) K/ul RBC (4.20-5.40) M/uL Hgb (12.0-16.0) g/dl POC Hgb (12.0-16.0) g/dl Hct (37.0-47.0) % POC Hct (37-47) % MCV (80.0-100.0) fL MCH (25.0-34.0) pg MCHC (32.0-36.0) g/dL RDW Std Deviation (36.4-46.3) fL RDW Coeff of Luisa (11.5-14.5) % Plt Count (130-400) K/uL MPV (9.4-12.4) fL Immature Gran % (Auto) % Neut % (Auto) % Lymph % (Auto) % Wilbarger % (Auto) % Eos % (Auto) % Baso % (Auto) % Neut # (Auto) (1.40-6.50) K/uL Lymph # (Auto) (1.20-3.40) K/uL Wilbarger # (Auto) (0.11-0.59) K/uL Eos # (Auto) (0.00-0.50) K/uL Baso # (Auto) (0.00-0.20) K/uL Immature Gran # (Auto) (0.01-0.20) K/uL Toxic Vacuolation PT (9.0-12.0) Seconds INR (0.9-1.1) APTT (21-31) Seconds PTT Ratio POC Sodium (135-144) mmol/L Sodium (136-145) mmol/L POC Potassium (3.3-5.0) mmol/L Potassium (3.5-5.1) mmol/L POC Chloride (101-112) mmol/L Chloride (98-107) mmol/L Carbon Dioxide (21-32) mmol/L POC Total CO2 (24-31) mmol/L Anion Gap (3-11) POC Anion Gap (16-25) mmol/L POC BUN (7-18) mg/dl BUN (6-23) mg/dl Creatinine (0.6-1.2) mg/dl POC Creatinine (0.6-1.3) mg/dl Est Cr Clr Drug Dosing ml/min eGFR BUN/Creatinine Ratio (10-20) Glucose (70-99(Fasting)) mg/dl POC Glucose (other) (70-99) mg/dl Lactate (0.4-2.0) mmol/L Calcium (8.6-10.3) mg/dl POC Ioniz Calcium Adrien (1.12-1.32) mmol/l Magnesium (1.7-2.4) mg/dl Total Bilirubin (0.2-1.0) mg/dl Direct Bilirubin (0-0.2) mg/dl AST (13-39) U/L ALT (7-52) U/L Alkaline Phosphatase (34-104) U/L Troponin I High Sens (0-14) pg/ml Total Protein (6.0-8.3) gm/dl Albumin (3.4-5.0) gm/dl Procalcitonin (0-0.5) ng/ml Adenovirus (PCR) Not Detected (NotDetected) B. pertussis DNA (PCR) Not Detected (NotDetected) B.parapertussis DNA PCR Not Detected (NotDetected) C. pneumoniae DNA (PCR) Not Detected (NotDetected) Coronavirus OC43 (PCR) Not Detected (NotDetected) Coronavirus HKU1 (PCR) Not Detected (NotDetected) Coronavirus 229E (PCR) Not Detected (NotDetected) SARS-CoV-2 (PCR) Not Detected (NotDetected) Coronavirus NL63 (PCR) Not Detected (NotDetected) Human Metapneumovir PCR Not Detected (NotDetected) Influenza Type A (PCR) Not Detected (NotDetected) Influenza Type B (PCR) Not Detected (NotDetected) M. pneumoniae (PCR) Not Detected (NotDetected) Parainfluenza 1 (PCR) Not Detected (NotDetected) Parainfluenza 2 (PCR) Not Detected (NotDetected) Parainfluenza 3 (PCR) Not Detected (NotDetected) Parainfluenza 4 (PCR) Not Detected (NotDetected) RSV (PCR) Not Detected (NotDetected) Entero/Rhino (PCR) Not Detected (NotDetected) Diagnostic Findings Abdomen/Pelvis CT 10/31/24 13:52 EXAM: CT Abdomen and Pelvis Without Intravenous Contrast INDICATION: Metastatic breast cancer. Right abdominal pain. TECHNIQUE: Axial computed tomography images of the abdomen and pelvis without intravenous contrast. Sagittal and coronal reformatted images were created and reviewed. This CT exam was performed using one or more of the following dose reduction techniques: automated exposure control, adjustment of the mA and/or kV according to patient size, and/or use of iterative reconstruction technique. COMPARISON: PET/CT 09/23/2024 FINDINGS: Limitations: None. ABDOMEN: Liver: Lack of intravenous contrast limits detection of some masses. No abnormality noted. Gallbladder and bile ducts: No calcified stones or surrounding fluid. Pancreas: No pancreatic mass, calcification, inflammation or ductal dilation noted. Spleen: No significant abnormality noted. Adrenals: Stable bilateral adrenal metastases. Kidneys and ureters: Stable renal nodules and right perinephric scarring. No stone or hydronephrosis. Stomach and bowel: Scattered moderate stool throughout the colon. No obstruction or inflammation. PELVIS: Appendix: Well seen and appears normal. Bladder: Appears normal for the degree of filling. No stones or inflammation. No large mass. Masses may not be detected in the absence of opacification. Reproductive: Hysterectomy. Stable prominent retained left ovary. ABDOMEN and PELVIS: Intraperitoneal space: No free air. No significant fluid collection. Bones/joints: No acute changes. Soft tissues: No significant abnormality noted. Vasculature: Atherosclerotic calcification of the aorta and branches. No aneurysm. Lymph nodes: Stable 8 mm short axis dimension lymph node to the right of the celiac trunk. IMPRESSION: Stable prominent retained left ovary and lymph node in the upper abdomen. No acute abnormality. ACT 112: N/A Electronically signed by Whitney Brizuela 10-31-2024 3:16 PM Chest X-Ray 10/31/24 13:52 EXAM: Radiograph of the Chest 1 View INDICATION: Sepsis TECHNIQUE: Frontal view of the chest. Image obtained at 2:05 PM. COMPARISON: 09/23/2024 FINDINGS: Lungs and pleural spaces: Enlarged right pleural effusion and worsening consolidation in the lower half of the right lung. No pneumothorax. Heart: Stable prominent cardiac shadow. Mediastinum: Normal contour. Bones/joints: No fracture, erosion or dislocation. Soft tissues: No abnormality noted. No radiopaque foreign body noted. Tubes, lines and devices: Chest tube projects over the right lung base. Upper abdomen: No abnormality noted. IMPRESSION: 1. Lines and tubes as above. 2. Worsening right pleural effusion and right basilar airspace consolidation. ACT 112: N/A Electronically signed by Whitney Brizuela 10-31-2024 2:[address] 10/31/24 13:52 EXAM: CT Head Without Intravenous Contrast INDICATION: Metastatic breast cancer. Headache. TECHNIQUE: Axial computed tomography images of the head/brain without intravenous contrast. Sagittal and/or coronal reformats are provided. Sagittal and coronal reformatted images were created and reviewed. This CT exam was performed using one or more of the following dose reduction techniques: automated exposure control, adjustment of the mA and/or kV according to patient size, and/or use of iterative reconstruction technique. COMPARISON: No relevant prior studies available. FINDINGS: Limitations: Streak artifact noted limiting assessment of the frontal lobes and skull base. Brain and extra-axial spaces: No abnormality noted. No hemorrhage. No significant white matter disease. No edema. No ventriculomegaly. Bones/joints: No acute changes. Soft tissues: No significant abnormality noted. Vasculature: No acute abnormality noted. Sinuses: No layering fluid in the visualized portions of the paranasal sinuses. Mastoid air cells: No mastoid effusion. Orbits: No significant abnormality noted. IMPRESSION: Slightly limited by artifact. No abnormality noted. If additional imaging is clinically warranted to exclude metastases, MRI is more sensitive. ACT 112: N/A Electronically signed by Whitney Brizuela 10-31-2024 3:16 PM Chest CTA 10/31/24 13:53 EXAM: CT Angiography Chest With Intravenous Contrast INDICATION: Increasing right chest pain. Stage IV breast cancer. TECHNIQUE: Axial computed tomographic angiography images of the chest with intravenous contrast. Sagittal and coronal reformatted images were created and reviewed. This CT exam was performed using one or more of the following dose reduction techniques: automated exposure control, adjustment of the mA and/or kV according to patient size, and/or use of iterative reconstruction technique. MIP reconstructed images were created and reviewed. CONTRAST: 88ml of Optiray 320 was administered intravenously. COMPARISON: PET/CT 09/23/2024 FINDINGS: Pulmonary arteries: No abnormality noted. No pulmonary embolism. Aorta: No acute change noted. No thoracic aortic aneurysm or dissection. Lungs and pleural spaces: Significant increase in generalized interstitial markings. No 1.6 x 1.4 cm groundglass subpleural opacity in the left upper lobe. There is stable right basilar airspace consolidation. Generally stable scattered pulmonary nodules. Heart: No abnormality noted. No cardiomegaly. No significant pericardial effusion. No evidence of RV dysfunction. Bones/joints: Stable sclerotic metastases of the sternum. Soft tissues: No abnormality noted. Lymph nodes: 4 mm paratracheal lymph node is decreased in size. Tubes, lines and devices: There is a right basilar pleural drain. There is decreased right pleural effusion with new medial loculation measuring 4.0 x 4.3 x 7.3 cm long. No pneumothorax. IMPRESSION: 1. No pulmonary embolus noted. 2. Decreased layering right pleural effusion with new right loculation. 3. Increased diffuse interstitial markings could reflect worsening metastatic disease. 4. New left upper lobe groundglass infiltrate could be infectious or metastatic. 5. Previously noted metabolically active pretracheal lymph node is decreased in size. 6. Stable sternal metastases. ACT 112: N/A Electronically signed by Whitney Brizuela 10-31-2024 3:16 PM Supervising Physician Co-Signing Physician Notes The patient was seen by me. The chart was reviewed. Case discussed with PERRY Jorgensen. 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
[2024-10-31] MEDS: ONDANSETRON INJ 2 MG/ML 2 ML VIAL IV STA (17:11)
[2024-10-31] MEDS: HYDROmorphone INJ 1 MG/ML SYRINGE IV STA (17:11)
[2024-10-31 18:56] LABS: Appearance Urine Clear (Clear); Bacteria Urine Automated None Seen (None Seen); Bilirubin Urine 1+ (Negative); Blood Urine 1+ (Negative); Cast Urine Automated 0-2 /lpf (0-2); Color Urine Dark Yellow; Epithelial Cell Urine Auto 0-2 /hpf (0-2); Glucose Urine UA Negative (Negative); Ketones Urine 3+ (Negative); Leukocyte Esterase Urine Negative (Negative); Nitrite Urine Negative (Negative); Protein Urine 2+ (Negative); Specific Gravity Urine > 1.045 (1.000-1.030); Urobilinogen Urine Negative (Negative); WBC Urine Automated 0-5 /hpf (0-5)
--- NOTE | 2024-10-31 19:37 | Emergency Department Note ---
History of Present Illness General Chief complaint: Chest Pain Stated complaint: LOT OF PAIN IN R LUNG, BLOOD IN URINE Time Seen by Provider: 10/31/24 13:45 History of Present Illness Provider complaint: Shortness of breath hematuria Onset (ago): day(s) 1 Maximum Pain Intensity: 10 59-year-old female with history of breast cancer with metastasis to the lungs and skeletal system presents emergency department for dyspnea and hematuria. Patient reports her symptoms are gone for the last day. She reports no fever. She reports that she has a chest tube in her chest which she drains 3 times a week and is due to drainage tomorrow. She reports she has been having increasingly difficult time breathing. She reports no hemoptysis. She reports abdominal pain and hematuria. Patient reports no fevers. Home Medications Medication Instructions Recorded Confirmed Type nitroglycerin 0.4 mg sublingual 0.4 mg sublingual DIRECTED PRN 04/29/18 10/31/24 History tablet (Nitrostat) Chest Pain albuterol sulfate 90 mcg/actuation 1 - 2 puff inhalation .Q4-6HRS PRN 09/16/20 10/31/24 History aerosol inhaler Shortness Of Breath Or Wheezing rizatriptan 10 mg disintegrating See Rx Instructions PO .COMPLEX 11/21/21 10/31/24 Rx tablet (Maxalt-HEEL SCORER) #12 tabs budesonide-formoterol HFA 160 2 puff inhalation BID PRN 11/26/22 10/31/24 Rx mcg-4.5 mcg/actuation aerosol Shortness Of Breath Or Wheezing inhaler #10.2 grams insulin glargine 100 unit/mL (3 10 unit (0.1 mL) subcut QPM #15 mL 11/26/22 10/31/24 Rx mL) subcutaneous pen (Lantus Solostar U-100 Insulin) cholecalciferol (vitamin D3) 1,250 50,000 unit PO WEEKLY #12 caps 12/11/23 10/31/24 Rx mcg (50,000 unit) capsule hydrocodone 5 mg-acetaminophen 325 See Rx Instructions PO .COMPLEX 07/06/24 10/31/24 Rx mg tablet PRN pain #30 tabs levothyroxine 125 mcg tablet 125 mcg PO .COMPLEX #220 tabs 07/12/24 10/31/24 Rx bupropion HCl 150 mg tablet,12 hr 150 mg PO BID #180 ea 08/16/24 10/31/24 Rx sustained-release (Wellbutrin SR) ipratropium 0.5 mg-albuterol 3 mg 3 ml inhalation Q4H PRN Shortness 08/19/24 10/31/24 Rx (2.5 mg base)/3 mL nebulization Of Breath Or Wheezing #90 mL soln dextromethorphan-guaifenesin 5 10 ml PO Q6 PRN cough #200 mL 08/25/24 10/31/24 Rx mg-100 mg/5 mL oral liquid (Robitussin Cough-Chest Congestion DM) semaglutide 0.25 mg or 0.5 mg (2 1 mg (1.472 mL) subcut Q7D #3 mL 09/13/24 10/31/24 Rx mg/3 mL) subcutaneous pen injector (Ozempic) atorvastatin 20 mg tablet 20 mg PO QAM #90 tabs 10/21/24 10/31/24 Rx furosemide 20 mg tablet 20 mg PO QAM #90 tabs 10/21/24 10/31/24 Rx losartan 100 mg tablet 100 mg PO QAM #90 tabs 10/21/24 10/31/24 Rx metoprolol tartrate 50 mg tablet 50 mg PO BID #180 tabs 10/21/24 10/31/24 Rx spironolactone 25 mg tablet 25 mg PO HS #90 tabs 10/21/24 10/31/24 Rx topiramate 100 mg tablet 100 mg PO BID #180 tabs 10/21/24 10/31/24 Rx metoclopramide HCl 10 mg tablet 10 mg PO Q6H 10/31/24 10/31/24 History ondansetron 8 mg disintegrating 8 mg PO DAILY PRN Nausea 10/31/24 10/31/24 History tablet prochlorperazine maleate 10 mg 10 mg PO Q6H PRN Nausea 10/31/24 10/31/24 History tablet Allergies Allergy/AdvReac Type Severity Reaction Status Date / Time cephalexin Allergy Severe SHORTNESS Verified 09/27/24 07:07 OF BREATH sulfamethoxazole [Bactrim] Allergy Severe SHORTNESS Verified 09/27/24 07:07 OF BREATH trimethoprim [Bactrim] Allergy Severe SHORTNESS Verified 09/27/24 07:07 OF BREATH ceftriaxone Allergy Intermediate REDNESS, Verified 09/27/24 07:07 ITCHING tramadol Allergy Intermediate ITCHY Verified 09/27/24 07:07 vancomycin Allergy Intermediate ITCHING Verified 09/27/24 07:07 ALL OVER, RASH, PARESTHESIAS cefdinir Allergy Unknown unknown Verified 09/27/24 07:07 codeine AdvReac Severe GI BLEED Verified 09/27/24 07:07 tamoxifen AdvReac Severe "CAN'T Verified 09/27/24 07:07 MOVE" Past Med/Surg History Problem List (Updated 10/31/24 @ 19:36 by Cooper Colon MD) Pneumonia (Acute) Lung cancer (Acute) Abdominal wall cellulitis Acute on chronic respiratory failure with hypercapnia Chronic respiratory failure with hypoxia Malignant pleural effusion (Chronic) Hydropneumothorax (Acute) Multiple pulmonary nodules COPD with emphysema Left leg pain Umbilical hernia without obstruction or gangrene Depression Tobacco abuse (Acute) Hypothyroidism (Acute 11/23/12) Benign essential hypertension (Acute 11/23/12) Gastro-esophageal reflux disease without esophagitis (Acute 11/23/12) Bipolar disorder, unspecified (Acute 11/23/12) History of breast cancer Port-A-Cath in place L aport 2012 Dr. Td Grossman Vitamin D deficiency (Acute) Laryngopharyngeal reflux (Acute) Hypercholesterolemia (Acute) Neuropathic pain of chest Ventral hernia Cervical radiculopathy Cervical stenosis of spine Diabetes mellitus, type 2 Morbid obesity COPD (chronic obstructive pulmonary disease) (Acute) Medical History Hydropneumothorax Chest pain Pleural effusion Left cervical radiculopathy Hidradenitis Adhesive capsulitis of left shoulder History of colon polyps History of COVID-19 07/2021>HEADACHE/SOB/JOINT PAIN *RESOLVED Hearing difficulty History of dysplastic nevus Pituitary abnormality Osteoarthritis Gastroparesis GERD (gastroesophageal reflux disease) Hypothyroidism Asthma LAST USED RESCUE INHALER MAY 2022 Hypertension Hyperlipidemia Hiatal hernia Syncope LAST EPISODE JULY 2020 Migraine History of diverticulitis Hx of breast cancer RT (SURGERY WITH RADIATION) Anxiety and depression H/O abscess of breast NO CURRENT INFECTION Liver lesion Surgical History History of hernia surgery Sep 2022 H/O umbilical hernia repair History of removal of Port-a-Cath (12/08/20) Access Port Removal(Left) 12/08/20 Dr. Gallegos History of breast biopsy Hx of melanoma excision History of tooth extraction History of vascular access device A-PORT>REMOVED History of excision of lesion 2017 excision left axilla- abscess Dr. Brunner [address] Brunner H/O colonoscopy History of esophagogastroduodenoscopy (EGD) H/O thyroidectomy REMOVED D/T "SO MANY PROBLEMS WITH MY THRYOID" Hx of hysterectomy Hx laparoscopic cholecystectomy History of mastectomy partial mastectomy 2008 Dr. Ferris Total mastectomy>RT 2009 Dr. Ferris NO RECONSTRUCTION H/O section X 2 Family History Mother Ovarian cancer Colon cancer Father Pancreatic cancer Colorectal cancer Grandmother (Maternal) Colorectal cancer Other No family history of adverse response to anesthesia Denies family history of Prostate cancer Myocardial infarction Breast cancer Social History Smoking Status: Current every day smoker Tobacco Type: Cigarettes Age Started Using Tobacco: 10; packs per day: 0.5; Cigarettes Per Day: 5; Second Hand Exposure: No; Do You Dip or Chew Tobacco: No; Hx Alcohol Use: No Hx Substance Use: No Preferred Language: Lao Communication Ability: Effective Visual Impairment: No Limitations Hearing Ability: Normal Model Maker Plaster Required: No Beliefs That Will Affect Care: None marital status: Current Living Situation: Spouse Current Living Situation Comment: home with 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 How many Children do You have: 2 Feels Safe at Home: Yes Childhood Exposure to Second-Hand Smoke: Yes Diet: regular Dental Care, Regularly: No Physical Activity Frequency: Daily Seatbelt Use: never Sunscreen Use: Yes Assistive Devices: Denture - Upper and Denture - Lower Physical Exam Vital Signs Vital Signs - 24 hr 10/31/24 13:38 10/31/24 14:10 10/31/24 14:42 Temperature 36.3 C L Temperature Source Temporal Artery Scan Pulse Rate 120 H Pulse Rate [Left Apical] Pulse Rate from SpO2 Sensor Respiratory Rate 40 H Respiratory Effort / Characteristics Labored Short of Breath SOB on Exertion Respiratory Depth Blood Pressure 120/75 Blood Pressure [Left Arm] Blood Pressure Mean 90 Blood Pressure Mean [Left Arm] Blood Pressure Position [Left Arm] Pulse Oximetry 92 94 Oxygen Delivery Method Nasal Cannula Nasal Cannula Nasal Cannula Oxygen Flow Rate 2 4 2 Sepsis Recent Fever Within 48 Hours No Sepsis New/Unexplained Change in Mental Status No Sepsis Action Taken by Nursing Physician Notified 10/31/24 14:42 10/31/24 15:00 10/31/24 15:00 Temperature Temperature Source Pulse Rate Pulse Rate [Left Apical] 114 H Pulse Rate from SpO2 Sensor Respiratory Rate 18 Respiratory Effort / Characteristics Non-Labored Spontaneous Respiratory Depth Normal Blood Pressure 131/83 131/83 Blood Pressure [Left Arm] 125/88 Blood Pressure Mean 100 100 Blood Pressure Mean [Left Arm] 100 Blood Pressure Position [Left Arm] Lying Pulse Oximetry 94 Oxygen Delivery Method Nasal Cannula Oxygen Flow Rate 2 Sepsis Recent Fever Within 48 Hours Sepsis New/Unexplained Change in Mental Status Sepsis Action Taken by Nursing 10/31/24 15:00 10/31/24 15:23 10/31/24 15:30 Temperature Temperature Source Pulse Rate 112 H 113 H 111 H Pulse Rate [Left Apical] Pulse Rate from SpO2 Sensor Respiratory Rate 24 24 Respiratory Effort / Characteristics Respiratory Depth Blood Pressure 131/83 149/91 H Blood Pressure [Left Arm] Blood Pressure Mean 100 110 Blood Pressure Mean [Left Arm] Blood Pressure Position [Left Arm] Pulse Oximetry 93 93 Oxygen Delivery Method Nasal Cannula Nasal Cannula Oxygen Flow Rate 2 2 Sepsis Recent Fever Within 48 Hours Sepsis New/Unexplained Change in Mental Status Sepsis Action Taken by Nursing 10/31/24 15:47 10/31/24 15:54 10/31/24 16:00 Temperature Temperature Source Pulse Rate 112 H 108 H 104 H Pulse Rate [Left Apical] Pulse Rate from SpO2 Sensor 108 H Respiratory Rate 28 H 26 H 26 H Respiratory Effort / Characteristics Respiratory Depth Blood Pressure 141/82 H 127/84 Blood Pressure [Left Arm] Blood Pressure Mean 91 98 Blood Pressure Mean [Left Arm] Blood Pressure Position [Left Arm] Pulse Oximetry 94 94 94 Oxygen Delivery Method Nasal Cannula Nasal Cannula Oxygen Flow Rate 2 2 Sepsis Recent Fever Within 48 Hours Sepsis New/Unexplained Change in Mental Status Sepsis Action Taken by Nursing 10/31/24 16:15 10/31/24 16:30 10/31/24 16:46 Temperature Temperature Source Pulse Rate 108 H 108 H 118 H Pulse Rate [Left Apical] Pulse Rate from SpO2 Sensor Respiratory Rate 26 H 26 H 30 H Respiratory Effort / Characteristics Respiratory Depth Blood Pressure 137/88 114/92 128/92 Blood Pressure [Left Arm] Blood Pressure Mean 99 104 102 Blood Pressure Mean [Left Arm] Blood Pressure Position [Left Arm] Pulse Oximetry 95 94 95 Oxygen Delivery Method Nasal Cannula Nasal Cannula Nasal Cannula Oxygen Flow Rate 2 2 2 Sepsis Recent Fever Within 48 Hours Sepsis New/Unexplained Change in Mental Status Sepsis Action Taken by Nursing 10/31/24 16:54 10/31/24 17:15 10/31/24 17:30 Temperature Temperature Source Pulse Rate 115 H 113 H 116 H Pulse Rate [Left Apical] Pulse Rate from SpO2 Sensor 115 H 113 H 117 H Respiratory Rate 31 H 21 21 Respiratory Effort / Characteristics Respiratory Depth Blood Pressure 147/115 H 129/83 128/86 Blood Pressure [Left Arm] Blood Pressure Mean 125 98 100 Blood Pressure Mean [Left Arm] Blood Pressure Position [Left Arm] Pulse Oximetry 95 96 95 Oxygen Delivery Method Nasal Cannula Nasal Cannula Nasal Cannula Oxygen Flow Rate 2 2 2 Sepsis Recent Fever Within 48 Hours Sepsis New/Unexplained Change in Mental Status Sepsis Action Taken by Nursing Physical Exam HENT: Exam performed. -Head: Normocephalic and atraumatic. -Right Ear: External ear normal. No mastoid erythema -Left Ear: External ear normal. No mastoid erythema -Mouth/Throat: The oropharynx is clear and moist. No trismus in the jaw. No dental abscesses or uvula swelling. No oropharyngeal exudate or tonsillar abscesses. NECK: Normal range of motion. Neck supple. No JVD present. CV: Tachycardic rate, regular rhythm, normal heart sounds and intact distal pulses. Palpable radial pulses bue. PULM/CHEST: Rales bilaterally. -Chest Wall: Pleurx catheter in the right chest. ABD: The abdomen is soft. There is no tenderness. There is no rebound, no guarding MUSC/SKEL: Normal range of motion. There is no peripheral edema, tenderness or deformity. NEURO: Motor and sensation grossly intact. Course Course 1345: The patient was evaluated in room A10. A complete history and physical exam was performed Cardiac monitoring: An order was placed for continuous cardiac monitoring. The monitor shows a rate of 120 with sinus tachycardia rhythm interpreted by me Patient hypoxic on her usual 2 L via nasal cannula. Patient's oxygen was improved when her oxygen was increased to 4 L nasal cannula. 1410: Chest x-ray viewed by me shows worsening of her chronic right pleural fluid reduction. 1625: Vital signs stable on supplemental oxygen. Labs show blood cell count of 7.72. Coagulation studies are unremarkable. Labs showed total bilirubin 1.9 direct bilirubin 1.1 BNP 303 procalcitonin 0.75. Imaging of the head and abdomen pelvis are unremarkable. CTA of the chest showed no pulmonary emboli but did show a right loculation that is new and new left upper lobe groundglass infiltrate that could be infectious and/or metastatic. Given the patient's elevated procalcitonin level patient be treated empirically with Levaquin given her other known drug allergies. Discussed case with Dr. Raymond pulmonology on- call for the patient he is agreement. Patient will be admitted to the [facility] team. Administered Medications Discontinued Medications Hydromorphone HCl (Hydromorphone Inj 1 Mg/Ml Syringe) 1 mg IV NOW STA Stop: 10/31/24 17:01 Last Admin: 10/31/24 17:11 Dose: 1 mg Documented By: VIVIEN Levofloxacin/Dextrose (Levaquin/D5w) 750 mg in 150 mls @ 100 mls/hr IV NOW STA Stop: 10/31/24 16:50 Last Infusion: 10/31/24 17:17 Dose: Infused Documented By: Admin: 10/31/24 15:43 Dose: 100 mls/hr Documented By: VIVIEN Ioversol (Optiray 320 125ml) 88 ml IV ONCE ONE Stop: 10/31/24 14:46 Last Admin: 10/31/24 14:45 Dose: 88 ml Documented By: SANDIE Ondansetron HCl (Ondansetron Inj 2 Mg/Ml 2 Ml Vial) 4 mg IV NOW STA Stop: 10/31/24 17:02 Last Admin: 10/31/24 17:11 Dose: 4 mg Documented By: VIVIEN Medical Decision Making Laboratory Data Attestation: I reviewed the patient's lab results. 10/31/24 14:13 10/31/24 14:13 Lab Results 10/31/24 10/31/24 10/31/24 Range/Units 13:57 14:06 14:11 WBC (4.8-10.8) K/ul RBC (4.20-5.40) M/uL Hgb (12.0-16.0) g/dl POC Hgb 13.6 (12.0-16.0) g/dl Hct (37.0-47.0) % POC Hct 40 (37-47) % MCV (80.0-100.0) fL MCH (25.0-34.0) pg MCHC (32.0-36.0) g/dL RDW Std Deviation (36.4-46.3) fL RDW Coeff of Luisa (11.5-14.5) % Plt Count (130-400) K/uL MPV (9.4-12.4) fL Immature Gran % (Auto) % Neut % (Auto) % Lymph % (Auto) % [place] % (Auto) % Eos % (Auto) % Baso % (Auto) % Neut # (Auto) (1.40-6.50) K/uL Lymph # (Auto) (1.20-3.40) K/uL [place] # (Auto) (0.11-0.59) K/uL Eos # (Auto) (0.00-0.50) K/uL Baso # (Auto) (0.00-0.20) K/uL Immature Gran # (Auto) (0.01-0.20) K/uL Toxic Vacuolation PT (9.0-12.0) Seconds INR (0.9-1.1) APTT (21-31) Seconds PTT Ratio POC Sodium 131 L (135-144) mmol/L Sodium (136-145) mmol/L POC Potassium 3.7 (3.3-5.0) mmol/L Potassium (3.5-5.1) mmol/L POC Chloride 95 L (101-112) mmol/L Chloride (98-107) mmol/L Carbon Dioxide (21-32) mmol/L POC Total CO2 22 L (24-31) mmol/L Anion Gap (3-11) POC Anion Gap 19.0 (16-25) mmol/L POC BUN 7 (7-18) mg/dl BUN (6-23) mg/dl Creatinine (0.6-1.2) mg/dl POC Creatinine 0.6 (0.6-1.3) mg/dl Est Cr Clr Drug Dosing ml/min eGFR BUN/Creatinine Ratio (10-20) Glucose (70-99(Fasting)) mg/dl POC Glucose (other) 180 H (70-99) mg/dl Lactate 1.3 (0.4-2.0) mmol/L Calcium (8.6-10.3) mg/dl POC Ioniz Calcium Adrien 1.10 L (1.12-1.32) mmol/l Magnesium (1.7-2.4) mg/dl Total Bilirubin (0.2-1.0) mg/dl Direct Bilirubin (0-0.2) mg/dl AST (13-39) U/L ALT (7-52) U/L Alkaline Phosphatase (34-104) U/L Troponin I High Sens (0-14) pg/ml B-Natriuretic Peptide (0-100) pg/ml Total Protein (6.0-8.3) gm/dl Albumin (3.4-5.0) gm/dl Procalcitonin (0-0.5) ng/ml Adenovirus (PCR) Not Detected (NotDetected) B. pertussis DNA (PCR) Not Detected (NotDetected) B.parapertussis DNA PCR Not Detected (NotDetected) C. pneumoniae DNA (PCR) Not Detected (NotDetected) Coronavirus OC43 (PCR) Not Detected (NotDetected) Coronavirus HKU1 (PCR) Not Detected (NotDetected) Coronavirus 229E (PCR) Not Detected (NotDetected) SARS-CoV-2 (PCR) Not Detected (NotDetected) Coronavirus NL63 (PCR) Not Detected (NotDetected) Human Metapneumovir PCR Not Detected (NotDetected) Influenza Type A (PCR) Not Detected (NotDetected) Influenza Type B (PCR) Not Detected (NotDetected) M. pneumoniae (PCR) Not Detected (NotDetected) Parainfluenza 1 (PCR) Not Detected (NotDetected) Parainfluenza 2 (PCR) Not Detected (NotDetected) Parainfluenza 3 (PCR) Not Detected (NotDetected) Parainfluenza 4 (PCR) Not Detected (NotDetected) RSV (PCR) Not Detected (NotDetected) Entero/Rhino (PCR) Not Detected (NotDetected) 10/31/24 10/31/24 Range/Units 14:13 17:20 WBC 7.72 (4.8-10.8) K/ul RBC 4.73 (4.20-5.40) M/uL Hgb 13.5 (12.0-16.0) g/dl POC Hgb (12.0-16.0) g/dl Hct 39.7 (37.0-47.0) % POC Hct (37-47) % MCV 83.9 (80.0-100.0) fL MCH 28.5 (25.0-34.0) pg MCHC 34.0 (32.0-36.0) g/dL RDW Std Deviation 37.3 (36.4-46.3) fL RDW Coeff of Luisa 12.3 (11.5-14.5) % Plt Count 272 (130-400) K/uL MPV 10.2 (9.4-12.4) fL Immature Gran % (Auto) 9.2 % Neut % (Auto) 80.3 % Lymph % (Auto) 6.9 % [place] % (Auto) 2.1 % Eos % (Auto) 0.5 % Baso % (Auto) 1.0 % Neut # (Auto) 6.20 (1.40-6.50) K/uL Lymph # (Auto) 0.53 L (1.20-3.40) K/uL [place] # (Auto) 0.16 (0.11-0.59) K/uL Eos # (Auto) 0.04 (0.00-0.50) K/uL Baso # (Auto) 0.08 (0.00-0.20) K/uL Immature Gran # (Auto) 0.71 H (0.01-0.20) K/uL Toxic Vacuolation 1+ PT 11.4 (9.0-12.0) Seconds INR 1.1 (0.9-1.1) APTT 28 (21-31) Seconds PTT Ratio 1.0 POC Sodium (135-144) mmol/L Sodium 130 L (136-145) mmol/L POC Potassium (3.3-5.0) mmol/L Potassium 3.6 (3.5-5.1) mmol/L POC Chloride (101-112) mmol/L Chloride 97 L (98-107) mmol/L Carbon Dioxide 24 (21-32) mmol/L POC Total CO2 (24-31) mmol/L Anion Gap 9 (3-11) POC Anion Gap (16-25) mmol/L POC BUN (7-18) mg/dl BUN 9 (6-23) mg/dl Creatinine 0.49 L (0.6-1.2) mg/dl POC Creatinine (0.6-1.3) mg/dl Est Cr Clr Drug Dosing 151.1 ml/min eGFR 108.50 BUN/Creatinine Ratio 18.4 (10-20) Glucose 184 H (70-99(Fasting)) mg/dl POC Glucose (other) (70-99) mg/dl Lactate (0.4-2.0) mmol/L Calcium 8.8 (8.6-10.3) mg/dl POC Ioniz Calcium Adrien (1.12-1.32) mmol/l Magnesium 1.7 (1.7-2.4) mg/dl Total Bilirubin 1.9 H (0.2-1.0) mg/dl Direct Bilirubin 1.1 H (0-0.2) mg/dl AST 20 (13-39) U/L ALT 38 (7-52) U/L Alkaline Phosphatase 113 H (34-104) U/L Troponin I High Sens 8.7 (0-14) pg/ml B-Natriuretic Peptide 303 H (0-100) pg/ml Total Protein 6.2 (6.0-8.3) gm/dl Albumin 3.0 L (3.4-5.0) gm/dl Procalcitonin 0.75 H (0-0.5) ng/ml Adenovirus (PCR) (NotDetected) B. pertussis DNA (PCR) (NotDetected) B.parapertussis DNA PCR (NotDetected) C. pneumoniae DNA (PCR) (NotDetected) Coronavirus OC43 (PCR) (NotDetected) Coronavirus HKU1 (PCR) (NotDetected) Coronavirus 229E (PCR) (NotDetected) SARS-CoV-2 (PCR) (NotDetected) Coronavirus NL63 (PCR) (NotDetected) Human Metapneumovir PCR (NotDetected) Influenza Type A (PCR) (NotDetected) Influenza Type B (PCR) (NotDetected) M. pneumoniae (PCR) (NotDetected) Parainfluenza 1 (PCR) (NotDetected) Parainfluenza 2 (PCR) (NotDetected) Parainfluenza 3 (PCR) (NotDetected) Parainfluenza 4 (PCR) (NotDetected) RSV (PCR) (NotDetected) Entero/Rhino (PCR) (NotDetected) Imaging Data Attestation: I personally reviewed and interpreted this imaging study as follows: My Impression: Chest x-ray viewed by me shows worsening of her chronic right pleural fluid reduction. Radiologist's Impression: Abdomen/Pelvis CT 10/31/24 13:52 EXAM: CT Abdomen and Pelvis Without Intravenous Contrast INDICATION: Metastatic breast cancer. Right abdominal pain. TECHNIQUE: Axial computed tomography images of the abdomen and pelvis without intravenous contrast. Sagittal and coronal reformatted images were created and reviewed. This CT exam was performed using one or more of the following dose reduction techniques: automated exposure control, adjustment of the mA and/or kV according to patient size, and/or use of iterative reconstruction technique. COMPARISON: PET/CT 09/23/2024 FINDINGS: Limitations: None. ABDOMEN: Liver: Lack of intravenous contrast limits detection of some masses. No abnormality noted. Gallbladder and bile ducts: No calcified stones or surrounding fluid. Pancreas: No pancreatic mass, calcification, inflammation or ductal dilation noted. Spleen: No significant abnormality noted. Adrenals: Stable bilateral adrenal metastases. Kidneys and ureters: Stable renal nodules and right perinephric scarring. No stone or hydronephrosis. Stomach and bowel: Scattered moderate stool throughout the colon. No obstruction or inflammation. PELVIS: Appendix: Well seen and appears normal. Bladder: Appears normal for the degree of filling. No stones or inflammation. No large mass. Masses may not be detected in the absence of opacification. Reproductive: Hysterectomy. Stable prominent retained left ovary. ABDOMEN and PELVIS: Intraperitoneal space: No free air. No significant fluid collection. Bones/joints: No acute changes. Soft tissues: No significant abnormality noted. Vasculature: Atherosclerotic calcification of the aorta and branches. No aneurysm. Lymph nodes: Stable 8 mm short axis dimension lymph node to the right of the celiac trunk. IMPRESSION: Stable prominent retained left ovary and lymph node in the upper abdomen. No acute abnormality. ACT 112: N/A Electronically signed by Whitney Brizuela 10-31-2024 3:16 PM Chest X-Ray 10/31/24 13:52 EXAM: Radiograph of the Chest 1 View INDICATION: Sepsis TECHNIQUE: Frontal view of the chest. Image obtained at 2:05 PM. COMPARISON: 09/23/2024 FINDINGS: Lungs and pleural spaces: Enlarged right pleural effusion and worsening consolidation in the lower half of the right lung. No pneumothorax. Heart: Stable prominent cardiac shadow. Mediastinum: Normal contour. Bones/joints: No fracture, erosion or dislocation. Soft tissues: No abnormality noted. No radiopaque foreign body noted. Tubes, lines and devices: Chest tube projects over the right lung base. Upper abdomen: No abnormality noted. IMPRESSION: 1. Lines and tubes as above. 2. Worsening right pleural effusion and right basilar airspace consolidation. ACT 112: N/A Electronically signed by Whitney Brizuela 10-31-2024 2:[address] 10/31/24 13:52 EXAM: CT Head Without Intravenous Contrast INDICATION: Metastatic breast cancer. Headache. TECHNIQUE: Axial computed tomography images of the head/brain without intravenous contrast. Sagittal and/or coronal reformats are provided. Sagittal and coronal reformatted images were created and reviewed. This CT exam was performed using one or more of the following dose reduction techniques: automated exposure control, adjustment of the mA and/or kV according to patient size, and/or use of iterative reconstruction technique. COMPARISON: No relevant prior studies available. FINDINGS: Limitations: Streak artifact noted limiting assessment of the frontal lobes and skull base. Brain and extra-axial spaces: No abnormality noted. No hemorrhage. No significant white matter disease. No edema. No ventriculomegaly. Bones/joints: No acute changes. Soft tissues: No significant abnormality noted. Vasculature: No acute abnormality noted. Sinuses: No layering fluid in the visualized portions of the paranasal sinuses. Mastoid air cells: No mastoid effusion. Orbits: No significant abnormality noted. IMPRESSION: Slightly limited by artifact. No abnormality noted. If additional imaging is clinically warranted to exclude metastases, MRI is more sensitive. ACT 112: N/A Electronically signed by Whitney Brizuela 10-31-2024 3:16 PM Chest CTA 10/31/24 13:53 EXAM: CT Angiography Chest With Intravenous Contrast INDICATION: Increasing right chest pain. Stage IV breast cancer. TECHNIQUE: Axial computed tomographic angiography images of the chest with intravenous contrast. Sagittal and coronal reformatted images were created and reviewed. This CT exam was performed using one or more of the following dose reduction techniques: automated exposure control, adjustment of the mA and/or kV according to patient size, and/or use of iterative reconstruction technique. MIP reconstructed images were created and reviewed. CONTRAST: 88ml of Optiray 320 was administered intravenously. COMPARISON: PET/CT 09/23/2024 FINDINGS: Pulmonary arteries: No abnormality noted. No pulmonary embolism. Aorta: No acute change noted. No thoracic aortic aneurysm or dissection. Lungs and pleural spaces: Significant increase in generalized interstitial markings. No 1.6 x 1.4 cm groundglass subpleural opacity in the left upper lobe. There is stable right basilar airspace consolidation. Generally stable scattered pulmonary nodules. Heart: No abnormality noted. No cardiomegaly. No significant pericardial effusion. No evidence of RV dysfunction. Bones/joints: Stable sclerotic metastases of the sternum. Soft tissues: No abnormality noted. Lymph nodes: 4 mm paratracheal lymph node is decreased in size. Tubes, lines and devices: There is a right basilar pleural drain. There is decreased right pleural effusion with new medial loculation measuring 4.0 x 4.3 x 7.3 cm long. No pneumothorax. IMPRESSION: 1. No pulmonary embolus noted. 2. Decreased layering right pleural effusion with new right loculation. 3. Increased diffuse interstitial markings could reflect worsening metastatic disease. 4. New left upper lobe groundglass infiltrate could be infectious or metastatic. 5. Previously noted metabolically active pretracheal lymph node is decreased in size. 6. Stable sternal metastases. ACT 112: N/A Electronically signed by Whitney Brizuela 10-31-2024 3:16 PM ECG Data Attestation: I personally reviewed and interpreted this ECG as follows: Rate (beats per minute): 123 Rhythm: + sinus tachycardia ECG Intervals/blocks: + Normal QRS, + Normal WI and + Normal QT-c ECG ST segments: + Normal ST segments [facility] Narrative 1345: The patient was evaluated in room A10. A complete history and physical exam was performed Cardiac monitoring: An order was placed for continuous cardiac monitoring. The monitor shows a rate of 120 with sinus tachycardia rhythm interpreted by me Patient hypoxic on her usual 2 L via nasal cannula. Patient's oxygen was improved when her oxygen was increased to 4 L nasal cannula. 1410: Chest x-ray viewed by me shows worsening of her chronic right pleural fluid reduction. 1625: Vital signs stable on supplemental oxygen. Labs show blood cell count of 7.72. Coagulation studies are unremarkable. Labs showed total bilirubin 1.9 direct bilirubin 1.1 BNP 303 procalcitonin 0.75. Imaging of the head and abdomen pelvis are unremarkable. CTA of the chest showed no pulmonary emboli but did show a right loculation that is new and new left upper lobe groundglass infiltrate that could be infectious and/or metastatic. Given the patient's elevated procalcitonin level patient be treated empirically with Levaquin given her other known drug allergies. Discussed case with Dr. Raymond pulmonology on- call for the patient he is agreement. Patient will be admitted to the [facility]. Impression & Plan Lung cancer, Pneumonia, Malignant pleural effusion Discharge Plan Visit Data Chief Complaint: Chest Pain Stated Complaint: LOT OF PAIN IN R LUNG, BLOOD IN URINE ED Provider: Cooper Colon Discharge Problem: Lung cancer, Pneumonia, Malignant pleural effusion Patient Disposition: Admitted As Inpatient
[2024-10-31] MEDS ORDERED: ALBUT/IPRATROP 3MG/0.5MG NEB 3 ML VIAL INH PRN (19:40)
[2024-10-31] MEDS ORDERED: PROCHLORPERAZINE MALEATE 10 MG TAB PO PRN (19:40)
[2024-10-31] MEDS ORDERED: GLUCAGON FOR INJ 1 MG VIAL SQ PRN (19:40)
[2024-10-31] MEDS ORDERED: MAGNESIUM HYDROXIDE SUSP 30 ML UDC PO PRN (19:40)
[2024-10-31] MEDS ORDERED: CARBOHYDRATES FOR HYPOGLYCEMIA PO PRN (19:40)
[2024-10-31] MEDS ORDERED: NITROGLYCERIN SL 0.4 MG/TAB TAB SL PRN (19:40)
[2024-10-31] MEDS ORDERED: RIZATRIPTAN BENZOATE MLT 10 MG TAB PO PRN (19:40)
[2024-10-31] MEDS ORDERED: DEXTROSE 50% 50 ML SYRINGE IV PRN (19:40)
[2024-10-31] MEDS ORDERED: GLUCOSE 40% GEL 15 GM TUBE PO PRN (19:40)
[2024-10-31] MEDS ORDERED: GLUCOSE 10 TAB/TUBE PO PRN (19:40)
[2024-10-31] MEDS: FORMOTEROL 20 MCG/2 ML VIAL NEB SCH (20:09)
[2024-10-31] MEDS: BUDESONIDE 0.5 MG/2 ML VIAL (PULMICORT) NEB SCH (20:09)
[2024-10-31] MEDS: POTASSIUM CHLORIDE CRTAB 20 MEQ TABCR PO STA (20:56)
[2024-10-31] MEDS: METOPROLOL TARTRATE 50 MG TAB PO SCH (20:56)
[2024-10-31] MEDS: buPROPion SR 150 MG TABCR PO SCH (20:56)
[2024-10-31] MEDS: METOCLOPRAMIDE HCL 10 MG TABLET PO SCH (20:56)
[2024-10-31] MEDS: FUROSEMIDE 40 MG/4 ML VIAL IV ONE (20:57)
[2024-10-31] MEDS: HYDROmorphone INJ 1 MG/ML SYRINGE IV PRN (20:57)
[2024-10-31] MEDS: FAMOTIDINE 20MG IV PUSH 20 MG/5 ML SYR IV SCH (20:57)
[2024-10-31] MEDS: DAPTOmycin 500 MG in SYRINGE 0 ML IV SCH (21:48)
[2024-10-31] MEDS: ENOXAPARIN INJ 40 MG/0.4 ML SYR SQ SCH (21:48)
[2024-10-31] MEDS: TOPIRAMATE 100 MG TAB PO SCH (21:48)
[2024-10-31] MEDS: SPIRONOLACTONE 25 MG TAB PO SCH (21:48)
[2024-10-31] MEDS: LANTUS PER UNIT CHARGE SQ SCH (21:49)
[2024-10-31] MEDS: INSULIN ASPART PER UNIT CHARGE SC SCH (21:49)
[2024-11-01] MEDS: HYDROCODONE/ACETAMOPHEN 5/325MG TAB PO PRN (01:52)
--- NOTE | 2024-11-01 03:02 | Ultrasound Report ---
EXAM: US venous doppler LE RT CLINICAL HISTORY: Right leg swelling/pain. ca. TECHNIQUE: Ultrasound examination of right lower extremity veins was performed in real time and duplex. One or more of the following were performed: spectral analysis, resistive index, waveform analysis, and pulsed Doppler. COMPARISON: None. FINDINGS: Normal phasic, non-pulsatile and spontaneous flow is noted in right common femoral/GSV, proximal great saphenous, superficial femoral, deep femoral, popliteal, anterior tibial, posterior tibial and peroneal veins. Visualized veins of right lower extremity demonstrate normal compressibility. No sonographic evidence of acute deep vein thrombosis (DVT) is detected in the visualized veins of the right lower extremity. Compression and Augmentation: All evaluated veins compress fully with applied transducer pressure. Augmentation of venous flow is noted with distal compression. Additional Findings: No evidence of intraluminal thrombus. IMPRESSION: No sonographic evidence of acute DVT detected in right common femoral, proximal great saphenous, superficial femoral, deep femoral, popliteal, anterior tibial, posterior tibial and peroneal veins, at the time of examination. Disclaimer: DVT could be missed early in the disease when clot burden is minimal. For patients with moderate and high pretest probability of DVT and negative ultrasound, the [employer] clinical guidelines recommend testing with a D-dimer assay or repeat ultrasound in 5-7 days. If symptoms worsen, the Society of Radiologists in ultrasound recommends repeating ultrasound even earlier. Electronically signed by Edward Crawford 11-01-2024 03:02 AM
--- NOTE | 2024-11-01 05:59 | Electrocardiogram Report ---
Test Reason : Blood Pressure : */* mmHG Vent. Rate : 123 BPM Atrial Rate : 123 BPM P-R Int : 130 ms QRS Dur : 88 ms QT Int : 310 ms P-R-T Axes : 73 270 68 degrees QTcB Int : 443 ms Sinus tachycardia Right superior axis deviation Abnormal ECG When compared with ECG of 24-Aug-2024 12:48, No significant change was found Confirmed by Mitchell Cadet ([id number]) on 11/01/2024 5:58:42 AM Referred By: REFERRED SELF Confirmed By: Mitchell Cadet
[2024-11-01] MEDS: LEVOTHYROXINE SODIUM 125 MCG TABLET PO SCH (06:31)
--- NOTE | 2024-11-01 07:55 | XRay Report ---
EXAM: XR chest 1V portable CLINICAL HISTORY: pleural effusion, pneumonia TECHNIQUE: An X-ray image of the chest is obtained in 1 AP projection. COMPARISON: 10/31/2024 cr chest FINDINGS: Lungs and pleural spaces: stable right pleural effusion and consolidation in the lower half of the right lung. No pneumothorax. Heart: Stable prominent cardiac shadow. Mediastinum: Normal contour. Bones/joints: No fracture, erosion or dislocation. Soft tissues: No abnormality noted. No radiopaque foreign body noted. Tubes, lines and devices: Chest tube projects over the right lung base. IMPRESSION: 1. Stable right pleural effusion and consolidation in the lower half of the right lung. 2. Chest tube projects over the right lung base. Stable. Electronically signed by Edward Crawford 11-01-2024 07:55 AM
[2024-11-01 08:03] LABS: Hematocrit (blood only) 37.7 % (37.0-47.0); Hemoglobin 12.7 g/dl (12.0-16.0); Mean Corpuscular Hemoglobin 28.7 pg (25.0-34.0); Mean Corpuscular Hgb Conc 33.7 g/dL (32.0-36.0); Mean Corpuscular Volume 85.3 fL (80.0-100.0); Mean Platelet Volume 10.4 fL (9.4-12.4); Platelet Count 297 K/uL (130-400); RDW Standard Deviation 37.2 fL (36.4-46.3); Red Blood Count 4.42 M/uL (4.20-5.40); White Blood Count 5.41 K/ul (4.8-10.8)
[2024-11-01 08:30] LABS: Albumin Globulin Ratio 0.9 (0.9-2); Albumin Level 2.8 gm/dl (3.4-5.0); BUN Creatinine Ratio 16.4 (10-20); Bilirubin,Total 1.2 mg/dl (0.2-1.0); Calcium 8.5 mg/dl (8.6-10.3); Globulin 3.1 gm/dl (2.5-4.0); Magnesium 1.7 mg/dl (1.7-2.4); Potassium 3.6 mmol/L (3.5-5.1); Total Protein 5.9 gm/dl (6.0-8.3)
--- NOTE | 2024-11-01 09:06 | Pulmonary Consultation ---
Date of Consultation November 01, 2024 Assessment & Plan (1) Cellulitis of chest wall: Exam findings with erythematous and edematous cellulitic component to the RIGHT sided chest wall. Patient on daptomycin and Levaquin. Review of cultures demonstrates positivity for Staph aureus in both the pleura as well as the wound culture. Transition the patient to Zyvox secondary to vancomycin allergy. (2) Malignant pleural effusion: Recurrent effusion in the setting of static breast cancer recurrence. Underwent thoracentesis followed by pigtail catheter placement followed by Pleurx placement. Pleural fluid cultures were obtained yesterday. Findings positive for Staph aureus. Will initiate Zyvox. Stranding appreciated on bedside ultrasound. To receive tPA for the areas of loculation with hopes of improving effusion. (3) Breast cancer: Manage per oncology. (4) COPD (chronic obstructive pulmonary disease): Continue with budesonide and Perforomist with as needed DuoNebs. COPD type: unspecified COPD Qualified Code(s): J44.9 - Chronic obstructive pulmonary disease, unspecified Supervising Physician Co-Signing Physician Notes Patient seen and examined with the KRYSTLE. Agree with the note as above. Patient with a history of metastatic breast cancer with a Pleurx catheter on the right. The right hemithorax is edematous from prior mastectomy. It appears to be infected and has evidence of cellulitis. She is responding well to antibiotics. Cultures from the pleural fluid and the skin for have grown Staph aureus. Will transition her to linezolid and de-escalate further depending on culture sensitivity data. She does have a loculated right pleural effusion seen on ultrasound today. Will instill tPA through the Pleurx catheter today and try to break up the loculations. Will allow the tPA to dwell for about 4 hours and then opened up the catheter for drainage on suction. Will try to preserve the catheter and treat through the infection with the catheter in place and reassess on a daily basis. Patient in agreement with plan. Otherwise, she is in no apparent distress. No heart murmurs heard. Minimal edema. Oxygenating well on 2 L of oxygen. History of Present Illness Reason for Consultation: Jovanna Ryan PA-C Requesting Physician: Jovanna Ryan PA-C Attending Physician: Nina Espinoza MD History of Present Illness Patient is an unfortunate 59-year-old female who has been recently following with pulmonary medicine for a malignant RIGHT-sided pleural effusion. The patient is noted to have recurrence of breast cancer with positive cytology on thoracentesis performed on 08/24/2024. Patient had a second thoracentesis performed followed by Pleurx catheter placement on 09/27/2024. The patient is currently draining every 3 days. She is getting anywhere from 4 50-6 50 with every drain. She has noted some redness around the site, but was initially equated to sensitivity to the dressing. Fortunately, she developed pain at the Pleurx site which is worse with touch and movement. No fevers or chills. There was some noted discharge with changing of the dressing yesterday. She has noticed greenish discharge when draining the catheter. No worsening shortness of breath. No hemoptysis. No night sweats. Allergies Allergy/AdvReac Type Severity Reaction Status Date / Time cephalexin Allergy Severe SHORTNESS Verified 09/27/24 07:07 OF BREATH sulfamethoxazole [Bactrim] Allergy Severe SHORTNESS Verified 09/27/24 07:07 OF BREATH trimethoprim [Bactrim] Allergy Severe SHORTNESS Verified 09/27/24 07:07 OF BREATH ceftriaxone Allergy Intermediate REDNESS, Verified 09/27/24 07:07 ITCHING tramadol Allergy Intermediate ITCHY Verified 09/27/24 07:07 vancomycin Allergy Intermediate ITCHING Verified 09/27/24 07:07 ALL OVER, RASH, PARESTHESIAS cefdinir Allergy Unknown unknown Verified 09/27/24 07:07 codeine AdvReac Severe GI BLEED Verified 09/27/24 07:07 tamoxifen AdvReac Severe "CAN'T Verified 09/27/24 07:07 MOVE" Home Medications Medication Instructions Recorded Confirmed Type nitroglycerin 0.4 mg sublingual 0.4 mg sublingual DIRECTED PRN 04/29/18 10/31/24 History tablet (Nitrostat) Chest Pain albuterol sulfate 90 mcg/actuation 1 - 2 puff inhalation .Q4-6HRS PRN 09/16/20 10/31/24 History aerosol inhaler Shortness Of Breath Or Wheezing rizatriptan 10 mg disintegrating See Rx Instructions PO .COMPLEX 11/21/21 10/31/24 Rx tablet (Maxalt-SECURITY INTERN) #12 tabs budesonide-formoterol HFA 160 2 puff inhalation BID PRN 11/26/22 10/31/24 Rx mcg-4.5 mcg/actuation aerosol Shortness Of Breath Or Wheezing inhaler #10.2 grams insulin glargine 100 unit/mL (3 10 unit (0.1 mL) subcut QPM #15 mL 11/26/22 10/31/24 Rx mL) subcutaneous pen (Lantus Solostar U-100 Insulin) cholecalciferol (vitamin D3) 1,250 50,000 unit PO WEEKLY #12 caps 12/11/23 10/31/24 Rx mcg (50,000 unit) capsule hydrocodone 5 mg-acetaminophen 325 See Rx Instructions PO .COMPLEX 07/06/24 10/31/24 Rx mg tablet PRN pain #30 tabs levothyroxine 125 mcg tablet 125 mcg PO .COMPLEX #220 tabs 07/12/24 10/31/24 Rx bupropion HCl 150 mg tablet,12 hr 150 mg PO BID #180 ea 08/16/24 10/31/24 Rx sustained-release (Wellbutrin SR) ipratropium 0.5 mg-albuterol 3 mg 3 ml inhalation Q4H PRN Shortness 08/19/24 10/31/24 Rx (2.5 mg base)/3 mL nebulization Of Breath Or Wheezing #90 mL soln dextromethorphan-guaifenesin 5 10 ml PO Q6 PRN cough #200 mL 08/25/24 10/31/24 Rx mg-100 mg/5 mL oral liquid (Robitussin Cough-Chest Congestion DM) semaglutide 0.25 mg or 0.5 mg (2 1 mg (1.472 mL) subcut Q7D #3 mL 09/13/24 10/31/24 Rx mg/3 mL) subcutaneous pen injector (Ozempic) atorvastatin 20 mg tablet 20 mg PO QAM #90 tabs 10/21/24 10/31/24 Rx furosemide 20 mg tablet 20 mg PO QAM #90 tabs 10/21/24 10/31/24 Rx losartan 100 mg tablet 100 mg PO QAM #90 tabs 10/21/24 10/31/24 Rx metoprolol tartrate 50 mg tablet 50 mg PO BID #180 tabs 10/21/24 10/31/24 Rx spironolactone 25 mg tablet 25 mg PO HS #90 tabs 10/21/24 10/31/24 Rx topiramate 100 mg tablet 100 mg PO BID #180 tabs 10/21/24 10/31/24 Rx metoclopramide HCl 10 mg tablet 10 mg PO Q6H 10/31/24 10/31/24 History ondansetron 8 mg disintegrating 8 mg PO DAILY PRN Nausea 10/31/24 10/31/24 History tablet prochlorperazine maleate 10 mg 10 mg PO Q6H PRN Nausea 10/31/24 10/31/24 History tablet Patient History Medical History Hydropneumothorax Chest pain Pleural effusion Left cervical radiculopathy Hidradenitis Adhesive capsulitis of left shoulder History of colon polyps History of COVID-19 07/2021>HEADACHE/SOB/JOINT PAIN *RESOLVED Hearing difficulty History of dysplastic nevus Pituitary abnormality Osteoarthritis Gastroparesis GERD (gastroesophageal reflux disease) Hypothyroidism Asthma LAST USED RESCUE INHALER MAY 2022 Hypertension Hyperlipidemia Hiatal hernia Syncope LAST EPISODE JULY 2020 Migraine History of diverticulitis Hx of breast cancer RT (SURGERY WITH RADIATION) Anxiety and depression H/O abscess of breast NO CURRENT INFECTION Liver lesion Surgical History History of hernia surgery Sep 2022 H/O umbilical hernia repair History of removal of Port-a-Cath (12/08/20) Access Port Removal(Left) 12/08/20 Dr. Gallegos History of breast biopsy Hx of melanoma excision History of tooth extraction History of vascular access device A-PORT>REMOVED History of excision of lesion 2017 excision left axilla- abscess Dr. Brunner [address] Brunner H/O colonoscopy History of esophagogastroduodenoscopy (EGD) H/O thyroidectomy REMOVED D/T "SO MANY PROBLEMS WITH MY THRYOID" Hx of hysterectomy Hx laparoscopic cholecystectomy History of mastectomy partial mastectomy 2008 Dr. Ferris Total mastectomy>RT 2009 Dr. Ferris NO RECONSTRUCTION H/O section X 2 Family History Mother Ovarian cancer Colon cancer Father Pancreatic cancer Colorectal cancer Grandmother (Maternal) Colorectal cancer Other No family history of adverse response to anesthesia Denies family history of Prostate cancer Myocardial infarction Breast cancer Social History Smoking Status: Current every day smoker Tobacco Type: Cigarettes Age Started Using Tobacco: 10; packs per day: 0.5; Cigarettes Per Day: 5; Second Hand Exposure: Yes; Do You Dip or Chew Tobacco: No; Hx Alcohol Use: No Hx Substance Use: No Preferred Language: Vietnamese Communication Ability: Effective Visual Impairment: No Limitations Hearing Ability: Normal 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 Operator Required: No Beliefs That Will Affect Care: None marital status: Current Living Situation: Spouse Current Living Situation Comment: home with 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 All else were negative. Physical Exam Physical Exam: VITAL SIGNS Vital signs and nursing notes were reviewed. GENERAL 59-year-old female appearing her stated age who is in no acute distress. Communicates well with provider and answers questions appropriately. SKIN beefy red erythematous rash noted to the RIGHT sided lower chest wall surrounding Pleurx catheter. Dressing placed. Tender to palpation. NOSE Midline and without cyanosis. MOUTH/OROPHARYNX Without perioral cyanosis. NECK Neck with FROM. LUNGS Chest wall as above. Chest wall evaluation demonstrates normal chest wall A:P diameter. Auscultation reveals diminished breath sounds on the RIGHT. Mild crackles. No wheezing. CARDIAC RRR with S1/S2. No murmur, rubs, or gallops appreciated. ABDOMEN Abdominal inspection demonstrates an obese abdomen. BS normoactive all four quadrants. No tenderness, palpable masses, or ascites noted. EXTREMITIES Nail clubbing not present. No peripheral cyanosis. No pretibial edema present. +3/5 radial palpated throughout. PSYCH A&Ox3 and cooperates fully with examiner. Pt is very pleasant and interacts well with examiner. Results & Data Results & Data Vital Signs (Past 12 Hours) Vital Signs Temp Pulse Pulse Pulse Resp BP BP 11/01/24 08:04 36.4 C L 97 H 16 118/82 11/01/24 07:18 92 H 20 11/01/24 07:15 86 11/01/24 01:45 11/01/24 01:45 36.2 C L 99 H 22 114/62 11/01/24 00:45 100 H 11/01/24 00:00 110 H 18 110/71 10/31/24 23:45 92 H 19 126/78 10/31/24 23:30 93 H 18 113/73 10/31/24 23:15 94 H 21 102/55 L 10/31/24 23:00 96 H 20 97/79 L 10/31/24 23:00 96 H 20 97/79 L 10/31/24 22:51 99 H 10/31/24 22:45 99 H 22 108/67 10/31/24 22:31 102 H 18 109/70 10/31/24 22:16 103 H 22 114/79 10/31/24 22:15 114/79 10/31/24 22:11 110 H 10/31/24 22:00 117 H 22 140/89 10/31/24 21:46 112 H 22 158/107 H 10/31/24 21:31 119 H 24 10/31/24 21:15 113 H 25 H 119/81 Pulse Ox O2 Del Method O2 Flow Rate 11/01/24 08:04 92 Nasal Cannula 3 11/01/24 07:18 94 Nasal Cannula 4 11/01/24 07:15 11/01/24 01:45 Nasal Cannula 2 11/01/24 01:45 94 Nasal Cannula 2 11/01/24 00:45 11/01/24 00:00 93 Nasal Cannula 2 10/31/24 23:45 94 Room Air 2 10/31/24 23:30 94 Nasal Cannula 2 10/31/24 23:15 94 Nasal Cannula 2 10/31/24 23:00 92 Nasal Cannula 2 10/31/24 23:00 92 10/31/24 22:51 10/31/24 22:45 94 Nasal Cannula 2 10/31/24 22:31 94 Nasal Cannula 2 10/31/24 22:16 93 Nasal Cannula 2 10/31/24 22:15 10/31/24 22:11 93 Nasal Cannula 2 10/31/24 22:00 94 Nasal Cannula 2 10/31/24 21:46 94 Nasal Cannula 2 10/31/24 21:31 93 Nasal Cannula 2 10/31/24 21:15 93 PG Care Time/CCT Total # of Minutes Spent Total Time Spent with Patient: Total time spent is greater than 50% in coordination of care (as documented) at patient's floor/unit and/or counseling patient: Coding Level of Care Code 27989 INT INP/OBS CARE 2/55MIN Diagnoses Cellulitis of chest wall L03.313 Malignant pleural effusion J91.0 Breast cancer C50.919 COPD (chronic obstructive pulmonary disease) J44.9 COPD type: unspecified COPD
[2024-11-01 09:14] LABS: iSTAT Arterial Blood Gas HCO3 24 meg/L (19-24); iSTAT Arterial Blood Gas pCO2 33 mmHg (35-46); iSTAT Arterial Blood Gas pH 7.48 (7.35-7.45); iSTAT Arterial Blood Gas pO2 79 mmHg (80-95); iSTAT Carbon Dioxide 25 mmol/L (24-31); iSTAT Hematocrit 39 % (37-47); iSTAT Hemoglobin 13.3 g/dl (12.0-16.0); iSTAT Potassium 3.5 mmol/L (3.3-5.0); iSTAT Sodium 129 mmol/L (135-144)
[2024-11-01 09:36] LABS: ALC (manual) 0.97 K/uL (1.2-3.4); Eosinophils # (manual) 0.27 K/uL (0-0.50); Eosinophils % (manual) 5 %; Lymphocytes # (manual) 0.97 K/uL (1.2-3.4); Lymphocytes % (manual) 18 %; Monocytes # (manual) 0.16 K/uL (0.11-0.59); Monocytes % (manual) 3 %; Neutrophils % (manual) 74 %
[2024-11-01] MEDS: LOSARTAN POTASSIUM 50 MG TAB PO SCH (10:07)
--- NOTE | 2024-11-01 11:13 | Hospitalist Progress Note ---
Date of Service November 01, 2024 Assessment & Plan (1) Malignant pleural effusion: (2) Acute on chronic respiratory failure with hypercapnia: (3) COPD with emphysema: (4) Diabetes mellitus, type 2: (5) Abdominal wall cellulitis: Plan 59 y/o female with metastatic breast cancer with associated malignant right- sided pleural effusion noted on cytology on thoracentesis performed on 08/24/2024. Patient had a second thoracentesis performed followed by Pleurx catheter placement on 09/27/2024. She presented with increased SOB since 10/29 with elevated CO2 on ABG (normal pH) with associated leukocytosis, tachypnea and tachycardia concerning for infection. Productive cough with clear sputum reported, poor PO intake 2nd to pain, and significant erythema/cellulitis and possible infection to PleurX catheter noted on admission. Procal mildly elevated at 0.75, lactate WNL at 1.3. #Right-sided chest wall cellulitis - CTA negative for PE but notes layering RIGHT effusion with new R loculation with increased interstitial marking possible metastatic disease, new SAURAV ground glass infiltrate infectious vs metastatic - Pleural fluid and wound cultures with Staph aureus. Blood cultures negative x 24 hours - Transitioned to IV Linezolid q12h - BiPAP ordered as needed, suspect hyperventilation from pain contributing - Pain control, antiemetics as needed #Malignant pleural effusion - Recurrent in setting of metastatic cancer. Undergoing tx w/ Dr Alvarez, last seen 10/27 and last Abraxane on Friday (has had two doses) and was on Paclitaxel prior on 10/13 but developed reaction - Pulmonology consulted -- S/p TPA through Pleurx for complicated parapneumonic effusion/empyema 11/01 - Oncology consulted, appreciate recs - Schedule budesonide/formoterol nebs. Duonebs prn - Pulmonary toilet with incentive spirometer, flutter valve. Sputum if able to produce #COPD with emphysema continue duonebs with formoterol/budesonide nebs, supplemental O2 as needed #Diabetes mellitus type 2 sliding scale insulin while inpatient but reduced glargine to 5u given poor intake to prevent hypoglycemia and can adjust as needed PT/OT consulted DVT proph: lovenox SQ Dispo: admit telemetry, abx and consultation for pulm/oncology and monitor cultures. Anticipate minimum of 2-3 days inpatient to ensure cultures negative and possible need to exchange PleurX Updated at bedside Admission and Anticipated Discharge Date Admission Date: October 31, 2024 Subjective Patient seen and evaluated in bedside chair with her present. She reports that her breathing is less labored today, denies dyspnea. She walked the halls with therapy earlier and reports she did well. She reports her right sided chest wall is uncomfortable but denies true pain. Discussed current plan while waiting for further recommendations from pulm/onc. No additional complaints or concerns at this time. Physical Exam Physical Exam: General: No acute distress, nondiaphoretic, well-developed, well-nourished. Skin: Beefy red erythema surrounding PleurX catheter on right lower chest wall. Patient reports erythema appears similar to yesterday. Tender to touch around cellulitis. Cardiac: Regular rate and rhythm without murmurs gallops or rubs. Pulm: Diminished in bases R>L. Otherwise clear to auscultation bilaterally without wheezes, rales or rhonchi. Normal respiratory effort. 92% on 2L. +cough. Abdominal: Soft, nondistended, nontender. Bowel sounds present. Neuro: A&O x3. No focal neurological deficits. Results & Data Results & Data Vital Signs (Past 12 Hours) Vital Signs Temp Pulse Pulse Pulse Resp BP Pulse Ox 11/01/24 09:04 11/01/24 08:04 97.5 F L 97 H 16 118/82 92 11/01/24 07:18 92 H 20 94 11/01/24 07:15 86 11/01/24 01:45 11/01/24 01:45 97.2 F L 99 H 22 114/62 94 11/01/24 00:45 100 H 11/01/24 00:00 110 H 18 110/71 93 10/31/24 23:45 92 H 19 126/78 94 10/31/24 23:30 93 H 18 113/73 94 10/31/24 23:15 94 H 21 102/55 L 94 O2 Del Method O2 Flow Rate 11/01/24 09:04 Nasal Cannula 2 11/01/24 08:04 Nasal Cannula 3 11/01/24 07:18 Nasal Cannula 4 11/01/24 07:15 11/01/24 01:45 Nasal Cannula 2 11/01/24 01:45 Nasal Cannula 2 11/01/24 00:45 11/01/24 00:00 Nasal Cannula 2 10/31/24 23:45 Room Air 2 10/31/24 23:30 Nasal Cannula 2 10/31/24 23:15 Nasal Cannula 2 Laboratory Results Reviewed CBC with differential Reviewed CMP Reviewed blood/wound cultures Diagnostic Findings Reviewed telemetry -- NSR 80s PG Care Time/CCT Total # of Minutes Spent Total Time Spent with Patient: Total time spent is greater than 50% in coordination of care (as documented) at patient's floor/unit and/or counseling patient: Coding Level of Care Code 65956 SUB INP/OBS CARE MIN Diagnoses Malignant pleural effusion J91.0 Acute on chronic respiratory failure with hypercapnia J96.22 COPD with emphysema J43.9 Type 2 diabetes mellitus without complication, with long-term current use of insulin E11.9; Z79.4 Diabetes mellitus complication status: without complication Diabetes mellitus terminal supervisor insulin use: with chcf use Abdominal wall cellulitis L03.311 (4) Diabetes mellitus, type 2 Diabetes mellitus complication status: without complication Diabetes mellitus terminal supervisor insulin use: with terminal supervisor use Qualified Code(s): E11.9 - Type 2 diabetes mellitus without complications; Z79.4 - [facility] (current) use of insulin
[2024-11-01] MEDS: ALTEPLASE, RECOMBINANT 10 MG in SYRINGE 50 ML IPL STA (14:11)
--- NOTE | 2024-11-01 14:22 | Procedure Note ---
Procedure Note Date of Service November 01, 2024 TPA ADMINISTRATION - Procedure Name: Administration of TPA through Pleurx for complicated parapneumonic effusion/empyema Procedure time out: side/site verified, patient ID confirmed, correct procedure Consent obtained: Verbal Time of procedure: 2:15 PM Indications: Therapeutic Contraindications: None Description: Using clean technique, the chest tube was clamped proximal to the tubing connector and line was observed for air leak. There was no evidence of air leak in the chest tube. Using a 60 mL syringe, Alteplase 10mg mixed with 50mL NSS was instilled without difficulty. The chest tube was left clamped and nursing was instructed to drain in four hours. Complications: No immediate complications appreciated. Patient tolerated procedure: Well Post-procedure vital signs: Reviewed and stable. [facility] [place] Procedure Codes (Charges) Pulmonary/Thoracic Procedure 1: Pulmonary and Thoracic: 52680 [place] chest fibrin initial day Coding CPT Codes Pulmonary/Thoracic - Pulmonary and Thoracic: 05792 [place] chest fibrin initial day ([id number]) Additional Codes Date of Service (PG.SURGERY)
[2024-11-01] MEDS: LINEZOLID 600 MG/300 ML BAG IV SCH (15:16)
[2024-11-01] MEDS: SODIUM CHLORIDE 0.9% 500 ML IV ONE ×2 (15:57→17:12)
--- NOTE | 2024-11-01 16:51 | Oncology Consultation ---
Date of Consultation November 01, 2024 Assessment & Plan (1) Acute on chronic respiratory failure with hypercapnia: At this point will recommend continued supportive care and management per our hospital internal medicine colleagues and pulmonary medicine colleagues. The patient did have tPA administration, hopefully that improves the loculations and underlying layering of the pleural effusion. There is some concern for progressive breast cancer, we will resume outpatient care once the patient is discharged to continue her treatment on an outpatient basis. (2) Malignant pleural effusion: The patient is currently on Abraxane with my colleague, addition of some we will continue outpatient care once the patient recovers from this acute episode. The final care plan will be determined by my colleague Dr. Alvarez. Plan Thank you for this interesting oncological consult. A total of 60 minutes were spent in counseling, coronation care, review of prior records. Medical oncology will continue to follow the patient make appropriate recommendations. History of Present Illness Reason for Consultation: Tree of metastatic breast cancer with malignant pleural effusion Attending Physician: Nina Espinoza MD History of Present Illness Diagnosis: Metastatic breast cancer Current treatment: Abraxane day 1, 8 and 15 q. 28-day cycle started 10/20/2024 History: 1. Diagnosed with right breast cancer in 2008. Multiple surgeries culminating in full mastectomy for severe radiation-induced dermatitis - mastectomy complicated by postoperative infections. S/P radiation therapy but no adjuvant chemotherapy. Took tamoxifen for only 18 days and discontinued because of intolerance 2. Presented to ER on 08/24/2024 with chest pain and shortness of breath. CTA chest on 08/24/2024 showed Increase in size of a moderate right pleural effusion, Increase in size and number of ill-defined pulmonary nodules measuring up to 9 mm and presternal lesion. Thoracentesis was performed 08/24/2024 with cytology consistent with metastatic adenocarcinoma of breast primary ER positive (intermediate intensity), RI(intermediate intensity, Her2 equivocal (2+) and negative by FISH 3. CT head/brain on 09/18/2024 revealed no evidence of metastatic disease. 4. PET/CT on 09/23/2024 revealed multifocal metastatic disease predominantly within the chest which includes pulmonary, lymphatic, osseous and soft tissue metastasis, moderate-sized likely malignant right pleural effusion with probable pleural metastasis, hypermetabolic right basilar consolidation and metastatic upper abdominal lymphadenopathy. 5. She underwent right-sided Pleurx catheter placement by pulmonology on 09/27/2024. During her last clinic visit, recommended fulvestrant plus CDK 4/6 inhibitor. Unfortunately, co-pay for abemaciclib is too high for patient to afford at this time. Currently working on getting her financial assistance. 6. Started weekly IV paclitaxel on 10/13/2024 but unfortunately had a reaction. Switched to Abraxane on 10/20/2024 . The patient is a very pleasant 59-year-old woman, with a past history of metastatic breast cancer with above-mentioned history. She is currently under the care of my colleague Dr. Allison Alvarez MD. she has a Pleurx catheter in place, has been admitted with acute on chronic respiratory failure. She had a CT angiogram which was negative for pulmonary embolism but revealed layering of the right pleural effusion with new right loculation and possibly increased metastatic disease. There was also a new left upper lobe infiltrate. Medical oncology has been consulted to assist in management of this patient with metastatic breast cancer with possible progression as well as underlying pneumonia. Allergies Allergy/AdvReac Type Severity Reaction Status Date / Time cephalexin Allergy Severe SHORTNESS Verified 09/27/24 07:07 OF BREATH sulfamethoxazole [Bactrim] Allergy Severe SHORTNESS Verified 09/27/24 07:07 OF BREATH trimethoprim [Bactrim] Allergy Severe SHORTNESS Verified 09/27/24 07:07 OF BREATH ceftriaxone Allergy Intermediate REDNESS, Verified 09/27/24 07:07 ITCHING tramadol Allergy Intermediate ITCHY Verified 09/27/24 07:07 vancomycin Allergy Intermediate ITCHING Verified 09/27/24 07:07 ALL OVER, RASH, PARESTHESIAS cefdinir Allergy Unknown unknown Verified 09/27/24 07:07 codeine AdvReac Severe GI BLEED Verified 09/27/24 07:07 tamoxifen AdvReac Severe "CAN'T Verified 09/27/24 07:07 MOVE" Home Medications Medication Instructions Recorded Confirmed Type nitroglycerin 0.4 mg sublingual 0.4 mg sublingual DIRECTED PRN 04/29/18 10/31/24 History tablet (Nitrostat) Chest Pain albuterol sulfate 90 mcg/actuation 1 - 2 puff inhalation .Q4-6HRS PRN 09/16/20 10/31/24 History aerosol inhaler Shortness Of Breath Or Wheezing rizatriptan 10 mg disintegrating See Rx Instructions PO .COMPLEX 11/21/21 10/31/24 Rx tablet ([employer]) #12 tabs budesonide-formoterol HFA 160 2 puff inhalation BID PRN 11/26/22 10/31/24 Rx mcg-4.5 mcg/actuation aerosol Shortness Of Breath Or Wheezing inhaler #10.2 grams insulin glargine 100 unit/mL (3 10 unit (0.1 mL) subcut QPM #15 mL 11/26/22 10/31/24 Rx mL) subcutaneous pen (Lantus Solostar U-100 Insulin) cholecalciferol (vitamin D3) 1,250 50,000 unit PO WEEKLY #12 caps 12/11/23 10/31/24 Rx mcg (50,000 unit) capsule hydrocodone 5 mg-acetaminophen 325 See Rx Instructions PO .COMPLEX 07/06/24 10/31/24 Rx mg tablet PRN pain #30 tabs levothyroxine 125 mcg tablet 125 mcg PO .COMPLEX #220 tabs 07/12/24 10/31/24 Rx bupropion HCl 150 mg tablet,12 hr 150 mg PO BID #180 ea 08/16/24 10/31/24 Rx sustained-release (Wellbutrin SR) ipratropium 0.5 mg-albuterol 3 mg 3 ml inhalation Q4H PRN Shortness 08/19/24 10/31/24 Rx (2.5 mg base)/3 mL nebulization Of Breath Or Wheezing #90 mL soln dextromethorphan-guaifenesin 5 10 ml PO Q6 PRN cough #200 mL 08/25/24 10/31/24 Rx mg-100 mg/5 mL oral liquid (Robitussin Cough-Chest Congestion DM) semaglutide 0.25 mg or 0.5 mg (2 1 mg (1.472 mL) subcut Q7D #3 mL 09/13/24 0 10/31/24 Rx mg/3 mL) subcutaneous pen injector (Ozempic) atorvastatin 20 mg tablet 20 mg PO QAM #90 tabs 10/21/24 10/31/24 Rx furosemide 20 mg tablet 20 mg PO QAM #90 tabs 10/21/24 10/31/24 Rx losartan 100 mg tablet 100 mg PO QAM #90 tabs 10/21/24 10/31/24 Rx metoprolol tartrate 50 mg tablet 50 mg PO BID #180 tabs 10/21/24 10/31/24 Rx spironolactone 25 mg tablet 25 mg PO HS #90 tabs 10/21/24 10/31/24 Rx topiramate 100 mg tablet 100 mg PO BID #180 tabs 10/21/24 10/31/24 Rx metoclopramide HCl 10 mg tablet 10 mg PO Q6H 10/31/24 10/31/24 History ondansetron 8 mg disintegrating 8 mg PO DAILY PRN Nausea 10/31/24 10/31/24 History tablet prochlorperazine maleate 10 mg 10 mg PO Q6H PRN Nausea 10/31/24 10/31/24 History tablet Patient History Medical History Hydropneumothorax Chest pain Pleural effusion Left cervical radiculopathy Hidradenitis Adhesive capsulitis of left shoulder History of colon polyps History of COVID-19 07/2021>HEADACHE/SOB/JOINT PAIN *RESOLVED Hearing difficulty History of dysplastic nevus Pituitary abnormality Osteoarthritis Gastroparesis GERD (gastroesophageal reflux disease) Hypothyroidism Asthma LAST USED RESCUE INHALER MAY 2022 Hypertension Hyperlipidemia Hiatal hernia Syncope LAST EPISODE JULY 2020 Migraine History of diverticulitis Hx of breast cancer RT (SURGERY WITH RADIATION) Anxiety and depression H/O abscess of breast NO CURRENT INFECTION Liver lesion Surgical History History of hernia surgery Sep 2022 H/O umbilical hernia repair History of removal of Port-a-Cath (12/08/20) Access Port Removal(Left) 12/08/20 Dr. Gallegos History of breast biopsy Hx of melanoma excision History of tooth extraction History of vascular access device A-PORT>REMOVED History of excision of lesion 2017 excision left axilla- abscess Dr. Brunner [address] Brunner H/O colonoscopy History of esophagogastroduodenoscopy (EGD) H/O thyroidectomy REMOVED D/T "SO MANY PROBLEMS WITH MY THRYOID" Hx of hysterectomy Hx laparoscopic cholecystectomy History of mastectomy partial mastectomy 2008 Dr. Ferris Total mastectomy>RT 2009 Dr. Ferris NO RECONSTRUCTION H/O section X 2 Family History Mother Ovarian cancer Colon cancer Father Pancreatic cancer Colorectal cancer Grandmother (Maternal) Colorectal cancer Other No family history of adverse response to anesthesia Denies family history of Prostate cancer Myocardial infarction Breast cancer Social History Smoking Status: Current every day smoker Tobacco Type: Cigarettes Age Started Using Tobacco: 10; packs per day: 0.5; Cigarettes Per Day: 5; Second Hand Exposure: Yes; Do You Dip or Chew Tobacco: No; Hx Alcohol Use: No Hx Substance Use: No Preferred Language: Japanese Communication Ability: Effective Visual Impairment: No Limitations Hearing Ability: Normal Dry Box Operator Required: No Beliefs That Will Affect Care: None marital status: Current Living Situation: Spouse Current Living Situation Comment: home with 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 Constitutional: as per Subjective / HPI Eyes: as per Subjective / HPI Ear, Nose, Mouth, Throat: as per Subjective / HPI Respiratory: as per Subjective / HPI Cardiovascular: as per Subjective / HPI Gastrointestinal: as per Subjective / HPI Genitourinary: as per Subjective / HPI Musculoskeletal: as per Subjective / HPI Integumentary: as per Subjective / HPI Neurologic: as per Subjective / HPI Psychiatric: as per Subjective / HPI Endocrine: as per Subjective / HPI Hematologic / Lymphatic: as per Subjective / HPI Allergy / Immunological: as per Subjective / HPI Physical Exam 2 Constitutional: WD/WN, vitals as above Eyes: PERRL, conjunctivae normal, anicteric sclerae ENMT: external ear and nose normal, oropharynx normal Neck: trachea midline, no thyromegaly Respiratory: Auscultation: + crackles and + bronchovesicular breath sounds Cardiovascular: RRR, no murmur, no edema Gastrointestinal (Abdomen): normal bowel sounds, soft, nontender, no hepatosplenomegaly Musculoskeletal: no cyanosis or clubbing, extremities motor strength 5/5 Skin: no rashes, warm and dry Neurologic: patellar DTR's 2+ bilat, sensation intact Results & Data Vital Signs (Past 12 Hours) Vital Signs Temp Pulse Pulse Resp BP Pulse Ox O2 Del Method 11/01/24 15:51 36.6 C 83 16 80/53 L 96 Nasal Cannula 11/01/24 14:53 80 11/01/24 11:44 36.6 C 83 20 117/68 96 Nasal Cannula 11/01/24 09:04 Nasal Cannula 11/01/24 08:04 36.4 C L 97 H 16 118/82 92 Nasal Cannula 11/01/24 07:18 92 H 20 94 Nasal Cannula 11/01/24 07:15 86 O2 Flow Rate 11/01/24 15:51 2 11/01/24 14:53 11/01/24 11:44 2 11/01/24 09:04 2 11/01/24 08:04 3 11/01/24 07:18 4 11/01/24 07:15
[2024-11-01] MEDS ORDERED: levoFLOXacin/D5W 750 MG/150 ML BAG IV SCH (17:00)
[2024-11-01] MEDS ORDERED: SODIUM CHLORIDE 0.65% NA SOLN 45 ML (OCEAN) PRN (19:52)
[2024-11-01] MEDS: ONDANSETRON INJ 2 MG/ML 2 ML VIAL IV PRN (21:20)
[2024-11-01] MEDS: OXYMETAZOLINE 0.05% 30 ML BTL ONE (21:55)
[2024-11-02] MEDS: LACTATED RINGER'S 500 ML IV ONE ×2 (01:25→05:25)
[2024-11-02] MEDS: ALBUMIN 25% 25 GM/100 ML VIAL IV ONE (01:26)
--- NOTE | 2024-11-02 03:15 | Communication Note ---
Date of Service: November 02, 2024 S/O: Patient with pain secondary to suctioning off pleural fluid through her PleurX. Was on 5 L O2 NC when first seen at bedside. Nurse concerned that with hypotensive BP's and uneasily managed pleural effusion, that patient was a better candidate for PCU level of care. MAP as low as ~ 56 at one point. Decreased breath sounds heard of over the r. anterior lungs as expected. A/P: Encouraged nurse to administer patient's Dilaudid, 1 mg, IV, PRN immediately before activating the suction to remove some of the pleural fluid. Transferred the patient to PCU level of care. Gave the patient 25 mg albumin, 500 mL bolus of LR, and started low rate of maintenance fluids, 40 mL, LR (500 mL in total) to maintain BP. Resident Activity Tracking Resident Involvement: Resident Care Provided Care Provided: Adult Hospital Medicine
[2024-11-02] MEDS: LACTATED RINGER'S 500 ML IV SCH (03:49)
--- NOTE | 2024-11-02 05:21 | Communication Note ---
Date of Service: November 02, 2024 Asked to evaluate patient due to hypotension. Pleasant 59YOF, AAOx3 in no acute distress. R pleurX catheter in place with pink tinged drainage and blood clots. 200cc overnight per RN. Afebrile. Periods of hypotension 11/01/2024 afternoon were quite fluid responsive. SBP 70s overnight, improved with 500cc LR and albumin bolus. POCUS performed showing dilated but > 50% collapsible IVC. LVEF grossly intact. Her oxygen requirement is stable. Will administer 500cc LR over 15-20 minutes and evaluate response. Current MAP 60mmHg. If continued hypotension will transfer to ICU for consideration of vasopressors. Random cortisol added to AM labs (was 9.2 in 2019). D/w [facility] [place] resident physician. Addendum 0555: BP improved on multiple checks, last 105/59 (74). If SBP < 90 or MAP < 65 we will transfer to ICU. Bedside RN and patient's attending physician at bedside and in agreement with plan. Coding Level of Care Code None
[2024-11-02] MEDS: SODIUM CHLORIDE 0.65% NA SOLN 45 ML (OCEAN) STA (05:39)
[2024-11-02 06:14] LABS: Hematocrit (blood only) 34.2 % (37.0-47.0); Hemoglobin 11.4 g/dl (12.0-16.0); Mean Corpuscular Hemoglobin 28.9 pg (25.0-34.0); Mean Corpuscular Hgb Conc 33.3 g/dL (32.0-36.0); Mean Corpuscular Volume 86.6 fL (80.0-100.0); Mean Platelet Volume 10.6 fL (9.4-12.4); Platelet Count 324 K/uL (130-400); RDW Coefficient of Variation 12.4 % (11.5-14.5); RDW Standard Deviation 39.4 fL (36.4-46.3); Red Blood Count 3.95 M/uL (4.20-5.40); White Blood Count 5.58 K/ul (4.8-10.8)
[2024-11-02 06:23] LABS: BUN Creatinine Ratio 17.2 (10-20); Calcium 8.4 mg/dl (8.6-10.3); Creatinine Clr Calc Pharmacy 63.5 ml/min; Magnesium 1.8 mg/dl (1.7-2.4); Phosphorus 4.4 mg/dl (2.5-4.9); Potassium 3.6 mmol/L (3.5-5.1)
[2024-11-02 06:45] LABS: Basophils # (auto) 0.04 K/uL (0.00-0.20); Basophils % (auto) 0.7 %; Dohle Bodies 1+; Eosinophils # (auto) 0.18 K/uL (0.00-0.50); Eosinophils % (auto) 3.2 %; Immature Granulocytes # (auto) 0.16 K/uL (0.01-0.20); Immature Granulocytes % (auto) 2.9 %; Lymphocytes # (auto) 1.17 K/uL (1.20-3.40); Monocytes # (auto) 0.56 K/uL (0.11-0.59); Neutrophils # (auto) 3.47 K/uL (1.40-6.50); Neutrophils % (auto) 62.2 %; Polychromasia 1+; Toxic Granulation 1+
--- NOTE | 2024-11-02 08:06 | Hospitalist Progress Note ---
Date of Service November 02, 2024 Assessment & Plan (1) Malignant pleural effusion: (2) Acute on chronic respiratory failure with hypercapnia: (3) Hypotension: (4) COPD with emphysema: (5) Diabetes mellitus, type 2: (6) Abdominal wall cellulitis: Plan 59 y/o female with metastatic breast cancer with associated malignant right- sided pleural effusion noted on cytology on thoracentesis performed on 08/24/2024. Patient had a second thoracentesis performed followed by Pleurx catheter placement on 09/27/2024. Undergoing tx w/ Dr Alvarez, last seen 10/27 and last Abraxane on 10/27 (has had two doses) and was on Paclitaxel prior on 10/13 but developed reaction. She presented with increased SOB since 10/29 with elevated CO2 on ABG (normal pH) with associated leukocytosis, tachypnea and tachycardia concerning for infection. Productive cough with clear sputum reported, poor PO intake 2nd to pain, and significant erythema/cellulitis and possible infection to PleurX catheter noted on admission. Patient became hypotensive with MAP as low as 56 despite IV fluids, and was transferred to PCU. #Malignant pleural effusion - Recurrent in setting of metastatic cancer - Pulmonology consulted -- S/p TPA through Pleurx for complicated parapneumonic effusion/empyema 11/01 and 11/02 - Transferred to PCU overnight due to hypotension and pain secondary to suctioning off pleural fluid through PleurX. If SBP<90 or MAP<65, consider transfer to ICU for vasopressors - CXR 11/02 with decreased Right pleural effusion - AM Random cortisol WNL. Hyponatremia likely secondary to IV fluid - Schedule budesonide/formoterol nebs. Duonebs prn. Pulmonary toilet with incentive spirometer, flutter valve #Right-sided chest wall cellulitis - CTA negative for PE but notes layering RIGHT effusion with new R loculation with increased interstitial marking possible metastatic disease, new SAURAV ground glass infiltrate infectious vs metastatic - Pleural fluid and wound cultures with Staph aureus. Blood cultures negative > 48 hours - Continue IV Linezolid q12h - BiPAP ordered as needed - Pain control, antiemetics as needed #Hypotension - Ongoing hypotension, likely secondary to pain medications - Improved with LR bolus and albumin bolus. POCUS showed dilated but >50% collapsible IVC. LVEF grossly intact. - Continue LR maintenance rate overnight - Started hydrocortisone 50 mg IV q6h per pulm - Echocardiogram completed, pending #COPD with emphysema - Continue duonebs with formoterol/budesonide nebs, supplemental O2 as needed #Diabetes mellitus type 2 sliding scale insulin while inpatient but reduced glargine to 5u given poor intake to prevent hypoglycemia and can adjust as needed PT/OT consulted DVT proph: lovenox SQ Dispo: Now transferred to PCU for more advanced management/monitoring. Anticipate at least 2-3 more days inpatient before discharge. Ongoing management of pleural effusion / PleurX catheter, monitoring cultures. Oncology consulted, will resume outpatient care on discharge. Updated and family members at bedside Admission and Anticipated Discharge Date Admission Date: October 31, 2024 Supervising Physician Co-Signing Physician Notes chart reviewed, case d/w S Topher GARCÍA. as above Subjective Patient seen and evaluated at bedside with her present. She reports some improvement in her breathing today. She continues to have discomfort regarding her PleurX, but states the pain medication keeps this discomfort tolerable. She reports feeling dizzy/lightheaded overnight likely due to significant hypotension. Though she remains hypotensive today, she denies any lightheadedness or dizziness at this time. Discussed updates to her treatment plan. No additional complaints or concerns at this time. Rerounded on patient in evening after receiving notice from RN that patient complained of dizziness, blurry vision in left eye, and weakness in LLE. Multiple family members present. Patient reports that the dizziness and vision change was brief but resolved at the time of my evaluation. Her neuro exam was non-focal and non-lateralizing. She denied any complaints or concerns at this time. Encouraged patient and family to inform RN if any symptoms return or if family notices any changes. Physical Exam Physical Exam: General: No acute distress, nondiaphoretic, well-developed, well-nourished. Skin: Beefy red erythema surrounding PleurX catheter on right lower chest wall. Patient reports erythema appears similar to yesterday. Tender to touch around cellulitis. Cardiac: Regular rate and rhythm without murmurs gallops or rubs. Pulm: Diminished in bases R>L. Otherwise clear to auscultation bilaterally wit hout wheezes, rales or rhonchi. Normal respiratory effort. 96% on 5L. Abdominal: Soft, nondistended, nontender. Bowel sounds present. Neuro: A&O x3. No focal neurological deficits. Non-lateralizing neuro exam. Results & Data Results & Data Vital Signs (Past 12 Hours) Vital Signs Temp Pulse Pulse Resp BP BP Pulse Ox 11/02/24 07:24 97.9 F 90 22 92/58 L 96 11/02/24 07:05 78 22 95 11/02/24 06:09 81 18 95 11/02/24 06:00 96/57 L 11/02/24 06:00 96/57 L 11/02/24 06:00 96/57 L 11/02/24 06:00 96/57 L 11/02/24 05:57 72 21 95 11/02/24 05:45 105/59 L 11/02/24 05:45 105/59 L 11/02/24 05:45 105/59 L 11/02/24 05:43 90/56 L 11/02/24 05:42 75 25 H 93 11/02/24 05:39 91/71 L 11/02/24 05:39 91/71 L 11/02/24 05:39 91/71 L 11/02/24 05:36 83 19 84 L 11/02/24 05:36 103/64 11/02/24 05:36 103/64 11/02/24 05:33 87 23 93 11/02/24 05:20 125/70 11/02/24 05:20 125/70 11/02/24 05:20 125/70 11/02/24 05:09 77 30 H 97 11/02/24 05:06 83 21 94 11/02/24 05:03 82/48 L 11/02/24 05:03 82/48 L 11/02/24 05:03 82/48 L 11/02/24 05:03 82/48 L 11/02/24 05:03 82/48 L 11/02/24 05:03 82/48 L 11/02/24 04:48 74 12 97 11/02/24 04:45 82/46 L 11/02/24 04:45 82/46 L 11/02/24 04:45 82/46 L 11/02/24 04:45 82/46 L 11/02/24 04:45 82/46 L 11/02/24 04:45 82/46 L 11/02/24 04:42 78 13 96 11/02/24 04:33 74/50 L 11/02/24 04:33 74/50 L 11/02/24 04:33 74/50 L 11/02/24 04:33 74/50 L 11/02/24 04:33 74/50 L 11/02/24 04:33 74/50 L 11/02/24 04:33 74 16 96 11/02/24 04:30 77/46 L 11/02/24 04:30 77/46 L 11/02/24 04:09 74 13 95 11/02/24 04:06 74 13 95 11/02/24 04:04 73/54 L 11/02/24 04:04 73/54 L 11/02/24 04:04 73/54 L 11/02/24 04:04 73/54 L 11/02/24 04:04 73/54 L 11/02/24 04:04 73/54 L 11/02/24 04:04 73/54 L 11/02/24 04:04 73/54 L 11/02/24 04:04 73/54 L 11/02/24 03:51 72 14 95 11/02/24 03:49 84/54 L 11/02/24 03:49 84/54 L 11/02/24 03:49 84/54 L 11/02/24 03:49 84/54 L 11/02/24 03:49 84/54 L 11/02/24 03:48 76 12 96 11/02/24 03:30 73 12 94 11/02/24 03:30 80/42 L 11/02/24 03:30 80/42 L 11/02/24 03:30 80/42 L 11/02/24 03:30 80/42 L 11/02/24 03:30 80/42 L 11/02/24 03:30 80/42 L 11/02/24 03:18 77 13 94 11/02/24 03:15 98.2 F 11/02/24 03:00 11/02/24 03:00 11/02/24 03:00 11/02/24 03:00 11/02/24 03:00 11/02/24 03:00 100/61 11/02/24 03:00 100/61 11/02/24 03:00 100/61 11/02/24 03:00 100/61 11/02/24 02:57 74 15 94 11/02/24 02:51 79 16 95 11/02/24 02:49 96/56 L 11/02/24 02:49 96/56 L 11/02/24 02:49 96/56 L 11/02/24 02:49 96/56 L 11/02/24 02:30 79/54 L 11/02/24 02:30 79/54 L 11/02/24 02:30 79/54 L 11/02/24 02:30 79/54 L 11/02/24 02:30 79/54 L 11/02/24 02:30 79/54 L 11/02/24 02:21 85/42 L 11/02/24 02:06 78 12 94 11/02/24 02:00 88/41 L 11/02/24 02:00 88/41 L 11/02/24 02:00 88/41 L 11/02/24 02:00 78 14 96 11/02/24 01:30 90/53 L 11/02/24 01:30 90/53 L 11/02/24 01:30 90/53 L 11/02/24 01:30 90/53 L 11/02/24 01:30 90/53 L 11/02/24 01:30 90/53 L 11/02/24 01:30 90/53 L 11/02/24 01:30 90/53 L 11/02/24 01:30 90/53 L 11/02/24 01:30 90/53 L 11/02/24 01:30 90/53 L 11/02/24 01:30 90/53 L 11/02/24 01:30 90/53 L 11/02/24 01:30 90/53 L 11/02/24 01:30 90/53 L 11/02/24 01:30 76 14 94 11/02/24 01:03 69/49 L 11/02/24 01:03 69/49 L 11/02/24 01:03 69/49 L 11/02/24 01:03 69/49 L 11/02/24 01:03 69/49 L 11/02/24 01:03 69/49 L 11/02/24 01:03 69/49 L 11/02/24 01:03 69/49 L 11/02/24 01:03 69/49 L 11/02/24 01:03 69/49 L 11/02/24 01:00 78 14 94 11/02/24 00:33 92 11/02/24 00:31 101/58 L 11/02/24 00:31 101/58 L 11/02/24 00:31 101/58 L 11/02/24 00:31 101/58 L 11/02/24 00:31 101/58 L 11/02/24 00:24 100/63 11/02/24 00:24 100/63 11/02/24 00:22 79/49 L 11/02/24 00:06 79 16 92 11/02/24 00:03 76 16 92 11/02/24 00:00 81/43 L 11/02/24 00:00 81/43 L 11/02/24 00:00 81/43 L 11/02/24 00:00 81/43 L 11/02/24 00:00 81/43 L 11/02/24 00:00 97.7 F 11/02/24 00:00 85 11/01/24 23:57 75 13 92 11/01/24 23:46 11/01/24 23:15 101/48 L 11/01/24 23:15 101/48 L 11/01/24 23:15 101/48 L 11/01/24 23:15 101/48 L 11/01/24 23:15 101/48 L 11/01/24 23:15 101/48 L 11/01/24 23:15 101/48 L 11/01/24 23:15 101/48 L 11/01/24 23:15 101/48 L 11/01/24 23:15 101/48 L 11/01/24 23:15 101/48 L 11/01/24 23:15 101/48 L 11/01/24 23:15 101/48 L 11/01/24 23:15 101/48 L 11/01/24 23:15 101/48 L 11/01/24 23:15 101/48 L 11/01/24 23:15 101/48 L 11/01/24 22:20 11/01/24 22:08 86 20 101/66 93 11/01/24 22:05 89 11/01/24 20:13 90 20 86/60 L 94 O2 Del Method O2 Flow Rate 11/02/24 07:24 Nasal Cannula 5 11/02/24 07:05 Nasal Cannula 5 11/02/24 06:09 11/02/24 06:00 11/02/24 06:00 11/02/24 06:00 11/02/24 06:00 11/02/24 05:57 11/02/24 05:45 11/02/24 05:45 11/02/24 05:45 11/02/24 05:43 11/02/24 05:42 11/02/24 05:39 11/02/24 05:39 11/02/24 05:39 11/02/24 05:36 11/02/24 05:36 11/02/24 05:36 11/02/24 05:33 11/02/24 05:20 11/02/24 05:20 11/02/24 05:20 11/02/24 05:09 11/02/24 05:06 11/02/24 05:03 11/02/24 05:03 11/02/24 05:03 11/02/24 05:03 11/02/24 05:03 11/02/24 05:03 11/02/24 04:48 11/02/24 04:45 11/02/24 04:45 11/02/24 04:45 11/02/24 04:45 11/02/24 04:45 11/02/24 04:45 11/02/24 04:42 11/02/24 04:33 11/02/24 04:33 11/02/24 04:33 11/02/24 04:33 11/02/24 04:33 11/02/24 04:33 11/02/24 04:33 11/02/24 04:30 11/02/24 04:30 11/02/24 04:09 11/02/24 04:06 11/02/24 04:04 11/02/24 04:04 11/02/24 04:04 11/02/24 04:04 11/02/24 04:04 11/02/24 04:04 11/02/24 04:04 11/02/24 04:04 11/02/24 04:04 11/02/24 03:51 11/02/24 03:49 11/02/24 03:49 11/02/24 03:49 11/02/24 03:49 11/02/24 03:49 11/02/24 03:48 11/02/24 03:30 11/02/24 03:30 11/02/24 03:30 11/02/24 03:30 11/02/24 03:30 11/02/24 03:30 11/02/24 03:30 11/02/24 03:18 11/02/24 03:15 11/02/24 03:00 11/02/24 03:00 11/02/24 03:00 11/02/24 03:00 11/02/24 03:00 11/02/24 03:00 11/02/24 03:00 11/02/24 03:00 11/02/24 03:00 11/02/24 02:57 11/02/24 02:51 11/02/24 02:49 11/02/24 02:49 11/02/24 02:49 11/02/24 02:49 11/02/24 02:30 11/02/24 02:30 11/02/24 02:30 11/02/24 02:30 11/02/24 02:30 11/02/24 02:30 11/02/24 02:21 11/02/24 02:06 11/02/24 02:00 11/02/24 02:00 11/02/24 02:00 11/02/24 02:00 11/02/24 01:30 11/02/24 01:30 11/02/24 01:30 11/02/24 01:30 11/02/24 01:30 11/02/24 01:30 11/02/24 01:30 11/02/24 01:30 11/02/24 01:30 11/02/24 01:30 11/02/24 01:30 11/02/24 01:30 11/02/24 01:30 11/02/24 01:30 11/02/24 01:30 11/02/24 01:30 11/02/24 01:03 11/02/24 01:03 11/02/24 01:03 11/02/24 01:03 11/02/24 01:03 11/02/24 01:03 11/02/24 01:03 11/02/24 01:03 11/02/24 01:03 11/02/24 01:03 11/02/24 01:00 11/02/24 00:33 11/02/24 00:31 11/02/24 00:31 11/02/24 00:31 11/02/24 00:31 11/02/24 00:31 11/02/24 00:24 11/02/24 00:24 11/02/24 00:22 11/02/24 00:06 11/02/24 00:03 11/02/24 00:00 11/02/24 00:00 11/02/24 00:00 11/02/24 00:00 11/02/24 00:00 11/02/24 00:00 11/02/24 00:00 11/01/24 23:57 11/01/24 23:46 Oxymask 5 11/01/24 23:15 11/01/24 23:15 11/01/24 23:15 11/01/24 23:15 11/01/24 23:15 11/01/24 23:15 11/01/24 23:15 11/01/24 23:15 11/01/24 23:15 11/01/24 23:15 11/01/24 23:15 11/01/24 23:15 11/01/24 23:15 11/01/24 23:15 11/01/24 23:15 11/01/24 23:15 11/01/24 23:15 11/01/24 22:20 Nasal Cannula, Oxymask 5 11/01/24 22:08 Oxymask 5 11/01/24 22:05 11/01/24 20:13 Oxymask 5 Laboratory Results Reviewed CBC with differential Reviewed CBC, chemistries Reviewed cultures Diagnostic Findings Reviewed CXR Chest X-Ray 11/02/24 06:00 EXAM: XR chest 1V portable CLINICAL HISTORY: Pleural effusion TECHNIQUE: 11/01/2024 05:59:53 COMMUNICATION STUDIES PROFESSOR COMPARISON: Radiograph of chest was performed. FINDINGS: Lungs and pleural spaces: stable right pleural effusion and consolidation in the lower zone of the right lung. No pneumothorax. Heart: Stable prominent cardiac shadow. Mediastinum: Normal contour. Bones/joints: No fracture, erosion or dislocation. Soft tissues: No abnormality noted. No radiopaque foreign body noted. Tubes, lines and devices: Intercostal drainage tube seen in situ on right. IMPRESSION: 1. Decreased right pleural effusion and underlying parenchymal consolidation. 2. Intercostal drainage tube seen in situ on right. Electronically signed by Jones Baxter 11-02-2024 08:06 AM PG Care Time/CCT Total # of Minutes Spent Total Time Spent with Patient: Total time spent is greater than 50% in coordination of care (as documented) at patient's floor/unit and/or counseling patient: Coding Level of Care Code 66693 SUB INP/OBS CARE 3/50MIN Diagnoses Malignant pleural effusion J91.0 Acute on chronic respiratory failure with hypercapnia J96.22 Hypotension I95.9 COPD with emphysema J43.9 Type 2 diabetes mellitus without complication, with long-term current use of insulin E11.9; Z79.4 Diabetes mellitus complication status: without complication Diabetes mellitus long term care pharmacist insulin use: with longterm use Abdominal wall cellulitis L03.311 (5) Diabetes mellitus, type 2 Diabetes mellitus complication status: without complication Diabetes mellitus longterm insulin use: with longterm use Qualified Code(s): E11.9 - Type 2 diabetes mellitus without complications; Z79.4 - technician terminal and repeater (current) use of insulin
--- NOTE | 2024-11-02 08:56 | Pulmonology Progress Note ---
Date of Service November 02, 2024 Assessment & Plan (1) Cellulitis of chest wall: Plan: Exam findings with erythematous and edematous cellulitic component to the RIGHT sided chest wall. Patient on daptomycin and Levaquin. Review of cultures demonstrates positivity for Staph aureus in both the pleura as well as the wound culture. Transition the patient to Zyvox secondary to vancomycin allergy. (2) Malignant pleural effusion: Plan: Recurrent effusion in the setting of static breast cancer recurrence. Underwent thoracentesis followed by pigtail catheter placement followed by Pleurx placeme nt. Pleural fluid cultures were obtained yesterday. Findings positive for Staph aureus. Will initiate Zyvox. Stranding appreciated on bedside ultrasound. To receive tPA for the areas of loculation with hopes of improving effusion. She tolerated intrapleural tPA well yesterday with moderate output from chest tube and significant improvement in her chest x-ray this morning. Will repeat tPA this morning. Will instill into the pleural space and allowed to sit for 4 hours. Allow for draining to suction afterwards. Will continue to reassess this on a daily basis. (3) Breast cancer: Plan: Managed per oncology. (4) COPD (chronic obstructive pulmonary disease): Plan: Continue with budesonide and Perforomist with as needed DuoNebs. COPD type: unspecified COPD Qualified Code(s): J44.9 - Chronic obstructive pulmonary disease, unspecified Plan Patient seen separately from the K[facility]. Agree with the note as above unless otherwise specified: Patient having excellent output from the Pleurx catheter with instillation of tPA. Will give another round of 10 mg tPA through the Pleurx catheter and indwell for an additional 4 hours. Sensitivities from the lower chest wall skin swab are back and suggesting Staph aureus which is pansensitive. Sensitivities from the pleural fluid are pending. Patient feels like her breathing is much better. She still has diminished breath sounds at her lung base on the right. No evidence of tachypnea. She has periodic hypotension but is relatively asymptomatic. There are no murmurs rubs or gallops on cardiac auscultation. Edema is minimal. Pulmonary will continue to follow along with you. Thank you for the consult. Admission and Anticipated Discharge Date Admission Date: October 31, 2024 Subjective Patient seen and evaluated at bedside. She complains of mild discomfort at the RIGHT sided chest wall, but states that it has been tolerable with pain medicine. Unfortunately, she has had some episodes of hypotension which seem to be related to administration of narcotic medication for pain control. Thankfully, she is breathing easier and has had moderate output from her chest tube. Review of Systems Review of Systems: A complete 10 point review of systems was reviewed with the patient with pertinent positives and negatives as per history of present illness. All else were negative. Physical Exam Physical Exam: VITAL SIGNS Vital signs and nursing notes were reviewed. GENERAL 59-year-old female appearing her stated age who is in no acute distress. Communicates well with provider and answers questions appropriately. SKIN beefy red erythematous rash noted to the RIGHT sided lower chest wall surrounding Pleurx catheter. Dressing placed. Tender to palpation. NOSE Midline and without cyanosis. MOUTH/OROPHARYNX Without perioral cyanosis. NECK Neck with FROM. LUNGS Chest wall as above. Chest wall evaluation demonstrates normal chest wall A:P diameter. Auscultation reveals diminished breath sounds on the RIGHT. Mild crackles. No wheezing. CARDIAC RRR with S1/S2. No murmur, rubs, or gallops appreciated. ABDOMEN Abdominal inspection demonstrates an obese abdomen. BS normoactive all four quadrants. No tenderness, palpable masses, or ascites noted. EXTREMITIES Nail clubbing not present. No peripheral cyanosis. No pretibial edema present. +3/5 radial palpated throughout. PSYCH A&Ox3 and cooperates fully with examiner. Pt is very pleasant and interacts well with examiner. Results & Data Results & Data Vital Signs (Past 12 Hours) Vital Signs Temp Pulse Pulse Resp BP BP Pulse Ox 11/02/24 08:45 76 16 96 11/02/24 08:33 75 18 96 11/02/24 08:30 86/50 L 11/02/24 08:30 86/50 L 11/02/24 08:30 86/50 L 11/02/24 08:30 86/50 L 11/02/24 08:30 86/50 L 11/02/24 08:24 78 17 96 11/02/24 08:15 82 29 H 96 11/02/24 08:15 85/52 L 11/02/24 08:15 85/52 L 11/02/24 08:15 85/52 L 11/02/24 08:15 85/52 L 11/02/24 08:15 85/52 L 11/02/24 08:15 85/52 L 11/02/24 08:15 85/52 L 11/02/24 08:15 85/52 L 11/02/24 08:06 78 22 96 11/02/24 08:01 116/51 L 11/02/24 08:01 116/51 L 11/02/24 08:01 116/51 L 11/02/24 08:01 116/51 L 11/02/24 08:01 116/51 L 11/02/24 08:01 116/51 L 11/02/24 08:01 116/51 L 11/02/24 08:01 116/51 L 11/02/24 08:01 116/51 L 11/02/24 08:01 116/51 L 11/02/24 07:57 98 H 23 95 11/02/24 07:48 89 24 96 11/02/24 07:46 83/69 L 11/02/24 07:46 83/69 L 11/02/24 07:46 83/69 L 11/02/24 07:46 83/69 L 11/02/24 07:46 83/69 L 11/02/24 07:46 83/69 L 11/02/24 07:36 89 23 93 11/02/24 07:33 83 19 95 11/02/24 07:30 112/56 L 11/02/24 07:30 112/56 L 11/02/24 07:30 112/56 L 11/02/24 07:30 112/56 L 11/02/24 07:30 112/56 L 11/02/24 07:30 112/56 L 11/02/24 07:24 92/58 L 11/02/24 07:24 92/58 L 11/02/24 07:24 81 20 95 11/02/24 07:24 36.6 C 90 22 92/58 L 96 11/02/24 07:22 79/52 L 11/02/24 07:22 79/52 L 11/02/24 07:15 94/51 L 11/02/24 07:05 78 22 95 11/02/24 06:09 81 18 95 11/02/24 06:00 96/57 L 11/02/24 06:00 96/57 L 11/02/24 06:00 96/57 L 11/02/24 06:00 96/57 L 11/02/24 05:57 72 21 95 11/02/24 05:45 105/59 L 11/02/24 05:45 105/59 L 11/02/24 05:45 105/59 L 11/02/24 05:43 90/56 L 11/02/24 05:42 75 25 H 93 11/02/24 05:39 91/71 L 11/02/24 05:39 91/71 L 11/02/24 05:39 91/71 L 11/02/24 05:36 83 19 84 L 11/02/24 05:36 103/64 11/02/24 05:36 103/64 11/02/24 05:33 87 23 93 11/02/24 05:20 125/70 11/02/24 05:20 125/70 11/02/24 05:20 125/70 11/02/24 05:09 77 30 H 97 11/02/24 05:06 83 21 94 11/02/24 05:03 82/48 L 11/02/24 05:03 82/48 L 11/02/24 05:03 82/48 L 11/02/24 05:03 82/48 L 11/02/24 05:03 82/48 L 11/02/24 05:03 82/48 L 11/02/24 04:48 74 12 97 11/02/24 04:45 82/46 L 11/02/24 04:45 82/46 L 11/02/24 04:45 82/46 L 11/02/24 04:45 82/46 L 11/02/24 04:45 82/46 L 11/02/24 04:45 82/46 L 11/02/24 04:42 78 13 96 11/02/24 04:33 74/50 L 11/02/24 04:33 74/50 L 11/02/24 04:33 74/50 L 11/02/24 04:33 74/50 L 11/02/24 04:33 74/50 L 11/02/24 04:33 74/50 L 11/02/24 04:33 74 16 96 11/02/24 04:30 77/46 L 11/02/24 04:30 77/46 L 11/02/24 04:09 74 13 95 11/02/24 04:06 74 13 95 11/02/24 04:04 73/54 L 11/02/24 04:04 73/54 L 11/02/24 04:04 73/54 L 11/02/24 04:04 73/54 L 11/02/24 04:04 73/54 L 11/02/24 04:04 73/54 L 11/02/24 04:04 73/54 L 11/02/24 04:04 73/54 L 11/02/24 04:04 73/54 L 11/02/24 03:51 72 14 95 11/02/24 03:49 84/54 L 11/02/24 03:49 84/54 L 11/02/24 03:49 84/54 L 11/02/24 03:49 84/54 L 11/02/24 03:49 84/54 L 11/02/24 03:48 76 12 96 11/02/24 03:30 73 12 94 11/02/24 03:30 80/42 L 11/02/24 03:30 80/42 L 11/02/24 03:30 80/42 L 11/02/24 03:30 80/42 L 11/02/24 03:30 80/42 L 11/02/24 03:30 80/42 L 11/02/24 03:18 77 13 94 11/02/24 03:15 36.8 C 11/02/24 03:00 11/02/24 03:00 11/02/24 03:00 11/02/24 03:00 11/02/24 03:00 10011/02/24 03:00 10011/02/24 03:00 10011/02/24 03:00 100/11/02/24 03:00 10011/02/24 02:57 74 15 94 11/02/24 02:51 79 16 95 11/02/24 02:49 96/56 L 11/02/24 02:49 96/56 L 11/02/24 02:49 96/56 L 11/02/24 02:49 96/56 L 11/02/24 02:30 79/54 L 11/02/24 02:30 79/54 L 11/02/24 02:30 79/54 L 11/02/24 02:30 79/54 L 11/02/24 02:30 79/54 L 11/02/24 02:30 79/54 L 11/02/24 02:21 85/42 L 11/02/24 02:06 78 12 94 11/02/24 02:00 88/41 L 11/02/24 02:00 88/41 L 11/02/24 02:00 88/41 L 11/02/24 02:00 78 14 96 11/02/24 01:30 90/53 L 11/02/24 01:30 90/53 L 11/02/24 01:30 90/53 L 11/02/24 01:30 90/53 L 11/02/24 01:30 90/53 L 11/02/24 01:30 90/53 L 11/02/24 01:30 90/53 L 11/02/24 01:30 90/53 L 11/02/24 01:30 90/53 L 11/02/24 01:30 90/53 L 11/02/24 01:30 90/53 L 11/02/24 01:30 90/53 L 11/02/24 01:30 90/53 L 11/02/24 01:30 90/53 L 11/02/24 01:30 90/53 L 11/02/24 01:30 76 14 94 11/02/24 01:03 69/49 L 11/02/24 01:03 69/49 L 11/02/24 01:03 69/49 L 11/02/24 01:03 69/49 L 11/02/24 01:03 69/49 L 11/02/24 01:03 69/49 L 11/02/24 01:03 69/49 L 11/02/24 01:03 69/49 L 11/02/24 01:03 69/49 L 11/02/24 01:03 69/49 L 11/02/24 01:00 78 14 94 11/02/24 00:33 92 11/02/24 00:31 101/58 L 11/02/24 00:31 101/58 L 11/02/24 00:31 101/58 L 11/02/24 00:31 101/58 L 11/02/24 00:31 101/58 L 11/02/24 00:24 100/63 11/02/24 00:24 100/63 11/02/24 00:22 79/49 L 11/02/24 00:06 79 16 92 11/02/24 00:03 76 16 92 11/02/24 00:00 81/43 L 11/02/24 00:00 81/43 L 11/02/24 00:00 81/43 L 11/02/24 00:00 81/43 L 11/02/24 00:00 81/43 L 11/02/24 00:00 36.5 C 11/02/24 00:00 85 11/01/24 23:57 75 13 92 11/01/24 23:46 11/01/24 23:15 101/48 L 11/01/24 23:15 101/48 L 11/01/24 23:15 101/48 L 11/01/24 23:15 101/48 L 11/01/24 23:15 101/48 L 11/01/24 23:15 101/48 L 11/01/24 23:15 101/48 L 11/01/24 23:15 101/48 L 11/01/24 23:15 101/48 L 11/01/24 23:15 101/48 L 11/01/24 23:15 101/48 L 11/01/24 23:15 101/48 L 11/01/24 23:15 101/48 L 11/01/24 23:15 101/48 L 11/01/24 23:15 101/48 L 11/01/24 23:15 101/48 L 11/01/24 23:15 101/48 L 11/01/24 22:20 11/01/24 22:08 86 20 101/66 93 11/01/24 22:05 89 O2 Del Method O2 Flow Rate 11/02/24 08:45 11/02/24 08:33 11/02/24 08:30 11/02/24 08:30 11/02/24 08:30 11/02/24 08:30 11/02/24 08:30 11/02/24 08:24 11/02/24 08:15 11/02/24 08:15 11/02/24 08:15 11/02/24 08:15 11/02/24 08:15 11/02/24 08:15 11/02/24 08:15 11/02/24 08:15 11/02/24 08:15 11/02/24 08:06 11/02/24 08:01 11/02/24 08:01 11/02/24 08:01 11/02/24 08:01 11/02/24 08:01 11/02/24 08:01 11/02/24 08:01 11/02/24 08:01 11/02/24 08:01 11/02/24 08:01 11/02/24 07:57 11/02/24 07:48 11/02/24 07:46 11/02/24 07:46 11/02/24 07:46 11/02/24 07:46 11/02/24 07:46 11/02/24 07:46 11/02/24 07:36 11/02/24 07:33 11/02/24 07:30 11/02/24 07:30 11/02/24 07:30 11/02/24 07:30 11/02/24 07:30 11/02/24 07:30 11/02/24 07:24 11/02/24 07:24 11/02/24 07:24 11/02/24 07:24 Nasal Cannula 5 11/02/24 07:22 11/02/24 07:22 11/02/24 07:15 11/02/24 07:05 Nasal Cannula 5 11/02/24 06:09 11/02/24 06:00 11/02/24 06:00 11/02/24 06:00 11/02/24 06:00 11/02/24 05:57 11/02/24 05:45 11/02/24 05:45 11/02/24 05:45 11/02/24 05:43 11/02/24 05:42 11/02/24 05:39 11/02/24 05:39 11/02/24 05:39 11/02/24 05:36 11/02/24 05:36 11/02/24 05:36 11/02/24 05:33 11/02/24 05:20 11/02/24 05:20 11/02/24 05:20 11/02/24 05:09 11/02/24 05:06 11/02/24 05:03 11/02/24 05:03 11/02/24 05:03 11/02/24 05:03 11/02/24 05:03 11/02/24 05:03 11/02/24 04:48 11/02/24 04:45 11/02/24 04:45 11/02/24 04:45 11/02/24 04:45 11/02/24 04:45 11/02/24 04:45 11/02/24 04:42 11/02/24 04:33 11/02/24 04:33 11/02/24 04:33 11/02/24 04:33 11/02/24 04:33 11/02/24 04:33 11/02/24 04:33 11/02/24 04:30 11/02/24 04:30 11/02/24 04:09 11/02/24 04:06 11/02/24 04:04 11/02/24 04:04 11/02/24 04:04 11/02/24 04:04 11/02/24 04:04 11/02/24 04:04 11/02/24 04:04 11/02/24 04:04 11/02/24 04:04 11/02/24 03:51 11/02/24 03:49 11/02/24 03:49 11/02/24 03:49 11/02/24 03:49 11/02/24 03:49 11/02/24 03:48 11/02/24 03:30 11/02/24 03:30 11/02/24 03:30 11/02/24 03:30 11/02/24 03:30 11/02/24 03:30 11/02/24 03:30 11/02/24 03:18 11/02/24 03:15 11/02/24 03:00 11/02/24 03:00 11/02/24 03:00 11/02/24 03:00 11/02/24 03:00 11/02/24 03:00 11/02/24 03:00 11/02/24 03:00 11/02/24 03:00 11/02/24 02:57 11/02/24 02:51 11/02/24 02:49 11/02/24 02:49 11/02/24 02:49 11/02/24 02:49 11/02/24 02:30 11/02/24 02:30 11/02/24 02:30 11/02/24 02:30 11/02/24 02:30 11/02/24 02:30 11/02/24 02:21 11/02/24 02:06 11/02/24 02:00 11/02/24 02:00 11/02/24 02:00 11/02/24 02:00 11/02/24 01:30 11/02/24 01:30 11/02/24 01:30 11/02/24 01:30 11/02/24 01:30 11/02/24 01:30 11/02/24 01:30 11/02/24 01:30 11/02/24 01:30 11/02/24 01:30 11/02/24 01:30 11/02/24 01:30 11/02/24 01:30 11/02/24 01:30 11/02/24 01:30 11/02/24 01:30 11/02/24 01:03 11/02/24 01:03 11/02/24 01:03 11/02/24 01:03 11/02/24 01:03 11/02/24 01:03 11/02/24 01:03 11/02/24 01:03 11/02/24 01:03 11/02/24 01:03 11/02/24 01:00 11/02/24 00:33 11/02/24 00:31 11/02/24 00:31 11/02/24 00:31 11/02/24 00:31 11/02/24 00:31 11/02/24 00:24 11/02/24 00:24 11/02/24 00:22 11/02/24 00:06 11/02/24 00:03 11/02/24 00:00 11/02/24 00:00 11/02/24 00:00 11/02/24 00:00 11/02/24 00:00 11/02/24 00:00 11/02/24 00:00 11/01/24 23:57 11/01/24 23:46 Oxymask 5 11/01/24 23:15 11/01/24 23:15 11/01/24 23:15 11/01/24 23:15 11/01/24 23:15 11/01/24 23:15 11/01/24 23:15 11/01/24 23:15 11/01/24 23:15 11/01/24 23:15 11/01/24 23:15 11/01/24 23:15 11/01/24 23:15 11/01/24 23:15 11/01/24 23:15 11/01/24 23:15 11/01/24 23:15 11/01/24 22:20 Nasal Cannula, Oxymask 5 11/01/24 22:08 Oxymask 5 11/01/24 22:05 PG Care Time/CCT Total # of Minutes Spent Total Time Spent with Patient: Total time spent is greater than 50% in coordination of care (as documented) at patient's floor/unit and/or counseling patient: Coding Level of Care Code 14870 SUB INP/OBS CARE 235MIN Diagnoses Cellulitis of chest wall L03.313 Malignant pleural effusion J91.0 Breast cancer C50.919 COPD (chronic obstructive pulmonary disease) J44.9 COPD type: unspecified COPD
[2024-11-02] MEDS: ALTEPLASE, RECOMBINANT 10 MG in SYRINGE 50 ML IPL ONE (09:10)
[2024-11-02] MEDS: LACTATED RINGER'S 1,000 ML IV SCH (10:42)
[2024-11-02] MEDS: HYDROCORTISONE SOD 100 MG in SYRINGE 0 ML IV STA (10:48)
[2024-11-02] MEDS: HYDROCORTISONE SOD 50 MG in SYRINGE 0 ML IV SCH (14:05)
[2024-11-02] MEDS: FAMOTIDINE 20 MG TAB PO SCH (21:20)
[2024-11-03 06:29] LABS: Hematocrit (blood only) 33.4 % (37.0-47.0); Hemoglobin 11.3 g/dl (12.0-16.0); Mean Corpuscular Hemoglobin 28.9 pg (25.0-34.0); Mean Corpuscular Hgb Conc 33.8 g/dL (32.0-36.0); Mean Corpuscular Volume 85.4 fL (80.0-100.0); Mean Platelet Volume 10.5 fL (9.4-12.4); Platelet Count 370 K/uL (130-400); RDW Coefficient of Variation 12.6 % (11.5-14.5); Red Blood Count 3.91 M/uL (4.20-5.40); White Blood Count 10.24 K/ul (4.8-10.8)
[2024-11-03 06:40] LABS: BUN Creatinine Ratio 22.1 (10-20); Calcium 8.4 mg/dl (8.6-10.3); Creatinine Clr Calc Pharmacy 109.5 ml/min; Potassium 3.6 mmol/L (3.5-5.1)
[2024-11-03] MEDS: hydrOXYzine HCl 10 MG TAB PO PRN (06:46)
--- NOTE | 2024-11-03 08:42 | XRay Report ---
XR chest 1V portable CLINICAL HISTORY: f/u right chest tube COMPARISON STUDY: 11/02/2024 FINDINGS: The prior examination, the right basilar airspace opacity continues to diminish. The right lower intercostal chest tube remains in place. The remainder of the lung tee are clear. There is m ild cardiomegaly. There is no pneumothorax. IMPRESSION: Right basilar airspace opacity slightly smaller; otherwise unchanged. ACT 112: Negative or not required by law. Electronically signed by: Juanita Perez M.D. 11/03/2024 8:41 AM
--- NOTE | 2024-11-03 09:14 | XCELERA ---
[id number] \\[email or web address]\[id number]
--- NOTE | 2024-11-03 12:30 | Pulmonology Progress Note ---
Date of Service November 03, 2024 Assessment & Plan (1) Cellulitis of chest wall: Plan: Continue linezolid. Patient cellulitis appears to be improving. Recommend daily dressing changes and communication sent to nurse. (2) Malignant pleural effusion: Plan: tPA instilled x 2 with excellent output. Will obtain a CT of her chest tomorrow to evaluate the right pleural space. Patient likely has a biofilm on the Pleurx catheter which can be difficult to treat, but she is clinically improving. Will likely repeat pleural cultures from the Pleurx catheter tomorrow. Continue Zyvox as above. Patient in agreement with plan. (3) Breast cancer: Plan: Managed per oncology. (4) COPD (chronic obstructive pulmonary disease): Plan: Continue with budesonide and Perforomist with as needed DuoNebs. COPD type: unspecified COPD Qualified Code(s): J44.9 - Chronic obstructive pulmonary disease, unspecified Admission and Anticipated Discharge Date Admission Date: October 31, 2024 Subjective Patient seen and examined. She is having left chest wall pain today. She continues to have drainage out of the right Pleurx catheter that appears to be serosanguineous. Her breathing is improved but she is still requiring supplemental oxygen. Review of Systems Review of Systems: All systems reviewed & are unremarkable except as noted in HPI & below Physical Exam Physical Exam: VITAL SIGNS Vital signs and nursing notes were reviewed. GENERAL 59-year-old female appearing her stated age who is in no acute distress. Communicates well with provider and answers questions appropriately. SKIN beefy red erythematous rash noted to the RIGHT sided lower chest wall surrounding Pleurx catheter which is improving. Dressing placed. Tender to palpation. NOSE Midline and without cyanosis. MOUTH/OROPHARYNX Without perioral cyanosis. NECK Neck with FROM. LUNGS Chest wall as above. Chest wall evaluation demonstrates normal chest wall A:P diameter. Auscultation reveals diminished breath sounds on the RIGHT. Mild crackles. No wheezing. CARDIAC RRR with S1/S2. No murmur, rubs, or gallops appreciated. ABDOMEN Abdominal inspection demonstrates an obese abdomen. BS normoactive all four quadrants. No tenderness, palpable masses, or ascites noted. EXTREMITIES Nail clubbing not present. No peripheral cyanosis. No pretibial edema present. +3/5 radial palpated throughout. PSYCH A&Ox3 and cooperates fully with examiner. Pt is very pleasant and interacts well with examiner. Results & Data Results & Data Vital Signs (Past 12 Hours) Vital Signs Temp Pulse Pulse Resp BP Pulse Ox O2 Del Method 11/03/24 10:55 36.5 C 68 19 104/57 L 90 Nasal Cannula 11/03/24 08:00 70 11/03/24 07:06 36.4 C L 80 20 101/54 L 91 Nasal Cannula 11/03/24 06:51 70 18 94 Nasal Cannula 11/03/24 05:17 96 Nasal Cannula 11/03/24 02:56 36.6 C 71 18 107/74 94 Nasal Cannula O2 Flow Rate 11/03/24 10:55 4 11/03/24 08:00 11/03/24 07:06 4 11/03/24 06:51 4 11/03/24 05:17 4 11/03/24 02:56 6 PG Care Time/CCT Total # of Minutes Spent Total Time Spent with Patient: Total time spent is greater than 50% in coordination of care (as documented) at patient's floor/unit and/or counseling patient: Coding Level of Care Code 68928 SUB INP/OBS CARE 2/35MIN Diagnoses Cellulitis of chest wall L03.313 Malignant pleural effusion J91.0 Breast cancer C50.919 COPD (chronic obstructive pulmonary disease) J44.9 COPD type: unspecified COPD
[2024-11-03] MEDS: guaiFENesin/DEXTROM SYRUP 200MG/20MG 10ML UDC PO PRN (19:46)
[2024-11-03] MEDS: ACETAMINOPHEN 500 MG TAB PO PRN (19:46)
--- NOTE | 2024-11-03 19:47 | Hospitalist Progress Note ---
Date of Service November 03, 2024 Assessment & Plan (1) Malignant pleural effusion: (2) Abdominal wall cellulitis: (3) Acute on chronic respiratory failure with hypercapnia: (4) Hypotension: (5) COPD with emphysema: (6) Diabetes mellitus, type 2: Plan 59 y/o female with metastatic breast cancer with associated malignant right- sided pleural effusion noted on cytology on thoracentesis performed on 08/24/2024. Patient had a second thoracentesis performed followed by Pleurx catheter placement on 09/27/2024. Undergoing tx w/ Dr Avlarez, last seen 10/27 and last Abraxane on 10/27 (has had two doses) and was on Paclitaxel prior on 10/13 but developed reaction. She presented with increased SOB since 10/29 with elevated CO2 on ABG (normal pH) with associated leukocytosis, tachypnea and tachycardia concerning for infection. Productive cough with clear sputum reported, poor PO intake 2nd to pain, and significant erythema/cellulitis and possible infection to PleurX catheter noted on admission. Patient became hypotensive with MAP as low as 56 despite IV fluids, and was transferred to PCU. #Malignant pleural effusion - Recurrent in setting of metastatic cancer - Pulmonology consulted -- S/p TPA through Pleurx for complicated parapneumonic effusion/empyema 11/01 and 11/02 - CXR 11/03 with slightly decreased Right pleural effusion - Plan to repeat Chest CT and pleural culture tomorrow 11/04 - Schedule budesonide/formoterol nebs. Duonebs prn. Pulmonary toilet with incentive spirometer, flutter valve #Right-sided chest wall cellulitis - CTA negative for PE but notes layering RIGHT effusion with new R loculation with increased interstitial marking possible metastatic disease, new SAURAV ground glass infiltrate infectious vs metastatic - Pleural fluid and wound cultures with Staph aureus. Blood cultures negative > 48 hours - Continue IV Linezolid q12h - Pain control, antiemetics as needed, daily dressing changes #Hypotension - Ongoing hypotension, likely secondary to pain medications. Now improved, remains asymptomatic - POCUS showed dilated but >50% collapsible IVC. LVEF grossly intact - Continue hydrocortisone 50 mg IV q6h per pulm - Echocardiogram with EF 55-60%, no regional wall motion abnormalities, no significant valvular stenosis or regurgitation #COPD with emphysema - Continue duonebs with formoterol/budesonide nebs, supplemental O2 as needed #Diabetes mellitus type 2 sliding scale insulin while inpatient but reduced glargine to 5u given poor intake to prevent hypoglycemia and can adjust as needed PT/OT consulted DVT proph: lovenox SQ Dispo: Anticipate at least 2-3 more days inpatient before discharge. Ongoing management of pleural effusion / PleurX catheter, monitoring cultures. Oncology consulted, will resume outpatient care on discharge. Updated and JASSON at bedside Admission and Anticipated Discharge Date Admission Date: October 31, 2024 Supervising Physician Co-Signing Physician Notes chart reviewed, case d/w S Topehr GARCÍA. as above Subjective Patient seen and evaluated at bedside with her and [id number] present. She reports her breathing is easier today, denies any chest pain or d iscomfort. Her blood pressure is improved today and she denies any lightheadedness/dizziness. She notes poor sleep and states this is starting to take a toll on her. She reports melatonin makes her hyper. We discussed an alternative sleep aid, the current plan and plan for tomorrow. No additional complaints or concerns at this time. Physical Exam Physical Exam: General: No acute distress, nondiaphoretic, well-developed, well-nourished. Skin: Cellulitis improving with improvement in erythema surrounding PleurX catheter on right lower chest wall. Moderately tender to touch around cellulitis. Cardiac: Regular rate and rhythm without murmurs gallops or rubs. Pulm: Diminished in bases R>L. Otherwise clear to auscultation bilaterally without wheezes, rales or rhonchi. Normal respiratory effort. 93% on 5L. Abdominal: Soft, nondistended, nontender. Bowel sounds present. Neuro: A&O x3. No focal neurological deficits. Results & Data Results & Data Vital Signs (Past 12 Hours) Vital Signs Temp Pulse Pulse Resp BP Pulse Ox O2 Del Method 11/03/24 19:10 71 16 104/60 93 Nasal Cannula 11/03/24 14:55 97.9 F 68 20 121/44 L 96 Nasal Cannula 11/03/24 10:55 97.7 F 68 19 104/57 L 90 Nasal Cannula 11/03/24 08:00 70 O2 Flow Rate 11/03/24 19:10 5 11/03/24 14:55 4 11/03/24 10:55 4 11/03/24 08:00 Laboratory Results Reviewed CBC Reviewed BMP Reviewed cultures Diagnostic Findings Reviewed echocardiogram Reviewed CXR Chest X-Ray 11/03/24 08:20 XR chest 1V portable CLINICAL HISTORY: f/u right chest tube COMPARISON STUDY: 11/02/2024 FINDINGS: The prior examination, the right basilar airspace opacity continues to diminish. The right lower intercostal chest tube remains in place. The remainder of the lung tee are clear. There is mild cardiomegaly. There is no pneumothorax. IMPRESSION: Right basilar airspace opacity slightly smaller; otherwise unchanged. ACT 112: Negative or not required by law. Electronically signed by: Juanita Perez M.D. 11/03/2024 8:41 AM PG Care Time/CCT Total # of Minutes Spent Total Time Spent with Patient: Total time spent is greater than 50% in coordination of care (as documented) at patient's floor/unit and/or counseling patient: Coding Level of Care Code 00028 SUB INP/OBS CARE 2/35MIN Diagnoses Malignant pleural effusion J91.0 Abdominal wall cellulitis L03.311 Acute on chronic respiratory failure with hypercapnia J96.22 Hypotension I95.9 COPD with emphysema J43.9 Type 2 diabetes mellitus without complication, with long-term current use of insulin E11.9; Z79.4 Diabetes mellitus complication status: without complication 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
[2024-11-03] MEDS ORDERED: MELATONIN 3 MG TAB PO PRN (21:58)
[2024-11-03] MEDS ORDERED: ZOLPIDEM TARTRATE 5 MG TAB PO PRN (21:59)
--- NOTE | 2024-11-04 09:19 | Pulmonology Progress Note ---
Date of Service November 04, 2024 Assessment & Plan (1) Cellulitis of chest wall: Plan: Continue linezolid. Patient cellulitis appears to be improving. Recommend daily dressing changes and communication sent to nurse. (2) Malignant pleural effusion: Plan: tPA instilled x 2 with excellent output. Will obtain a CT of her chest today to evaluate the right pleural space. Patient likely has a biofilm on the Pleurx catheter which can be difficult to treat, but she is clinically improving. Plural cultures repeated today. Continue Zyvox as above. Patient in agreement with plan. (3) Breast cancer: Plan: Managed per oncology. (4) COPD (chronic obstructive pulmonary disease): Plan: Continue with budesonide and Perforomist with as needed DuoNebs. COPD type: unspecified COPD Qualified Code(s): J44.9 - Chronic obstructive pulmonary disease, unspecified Plan Patient separately seen and examined from [facility]. Agree with the note as above aside for any additions/exceptions: CT chest reviewed with significant improvement of right pleural effusion and no evidence of septations or loculations. tPA instillation x 2 was successful. Unclear whether the patient truly has an empyema despite positive pleural cultures as colonization of indwelling pleural catheters with bacteria is not uncommon. Suspect patient did have a cellulitis related to the Pleurx versus irritation related to dressing. Cellulitis looks significantly improved. Patient has chronic erythema of the right hemithorax related to lymphedema from prior mastectomy and radiation treatment. Cultures from skin Gram stain are growing pansensitive Staph aureus along with pleural fluid cultures. Will discontinue linezolid and change the patient to doxycycline. Would recommend treating for 4 weeks total. Discussed the risks of doxycycline treatment. Patient intolerant of penicillins and cephalosporins thus doxycycline will be pursued. Discontinue continuous Pleurx drainage and okay to drain Pleurx catheter daily with Pleurx bottles. Patient stable to be dismissed from the hospital setting from a pulmonary perspective. Follow-up in the pulmonary clinic in the next 7 to 10 days. Pulmonary sign off. Please call questions. Admission and Anticipated Discharge Date Admission Date: October 31, 2024 Subjective Patient was seen and evaluated at bedside. She still has some discomfort to the RIGHT sided chest wall, but improving. Pleurx catheter continues to drain serosanguineous fluid. Remains on supplemental oxygen. Review of Systems Review of Systems: A complete 10 point review of systems was reviewed with the patient with pertinent positives and negatives as per history of present illness. All else were negative. Physical Exam Physical Exam: VITAL SIGNS Vital signs and nursing notes were reviewed. GENERAL 59-year-old female appearing her stated age who is in no acute distress. Communicates well with provider and answers questions appropriately. SKIN improved erythematous rash noted to the RIGHT sided lower chest wall surrounding Pleurx catheter. Dressing placed. Tender to palpation. NOSE Midline and without cyanosis. MOUTH/OROPHARYNX Without perioral cyanosis. NECK Neck with FROM. LUNGS Chest wall as above. Chest wall evaluation demonstrates normal chest wall A:P diameter. Auscultation reveals diminished breath sounds on the RIGHT. Mild crackles. No wheezing. CARDIAC RRR with S1/S2. No murmur, rubs, or gallops appreciated. ABDOMEN Abdominal inspection demonstrates an obese abdomen. BS normoactive all four quadrants. No tenderness, palpable masses, or ascites noted. EXTREMITIES Nail clubbing not present. No peripheral cyanosis. No pretibial edema present. +3/5 radial palpated throughout. PSYCH A&Ox3 and cooperates fully with examiner. Pt is very pleasant and intera cts well with examiner. Results & Data Results & Data Vital Signs (Past 12 Hours) Vital Signs Temp Pulse Pulse Pulse Resp BP Pulse Ox 11/04/24 07:09 36.2 C L 58 L 19 117/72 96 11/04/24 06:56 53 L 17 92 11/04/24 06:12 119/72 11/04/24 03:48 36.5 C 56 L 18 90/66 L 92 11/04/24 01:25 16 110/65 95 11/03/24 23:14 36.5 C 56 L 18 95/64 L 95 11/03/24 21:44 72 O2 Del Method O2 Flow Rate 11/04/24 07:09 Nasal Cannula 3 11/04/24 06:56 Nasal Cannula 3 11/04/24 06:12 11/04/24 03:48 Nasal Cannula 4 11/04/24 01:25 Nasal Cannula 11/03/24 23:14 Nasal Cannula 4 11/03/24 21:44 PG Care Time/CCT Total # of Minutes Spent Total Time Spent with Patient: Total time spent is greater than 50% in coordination of care (as documented) at patient's floor/unit and/or counseling patient: Coding Level of Care Code 73131 SUB INP/OBS CARE MIN Diagnoses Cellulitis of chest wall L03.313 Malignant pleural effusion J91.0 Breast cancer C50.919 COPD (chronic obstructive pulmonary disease) J44.9 COPD type: unspecified COPD
[2024-11-04] MEDS: OPTIRAY 320 100ml IV ONE (14:08)
--- NOTE | 2024-11-04 14:52 | CT Scan Report ---
CT OF THE CHEST WITH IV CONTRAST CLINICAL HISTORY: Follow up empyema. Breast cancer. COMPARISON STUDY: PET/CT September 23, 2024. Chest CT October 31, 2024. Chest radiograph November 03, 2024. TECHNIQUE: Following IV administration of 94 mL of Optiray, helical axial images of the chest were o btained. Sagittal and coronal reconstructions were viewed as well as maximal intensity projections o n an independent 3-D workstation. Automated exposure control was utilized for the study. A dose low ering technique was utilized adhering to the principles of ALARA. CT DOSE: 1124.28 mGy.cm FINDINGS: A right pleural catheter is in place. The right pleural effusion on CT of October 31, 2024 gao s nearly completely resolved. There is trace residual right pleural fluid. Right lung aeration has si gnificantly improved. A few subpleural right upper lobe opacities measure up to 1.4 cm. There is unde rlying emphysema. There is trace right pleural gas. Linear densities within the right upper and right lower lobes favor atelectasis. There is no left pneumothorax. Mild groundglass opacities within the left lung have slightly improved since CT of October 31, 2024. Sternal metastasis is noted. Soft tissue extension has decreased since PET/CT of September 23, 2024. There is no evidence for progressive metast atic disease within the chest. The heart is mildly enlarged. There is no pericardial effusion. There are no central pulmonary emboli. IMPRESSION: 1. Right pleural catheter in place. Near complete resolution of the right pleural effusion/empyema si nce prior CT. Trace residual right pleural effusion and trace right pleural gas. 2. Significant improvement in right lung aeration. Scattered subpleural opacities, as described above . These may be atelectatic or infectious. Imaging follow-up to ensure resolution is recommended. 3. Redemonstration of a sternal metastasis. Associated soft tissue extension decreased since PET/CT o f September 23, 2024 consistent with a treatment response. ACT 112: Negative or not required by law. Electronically signed by: Troy Medrano M.D. 11/04/2024 2:50 PM
--- NOTE | 2024-11-04 15:23 | Hospitalist Progress Note ---
Date of Service November 04, 2024 Assessment & Plan (1) Malignant pleural effusion: (2) Abdominal wall cellulitis: (3) Acute on chronic respiratory failure with hypercapnia: (4) Hypotension: (5) COPD with emphysema: (6) Diabetes mellitus, type 2: Plan 59 y/o female with metastatic breast cancer with associated malignant right- sided pleural effusion noted on cytology on thoracentesis performed on 08/24/2024. Patient had a second thoracentesis performed followed by Pleurx catheter placement on 09/27/2024. Undergoing tx w/ Dr Alvarez, last seen 10/27 and last Abraxane on 10/27 (has had two doses) and was on Paclitaxel prior on 10/13 but developed reaction. She presented with increased SOB since 10/29 with elevated CO2 on ABG (normal pH) with associated leukocytosis, tachypnea and tachycardia concerning for infection. Productive cough with clear sputum reported, poor PO intake 2nd to pain, and significant erythema/cellulitis and possible infection to PleurX catheter noted on admission. CTA on admission negative for PE but notes layering RIGHT effusion with new R loculation with increased interstitial marking possible metastatic disease, new SAURAV ground glass infiltrate infectious vs metastatic. Transferred to PCU due to hypotension, now improved. #Malignant pleural effusion - Recurrent in setting of metastatic cancer - Pulmonology consulted -- S/p tPA instilled x 2 for complicated parapneumonic effusion/empyema on 11/01 and 11/02 with significant output - Repeat Chest CT shows near complete resolution of the right pleural effusion/empyema and significant improvement in right lung aeration - Repeat pleural culture pending - Schedule budesonide/formoterol nebs. Duonebs prn. Pulmonary toilet with incentive spirometer, flutter valve #Right-sided chest wall cellulitis - Pleural fluid and wound cultures with Staph aureus. Blood cultures negative > 48 hours - Repeat pleural fluid culture pending - Continue IV Linezolid q12h - Pain control, antiemetics as needed, daily dressing changes #Hypotension - Ongoing hypotension, likely secondary to pain medications. Now improved, remains asymptomatic - POCUS showed dilated but >50% collapsible IVC. LVEF grossly intact - Continue hydrocortisone 50 mg IV q6h per pulm - Echocardiogram with EF 55-60%, no regional wall motion abnormalities, no significant valvular stenosis or regurgitation #COPD with emphysema - Continue duonebs with formoterol/budesonide nebs, supplemental O2 as needed #Diabetes mellitus type 2 sliding scale insulin while inpatient but reduced glargine to 5u given poor intake to prevent hypoglycemia and can adjust as needed PT/OT consulted DVT proph: lovenox SQ Dispo: Anticipate at least 2-3 more days inpatient before discharge. Ongoing management of pleural effusion / PleurX catheter, monitoring cultures. Oncology consulted, will resume outpatient care on discharge. Updated daughter at bedside Started Magic Swizzle for mouth pain Started Trazodone PRN for insomnia Admission and Anticipated Discharge Date Admission Date: October 31, 2024 Supervising Physician Co-Signing Physician Notes chart reviewed, case d/w S Topher GARCÍA. as above Subjective Patient seen and evaluated at bedside with her daughter present. She reports her breathing feels better, though she does have some more right sided chest wall pain than she did yesterday. She states that this is tolerable. She denies any dyspnea. She reports she worked with therapy earlier. She did sleep well last night. She feels more "clearheaded" today. She also notes some mouth pain, we discussed trying Magic Swizzle to alleviate her discomfort, she is agreeable. No additional complaints or concerns at this time. Physical Exam Physical Exam: General: No acute distress, nondiaphoretic, well-developed, well-nourished. Skin: Cellulitis improving with improvement in erythema surrounding PleurX catheter on right lower chest wall. Moderately tender to touch around cellulitis. Cardiac: Regular rate and rhythm without murmurs gallops or rubs. Pulm: Diminished in bases R>L. Otherwise clear to auscultation bilaterally without wheezes, rales or rhonchi. Normal respiratory effort. 97% on 4L. Abdominal: Soft, nondistended, nontender. Bowel sounds present. Neuro: A&O x3. No focal neurological deficits. Results & Data Results & Data Vital Signs (Past 12 Hours) Vital Signs Temp Pulse Pulse Resp BP Pulse Ox O2 Del Method 11/04/24 10:58 97.5 F L 63 25 H 110/72 94 Nasal Cannula 11/04/24 10:46 Nasal Cannula 11/04/24 07:09 97.2 F L 58 L 19 117/72 96 Nasal Cannula 11/04/24 06:56 53 L 17 92 Nasal Cannula 11/04/24 06:12 119/72 11/04/24 03:48 97.7 F 56 L 18 90/66 L 92 Nasal Cannula O2 Flow Rate 11/04/24 10:58 3 11/04/24 10:46 3 11/04/24 07:09 3 11/04/24 06:56 3 11/04/24 06:12 11/04/24 03:48 4 Laboratory Results Reviewed blood cultures Reviewed pleural fluid culture Diagnostic Findings Reviewed repeat chest CT Chest CT 11/04/24 12:55 CT OF THE CHEST WITH IV CONTRAST CLINICAL HISTORY: Follow up empyema. Breast cancer. COMPARISON STUDY: PET/CT September 23, 2024. Chest CT October 31, 2024. Chest radiograph November 03, 2024. TECHNIQUE: Following IV administration of 94 mL of Optiray, helical axial images of the chest were obtained. Sagittal and coronal reconstructions were viewed as well as maximal intensity projections on an independent 3-D workstation. Automated exposure control was utilized for the study. A dose lowering technique was utilized adhering to the principles of ALARA. CT DOSE: 1124.28 mGy.cm FINDINGS: A right pleural catheter is in place. The right pleural effusion on CT of October 31, 2024 has nearly completely resolved. There is trace residual right pleural fluid. Right lung aeration has significantly improved. A few subpleural right upper lobe opacities measure up to 1.4 cm. There is underlying emphysema. There is trace right pleural gas. Linear densities within the right upper and right lower lobes favor atelectasis. There is no left pneumothorax. Mild groundglass opacities within the left lung have slightly improved since CT of October 31, 2024. Sternal metastasis is noted. Soft tissue extension has decreased since PET/CT of September 23, 2024. There is no evidence for progressive metastatic disease within the chest. The heart is mildly enlarged. There is no pericardial effusion. There are no central pulmonary emboli. IMPRESSION: 1. Right pleural catheter in place. Near complete resolution of the right pleural effusion/empyema since prior CT. Trace residual right pleural effusion and trace right pleural gas. 2. Significant improvement in right lung aeration. Scattered subpleural opacities, as described above. These may be atelectatic or infectious. Imaging follow-up to ensure resolution is recommended. 3. Redemonstration of a sternal metastasis. Associated soft tissue extension decreased since PET/CT of September 23, 2024 consistent with a treatment response. ACT 112: Negative or not required by law. Electronically signed by: Troy Medrano M.D. 11/04/2024 2:50 PM PG Care Time/CCT Total # of Minutes Spent Total Time Spent with Patient: Total time spent is greater than 50% in coordination of care (as documented) at patient's floor/unit and/or counseling patient: Coding Level of Care Code 10714 SUB INP/OBS CARE 350MIN Diagnoses Malignant pleural effusion J91.0 Abdominal wall cellulitis L03.311 Acute on chronic respiratory failure with hypercapnia J96.22 Hypotension I95.9 COPD with emphysema J43.9 Type 2 diabetes mellitus without complication, with long-term current use of insulin E11.9; Z79.4 Diabetes mellitus complication status: without complication Diabetes mellitus shelter insulin use: with shelter use (6) Diabetes mellitus, type 2 Diabetes mellitus complication status: without complication 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
[2024-11-04] MEDS ORDERED: traZODone HCL 50 MG TAB PO PRN (15:30)
[2024-11-04] MEDS ORDERED: traZODone HCL 50 MG TAB PO SCH (21:00)
[2024-11-04] MEDS: DOXYCYCLINE HYCLATE 100 MG CAP PO SCH (21:26)
[2024-11-05] MEDS: FIRST - Mouthwash BLM 5 ML UDP PO PRN (08:41)
[2024-11-05 11:12] VITALS: BP 115/74; RESP 20; TEMP 98.1; O2SAT 96
[2024-11-05 13:54] VITALS: PULSE 110
--- NOTE | 2024-11-05 17:05 | Discharge Summary ---
Discharge Summary Date of Service November 05, 2024 Principal Dx & Hospital Course #1 = Principal Diagnosis (1) Malignant pleural effusion: (2) Abdominal wall cellulitis: (3) Acute on chronic respiratory failure with hypercapnia: (4) Hypotension: (5) COPD with emphysema: (6) Diabetes mellitus, type 2: Plan 59 y/o female with metastatic breast cancer with associated malignant right- sided pleural effusion noted on cytology on thoracentesis performed on 08/24/2024. Patient had a second thoracentesis performed followed by Pleurx catheter placement on 09/27/2024. Undergoing tx w/ Dr Alvarez, last seen 10/27 and last Abraxane on 10/27 (has had two doses) and was on Paclitaxel prior on 10/13 but developed reaction. She presented with increased SOB since 10/29 with elevated CO2 on ABG (normal pH) with associated leukocytosis, tachypnea and tachycardia concerning for infection. Productive cough with clear sputum reported, poor PO intake 2nd to pain, and significant erythema/cellulitis and possible infection to PleurX catheter noted on admission. CTA on admission negative for PE but notes layering RIGHT effusion with new R loculation with increased interstitial marking possible metastatic disease, new SAURAV ground glass infiltrate infectious vs metastatic. Transferred to PCU due to hypotension, now normotensive. #Malignant pleural effusion - Recurrent in setting of metastatic cancer - Pulmonology consulted -- S/p tPA instilled x 2 for complicated parapneumonic effusion/empyema on 11/01 and 11/02 with significant output - Repeat Chest CT shows near complete resolution of the right pleural effusi on/empyema and significant improvement in right lung aeration - Repeat pleural culture with pansensitive Staph aureus Discontinued linezolid and started doxycycline 100 mg BID (antibiotic intolerance to penicillins and cephalosporins). Recommend 4 weeks of total treatment (EOT 11/28/24) - Schedule budesonide/formoterol nebs. Duonebs prn. Pulmonary toilet with incentive spirometer, flutter valve - Now on home O2 regimen of 3L, continue - Recommend follow-up with pulmonology outpatient #Right-sided chest wall cellulitis - Pleural fluid and wound cultures with Staph aureus. Blood cultures negative > 48 hours - Resolved with treatment of Linezolid, will continue on Doxycycline as noted above - Pain control, antiemetics as needed, daily dressing changes #Hypotension - Hypotension likely secondary to pain medications. Now improved and normotensive, remains asymptomatic - Received hydrocortisone 50 mg IV q6h, no steroids on discharge per attending - POCUS showed dilated but >50% collapsible IVC. LVEF grossly intact - Echocardiogram with EF 55-60%, no regional wall motion abnormalities, no significant valvular stenosis or regurgitation #COPD with emphysema - Continue duonebs with formoterol/budesonide nebs, supplemental O2 as needed #Diabetes mellitus type 2 sliding scale insulin while inpatient but reduced glargine to 5u given poor intake to prevent hypoglycemia DVT proph: lovenox SQ Dispo: Discharged home with home health services 11/05 Notes For Next Care Provider Recommend follow-up with pulmonology outpatient Resume care with oncology outpatient as scheduled Recommend PCP follow-up in 1-2 weeks Medication Changes From Visit Doxycycline 100 mg twice daily through 11/28/2024 for total of 4 weeks of antibiotic therapy Admission HPI Per Admitting Provider Aretha Ceja is a 59yo female who presents to the ER with worsening CP/SOB since Friday with increased work of breathing as well as some hematuria. PMHx significant for stage IV metastatic breast ca to lung/bone/abdomen and diagnosis since thoracentesis in August for effusion which was determined to be malignant and cytology positive for breast ca and PleurX placed 09/27 and follows with [facility] pulmonology Dr Munroe. Just at pulm office 10/05. On Symbicort daily with albuterol as needed. Follows w/ Kim for metastatic breast ca, last seen 10/27 and at that time having upper abdominal pain/epigastric pain, nausea and prescribed metoclopramide which was reported effective. Undergoing treatment with Abraxane, started 10/19/24 due to reaction to Paclitaxel on 10/13. She notes draining this M/W/F, about 400-600cc and some discomfort around R chest wall/axilla. Patient eval in A10, in room. Last chemo treatment on Friday this past week and has received 2 treatments of the Abraxane. No fever/chills. +sputum white in color. Reports poor PO intake due to shortness of breath and abdominal discomfort. Evaluation of PleurX site/abdomen revealed significant surrounding cellulitis, significant tenderness to even grazing the surface. Not able to get morphine but tolerates dilaudid but reports need zofran with it and will order. No baseline O2 prior but has been using this past week and needed all day yesterday. No CPAP/BiPAP use but discussed hyperventilation from pain from site/cellulitis and will order BiPAP for now and monitor with improvement in intake. Has some b/l LE pitting edema. R leg prior more swollen than the left but about the same at present. CTA negative for PE but notes loculated effusion and concerns for pneumonia and discussed consultation Some hematuria, new. hgb stable. ER Course: CXR w/ worsening RIGHT pleural effusion and R basilar airspace consolidation. ABG w/ normal pH but ELEVATED CO2 to 52. Vitals w/ stable BP but tachycardia and tachypnea w/ HR 120s, RR 40. Requiring 4L NC to maintain SpO2 92% EKG w/ sinus tachycardia, pulmonary disease pattern and RVH. No significant change compared to July 2024. Pulmonology and hematology consults placed and messages to both specialists on admission for her admission status and concerns for possible MIST II protocol/possible infected PleurX site w/ surrounding cellulitis. Code status DNR discussed. Discharge Exam General: No acute distress, nondiaphoretic, well-developed, well-nourished. Skin: Right-sided chest wall cellulitis now resolved. ~2cm abrasion under left breast. No erythema or tenderness on palpation. Cardiac: Regular rate and rhythm without murmurs gallops or rubs. Pulm: Diminished in bases R>L. Otherwise clear to auscultation bilaterally without wheezes, rales or rhonchi. Normal respiratory effort. 96% on 3L. Abdominal: Soft, nondistended, nontender. Bowel sounds present. Neuro: A&O x3. No focal neurological deficits. Discharge Plan Discharge Items Patient Disposition: Home - Home Health Services Reason For Visit: PNA, LOCULATED EFFUSION, CELLULITIS, RESP FAILURE Discharge Diagnosis: Chest wall cellulitis Pleural effusion Hypotension Activity: Per Instructions section Non-emergency contact: Primary Care Provider and Police Lieutenant Call non-emergency contact if: you have any medication questions and your symptoms worsen Follow-up/Referrals: Yash Baxter III, CRNP [Primary Care Provider] - 11/09/24 9:20 am (Hospital follow up on November 09 at 9:20 am.) Rodney Molina MD [Physician] - 11/08/24 1:00 pm (Hospital follow up on November 08 at 1 pm.) Diet: Carb Consistent or DM2 Addtl Attending Provider Instructions: Aretha, You were admitted to the hospital due to worsening shortness of breath and an infection near your Pleurx catheter. CT scan of your chest on admission showed right-sided pleural effusion. You were seen by the pulmonology team who instilled tPA twice with significant output from your Pleurx catheter. Repeat CT scan showed near complete resolution of your right sided pleural effusion and significant improvement in right lung aeration. You are now back on your home regimen of supplemental O2. The infection near your Pleurx catheter was determined to be cellulitis (infection of the skin/soft tissue). You were treated with IV antibiotics for this, and will continue taking oral antibiotics at home to complete your course. Your blood pressure was low earlier during this hospitalization, likely due to your infection and from the pain medications you are receiving. You received IV fluids and IV steroids with improvement in your blood pressure. Your blood pressure is now normal and requires no additional steroids on discharge. You have been set up with [facility] home health PT/OT on discharge. Upon discharge from the hospital: * Take doxycycline (oral antibiotic) twice daily through 11/28/2024. This will complete a 4-week total treatment course. This antibiotic was selected due to your antibiotic allergies. This prescription has been sent to your [facility] pharmacy on [facility]. * Follow-up in the pulmonary clinic in the next 7-10 days. * Continue to drain her Pleurx catheter as directed by the pulmonary team. * Continue to wear your supplemental oxygen. * Follow-up with oncology as scheduled outpatient. * Follow-up with your PCP in 1-2 weeks. Please return to the hospital if you experience any of the following: Difficulty breathing, worsening shortness of breath, chest pain, passing out, confusion, or any other symptoms concerning for you. It was a pleasure taking care of you while you were in the hospital! Pending Studies at Discharge: No Stand-Alone Forms: My [facility] [employer] Controls, Smoking Cessation Medications and DC Order Prescriptions: New doxycycline hyclate 100 mg Capsule 100 mg PO BID Qty: 46 0RF Continued cholecalciferol (vitamin D3) 1,250 mcg (50,000 unit) capsule 50,000 unit PO WEEKLY Qty: 12 1RF levothyroxine 125 mcg tablet 125 mcg PO .COMPLEX Qty: 220 1RF Rx Instructions: TAKES 125 MCG FRIDAY THROUGH FRIDAY, THE 250 MCG ON SUNDAYS. bupropion HCl [Wellbutrin SR] 150 mg tablet sustained-release 12 hr 150 mg PO BID Qty: 180 1RF ipratropium-albuterol 0.5 mg-3 mg(2.5 mg base)/3 mL solution for nebulization 3 ml INHALATION Q4H PRN (Reason: Shortness Of Breath Or Wheezing) Qty: 90 0RF furosemide 20 mg tablet 20 mg PO QAM Qty: 90 3RF losartan 100 mg tablet 100 mg PO QAM Qty: 90 3RF atorvastatin 20 mg tablet 20 mg PO QAM Qty: 90 3RF topiramate 100 mg tablet 100 mg PO BID Qty: 180 3RF metoprolol tartrate 50 mg tablet 50 mg PO BID Qty: 180 3RF spironolactone 25 mg tablet 25 mg PO HS Qty: 90 3RF rizatriptan [Maxalt-SMELLER] 10 mg tablet,disintegrating See Rx Instructions PO .COMPLEX Qty: 12 1RF Rx Instructions: take 1 tab at onset of headache; if no relief may repeat 1 tab after at least 2 hrs; max = 3 tabs/24 hr PO insulin glargine [Lantus Solostar U-100 Insulin] 100 unit/mL (3 mL) insulin pen 10 unit subcut QPM Qty: 15 2RF Rx Instructions: IF BSG IN AM IS >140, ADD 2 UNITS TO DOSE. budesonide-formoterol 160-4.5 mcg/actuation HFA aerosol inhaler 2 puff INHALATION BID PRN (Reason: Shortness Of Breath Or Wheezing) Qty: 10.2 3RF hydrocodone-acetaminophen 5-325 mg tablet See Rx Instructions PO .COMPLEX PRN (Reason: pain) Qty: 30 0RF Rx Instructions: 1-2 tabs PO Q4-6 HRS PRN; No more than 8 tablets daily. Ozempic 0.25 mg or 0.5 mg (2 mg/3 mL) pen injector 1 mg subcut Q7D Qty: 3 3RF albuterol sulfate 90 mcg/actuation HFA aerosol inhaler 1 - 2 puff inhalation .Q4-6HRS PRN (Reason: Shortness Of Breath Or Wheezing) nitroglycerin [Nitrostat] 0.4 mg Tablet, Sublingual 0.4 mg Sublingual DIRECTED PRN (Reason: Chest Pain) Rx Instructions: PLACE ONE TABLET UNDER THE TONGUE EVERY 5 MINUTES FOR UP TO 3 DOSES OVER 15 MINUTES IF NEEDED FOR CHEST PAIN dextromethorphan-guaifenesin [Robitussin Cough-Chest Doc DM] 5-100 mg/5 mL Liquid 10 ml PO Q6 PRN (Reason: cough) Qty: 200 1RF prochlorperazine maleate 10 mg tablet 10 mg PO Q6H PRN (Reason: Nausea) ondansetron 8 mg tablet,disintegrating 8 mg PO DAILY PRN (Reason: Nausea) metoclopramide HCl 10 mg tablet 10 mg PO Q6H Discharge Orders: Discharge Order (Routine); Ordered 11/05/24 Ordered By: Nina Obando Admission Data Admit Date/Time: 10/31/24 17:34 Attending Provider: George Arceo Admit Provider: Arnaldo Bland Primary Care Provider: Yash Baxter III Other Providers: Allison Alvarez; Arnaldo Bland; Pasquale Raymond; Sheldon Girard; [facility] Other Interventions: Discharge Summary Assessment (RN) Last Done: 11/05/24 13:53 Hospital Stay Data Consultations 10/31/24 16:23 ED Decision to Admit Stat 10/31/24 16:49 Consult Pulmonology Routine 10/31/24 17:12 Consult Hematology Routine Diagnostic Imagining Performed 10/31/24 13:52 CT abd pelvis wo con Stat CT head/brain wo con Stat 10/31/24 13:53 CT angio chest PE protocol Stat 11/01/24 US venous doppler LE RT Urgent 11/01/24 11:08 sono, invasive monitoring [US point of care ultrasound] Urgent 11/04/24 12:55 CT chest diagnostic w con Routine Pending Results Patient Have Any Pending Studies at Discharge: No Discharge Instructions Given to Patient (Per Discharging Provider) Aretha, You were admitted to the hospital due to worsening shortness of breath and an infection near your Pleurx catheter. CT scan of your chest on admission showed right-sided pleural effusion. You were seen by the pulmonology team who instil led tPA twice with significant output from your Pleurx catheter. Repeat CT scan showed near complete resolution of your right sided pleural effusion and significant improvement in right lung aeration. You are now back on your home regimen of supplemental O2. The infection near your Pleurx catheter was determined to be cellulitis (infection of the skin/soft tissue). You were treated with IV antibiotics for this, and will continue taking oral antibiotics at home to complete your course. Your blood pressure was low earlier during this hospitalization, likely due to your infection and from the pain medications you are receiving. You received IV fluids and IV steroids with improvement in your blood pressure. Your blood pressure is now normal and requires no additional steroids on discharge. You have been set up with [facility] home health PT/OT on discharge. Upon discharge from the hospital: * Take doxycycline (oral antibiotic) twice daily through 11/28/2024. This will complete a 4-week total treatment course. This antibiotic was selected due to your antibiotic allergies. This prescription has been sent to your [facility] pharmacy on [address]. * Follow-up in the pulmonary clinic in the next 7-10 days. * Continue to drain her Pleurx catheter as directed by the pulmonary team. * Continue to wear your supplemental oxygen. * Follow-up with oncology as scheduled outpatient. * Follow-up with your PCP in 1-2 weeks. Please return to the hospital if you experience any of the following: Difficulty breathing, worsening shortness of breath, chest pain, passing out, confusion, or any other symptoms concerning for you. It was a pleasure taking care of you while you were in the hospital! Supervising Physician Co-Signing Physician Notes I personally examined the patient and verified all broussard points of history and exam, discussed case, and agree with decision making with Ana GREGORY feeling better would like to go home. marine consultant input appreciated vitals noted nad heent nc at mmm breathing unlabored no accessory muscles good effort skin no rashes no pallor or icterus malignant effusion, cellulitis - safe/stable for home. outpt f/u. otherwise as above Total Time Total Time Spent Total Time Spent (In Minutes): Greater than 30 minutes spent completing this discharge process including direct patient care, medication reconciliation, documentation, review of labs and images, and coordination of care. Coding Level of Care Code 53894 INP/OBS DISCH >30 MIN Diagnoses Malignant pleural effusion J91.0 Abdominal wall cellulitis L03.311 Acute on chronic respiratory failure with hypercapnia J96.22 Hypotension I95.9 COPD with emphysema J43.9 Type 2 diabetes mellitus without complication, with long-term current use of insulin E11.9; Z79.4 Diabetes mellitus complication status: without complication Diabetes mellitus bed bug exterminator insulin use: with bed bug exterminator use
[2024-11-07] MEDS ORDERED: LEVOTHYROXINE SODIUM 125 MCG TABLET PO SCH (06:30)
== END 2024-11-05 14:38 | disposition home health service (06) | DRG 180 ==
LOC: SUATTDRO → ED 13:23 → EDINP 17:34 → SUATTDRO 17:34 → 2W 19:37 → 2E 11-01 23:05
DX: C78.2 Secondary malignant neoplasm of pleura; C77.1 Secondary and unspecified malignant neoplasm of intrathoracic lymph nodes; K21.9 Gastro-esophageal reflux disease without esophagitis; Z88.8 Allergy status to other drugs, medicaments and biological substances; Z90.13 Acquired absence of bilateral breasts and nipples; C78.00 Secondary malignant neoplasm of unspecified lung; J45.909 Unspecified asthma, uncomplicated; Z79.890 Hormone replacement therapy; J91.0 Malignant pleural effusion; J43.9 Emphysema, unspecified; L03.313 Cellulitis of chest wall; Z88.5 Allergy status to narcotic agent; Z79.899 Other long term (current) drug therapy; L03.311 Cellulitis of abdominal wall; F17.210 Nicotine dependence, cigarettes, uncomplicated; I10 Essential (primary) hypertension; I95.9 Hypotension, unspecified; B95.61 Methicillin susceptible Staphylococcus aureus infection as the cause of diseases classified elsewhere; Z88.1 Allergy status to other antibiotic agents; E11.9 Type 2 diabetes mellitus without complications; C79.51 Secondary malignant neoplasm of bone; E03.9 Hypothyroidism, unspecified; J96.22 Acute and chronic respiratory failure with hypercapnia; J44.9 Chronic obstructive pulmonary disease, unspecified; E78.5 Hyperlipidemia, unspecified; Z79.85 Long-term (current) use of injectable non-insulin antidiabetic drugs; Z88.2 Allergy status to sulfonamides